=== PATIENT | female | born 1935 | race Caucasian/White ===

== ENCOUNTER → 2016-10-15 | Day surgery (SDC) | payer OTHER, MEDICARE ==
[2016-10-07 10:43] VITALS: Ht 169.5 cm; Wt 75.0 kg
[~2016-10-15] VITALS: Ht 169.5 cm; Wt 75.0 kg
[~2016-10-15] MED LIST: ACET1TAB84 PO; ASPEC81 PO; ASPI81TA28 PO; CALC1TAB9 PO; CETI10TA84 PO; CHOL1000 PO; CHOL1TAB42 PO; CHOL500021 PO; CHOLCAP10 PO; COEN150C PO; COEN1CAP17 PO; FOSAMAX IV; IPRA1AER2 INH; LIDOCAINE HCL 2% 2 ML VIAL (20MG/ML) ONE; LOSA1TAB38 PO; MECL1TAB42 PO; METO25TA3 PO; METO50TA7 PO; MULT-307 PO; MULTCHW; MULTCHW PO; NTRGSL/4 UT; OXGN; PANT40TA PO; PROPOFOL IV EMULSION 10 MG/ML 20 ML VIAL IV ONE; ROSU5TAB PO; SODIUM CHLORIDE 0.9% 500ML 500 ML IV ONE; TPRSR50 PO; WARF2.5T8 PO; ZOLE5INJ IV
--- NOTE | 2016-10-15 09:13 | Endo History and Physical ---
History & Physical Date of Service: Oct 15, 2016. Chief Complaint: History of colon polyps Referring Physician: Dr. Gonzalez History of Present Illness 81 yo CF who presents for colonoscopy secondary to history of colon polyps. Past Medical History Angioplasty/Stent, Reflux, Cancer, CHF, Hypertension, Kidney Disease Past Surgical History Hx Cardiac Surgery: Yes (HEART CATH AND STENT X3, AORTIC STENTS X2) Hx Internal Defibrillator: No Hx Pacemaker: No Hx Abdominal Surgery: No Hx of Implantable Prosthesis: No Hx Post-Op Nausea and Vomiting: No Hx Cancer Surgery: Yes (RYAN BSO) Hx Thoracic Surgery: No Hx Orthopedic: Yes (LT HIP SURGERY WITH PLATES AND SCREWS) Hx Urinary Tract Surgery: Yes (KIDNEY STENT X1) Family History None Social History Smoking Status: Former Smoker Hx Substance Use: No Hx Alcohol Use: No Allergies Coded Allergies: Atorvastatin (Verified Allergy, Severe, LEG CRAMPS, 10/07/16) Lidocaine (Verified Allergy, Mild, PASSES OUT, 10/07/16) Current Medications Reported Home Medications Medications Dose Route/Sig Max Daily Dose Days Date Category [Fosamax] 1 Dose IV YEARLY 10/07/16 Reported Zyrtec (Cetirizine HCl) 10 Mg Tab 10 Mg PO DAILY PRN 10/07/16 Reported Meclizine Hcl 25 Mg Tab 1 Tab PO TID PRN 10/07/16 Reported Tylenol Arthritis Ext Rel (Acetaminophen) 650 Mg Cplt 650 Mg PO Q8H PRN 10/07/16 Reported Co Q-10 (Coenzyme Q10 (Ubidecarenone)) 150 Mg Cap 200 Mg PO QAM 10/07/16 Reported Citracal + D3 Maximum (Calcium Citrate-Vitamin D) 1 Tab Tab 1 Tab PO BID 10/07/16 Reported Vitamin D (Cholecalciferol) 5,000 Unit Tab 1 Tab PO MWF 10/07/16 Reported Crestor (Rosuvastatin Calcium) 5 Mg Tab 0.5 Tab PO HS 10/07/16 Reported One Daily Complete (Multiple Vitamins W/ Minerals) 1 Tab Tab 1 Tab PO QAM 11/24/15 Reported Combivent Respimat (Ipratropium-Albuterol) 1 Aer Aer 1 Puffs INH QID PRN 11/24/15 Reported Toprol-Xl (Metoprolol Succinate) 25 Mg Tabcr 12.5 Mg PO QAM 08/01/15 Reported Jantoven (Warfarin Sodium) 2.5 Mg Tab 2.5 Mg PO QPM 03/11/15 Reported Cozaar (Losartan Potassium) 100 Mg Tab 100 Mg PO QAM 08/08/14 Reported Oxygen Gas 3 Liters NA HS 03/09/14 Reported Nitrostat (Nitroglycerin) 0.4 Mg Tab 0.4 Mg UT PRN 06/17/13 Reported Protonix (Pantoprazole Sodium) 40 Mg Tab 40 Mg PO HS 06/28/11 Reported Ecotrin Or Generic * (Aspirin) 81 Mg Ectab 81 Mg PO QAM 07/10/10 Reported Vital Signs Weight (Kilograms): 75 Height (Feet): 5 Height (Inches): 6.75 Physical Exam General Appearance: WD/WN, no apparent distress Respiratory/Chest: Auscultation: breath sounds normal Cardiovascular: Heart Auscultation: RRR Abdomen: Bowel Sounds: normal Inspection & Palpation: soft, non-distended, no tenderness, guarding & rebound Assessment and Plan Assessment: 81 yo CF who presents for colonoscopy secondary to history of colon polyps. Plan: Proceed with colonoscopy.
[2016-10-15 09:29] VITALS: TEMP 36.5
--- NOTE | 2016-10-15 10:23 | Discharge Instructions ---
Endoscopy Patient Instructions Date / Procedure(s) Performed Oct 15, 2016. Colonoscopy Allergy Information Coded Allergies: Atorvastatin (Verified Allergy, Severe, LEG CRAMPS, 10/15/16) Lidocaine (Verified Allergy, Mild, PASSES OUT, 10/15/16) Discharge Date / Findings Oct 15, 2016. Colon polyps Diverticulosis Internal hemorrhoids Medication Instructions Stopped Medication(s): Coumadin and ASA OK to resume all medications today as prescribed Reported Home Medications Medications Dose Route/Sig Max Daily Dose Days Date Category [Fosamax] 1 Dose IV YEARLY 10/07/16 Reported Zyrtec (Cetirizine HCl) 10 Mg Tab 10 Mg PO DAILY PRN 10/07/16 Reported Meclizine Hcl 25 Mg Tab 1 Tab PO TID PRN 10/07/16 Reported Tylenol Arthritis Ext Rel (Acetaminophen) 650 Mg Cplt 650 Mg PO Q8H PRN 10/07/16 Reported Co Q-10 (Coenzyme Q10 (Ubidecarenone)) 150 Mg Cap 200 Mg PO QAM 10/07/16 Reported Citracal + D3 Maximum (Calcium Citrate-Vitamin D) 1 Tab Tab 1 Tab PO BID 10/07/16 Reported Vitamin D (Cholecalciferol) 5,000 Unit Tab 1 Tab PO MWF 10/07/16 Reported Crestor (Rosuvastatin Calcium) 5 Mg Tab 0.5 Tab PO HS 10/07/16 Reported One Daily Complete (Multiple Vitamins W/ Minerals) 1 Tab Tab 1 Tab PO QAM 11/24/15 Reported Combivent Respimat (Ipratropium-Albuterol) 1 Aer Aer 1 Puffs INH QID PRN 11/24/15 Reported Toprol-Xl (Metoprolol Succinate) 25 Mg Tabcr 12.5 Mg PO QAM 08/01/15 Reported Jantoven (Warfarin Sodium) 2.5 Mg Tab 2.5 Mg PO QPM 03/11/15 Reported Cozaar (Losartan Potassium) 100 Mg Tab 100 Mg PO QAM 08/08/14 Reported Oxygen Gas 3 Liters NA HS 03/09/14 Reported Nitrostat (Nitroglycerin) 0.4 Mg Tab 0.4 Mg UT PRN 06/17/13 Reported Protonix (Pantoprazole Sodium) 40 Mg Tab 40 Mg PO HS 06/28/11 Reported Ecotrin Or Generic * (Aspirin) 81 Mg Ectab 81 Mg PO QAM 07/10/10 Reported Provider Instructions Activity Restrictions - No exercising or heavy lifting for 24 hours. - Do not drink alcohol the day of the procedure. - Do not drive a car or operate machinery until the day after the procedure. - Do not make any important decisions or sign important papers in 24 hours after the procedure. Following Day: - Return to full activity which may include returning to work/school. Diet Start your diet with liquids and light foods (jello, soup, juice, toast). Then eat your usual diet if not nauseated. Treatment For Common After Affects For mild abdominal pain, bloating, or excessive gas: - Rest - Eat lightly - Lie on right side Follow-Up Information Follow-up with Dr Gonzalez as scheduled Anesthesia Information What You Should Know You have had a procedure that required some medicine to reduce anxiety and discomfort. This treatment is called moderate sedation. After receiving the treatment, you may be sleepy, but you will be able to breathe on your own. The effects of the treatment may last for several hours. Follow these instructions along with Activity/Diet recommendations noted above: * Do NOT do anything where dizziness or clumsiness would be dangerous. * Rest quietly at home today, then you can be up and about tomorrow. * Have a responsible person stay with you the rest of today. * You may have had an I.V. today. If so, you may take the dressing off later today. Recommendations Call your doctor if: * Trouble breathing * Continuous vomiting for more than 24 hours * Temperature above 101 degrees * Severe abdominal pain or bloating * Pain not relieved by pain medicine ordered * There is increased drainage or redness from any incision * A large amount of rectal bleeding greater than 2-3 tablespoons. (If you had a polyp/s removed or have hemorrhoids, a small amount of blood - from the rectum is to be expected.) * You have any unanswered questions or concerns. IN THE EVENT OF A SERIOUS EMERGENCY, GO TO THE NEAREST EMERGENCY ROOM Your discharge instructions were prepared by provider Hamilton Grover. Patient Instructions Signature Page Marce Carlton Patient (or Guardian) Signature/Date: I have read and understand the instructions given to me by my caregivers. Caregiver/RN/Doctor Signature/Date: The above-named patient and/or guardian has received patient instructions on this date. + Original Patient Signature Page (only) stays with chart. Please make copy for patient.
[2016-10-15 10:47] VITALS: BP 160/69; PULSE 56; O2SAT 94
--- NOTE | 2016-10-15 10:53 | GI REPORT ---
Procedure Date: 10/15/2016 9:48 AM Procedure: Colonoscopy Indications: High risk colon cancer surveillance: Personal history of colonic polyps Medicines: Monitored Anesthesia Care Complications: No immediate complications. Estimated Blood Loss: Estimated blood loss: none. Procedure: Pre-Anesthesia Assessment: - Prior to the procedure, a History and Physical was performed, and patient medications and allergies were reviewed. The patient's tolerance of previous anesthesia was also reviewed. The risks and benefits of the procedure and the sedation options and risks were discussed with the patient. All questions were answered, and informed consent was obtained. Prior Anticoagulants: The patient last took aspirin 8 days and Coumadin (warfarin) 7 days prior to the procedure. ASA Grade Assessment: IV - A patient with severe systemic disease that is a constant threat to life. After reviewing the risks and benefits, the patient was deemed in satisfactory condition to undergo the procedure. After I obtained informed consent, the scope was passed under direct vision. Throughout the procedure, the patient's blood pressure, pulse, and oxygen saturations were monitored continuously. The scope was introduced through the anus and advanced to the terminal ileum. The colonoscopy was performed without difficulty. The patient tolerated the procedure well. The quality of the bowel preparation was good. The terminal ileum, ileocecal valve, appendiceal orifice, and rectum were photographed. Findings: Five sessile polyps were found in the transverse colon and in the ascending colon. The polyps were 5 to 8 mm in size. These polyps were removed with a hot snare. Resection and retrieval were complete. To prevent bleeding after the polypectomy, three hemostatic clips were successfully placed (MR conditional). There was no bleeding at the end of the procedure. Multiple small-mouthed diverticula were found in the sigmoid colon. Non-bleeding internal hemorrhoids were found during retroflexion. The hemorrhoids were small. Impression: - Five 5 to 8 mm polyps in the transverse colon and in the ascending colon, removed with a hot snare. Resected and retrieved. Clips (MR conditional) were placed. - Diverticulosis in the sigmoid colon. - Non-bleeding internal hemorrhoids. Recommendation: - Resume previous diet. - Continue present medications. - Repeat colonoscopy for surveillance based on pathology results. - Return to primary care physician as previously scheduled. Hamilton Grover DO 10/15/2016 10:21:01 AM This report has been signed electronically. Note Initiated On: 10/15/2016 9:48 AM I attest to the content of the Intraoperative Record and orders documented therein, exceptions below
--- NOTE | 2016-10-15 11:14 | Anesthesiology Progress Note ---
Anesthesia Post Op Note Date & Time Oct 15, 2016 at 11:14 Vital Signs Pain Intensity: 0 Vital Signs Past 12 Hours Date Time Temp Pulse Resp B/P Pulse Ox O2 Delivery O2 Flow Rate FiO2 10/15/16 10:47 56 20 160/69 94 Room Air 10/15/16 10:32 54 20 118/60 93 Room Air 10/15/16 10:17 58 20 98/46 95 Room Air 10/15/16 09:29 36.5 57 20 156/67 95 Room Air Notes Mental Status: alert / awake / arousable, participated in evaluation Pt Amnestic to Procedure: Yes Nausea / Vomiting: adequately controlled Pain: adequately controlled Airway Patency, RR, SpO2: stable & adequate BP & HR: stable & adequate Hydration State: stable & adequate Anesthetic Complications: no major complications apparent
== END | disposition home or self-care (01) ==
LOC: C.GI 08:47
PROVIDERS: ATTEND Internal Medicine
DX: Z12.11 Encounter for screening for malignant neoplasm of colon (principal); Z86.010 Personal history of colon polyps; D12.2 Benign neoplasm of ascending colon; D12.3 Benign neoplasm of transverse colon; K57.30 Diverticulosis of large intestine without perforation or abscess without bleeding; K64.8 Other hemorrhoids; K21.9 Gastro-esophageal reflux disease without esophagitis; Z79.82 Long term (current) use of aspirin; I51.9 Heart disease, unspecified; I10 Essential (primary) hypertension; Z95.5 Presence of coronary angioplasty implant and graft; Z98.890 Other specified postprocedural states; Z87.891 Personal history of nicotine dependence; Z88.8 Allergy status to other drugs, medicaments and biological substances

== ENCOUNTER 2017-01-11 09:51 | Inpatient (IN) | payer OTHER, MEDICARE ==
[~2017-01-11] VITALS: Ht 170.2 cm; Wt 73.0 kg
[~2017-01-11 09:51] MED LIST changes: -ASPI81TA28 PO; -CHOL1000 PO; -CHOL500021 PO; -CHOLCAP10 PO; -COEN1CAP17 PO; -LIDOCAINE HCL 2% 2 ML VIAL (20MG/ML) ONE; -METO50TA7 PO; -MULTCHW; -MULTCHW PO; -PROPOFOL IV EMULSION 10 MG/ML 20 ML VIAL IV ONE; -SODIUM CHLORIDE 0.9% 500ML 500 ML IV ONE; -TPRSR50 PO; -ZOLE5INJ IV
[2017-01-11] MEDS ORDERED: ONDANSETRON INJ 2 MG/ML 2 ML VIAL IV STA (10:07)
[2017-01-11] MEDS ORDERED: SODIUM CHLORIDE 0.9% 500ML 500 ML IV STA (10:07)
--- NOTE | 2017-01-11 10:13 | EMERGENCY ROOM VISIT NOTE ---
History Report prepared by Jaime: Rell Stone Under the Supervision of: Dr. Alexandro Gonzales M.D. First contact with patient: 09:56 Chief Complaint: DIZZY Stated Complaint: DIZZINESS/NAUSEA History of Present Illness The patient is a 81 year old female who presents to the Emergency Room via EMS with complaints of nausea that began last night. At this time, the patient was in her bathroom with nausea and episodes of vomiting. She got increasingly weak at this time and could not get up off of the bathroom floor. She did not fall down. She pressed her life alert necklace to alert the EMS. She is currently feeling dizzy as well. Source of History: patient Onset: last night Position: other (GI) Symptom Intensity: moderate Quality: other (Nausea) Timing: constant Associated Symptoms: + vomiting, + weakness Note: She denies any falls or trauma. She is experiencing dizziness. Review of Systems See HPI for pertinent positives & negatives. A total of 10 systems reviewed and were otherwise negative. Past Medical & Surgical Medical Problems: (1) chest pain hx of CAD stent (2) Dizziness (3) Pulmonary emphysema Family History Omitted secondary to age. Social History Smoking Status: Former Smoker Alcohol Use: none Drug Use: none Marital Status: Housing Status: lives alone Occupation Status: retired Current/Historical Medications Scheduled Aspirin (Aspirin Ec), 81 MG PO DAILY Calcium Citrate-Vitamin D (Citracal + D3 Maximum), 1 TAB PO BID Cholecalciferol (Vitamin D3), 2 TAB PO DAILY Coenzyme Q10 (Ubidecarenone) (Co Q 10), 200 MG PO DAILY Losartan Potassium (Cozaar), 100 MG PO QAM Metoprolol Succ (Toprol Xl) (Toprol-Xl), 12.5 MG PO QAM Multiple Vitamins W/ Minerals (One Daily Complete), 1 TAB PO QAM Nitroglycerin (Nitrostat), 0.4 MG UT PRN Oxygen (Oxygen), 3 LITERS NA HS Pantoprazole (Protonix), 40 MG PO HS Rosuvastatin Calcium (Crestor), 0.5 TAB PO HS Warfarin Sod (Jantoven), 2.5 MG PO HS Zoledronic Acid (Reclast), 5 MG IV YEARLY Scheduled PRN Acetaminophen (Tylenol Arthritis Ext Rel), 650 MG PO Q8H PRN for Pain Cetirizine (Zyrtec), 10 MG PO DAILY PRN for ALLERGIES Ipratropium-Albuterol (Combivent Respimat), 1 PUFFS INH QID PRN for Shortness of Breath Meclizine Hcl (Meclizine Hcl), 12.5-25 MG PO TID PRN for VERTIGO Allergies Coded Allergies: Atorvastatin (Verified Allergy, Severe, LEG CRAMPS, 01/11/17) Lidocaine (Verified Allergy, Mild, PASSES OUT, 01/11/17) Physical Exam Vital Signs Date Time Temp Pulse Resp B/P Pulse Ox O2 Delivery O2 Flow Rate FiO2 01/11/17 12:10 52 10 167/54 97 Nasal Cannula 3.0 01/11/17 11:03 47 12 154/68 96 Nasal Cannula 3.0 01/11/17 10:55 52 20 145/66 83 Room Air 01/11/17 10:08 44 172/68 53 162/68 01/11/17 10:01 45 01/11/17 09:51 93 Room Air 01/11/17 09:51 36.5 46 18 185/67 94 Room Air 01/11/17 09:51 46 Physical Exam GENERAL: Patient is a healthy-appearing well-nourished HEAD: Normocephalic atraumatic EYES: Ocular movements intact pupils equal and react to light OROPHARYNX mucous membranes are moist no exudates present no erythema or edema present NECK: Supple no nuchal rigidity CHEST: Good equal expansion LUNGS: Clear and equal to auscultation CARDIAC: Normal S1 and S2 ABDOMEN: Soft nontender no guarding BACK: No CVA tenderness EXTREMITIES: No pain upon palpation normal muscle strength in all groups no clubbing cyanosis or edema NEURO: Patient is following commands is answering questions appropriately. Alert and oriented x3 Cranial Nerves 2-12 grossly intact Medical Decision & Procedures ER Provider Diagnostic Interpretation: Radiology results as stated below per my review and radiologist interpretation: CHEST ONE VIEW PORTABLE CLINICAL HISTORY: Abdominal pain, dizziness, nausea. COMPARISON STUDY: 11/24/2015 FINDINGS: The heart is mildly enlarged. There is pulmonary emphysema. There is no focal pulmonary consolidation. There is no failure. There are no pleural effusions.[ IMPRESSION: Cardiomegaly. Emphysema. No acute findings. Electronically signed by: Rafael Moon M.D. 01/11/2017 10:22 AM Dictated Date/Time: 01/11/2017 10:[address] ABD/PELVIS IV CONTRAST ONLY CLINICAL HISTORY: Pt c/o diffuse abd pain COMPARISON STUDY: 03/26/2015 TECHNIQUE: Following the IV administration of 92 mL of Optiray-320, CT scan of the abdomen and pelvis was performed from the lung bases to the proximal femurs. Images are reviewed in the axial, sagittal, and coronal planes. IV contrast was administered without complication. CT DOSE: 318.30 mGy.cm FINDINGS: Lower chest: There are dependent atelectatic changes present. There is mild subpleural interstitial thickening. There is a small left lower lobe lung cyst. Liver: The contrast-enhanced liver is normal in size, contour, and attenuation. There is no intrahepatic biliary ductal dilatation. The hepatic veins and portal veins are patent. Gallbladder: Cholelithiasis versus minimal wall calcification. Spleen: Normal in size and attenuation. Pancreas: Unremarkable. Adrenal glands: Unremarkable. Kidneys: There is a 1 cm left renal cyst. No solid renal masses are visualized Bowel: There are no transition zones indicate bowel obstruction. There is colonic diverticulosis. No acute peridiverticular inflammatory changes are visualized. There are no findings to indicate acute appendicitis. There is a large amount stool present within the rectal vault which measures 8 cm in diameter. Peritoneum: There is no intraperitoneal free air or abdominal ascites. Vasculature: There are extensive atheromatous changes present within the aorta. There is a left renal artery stent. There is dense calcific plaque at the right renal artery origin. There is plaque at the celiac and superior mesenteric artery origins. There is aortic stent grafts present. Adenopathy: None. Pelvic viscera: The uterus appears surgically absent. Skeletal structures: No destructive osseous lesions are seen. IMPRESSION: 1. No evidence of bowel obstruction. No evidence of free air 2. Diverticulosis. No evidence of acute diverticulitis 3. No evidence of acute appendicitis 4. Large amount stool within the rectal vault Electronically signed by: Rafael Moon M.D. 01/11/2017 10:53 AM Dictated Date/Time: 01/11/2017 10:46 AM Laboratory Results 01/11/17 09:56 Red Blood Count 4.49, Mean Corpuscular Volume 91.8, Mean Corpuscular Hemoglobin 30.1, Mean Corpuscular Hemoglobin Concent 32.8, Mean Platelet Volume 9.3, Neutrophils (%) (Auto) 63.2, Lymphocytes (%) (Auto) 25.3, Monocytes (%) (Auto) 8.2, Eosinophils (%) (Auto) 2.4, Basophils (%) (Auto) 0.6, Neutrophils # (Auto) 4.25, Lymphocytes # (Auto) 1.70, Monocytes # (Auto) 0.55, Eosinophils # (Auto) 0.16, Basophils # (Auto) 0.04 01/11/17 09:56 Test 01/11/17 09:56 01/11/17 10:08 01/11/17 10:17 White Blood Count 6.72 K/uL (4.8-10.8) Red Blood Count 4.49 M/uL (4.2-5.4) Hemoglobin 13.5 g/dL (12.0-16.0) Hematocrit 41.2 % (37-47) Mean Corpuscular Volume 91.8 fL (80-100) Mean Corpuscular Hemoglobin 30.1 pg (25-34) Mean Corpuscular Hemoglobin Concent 32.8 g/dl (32-36) Platelet Count 301 K/uL (130-400) Mean Platelet Volume 9.3 fL (7.4-10.4) Neutrophils (%) (Auto) 63.2 % Lymphocytes (%) (Auto) 25.3 % Monocytes (%) (Auto) 8.2 % Eosinophils (%) (Auto) 2.4 % Basophils (%) (Auto) 0.6 % Neutrophils # (Auto) 4.25 K/uL (1.4-6.5) Lymphocytes # (Auto) 1.70 K/uL (1.2-3.4) Monocytes # (Auto) 0.55 K/uL (0.11-0.59) Eosinophils # (Auto) 0.16 K/uL (0-0.5) Basophils # (Auto) 0.04 K/uL (0-0.2) RDW Standard Deviation 43.8 fL (36.4-46.3) RDW Coefficient of Variation 13.1 % (11.5-14.5) Immature Granulocyte % (Auto) 0.3 % Immature Granulocyte # (Auto) 0.02 K/uL (0.00-0.02) Prothrombin Time 15.0 SECONDS (9.0-12.0) Prothromb Time International Ratio 1.4 (0.9-1.1) Est Creatinine Clear Calc Drug Dose 33.8 ml/min Estimated GFR () 41.0 Estimated GFR (Non- 35.4 BUN/Creatinine Ratio 14.5 (10-20) Calcium Level 8.9 mg/dl (8.5-10.1) Total Bilirubin 0.5 mg/dl (0.2-1) Direct Bilirubin 0.1 mg/dl (0-0.2) Aspartate Amino Transf (AST/SGOT) 13 U/L (15-37) Alanine Aminotransferase (ALT/SGPT) 20 U/L (12-78) Alkaline Phosphatase 67 U/L (45-117) Total Creatine Kinase 41 U/L (26-192) Creatine Kinase MB < 0.5 ng/ml (0.5-3.6) Creatine Kinase MB Ratio (0-3.0) Troponin I < 0.015 ng/ml (0-0.045) Total Protein 7.5 gm/dl (6.4-8.2) Albumin 3.5 gm/dl (3.4-5.0) Thyroid Stimulating Hormone (TSH) 3.610 uIu/ml (0.300-4.500) Bedside Glucose 118 mg/dl (70-90) Bedside Hemoglobin 13.9 g/dl (12.0-16.0) Bedside Hematocrit 41 % (37-47) Bedside Sodium 141 mEq/L (135-144) Bedside Potassium 4.1 mEq/L (3.3-5.0) Bedside Chloride 103 mEq/L (101-112) Bedside Total CO2 26 mEq/l (24-31) Anion Gap 17.0 mmol/L (16-25) Bedside Blood Urea Nitrogen 20 mg/dl (7-18) Bedside Creatinine 1.3 mg/dl (0.6-1.3) Bedside Glucose (other) 144 mg/dl (70-99) Bedside Ionized Calcium (Agustin) 1.13 mmol/l (1.12-1.32) Labs reviewed by ED physician. Medications Administered Medications (Trade) Dose Ordered Sig/Boom Route Start Time Stop Time Status Last Admin Dose Admin Sodium Chloride (Nss 500ml) 500 ml @ 999 mls/hr Q31M STAT IV 01/11/17 10:07 01/11/17 10:37 DC 01/11/17 10:07 999 MLS/HR Ondansetron HCl (Zofran Inj) 4 mg NOW STAT IV 01/11/17 10:07 01/11/17 10:10 DC 01/11/17 10:27 4 MG Metoclopramide HCl (Reglan Inj) 10 mg NOW STAT IV 01/11/17 10:53 01/11/17 10:54 DC 01/11/17 11:02 10 MG Albuterol Sulfate (Ventolin 0.5% 2.5MG/0.5ML Neb) 2.5 mg NOW STAT INH 01/11/17 11:25 01/11/17 11:26 DC 01/11/17 12:07 2.5 MG ECG Indication: nausea Rate (beats per minute): 47 Rhythm: sinus bradycardia Findings: no acute ischemic change, no ectopy ED Course 0956: Past medical records reviewed. The patient was evaluated in room B1. A complete history and physical examination was performed. 1007: Ordered Zofran Inj 4 mg IV, Sodium Chloride 500 ml @ 999 mls/hr IV 1053: Ordered Reglan Inj 10 mg IV 1125: Ordered Albuterol Sulfate 2.5 mg 1145: Upon reexamination the patient is resting. I discussed results and treatment plan with the patient. She verbalizes agreement and understanding. I spoke with Dr. Shi from the [facility] Hospitalist Service. The patient will be evaluated for further management. Medical Decision Differential diagnosis: Etiologies such as appendicitis, diverticulitis, PUD, biliary pathology, UTI, pancreatitis, obstruction, mesenteric ischemia, aortic pathology, infections, inflammatory bowel disease, renal colic, as well as others were entertained. This is an 81-year-old female who presents emergency department complaining of multiple complaints including nausea vomiting and dizziness. The patient appears to be having these episodes corresponding with symptomatic bradycardia on the monitor. The patient's heart rate dropped into the 40s and she appears to either go into a second-degree or third-degree block. She then converted into a first-degree block according to the rhythm strip. She has normal CBC normal renal profile normal liver profile. The patient was sent for CAT scan of the abdomen which was concerning for constipation. The patient was given normal saline bolus here in the emergency department. I did discuss the case with the hospitalist service who agreed to admit the patient. Patient was in agreement with the treatment plan. Consults Time Called: 1140 Consulting Physician: Dr. Yuridia PHILIP Returned Call: [phone] He will be evaluating the patient for further management. Impression Primary Impression: Symptomatic bradycardia Scribe Attestation The scribe's documentation has been prepared under my direction and personally reviewed by me in its entirety. I confirm that the note above accurately reflects all work, treatment, procedures, and medical decision making performed by me. Departure Information Dispostion Being Evaluated By Hospitalist Maximus Santos M.D. (PCP) Patient Instructions My [facility]
[2017-01-11] MEDS ORDERED: OPTIRAY 320 IV PRN (10:15)
--- NOTE | 2017-01-11 10:24 | DIAGNOSTIC IMAGING REPORT ---
CHEST ONE VIEW PORTABLE CLINICAL HISTORY: Abdominal pain, dizziness, nausea. COMPARISON STUDY: 11/24/2015 FINDINGS: The heart is mildly enlarged. There is pulmonary emphysema. There is no focal pulmonary consolidation. There is no failure. There are no pleural effusions.[ IMPRESSION: Cardiomegaly. Emphysema. No acute findings. Electronically signed by: Rafael Moon M.D. 01/11/2017 10:22 AM Dictated Date/Time: 01/11/2017 10:22 AM
[2017-01-11] MEDS ORDERED: ZOLE5INJ IV (10:28)
[2017-01-11] MEDS ORDERED: ASPI81TA28 PO (10:28)
[2017-01-11 10:30] LABS: ISTAT CREATININE 1.3 mg/dl (0.6-1.3); ISTAT HEMOGLOBIN 13.9 g/dl (12.0-16.0); ISTAT IONIZED CALCIUM 1.13 mmol/l (1.12-1.32)
[2017-01-11] MEDS ORDERED: COEN1CAP17 PO (10:34)
[2017-01-11] MEDS ORDERED: CHOL1000 PO (10:34)
[2017-01-11 10:50] LABS: BASO % 0.6 %; BASO ABS # 0.04 K/uL (0-0.2); COMPLETE YES; EOS % 2.4 %; HEMATOCRIT 41.2 % (37-47); IG% 0.3 %; LYMPH % 25.3 %; MEAN CELL VOLUME 91.8 fL (80-100); MEAN CORPUSCULAR HEMOGLOBIN 30.1 pg (25-34); MEAN CORPUSCULAR HGB CONC 32.8 g/dl (32-36); MEAN PLATELET VOLUME 9.3 fL (7.4-10.4); MONO % 8.2 %; NEUT % 63.2 %; PLATELET COUNT 301 K/uL (130-400); RED BLOOD COUNT 4.49 M/uL (4.2-5.4); WHITE BLOOD COUNT 6.72 K/uL (4.8-10.8)
[2017-01-11] MEDS ORDERED: METOCLOPRAMIDE HCL INJ 5 MG/ML 2 ML VIAL IV STA (10:53)
--- NOTE | 2017-01-11 10:54 | DIAGNOSTIC IMAGING REPORT ---
CT ABD/PELVIS IV CONTRAST ONLY CLINICAL HISTORY: Pt c/o diffuse abd pain COMPARISON STUDY: 03/26/2015 TECHNIQUE: Following the IV administration of 92 mL of Optiray-320, CT scan of the abdomen and pelvis was performed from the lung bases to the proximal femurs. Images are reviewed in the axial, sagittal, and coronal planes. IV contrast was administered without complication. CT DOSE: 318.30 mGy.cm FINDINGS: Lower chest: There are dependent atelectatic changes present. There is mild subpleural interstitial thickening. There is a small left lower lobe lung cyst. Liver: The contrast-enhanced liver is normal in size, contour, and attenuation. There is no intrahepatic biliary ductal dilatation. The hepatic veins and portal veins are patent. Gallbladder: Cholelithiasis versus minimal wall calcification. Spleen: Normal in size and attenuation. Pancreas: Unremarkable. Adrenal glands: Unremarkable. Kidneys: There is a 1 cm left renal cyst. No solid renal masses are visualized Bowel: There are no transition zones indicate bowel obstruction. There is colonic diverticulosis. No acute peridiverticular inflammatory changes are visualized. There are no findings to indicate acute appendicitis. There is a large amount stool present within the rectal vault which measures 8 cm in diameter. Peritoneum: There is no intraperitoneal free air or abdominal ascites. Vasculature: There are extensive atheromatous changes present within the aorta. There is a left renal artery stent. There is dense calcific plaque at the right renal artery origin. There is plaque at the celiac and superior mesenteric artery origins. There is aortic stent grafts present. Adenopathy: None. Pelvic viscera: The uterus appears surgically absent. Skeletal structures: No destructive osseous lesions are seen. IMPRESSION: 1. No evidence of bowel obstruction. No evidence of free air 2. Diverticulosis. No evidence of acute diverticulitis 3. No evidence of acute appendicitis 4. Large amount stool within the rectal vault Electronically signed by: Rafael Moon M.D. 01/11/2017 10:53 AM Dictated Date/Time: 01/11/2017 10:46 AM
[2017-01-11 11:00] LABS: INR 1.4 (0.9-1.1)
[2017-01-11 11:01] LABS: ALT/SGPT 20 U/L (12-78); AST/SGOT 13 U/L (15-37); BLOOD UREA NITROGEN 20 mg/dl (7-18); BUN/CREATININE RATIO 14.5 (10-20); CALCIUM 8.9 mg/dl (8.5-10.1); CARBON DIOXIDE 30 mmol/L (21-32); CHLORIDE 106 mmol/L (98-107); GLUCOSE 139 mg/dl (70-99); POTASSIUM 4.1 mmol/L (3.5-5.1); SODIUM 143 mmol/L (136-145)
[2017-01-11 11:12] LABS: ALKALINE PHOSPHATASE 67 U/L (45-117)
[2017-01-11] MEDS ORDERED: ALBUTEROL 0.5% NEB SOLN 2.5 MG/0.5 ML VIAL INH STA (11:25)
[2017-01-11] MEDS ORDERED: POLYETHYLENE (MIRALAX) 17 GM PACK PO PRN (13:00)
[2017-01-11] MEDS ORDERED: MAGNESIUM HYDROXIDE SUSP 30 ML UDC PO PRN (13:00)
[2017-01-11] MEDS ORDERED: MECLIZINE HCL 12.5 MG TAB PO PRN (13:00)
[2017-01-11] MEDS ORDERED: ALUMINUM/MAGNESIUM/SIMETH (MAALOX MAX) 30 ML UDC PO PRN (13:00)
[2017-01-11] MEDS ORDERED: IPRATROPIUM BROMIDE/ALBUTEROL respimat INH INH PRN (13:00)
[2017-01-11] MEDS ORDERED: NITROGLYCERIN 0.4 MG SL PER TAB CHARGE UT SCH (13:00)
--- NOTE | 2017-01-11 13:13 | History and Physical ---
History & Physical Date & Time of Service: January 11, 2017 at 12:38 Chief Complaint: Dizziness/Nausea Primary Care Physician: Maximus Gonzalez M.D. Past Medical/Surgical History Medical Problems: (1) Pulmonary emphysema Status: Chronic Social History Smoking Status: Former Smoker Drug Use: none Marital Status: Housing status: lives alone Occupational Status: retired Immunizations History of Influenza Vaccine: Yes Influenza Vaccine Date: Jun 20, 2013 History of Tetanus Vaccine?: unk History of Pneumococcal: Yes Pneumococcal Date: Jun 20, 2011 History of Hepatitis B Vaccine: No Multi-Drug Resistant Organisms History of MDRO: No Allergies Coded Allergies: Atorvastatin (Verified Allergy, Severe, LEG CRAMPS, 01/11/17) Lidocaine (Verified Allergy, Mild, PASSES OUT, 01/11/17) Home Medications Scheduled Aspirin (Aspirin Ec), 81 MG PO DAILY Calcium Citrate-Vitamin D (Citracal + D3 Maximum), 1 TAB PO BID Cholecalciferol (Vitamin D3), 2 TAB PO DAILY Coenzyme Q10 (Ubidecarenone) (Co Q 10), 200 MG PO DAILY Losartan Potassium (Cozaar), 100 MG PO QAM Metoprolol Succ (Toprol Xl) (Toprol-Xl), 12.5 MG PO QAM Multiple Vitamins W/ Minerals (One Daily Complete), 1 TAB PO QAM Nitroglycerin (Nitrostat), 0.4 MG UT PRN Oxygen (Oxygen), 3 LITERS NA HS Pantoprazole (Protonix), 40 MG PO HS Rosuvastatin Calcium (Crestor), 0.5 TAB PO HS Warfarin Sod (Jantoven), 2.5 MG PO HS Zoledronic Acid (Reclast), 5 MG IV YEARLY Scheduled PRN Acetaminophen (Tylenol Arthritis Ext Rel), 650 MG PO Q8H PRN for Pain Cetirizine (Zyrtec), 10 MG PO DAILY PRN for ALLERGIES Ipratropium-Albuterol (Combivent Respimat), 1 PUFFS INH QID PRN for Shortness of Breath Meclizine Hcl (Meclizine Hcl), 12.5-25 MG PO TID PRN for VERTIGO Physical Exam Vital Signs Date Time Temp Pulse Resp B/P Pulse Ox O2 Delivery O2 Flow Rate FiO2 01/11/17 12:10 52 10 167/54 97 Nasal Cannula 3.0 01/11/17 11:03 47 12 154/68 96 Nasal Cannula 3.0 01/11/17 10:55 52 20 145/66 83 Room Air 01/11/17 10:08 44 172/68 53 162/68 01/11/17 10:01 45 01/11/17 09:51 93 Room Air 01/11/17 09:51 36.5 46 18 185/67 94 Room Air 01/11/17 09:51 46 Diagnostics Laboratory Results Results Past 24 Hours Test 01/11/17 09:56 01/11/17 10:08 01/11/17 10:17 Range/Units White Blood Count 6.72 4.8-10.8 K/uL Red Blood Count 4.49 4.2-5.4 M/uL Hemoglobin 13.5 12.0-16.0 g/dL Hematocrit 41.2 37-47 % Mean Corpuscular Volume 91.8 80-100 fL Mean Corpuscular Hemoglobin 30.1 25-34 pg Mean Corpuscular Hemoglobin Concent 32.8 32-36 g/dl Platelet Count 301 130-400 K/uL Mean Platelet Volume 9.3 7.4-10.4 fL Neutrophils (%) (Auto) 63.2 % Lymphocytes (%) (Auto) 25.3 % Monocytes (%) (Auto) 8.2 % Eosinophils (%) (Auto) 2.4 % Basophils (%) (Auto) 0.6 % Neutrophils # (Auto) 4.25 1.4-6.5 K/uL Lymphocytes # (Auto) 1.70 1.2-3.4 K/uL Monocytes # (Auto) 0.55 0.11-0.59 K/uL Eosinophils # (Auto) 0.16 0-0.5 K/uL Basophils # (Auto) 0.04 0-0.2 K/uL RDW Standard Deviation 43.8 36.4-46.3 fL RDW Coefficient of Variation 13.1 11.5-14.5 % Immature Granulocyte % (Auto) 0.3 % Immature Granulocyte # (Auto) 0.02 0.00-0.02 K/uL Prothrombin Time 15.0 9.0-12.0 SECONDS Prothromb Time International Ratio 1.4 0.9-1.1 Sodium Level 143 136-145 mmol/L Potassium Level 4.1 3.5-5.1 mmol/L Chloride Level 106 98-107 mmol/L Carbon Dioxide Level 30 21-32 mmol/L Anion Gap 7.0 17.0 16-25 mmol/L Blood Urea Nitrogen 20 7-18 mg/dl Creatinine 1.40 0.60-1.20 mg/dl Est Creatinine Clear Calc Drug Dose 33.8 ml/min Estimated GFR () 41.0 Estimated GFR (Non- 35.4 BUN/Creatinine Ratio 14.5 10-20 Random Glucose 139 70-99 mg/dl Calcium Level 8.9 8.5-10.1 mg/dl Total Bilirubin 0.5 0.2-1 mg/dl Direct Bilirubin 0.1 0-0.2 mg/dl Aspartate Amino Transf (AST/SGOT) 13 15-37 U/L Alanine Aminotransferase (ALT/SGPT) 20 12-78 U/L Alkaline Phosphatase 67 45-117 U/L Total Creatine Kinase 41 26-192 U/L Creatine Kinase MB < 0.5 0.5-3.6 ng/ml Creatine Kinase MB Ratio 0-3.0 Troponin I < 0.015 0-0.045 ng/ml Total Protein 7.5 6.4-8.2 gm/dl Albumin 3.5 3.4-5.0 gm/dl Thyroid Stimulating Hormone (TSH) 3.610 0.300-4.500 uIu/ml Bedside Glucose 118 70-90 mg/dl Bedside Hemoglobin 13.9 12.0-16.0 g/dl Bedside Hematocrit 41 37-47 % Bedside Sodium 141 135-144 mEq/L Bedside Potassium 4.1 3.3-5.0 mEq/L Bedside Chloride 103 101-112 mEq/L Bedside Total CO2 26 24-31 mEq/l Bedside Blood Urea Nitrogen 20 7-18 mg/dl Bedside Creatinine 1.3 0.6-1.3 mg/dl Bedside Glucose (other) 144 70-99 mg/dl Bedside Ionized Calcium (Agustin) 1.13 1.12-1.32 mmol/l Impression Assessment and Plan obs #[id number] VTE Prophylaxis VTE Risk Assessment Done? Y/N: Yes Risk Level: Moderate
[2017-01-11] MEDS ORDERED: IV FLUIDS COMPLETED PRN (13:15)
--- NOTE | 2017-01-11 13:43 | HISTORY & PHYSICAL EXAMINATION ---
DATE OF ADMISSION: 01/11/2017 CHIEF COMPLAINT: Abdominal pain and nausea as well as a degree of lightheaded dizziness. HISTORY OF PRESENT ILLNESS: The patient is a very pleasant 81-year-old female accompanied by her daughter. She went to bed feeling relatively well, it sounds like last night and then woke up this morning with lower abdominal pain, was fairly intense. It was accompanied by nausea and a degree of lightheadedness. It was so intense that she actually ended up having to curl up on the floor, could not get up, used her Life Alert button to summon help and was brought here for further evaluation. She is now feeling much better. No abdominal pain, no lightheadedness, no real dizziness. It is unclear exactly what caused her symptoms to go away, but because of concern of her bradycardia we were asked to see her for further evaluation and treatment. REVIEW OF SYSTEMS: Otherwise negative, except for as above. PAST MEDICAL HISTORY: Includes anemia, abdominal aortic aneurysm with atherosclerosis, atrial fibrillation, coronary artery disease, carotid artery disease, chronic kidney disease approximately stage III, COPD with emphysema, GERD, hyperlipidemia, hyperparathyroidism, impaired fasting glucose, osteoporosis, pulmonary fibrosis, renal artery stenosis, and vertigo. MEDICATIONS: Aspirin 81 mg daily, Centrum Silver daily, Combivent 20/100 q.i.d., Crestor 2.5 mg at bedtime, losartan 100 mg daily, meclizine 12.5-25 mg t.i.d. p.r.n. vertigo, Topral XL 12.5 mg daily, nitroglycerin 0.5 under the tongue p.r.n. chest pain, omega-3 fatty acids 1000 mg daily, Os-Olvin plus D 500 b.i.d., oxygen 3 liters at bedtime, Protonix 40 mg daily, Tylenol 650 q. 4 p.r.n. pain, vitamin D listed as 5000 International units on her home med rec that the daughter has with her daily, Coumadin currently 2.5 mg at bedtime, Reclast 5 mg annually and Zyrtec p.r.n.
--- NOTE | 2017-01-11 13:53 | HISTORY & PHYSICAL EXAMINATION ---
DATE OF ADMISSION: 01/11/2017 ADDENDUM TO HISTORY AND PHYSICAL PAST SURGICAL HISTORY: Includes abdominal aortic dissection repair, cataract surgery, colonoscopy, prior heart surgery, hip surgery, thyroid surgery, hysterectomy and bilateral endarterectomy. FAMILY HISTORY: Brother with alcoholism, sister with aFib. There is also heart disease and diabetes. SOCIAL HISTORY: No significant alcohol use. She is a former smoker. She is and retired. ALLERGIES: LISTED ATORVASTATIN AND LIDOCAINE. PHYSICAL EXAMINATION: VITAL SIGNS: Her initial vitals showed a temp 36.5, pulse 46, respiratory rate 18, blood pressure 185/67, pulse ox 93-94% on room air. She has later listed once as 83% on room air and then she is 96-97% on 3 liters. GENERAL: She is awake, alert, oriented x3, pleasant, in no acute distress. HEENT: Normocephalic, atraumatic. Mucous membranes are moist. CARDIOVASCULAR: Regular, bradycardic. No rubs, murmurs, or gallops. LUNGS: Clear to auscultation bilaterally. No rales, rhonchi, or wheezes with good effort. ABDOMEN: Soft. She has mild to moderate left mid and left lower quadrant tenderness with no guarding, rebound, rigidity, no masses or organomegaly. EXTREMITIES: Without cyanosis, clubbing or edema. No calf tenderness. SKIN: Shows no rashes, no pallor or icterus. NEUROLOGIC: Shows cranial nerves II-XII to be grossly intact. Gross motor and sensory are intact. SKIN: Shows no rashes, no pallor or icterus. MENTAL STATE: Good recent and remote recall. Normal mood and affect. Good judgment and insight. MUSCULOSKELETAL: Shows no gross lesions. LABORATORIES AND DIAGNOSTICS: Her EKG shows what appears to be sinus roberth. Her rhythm strip had a degree of irregularity too and a question of intermittent blocked P waves, but it was a somewhat poor electricity and a bit of a difficult to interpret tracing. CBC shows a white count of 6.72, hemoglobin 13.5, platelets 301. Complete metabolic panel with sodium 143, potassium 4.1, chloride 106, CO2 30, BUN 20, creatinine 1.4. Calcium 8.9, glucose 139, total bili 0.5 with a direct of 0.1, AST 13, ALT 20, alkaline phosphatase 67. CK total of 41 with an MB of less than 0.5, troponin less than 0.015. TSH 3.61. Total protein 7.5, albumin 3.5. PT 15, INR of 1.4. Chest x-ray with cardiomegaly and emphysema, no acute findings. CT abdomen and pelvis with no evidence of bowel obstruction, no free air, diverticulosis with no diverticulitis, no evidence of appendicitis, but a large amount of stool within the rectal vault. ASSESSMENT AND PLAN: 1. Abdominal pain. This appears to be on the basis of constipation. We discussed the means of improving this and after discussion, we will proceed with MiraLax in successive doses up to 4 doses back to back until it appears that she has had adequate bowel movements, if we should fail, we will proceed to an enema. 2. Dizziness with bradycardia. It is a bit difficult to discern exactly what is going on with her bradycardia, certainly her rhythm strip appears to be a bit slow and irregular, whether it is that she had a paroxysm of atrial fibrillation that was bradycardic versus P-wave the were not getting conducted and is a bit difficult to tell with the low electricity on the rhythm strip. Will be holding her metoprolol, having her on continuous cardiac monitoring and asking cardiology to see her as well. 3. Coronary artery disease. Continue her home meds except for her metoprolol. 4. Chronic obstructive pulmonary disease. Continue her home inhalers. 5. Deep venous thrombosis prophylaxis. Anticoagulation as it relates to her atrial fibrillation. Obviously, she is somewhat subtherapeutic, will increase the Coumadin. 6. Atrial fibrillation, see above. In regards to her rhythm, certainly now she is mildly bradycardic. We will be holding her metoprolol and increasing her Coumadin somewhat.
[2017-01-11 13:55] VITALS: BP 171/68; PULSE 65; TEMP 36.6; O2SAT 96; Ht 170.2 cm; Wt 73.0 kg
[2017-01-11] MEDS ORDERED: POLYETHYLENE (MIRALAX) 17 GM PACK PO SCH (14:00)
[2017-01-11] MEDS ORDERED: LOSARTAN POTASSIUM 50 MG TAB PO ONE (14:45)
[2017-01-11] MEDS ORDERED: NURSING VERBAL MED ORDER ONE (15:15)
[2017-01-11] MEDS ORDERED: POLYETHYLENE (MIRALAX) 17 GM PACK PO ONE (15:45)
[2017-01-11 16:00] VITALS: BP 161/78; PULSE 57; TEMP 36.4; O2SAT 97
[2017-01-11] MEDS ORDERED: WARFARIN SOD 5 MG TAB PO ONE (16:00)
[2017-01-11] MEDS ORDERED: WARFARIN SOD 2.5 MG TAB PO SCH (16:00)
[2017-01-11 19:12] VITALS: BP 169/79; PULSE 60; TEMP 37; O2SAT 96
[2017-01-11] MEDS: ROSUVASTATIN CALCIUM 5 MG TAB PO SCH (19:39)
[2017-01-11] MEDS: PANTOprazole SOD 40 MG TAB PO SCH (19:40)
[2017-01-11] MEDS: CALCIUM 600MG + VIT D 400 IU TAB PO SCH (19:40)
[2017-01-11] MEDS: ACETAMINOPHEN 325 MG TAB PO PRN (19:42)
[2017-01-11 23:48] VITALS: BP 109/64; PULSE 100; TEMP 37.1; O2SAT 92
[2017-01-12] VITALS (11 sets, daily range): BP systolic 127–206; BP diastolic 68–79; PULSE 51–93; TEMP 36.4–36.8; O2SAT 91–95
[2017-01-12 05:15] LABS: URINE APPEARANCE CLEAR (CLEAR); URINE BILIRUBIN NEG (NEG); URINE COLOR YELLOW; URINE EPITHELIAL CELL AUTO >30 /lpf (0-5); URINE NITRITE NEG (NEG); UROBILINOGEN NEG (NEG)
[2017-01-12 05:34] LABS: MANUAL MICROSCOPIC REQUIRED? NO; REVIEW REQ? NO
[2017-01-12 07:24] LABS: INR 1.8 (0.9-1.1); PROTHROMBIN TIME (PATIENT) 19.2 SECONDS (9.0-12.0)
[2017-01-12] MEDS: CALCIUM 600MG + VIT D 400 IU TAB PO SCH ×2 (07:32→20:49)
[2017-01-12] MEDS: ACETAMINOPHEN 325 MG TAB PO PRN (07:32)
[2017-01-12] MEDS: CEROVITE ADV FORMULA TAB PO SCH (07:33)
[2017-01-12] MEDS: ASPIRIN 81 MG ECTAB PO SCH (07:33)
[2017-01-12] MEDS: CHOLECALCIFEROL 1000 INTER.UNIT TAB PO SCH (07:33)
[2017-01-12] MEDS: LOSARTAN POTASSIUM 50 MG TAB PO SCH (07:34)
[2017-01-12] MEDS ORDERED: NON-FORMULARY MEDICATION (Coenzyme Q10 (Ubidecarenone) (Co Q 10) 200 MG) PO SCH (09:00)
--- NOTE | 2017-01-12 10:39 | CARDIOLOGY CONSULTATION ---
DATE OF CONSULTATION: 01/12/2017 REFERRING PHYSICIAN: Dr. Shi. INDICATIONS: Bradycardia. HISTORY OF PRESENT ILLNESS: The patient is a very complex 81-year-old female whose past medical history is notable for paroxysmal atrial fibrillation, on chronic anticoagulation with Coumadin, atherosclerotic coronary artery disease, status post prior multiple stent intervention to the proximal and mid right coronary artery in 2009, with followup cardiac catheterization in 2011 without obstructive disease and patent stents with essentially single vessel disease, history of atherosclerotic peripheral vascular disease, status post endovascular abdominal aneurysm repair in 2010, as well as left renal artery stent in 2013. Underlying medical problems include preserved LV systolic function with mild to moderate mitral insufficiency, dyslipidemia, hypertension, and multinodular goiter. The patient recently was evaluated for diverticular disease and underwent colonoscopy in 10/2016. The patient presents this admission, however, having developed acute nausea and abdominal cramping, followed by marked dizziness and lightheadedness, slumping to the floor, note she was unable to arise due to marked weakness with associated symptoms of dizziness and lightheadedness. She was summoned help via [employer] and was brought to the Emergency Room. Her initial EKG demonstrated marked sinus bradycardia, monitor demonstrated 1-2 episodes of short AV disassociation. She has since been referred for further evaluation. Beta blockers have been held. The patient continues to demonstrate sinus bradycardia with intermittent atrial foci as well as one short run of atrial fibrillation since admission. This morning the patient notes having had a large bowel movement. Notes no further abdominal pain or nausea. Notes no dizziness or lightheadedness. Notes no chest pain. On further review of systems, notes no headache or visual changes. Notes no fevers, chills or productive cough. Notes no melena or hematochezia. Notes no dysuria or hematuria. Notes no edema. Is relatively sedentary about her home and is compliant and accurate with home medications. REVIEW OF SYSTEMS: Otherwise negative. ALLERGIES: ATORVASTATIN, LIDOCAINE. MEDICATIONS: Per outpatient list were warfarin with variable dosing and essentially 2.5 mg at bedtime, Crestor 2.5 mg at bedtime, Reclast yearly, Protonix 40 mg at bedtime, oxygen 3 liters nasal cannula, multivitamin per day, Toprol-XL 12.5 mg q.a.m., losartan 100 mg p.o. q.a.m., coenzyme Q10 200 mg p.o. every day, Combivent inhaler, vitamin D3, Zyrtec, calcium with vitamin D supplement, aspirin 81 mg per day. PAST SURGICAL HISTORY: As noted per HPI with prior endovascular abdominal aneurysm repair, cataract surgeries, past right thyroid lobectomy 2013. FAMILY HISTORY: Notable for atrial fibrillation and heart disease. SOCIAL HISTORY: The patient is a nonsmoker times multiple years. She is sedentary about her home on a single floor. PHYSICAL EXAMINATION: VITAL SIGNS: Heart rate is 42, blood pressure is 151/72. HEENT: Normocephalic, atraumatic. Nares without discharge. NECK: Thin. There are no audible bruits. There is no jugular venous distention. LUNGS: Clear with mildly diminished breath sounds diffusely. CARDIOVASCULAR: Regular, bradycardic. There is no S3 gallop. ABDOMEN: Soft. No tenderness to deep palpation. EXTREMITIES: Without cyanosis or clubbing. There is no peripheral edema. There are intact distal pulses. DATA: EKG on presentation as noted demonstrates sinus bradycardia with nonspecific ST-segment abnormalities, prominent U waves. LABORATORY STUDIES: Hemoglobin is 13.9, white cell count 6.7. INR this morning was 1.8. IMPRESSION: An 81-year-old female with complex history of vascular disease, paroxysmal atrial fibrillation, presents after a near syncopal spell with acute weakness, found to be markedly bradycardic on presentation. The patient does note having had strong issues with vagal issues in the past, though is significantly bradycardic and has remained so since admission despite very low dose beta-saeid being held. She has had 1 short run of atrial fibrillation, reflecting probable tachybrady component, discussed findings in detail. We will place consult to Dr. Rice who has met her in the past for consideration of dual-chamber pacemaker insertion. We will keep n.p.o. after midnight and hold warfarin. The patient is agreeable to the plan. MOLLY
--- NOTE | 2017-01-12 11:35 | Cardiology Consultation ---
Cardiology Consultation Date of Consultation: January 12, 2017. Requesting Physician: Dr. Campos Reason for Consultation: Tachybradycardia syndrome Pt evaluation today including: conversation w/ patient, conversation w/ family , physical exam, lab review, review of studies, conversation w/ gift consultant, review of inpatient medication list History of Present Illness This is a very pleasant 81-year-old woman with a long history of paroxysmal atrial fibrillation for which she is on warfarin anticoagulation. She also has coronary artery disease including intervention in the past, she has vascular disease including an abdominal aortic aneurysm repair in 2010 and renal artery stenting in 2013. She has had a very long history of intermittent lightheadedness and dizziness as well as occasional episodes of possible loss of consciousness. It has not been clear as to what the etiology of these was. In the past on increasing doses of beta blockade it appears that the symptoms worsened, she has some history of possible vagal episodes but I don't believe that has ever been proven. She presents now with dizziness and lightheadedness as well as an episode of extreme weakness where she could not arise from the floor and had symptoms of dizziness and lightheadedness at the time. Electrocardiography by the rescue department demonstrated marked sinus bradycardia (initial electrocardiogram here with a heart rate of 47 bpm). She was on low-dose beta-blockade due to her paroxysmal atrial fibrillation, this was held. She was admitted on 01/11/2017 and placed on telemetry. Today she feels well in general, she notes that her heart rate is slow at times. She has not had palpitations, lightheadedness or dizziness today. Past Medical/Surgical History (1) Atrial fibrillation (2) Symptomatic bradycardia (3) Gastroesophageal reflux disease Social History Smoking Status: Former Smoker History of Alcohol Use: No Review of Systems Constitutional: No fever, No weakness, No weight loss Respiratory: No cough, No dyspnea on exertion, No shortness of breath, No wheezing Cardiac: + problem reported (near syncope), + see HPI, No PND, No chest pain, No edema, No orthopnea, No palpitations Abdomen: No GI bleeding, No diarrhea, No nausea, No pain, No vomiting Female : No problem reported Neurologic: No balance problems, No numbness/tingling, No paralysis, No weakness Heme: No abnormal bleeding/bruising, No clotting problems Endo: No fatigue Skin: No problem reported All Other Systems: Reviewed and Negative Allergies Coded Allergies: Atorvastatin (Verified Allergy, Severe, LEG CRAMPS, 01/11/17) Lidocaine (Verified Allergy, Mild, PASSES OUT, 01/11/17) Medications Current Inpatient Medications Medications (Trade) Dose Ordered Sig/Boom Route Start Time Stop Time Status Last Admin Dose Admin Ioversol (Optiray 320) 111 ml UD PRN IV 01/11/17 10:15 01/15/17 10:14 Acetaminophen (Tylenol Tab) 650 mg Q4H PRN PO 01/11/17 13:00 02/10/17 12:59 01/12/17 07:32 650 MG Al Hydrox/Mg Hydrox/Simethicone (Maalox Max Susp) 15 ml Q4H PRN PO 01/11/17 13:00 02/10/17 12:59 Magnesium Hydroxide (Milk Of Magnesia Susp) 30 ml Q12H PRN PO 01/11/17 13:00 02/10/17 12:59 Ondansetron HCl (Zofran Inj) 4 mg Q6H PRN IV 01/11/17 13:00 02/10/17 12:59 Polyethylene (Miralax Powder Packet) 17 gm DAILY PRN PO 01/11/17 13:00 02/10/17 12:59 Aspirin (Ecotrin Tab) 81 mg DAILY PO 01/12/17 09:00 02/11/17 08:59 01/12/17 07:33 81 MG Cetirizine HCl (zyrTEC TAB) 10 mg DAILY PRN PO 01/11/17 13:00 02/10/17 12:59 Cholecalciferol (Vitamin D Tab) 5,000 inter.unit DAILY PO 01/12/17 09:00 02/11/17 08:59 01/12/17 07:33 5,000 INTER.UNIT Albuterol/ Ipratropium (Combivent Respimat Inh) 1 puffs QID PRN INH 01/11/17 13:00 02/10/17 12:59 Losartan Potassium (coZAAR TAB) 100 mg QAM PO 01/12/17 09:00 02/11/17 08:59 01/12/17 07:34 100 MG Meclizine HCl (Antivert Tab) 12.5 mg TID PRN PO 01/11/17 13:00 02/10/17 12:59 Multivitamins/ Minerals (Multivitamin W/ Minerals Tab) 1 tab QAM PO 01/12/17 09:00 02/11/17 08:59 01/12/17 07:33 1 TAB Nitroglycerin (Nitrostat Tab) 0.4 mg PRN UT 01/11/17 13:00 02/10/17 12:59 Pantoprazole Sodium (Protonix Tab) 40 mg HS PO 01/11/17 21:00 02/10/17 20:59 01/11/17 19:40 40 MG Rosuvastatin Calcium (Crestor Tab) 2.5 mg HS PO 01/11/17 21:00 02/10/17 20:59 01/11/17 19:39 2.5 MG Warfarin Sodium (Coumadin Tab) 2.5 mg DAILY@1600 PO 01/11/17 16:00 02/10/17 15:59 Future Hold 01/11/17 16:46 2.5 MG Calcium/Vitamin D (Caltrate Plus Tab) 1 tab BID PO 01/11/17 21:00 02/10/17 20:59 01/12/17 07:32 1 TAB Miscellaneous (Iv Fluids Completed) 1 ea PRN PRN N/A 01/11/17 13:15 01/11/18 13:14 Physical Exam Vital Signs Past 12 Hours Date Time Temp Pulse Resp B/P Pulse Ox O2 Delivery O2 Flow Rate FiO2 01/12/17 08:09 36.7 93 20 134/72 94 Nasal Cannula 3.0 66 155/79 77 151/72 01/12/17 08:00 94 Room Air 01/12/17 07:38 36.7 59 18 134/72 95 Nasal Cannula 3.0 66 77 01/12/17 04:03 36.7 51 19 151/70 94 Nasal Cannula 3.0 56 136/74 66 127/70 01/12/17 04:00 Nasal Cannula 3.0 01/11/17 23:59 Nasal Cannula 3.0 01/11/17 23:48 37.1 100 18 109/64 92 Nasal Cannula 3.0 Constitutional: General Apperance: heathly-appearing Level of Distress: NAD Psychiatric: Mental Status: active & alert Head: normocephalic Eyes: EOM: EOMI ENMT: normal ENT inspection, hearing grossly normal Neck: supple, no masses Lungs: Respiratory effort: no dyspnea, good air movement Auscultation: breath sounds normal, no wheezing Cardiovascular: Heart Auscultation: RRR, no murmurs, no rubs, no gallops, bradycardia Peripheral Pulses: Bruits: none appreciated Abdomen: Bowel Sounds: normal Inspection & Palpation: soft, no tenderness, guarding & rebound, no masses Musculoskeletal: normal strength (5/5 throughout) Extremities: no edema Neurologic: Cranial Nerves: grossly intact Sensation: grossly intact Data Laboratory Results: Last 24 Hours Test 01/12/17 05:00 01/12/17 06:02 Urine Color YELLOW Urine Appearance CLEAR Urine pH 5.0 Urine Specific [place] 1.040 Urine Protein NEG Urine Glucose (UA) NEG Urine Ketones NEG Urine Occult Blood NEG Urine Nitrite NEG Urine Bilirubin NEG Urine Urobilinogen NEG Urine Leukocyte Esterase SMALL Urine WBC (Auto) 10-30 /hpf Urine RBC (Auto) 0-4 /hpf Urine Hyaline Casts (Auto) 1-5 /lpf Urine Epithelial Cells (Auto) >30 /lpf Urine Bacteria (Auto) NEG Prothrombin Time 19.2 SECONDS Prothromb Time International Ratio 1.8 EKG: Sinus bradycardia heart rate 47 on admission, no acute changes Telemetry reviewed: Sinus bradycardia predominantly, heart rate in the high 40s and low 50s primarily. Heart rate has not improved much since admission with holding beta blockade Assessment & Plan #1. Sinus bradycardia: She has long-standing sinus bradycardia, the rate has not been low enough that we have felt that a pacemaker was clearly indicated however she has had symptoms consistent with bradycardia. She presents now with a prolonged episode of near syncope and associated bradycardia, although again the specific cause and effect are difficult to coordinate. Her heart rate remains low however, off of beta-blockade, which is certainly consistent with sinus node dysfunction. Her symptoms are also compatible with sinus node dysfunction. At this point I think it is most prudent to implant a pacemaker especially since she should be on a beta saeid with her coronary artery disease and vascular disease. I told her I can't be sure it would solve her symptoms but in these situations it usually does. I discussed the indications, procedure, risks and alternatives with her and her daughter and she understands and agrees to proceed. Consent obtained. #2. Atrial fibrillation: She has a history of paroxysmal atrial fibrillation but is not had it here in the hospital this admission. She is on warfarin for that. 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 We will hold her warfarin, but restarted it following pacemaker implantation. Her INR was only 1.8 today, I don't believe she has received warfarin here therefore her last dose of warfarin would have been Thursday evening. I suspect her INR will be below 1.5 tomorrow, if not we could give her low dose of vitamin K tomorrow morning. We will plan an afternoon case. Thank you for allowing me to participate in her care.
--- NOTE | 2017-01-12 11:59 | Hospitalist Progress Note ---
Hospitalist Progress Note Date of Service January 12, 2017. (Kezia Carlos PA-C) Subjective Pt evaluation today including: conversation w/ patient, conversation w/ family , physical exam, chart review, lab review, review of studies, review of inpatient medication list Patient seen and evaluated. She was admitted overnight for lower abdominal pain and lightheadedness with bradycardia. Patient had multiple bowel movements yesterday that resolved the lower abdominal pain. She was evaluated by cardiology who recommends pacemaker placement. Question of tachybradycardia component. Initial orthostatic readings positive but repeat this AM negative for orthostatic hypotension. She reports history of vasovagal issues. Helped the regulate patient to the bathroom which she has a steady gait and denies lightheadedness or dizziness. Constitutional: No chills, No fever Eyes: No worsening of vision ENT: No sore throat, No trouble swallowing Respiratory: + cough, No shortness of breath Cardiovascular: No chest pain Abdomen: No GI bleeding, No constipation, No diarrhea, No nausea, No pain, No vomiting Musculoskeletal: No calf pain, No swelling Female : No dysuria Heme: No abnormal bleeding/bruising Skin: No rash (Kezia Carlos PA-C) Medications Current Inpatient Medications Medications (Trade) Dose Ordered Sig/Boom Route Start Time Stop Time Status Last Admin Dose Admin Ioversol (Optiray 320) 111 ml UD PRN IV 01/11/17 10:15 01/15/17 10:14 Acetaminophen (Tylenol Tab) 650 mg Q4H PRN PO 01/11/17 13:00 02/10/17 12:59 01/12/17 07:32 650 MG Al Hydrox/Mg Hydrox/Simethicone (Maalox Max Susp) 15 ml Q4H PRN PO 01/11/17 13:00 02/10/17 12:59 Magnesium Hydroxide (Milk Of Magnesia Susp) 30 ml Q12H PRN PO 01/11/17 13:00 02/10/17 12:59 Ondansetron HCl (Zofran Inj) 4 mg Q6H PRN IV 01/11/17 13:00 02/10/17 12:59 Polyethylene (Miralax Powder Packet) 17 gm DAILY PRN PO 01/11/17 13:00 02/10/17 12:59 Aspirin (Ecotrin Tab) 81 mg DAILY PO 01/12/17 09:00 02/11/17 08:59 01/12/17 07:33 81 MG Cetirizine HCl (zyrTEC TAB) 10 mg DAILY PRN PO 01/11/17 13:00 02/10/17 12:59 Cholecalciferol (Vitamin D Tab) 5,000 inter.unit DAILY PO 01/12/17 09:00 02/11/17 08:59 01/12/17 07:33 5,000 INTER.UNIT Albuterol/ Ipratropium (Combivent Respimat Inh) 1 puffs QID PRN INH 01/11/17 13:00 02/10/17 12:59 Losartan Potassium (coZAAR TAB) 100 mg QAM PO 01/12/17 09:00 02/11/17 08:59 01/12/17 07:34 100 MG Meclizine HCl (Antivert Tab) 12.5 mg TID PRN PO 01/11/17 13:00 02/10/17 12:59 Multivitamins/ Minerals (Multivitamin W/ Minerals Tab) 1 tab QAM PO 01/12/17 09:00 02/11/17 08:59 01/12/17 07:33 1 TAB Nitroglycerin (Nitrostat Tab) 0.4 mg PRN UT 01/11/17 13:00 02/10/17 12:59 Pantoprazole Sodium (Protonix Tab) 40 mg HS PO 01/11/17 21:00 02/10/17 20:59 01/11/17 19:40 40 MG Rosuvastatin Calcium (Crestor Tab) 2.5 mg HS PO 01/11/17 21:00 02/10/17 20:59 01/11/17 19:39 2.5 MG Warfarin Sodium (Coumadin Tab) 2.5 mg DAILY@1600 PO 01/11/17 16:00 02/10/17 15:59 Future Hold 01/11/17 16:46 2.5 MG Calcium/Vitamin D (Caltrate Plus Tab) 1 tab BID PO 01/11/17 21:00 02/10/17 20:59 01/12/17 07:32 1 TAB Miscellaneous (Iv Fluids Completed) 1 ea PRN PRN N/A 01/11/17 13:15 01/11/18 13:14 (Kezia Carlos PA-C) Objective Vital Signs Date Time Temp Pulse Resp B/P Pulse Ox O2 Delivery O2 Flow Rate FiO2 01/12/17 08:09 36.7 93 20 134/72 94 Nasal Cannula 3.0 66 155/79 77 151/72 01/12/17 08:00 94 Room Air 01/12/17 07:38 36.7 59 18 134/72 95 Nasal Cannula 3.0 66 77 01/12/17 04:03 36.7 51 19 151/70 94 Nasal Cannula 3.0 56 136/74 66 127/70 01/12/17 04:00 Nasal Cannula 3.0 01/11/17 23:59 Nasal Cannula 3.0 01/11/17 23:48 37.1 100 18 109/64 92 Nasal Cannula 3.0 01/11/17 20:00 Nasal Cannula 3.0 01/11/17 19:12 37.0 60 18 169/79 96 Nasal Cannula 3.0 01/11/17 16:00 36.4 57 161/78 97 Nasal Cannula 3.0 01/11/17 16:00 97 Nasal Cannula 3.0 01/11/17 13:55 36.6 65 18 171/68 96 Nasal Cannula 2.0 01/11/17 13:12 57 19 162/69 94 Nasal Cannula 3.0 01/11/17 12:40 58 01/11/17 12:10 52 10 167/54 97 Nasal Cannula 3.0 (Kezia Carlos, BARTOLOME-C) Physical Exam General Appearance: WD/WN, no apparent distress Eyes: sclerae normal ENT: hearing grossly normal Neck: supple, no JVD, trachea midline Respiratory/Chest: lungs clear, normal breath sounds, no respiratory distress, no accessory muscle use Cardiovascular: regular rate, rhythm, no gallop, no murmur Abdomen: normal bowel sounds, non tender, soft Extremities: no pedal edema, no calf tenderness Neurologic/Psychiatric: alert, oriented x 3 Skin: normal color, warm/dry (Kezia Carlos, BARTOLOME-C) Laboratory Results Last 24 Hours Test 01/12/17 05:00 01/12/17 06:02 Urine Color YELLOW Urine Appearance CLEAR Urine pH 5.0 Urine Specific [place] 1.040 Urine Protein NEG Urine Glucose (UA) NEG Urine Ketones NEG Urine Occult Blood NEG Urine Nitrite NEG Urine Bilirubin NEG Urine Urobilinogen NEG Urine Leukocyte Esterase SMALL Urine WBC (Auto) 10-30 /hpf Urine RBC (Auto) 0-4 /hpf Urine Hyaline Casts (Auto) 1-5 /lpf Urine Epithelial Cells (Auto) >30 /lpf Urine Bacteria (Auto) NEG Prothrombin Time 19.2 SECONDS Prothromb Time International Ratio 1.8 (Kezia Carlos PA-C) Assessment and Plan Dizziness and Bradycardia with Paroxysmal A Fib: H/O Vasovagal issues per patient - Hold Metoprolol and Coumadin -- Subtherapeutic INR - did receive increased dose yesterday upon admission - check INR in AM - may need Vit K - Cardiology following - Dr. Campos and Dr. Tyson - recommendations reviewed -- Question tachybrady component - place for pacemaker tomorrow Lower Abdominal Pain 2/2 Constipation: RESOLVED - Resolved with Miralax and multiple BMs - Miralax PRN CAD S/P Stent: - Hold Metoprolol - Losartan 100 mg daily and Rosuvastatin 2.5 mg daily COPD without Exacerbation: Combivent QID PRN DVT Prophylaxis: SCDs Disposition: - Pacemaker tomorrow - PT/OT evalutions - patient lives alone with family who checks on her - independent with ADLs Continued [facility] stay due to: other (pacer placement tomorrow) Discharge planning: uncertain (PT/OT pending) (Kezia Carlos PA-C) Reviewed: Pt Seen/Exam by Me, Labs, EKG (Bia Daniel M.D.) History No dizziness since admit. No CP. HR still low despite off Beta blockers (Bia Daniel M.D.) Respiratory: negative: cough, no symptoms reported, orthopnea, other, rales, see HPI, short of breath, stridor, wheezing Cardiovascular: reports other (dizziness at admit) Gastrointestinal/Abdominal: positive: abdominal pain (improved.) Genitourinary: negative discharge, negative dysuria, negative frequency, negative hematuria, negative no symptoms reported, negative nocturia, negative other, negative pain, negative see HPI Musculoskeletal: negative: back pain, gout, joint pain, joint swelling, muscle pain, muscle stiffness, neck pain, no symptoms reported, other, see HPI Skin: negative: change in color, change in hair/nails, dryness, lesions, lumps , no symptoms reported, other, rash, see HPI (Bia Daniel M.D.) Ears, Nose, Throat: normal ENT inspection Neck: non-tender, full range of motion Respiratory: chest non-tender, lungs clear Cardiovascular: normal peripheral pulses, bradycardia Gastrointestinal: normal bowel sounds, non tender, soft, no organomegaly Extremities: normal range of motion (Bia Daniel M.D.) Assessment/Plan Symptomatic bradycardia, SSS. Hold BB therapy. For PPM tomorrow by EP. Keep NPO after midnight. INR is 1.8. Recheck in am and if still high will administer Vit K. (Bia Daniel M.D.)
[2017-01-12] MEDS: PANTOprazole SOD 40 MG TAB PO SCH (20:48)
[2017-01-12] MEDS: ROSUVASTATIN CALCIUM 5 MG TAB PO SCH (20:48)
[2017-01-13] VITALS (9 sets, daily range): BP systolic 145–173; BP diastolic 54–77; PULSE 61–76; TEMP 36.5–37; O2SAT 90–98
[2017-01-13] MEDS ORDERED: HydrALAZINE HCL 20 MG/ML VIAL IV. PRN (00:15)
[2017-01-13] MEDS: ONDANSETRON INJ 2 MG/ML 2 ML VIAL IV PRN ×2 (03:18→08:02)
[2017-01-13] MEDS ORDERED: LACTATED RINGER'S 1000ML 1,000 ML IV ONE (06:00)
[2017-01-13] MEDS ORDERED: CEFAZOLIN SOD 1000MG/55 ML D5W IV SCH (06:00)
[2017-01-13 06:22] LABS: MEAN CELL VOLUME 92.6 fL (80-100); MEAN CORPUSCULAR HEMOGLOBIN 30.2 pg (25-34); MEAN CORPUSCULAR HGB CONC 32.6 g/dl (32-36); MEAN PLATELET VOLUME 9.4 fL (7.4-10.4); PLATELET COUNT 274 K/uL (130-400); RED BLOOD COUNT 4.21 M/uL (4.2-5.4); WHITE BLOOD COUNT 7.55 K/uL (4.8-10.8)
[2017-01-13 06:43] LABS: INR 2.3 (0.9-1.1); PROTHROMBIN TIME (PATIENT) 25.9 SECONDS (9.0-12.0)
[2017-01-13 06:59] LABS: BUN/CREATININE RATIO 18.9 (10-20); CALCIUM 8.9 mg/dl (8.5-10.1); CREATININE 1.3 mg/dl (0.60-1.20); POTASSIUM 4.4 mmol/L (3.5-5.1)
[2017-01-13] MEDS: ASPIRIN 81 MG ECTAB PO SCH (07:57)
[2017-01-13] MEDS: CETIRIZINE HCL 10 MG TAB PO PRN (08:02)
[2017-01-13] MEDS: ACETAMINOPHEN 325 MG TAB PO PRN (08:02)
[2017-01-13] MEDS: CHOLECALCIFEROL 1000 INTER.UNIT TAB PO SCH (08:03)
[2017-01-13] MEDS: LOSARTAN POTASSIUM 50 MG TAB PO SCH (08:03)
[2017-01-13] MEDS ORDERED: PHYTONADIONE 5 MG TAB PO ONE (08:30)
--- NOTE | 2017-01-13 09:11 | Cardiology Follow-Up ---
Subjective Date of Service: January 13, 2017. Pt evaluation today including: conversation w/ patient, conversation w/ family , physical exam, lab review, review of studies, conversation w/ business solutions consultant, review of inpatient medication list History of Present Illness This is a very pleasant 81-year-old woman with a long history of paroxysmal atrial fibrillation for which she was on warfarin anticoagulation. She also has coronary artery disease including intervention in the past, she has vascular disease including an abdominal aortic aneurysm repair in 2010 and renal artery stenting in 2013. She has had a very long history of intermittent lightheadedness and dizziness as well as occasional episodes of possible loss of consciousness. It has not been clear as to what the etiology of these was. In the past on increasing doses of beta blockade it appears that the symptoms worsened, she has some history of possible vagal episodes but I don't believe that has ever been proven. She presents now with dizziness and lightheadedness as well as an episode of extreme weakness where she could not arise from the floor and had symptoms of dizziness and lightheadedness at that time. Electrocardiography by the rescue department demonstrated marked sinus bradycardia (initial electrocardiogram here with a heart rate of 47 bpm). She was on low-dose beta-blockade due to her paroxysmal atrial fibrillation, this was held. She was admitted on 01/11/2017 and placed on telemetry. She continued to have bradycardia although no symptoms while hospitalized. With her tachybradycardia syndrome and the possibility that these episodes are due to bradycardia and the need for beta saeid therapy it was decided to consider pacemaker implantation. She did however receive warfarin on the evening of 01/11/2017 and her INR had bumped somewhat yesterday. Today she feels well in general. She has not had palpitations, lightheadedness or dizziness today. Social History Smoking Status: Former Smoker History of Alcohol Use: No Review of Systems Respiratory: + cough, No shortness of breath Cardiac: No chest pain Medications Cardiovascular: Item Value Date Time Hydralazine HCl 10 mg 01/13/17 0015 (HydrALAZINE INJ) Q4H PRN/IV. 01/13/17 0044 Aspirin 81 mg 01/12/17 0900 (Ecotrin Tab) DAILY/PO Losartan Potassium 100 mg 01/12/17 0900 (coZAAR TAB) QAM/PO 01/13/17 0803 Rosuvastatin 2.5 mg 5/7/17 2100 Calcium HS/PO 01/12/172047 (Crestor Tab) Objective Vital Signs Past 12 Hours Date Time Temp Pulse Resp B/P Pulse Ox O2 Delivery O2 Flow Rate FiO2 01/13/17 07:54 36.8 67 18 164/64 98 Nasal Cannula 2.0 69 153/69 72 156/70 01/13/17 04:00 Room Air 01/13/17 03:46 36.5 66 19 157/68 97 Nasal Cannula 3.0 01/12/17 23:50 36.7 63 18 206/72 92 Room Air 68 196/70 73 193/79 01/12/17 23:12 92 Room Air Last Recorded Weight-Kilograms: 74.000 Intake & Output 8-Hour Column 01/12/17 01/13/17 01/13/17 16:00 00:00 08:00 Intake Total 275 ml Output Total 1400 ml 500 ml Balance -1125 ml -500 ml 24-Hour Column 01/13/17 08:00 Intake Total 275 ml Output Total 1900 ml Balance -1625 ml Physical Exam Constitutional: General Apperance: heathly-appearing Level of Distress: NAD Lungs: Respiratory effort: no dyspnea, good air movement Auscultation: breath sounds normal, no wheezing Cardiovascular: Heart Auscultation: RRR, no murmurs, no rubs, no gallops, bradycardia Peripheral Pulses: Bruits: none appreciated Extremities: no edema Data Laboratory Results: Last 24 Hours Test 01/13/17 06:05 White Blood Count 7.55 K/uL Red Blood Count 4.21 M/uL Hemoglobin 12.7 g/dL Hematocrit 39.0 % Mean Corpuscular Volume 92.6 fL Mean Corpuscular Hemoglobin 30.2 pg Mean Corpuscular Hemoglobin Concent 32.6 g/dl RDW Standard Deviation 44.6 fL RDW Coefficient of Variation 13.2 % Platelet Count 274 K/uL Mean Platelet Volume 9.4 fL Prothrombin Time 25.9 SECONDS Prothromb Time International Ratio 2.3 Sodium Level 139 mmol/L Potassium Level 4.4 mmol/L Chloride Level 106 mmol/L Carbon Dioxide Level 27 mmol/L Anion Gap 6.0 mmol/L Blood Urea Nitrogen 25 mg/dl Creatinine 1.30 mg/dl Est Creatinine Clear Calc Drug Dose 36.3 ml/min Estimated GFR () 44.9 Estimated GFR (Non- 38.7 BUN/Creatinine Ratio 18.9 Random Glucose 106 mg/dl Calcium Level 8.9 mg/dl Telemetry reviewed: Sinus rhythm and sinus bradycardia, no atrial fibrillation Assessment and Plan #1. Sinus bradycardia: She has long-standing sinus bradycardia, the rate has not been low enough that we have felt that a pacemaker was clearly indicated however she has had symptoms consistent with bradycardia. She presents now with a prolonged episode of near syncope and associated bradycardia, although again the specific cause and effect are difficult to prove. Her heart rate remains low however, off of beta-blockade, which is certainly consistent with sinus node dysfunction. Her symptoms are also compatible with sinus node dysfunction. At this point I think it is most prudent to implant a pacemaker especially since she should be on a beta saeid with her coronary artery disease and vascular disease. I told her I can't be sure it would solve her symptoms but in these situations it usually does. I discussed the indications, procedure, risks and alternatives with her and her daughter yesterday and she understands and agreed to proceed. Consent obtained yesterday. #2. Atrial fibrillation: She has a history of paroxysmal atrial fibrillation but has not had it here in the hospital this admission. She is on warfarin for that. 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 We will hold her warfarin, but restart it following pacemaker implantation. Her INR is 2.3 today. I ordered a stat dose of the fight and today, although I don't know if it will drop the INR sufficiently to implant the pacemaker this afternoon. We will plan an afternoon case and I will check an INR beforehand. Thank you for allowing me to participate in her care.
[2017-01-13] MEDS: CEROVITE ADV FORMULA TAB PO SCH (09:36)
[2017-01-13] MEDS: CALCIUM 600MG + VIT D 400 IU TAB PO SCH ×2 (09:36→20:23)
--- NOTE | 2017-01-13 10:13 | CARDIOLOGY PROGRESS NOTE ---
DATE: 01/13/2017 Patient seen and examined. Chart, medications, telemetry reviewed. SUBJECTIVE: No complaints overnight. Telemetry reveals intermittent bradycardia. Anticipates pacemaker either later today or tomorrow. INRs were elevated this morning. OBJECTIVE: VITAL SIGNS: Heart rate 67, blood pressure is 164/64. NECK: Thin. There is no jugular venous distention. LUNGS: Clear. CARDIOVASCULAR: Regular. There is no S3 gallop. ABDOMEN: Soft. EXTREMITIES: Free of edema. IMPRESSION: 81-year-old female with borderline tachybrady syndrome, presentation with presyncope. RECOMMENDATIONS: The patient will be referred for pacemaker insertion once INR corrected. Dr. Rice consulted; appreciate his input. Ultimate goal will resume beta saeid to control atrial arrhythmias and blood pressures post-pacemaker insertion.
[2017-01-13 13:46] LABS: INR 2.1 (0.9-1.1); PROTHROMBIN TIME (PATIENT) 23.7 SECONDS (9.0-12.0)
[2017-01-13] MEDS ORDERED: PHYTONADIONE INJ 2.5 MG in SODIUM CHLORIDE 0.9% 50ML 50 ML IV ONE (14:30)
[2017-01-13] MEDS ORDERED: SODIUM CHLORIDE 0.65% NA SOLN 45 ML (OCEAN) PRN (15:15)
--- NOTE | 2017-01-13 15:22 | Hospitalist Progress Note ---
Hospitalist Progress Note Date of Service January 13, 2017. (Kezia Carlos, PAGonzalezC) Subjective Pt evaluation today including: conversation w/ patient, conversation w/ family , physical exam, chart review, lab review, review of studies, conversation w/ internal consultant (Dr. Tyson), review of inpatient medication list Patient seen and evaluated. Had lightheadedness and nausea overnight that is currently resolved. INR at 2.1 with recheck after Vit K. Plan for pacemaker tomorrow if INR corrected. Reports nasal congestion and some post-nasal drip and had a headache early that is improving with Zyrtec. Verbalizes no other complaints at this time. Constitutional: No chills, No fever Eyes: No worsening of vision ENT: + nasal symptoms, No sore throat, No trouble swallowing Respiratory: + cough, No shortness of breath Cardiovascular: No chest pain Abdomen: + nausea (overnight - currently resolved), No constipation, No diarrhea, No pain, No vomiting Musculoskeletal: No calf pain, No swelling Female : No dysuria Skin: No itch, No rash (Kezia Carlos, NATHANC) Medications Current Inpatient Medications Medications (Trade) Dose Ordered Sig/Boom Route Start Time Stop Time Status Last Admin Dose Admin Ioversol (Optiray 320) 111 ml UD PRN IV 01/11/17 10:15 01/15/17 10:14 Acetaminophen (Tylenol Tab) 650 mg Q4H PRN PO 01/11/17 13:00 02/10/17 12:59 01/13/17 08:02 650 MG Al Hydrox/Mg Hydrox/Simethicone (Maalox Max Susp) 15 ml Q4H PRN PO 01/11/17 13:00 02/10/17 12:59 Magnesium Hydroxide (Milk Of Magnesia Susp) 30 ml Q12H PRN PO 01/11/17 13:00 02/10/17 12:59 Ondansetron HCl (Zofran Inj) 4 mg Q6H PRN IV 01/11/17 13:00 02/10/17 12:59 01/13/17 08:02 4 MG Polyethylene (Miralax Powder Packet) 17 gm DAILY PRN PO 01/11/17 13:00 02/10/17 12:59 Aspirin (Ecotrin Tab) 81 mg DAILY PO 01/12/17 09:00 02/11/17 08:59 01/12/17 07:33 81 MG Cetirizine HCl (zyrTEC TAB) 10 mg DAILY PRN PO 01/11/17 13:00 02/10/17 12:59 01/13/17 08:02 10 MG Cholecalciferol (Vitamin D Tab) 5,000 inter.unit DAILY PO 01/12/17 09:00 02/11/17 08:59 01/13/17 08:03 5,000 INTER.UNIT Albuterol/ Ipratropium (Combivent Respimat Inh) 1 puffs QID PRN INH 01/11/17 13:00 02/10/17 12:59 Losartan Potassium (coZAAR TAB) 100 mg QAM PO 01/12/17 09:00 02/11/17 08:59 01/13/17 08:03 100 MG Meclizine HCl (Antivert Tab) 12.5 mg TID PRN PO 01/11/17 13:00 02/10/17 12:59 Multivitamins/ Minerals (Multivitamin W/ Minerals Tab) 1 tab QAM PO 01/12/17 09:00 02/11/17 08:59 01/13/17 09:36 1 TAB Nitroglycerin (Nitrostat Tab) 0.4 mg PRN UT 01/11/17 13:00 02/10/17 12:59 Pantoprazole Sodium (Protonix Tab) 40 mg HS PO 01/11/17 21:00 02/10/17 20:59 01/12/17 20:48 40 MG Rosuvastatin Calcium (Crestor Tab) 2.5 mg HS PO 01/11/17 21:00 02/10/17 20:59 01/12/17 20:48 2.5 MG Warfarin Sodium (Coumadin Tab) 2.5 mg DAILY@1600 PO 01/11/17 16:00 02/10/17 15:59 Future Hold 01/11/17 16:46 2.5 MG Calcium/Vitamin D (Caltrate Plus Tab) 1 tab BID PO 01/11/17 21:00 02/10/17 20:59 01/13/17 09:36 1 TAB Miscellaneous (Iv Fluids Completed) 1 ea PRN PRN N/A 01/11/17 13:15 01/11/18 13:14 Cefazolin Sodium 1000 mg 1,000 mg PREOP IV 01/13/17 06:00 01/13/17 18:00 Lactated Ringer's (Lr 1000ml) 1,000 ml @ 15 mls/hr Q24H ONCE IV 01/13/17 06:00 01/14/17 05:59 Hydralazine HCl (HydrALAZINE INJ) 10 mg Q4H PRN IV. 01/13/17 00:15 02/12/17 00:14 01/13/17 00:44 10 MG (Kezia Carlos PA-C) Objective Vital Signs Date Time Temp Pulse Resp B/P Pulse Ox O2 Delivery O2 Flow Rate FiO2 01/13/17 12:03 Room Air 01/13/17 11:58 36.6 76 18 158/63 95 01/13/17 08:05 Room Air 01/13/17 07:54 36.8 67 18 164/64 98 Nasal Cannula 2.0 69 153/69 72 156/70 01/13/17 04:00 Room Air 01/13/17 03:46 36.5 66 19 157/68 97 Nasal Cannula 3.0 01/12/17 23:50 36.7 63 18 206/72 92 Room Air 68 196/70 73 193/79 01/12/17 23:12 92 Room Air 01/12/17 20:00 95 Room Air 01/12/17 19:15 36.6 61 17 182/70 91 Room Air 01/12/17 16:00 Room Air 3.0 01/12/17 15:31 36.8 56 18 182/70 94 Room Air 63 172/71 67 185/68 (Kezia Carlos PA-C) Physical Exam General Appearance: WD/WN, no apparent distress Eyes: sclerae normal ENT: hearing grossly normal Neck: supple, no JVD, trachea midline Respiratory/Chest: lungs clear, normal breath sounds, no respiratory distress, no accessory muscle use Cardiovascular: regular rate, rhythm, no gallop, no murmur Abdomen: normal bowel sounds, non tender, soft Extremities: no pedal edema, no calf tenderness Neurologic/Psychiatric: alert, oriented x 3 Skin: normal color, warm/dry (Kezia Carlos PA-C) Laboratory Results Last 24 Hours Test 01/13/17 06:05 01/13/17 12:55 White Blood Count 7.55 K/uL Red Blood Count 4.21 M/uL Hemoglobin 12.7 g/dL Hematocrit 39.0 % Mean Corpuscular Volume 92.6 fL Mean Corpuscular Hemoglobin 30.2 pg Mean Corpuscular Hemoglobin Concent 32.6 g/dl RDW Standard Deviation 44.6 fL RDW Coefficient of Variation 13.2 % Platelet Count 274 K/uL Mean Platelet Volume 9.4 fL Prothrombin Time 25.9 SECONDS 23.7 SECONDS Prothromb Time International Ratio 2.3 2.1 Sodium Level 139 mmol/L Potassium Level 4.4 mmol/L Chloride Level 106 mmol/L Carbon Dioxide Level 27 mmol/L Anion Gap 6.0 mmol/L Blood Urea Nitrogen 25 mg/dl Creatinine 1.30 mg/dl Est Creatinine Clear Calc Drug Dose 36.3 ml/min Estimated GFR () 44.9 Estimated GFR (Non- 38.7 BUN/Creatinine Ratio 18.9 Random Glucose 106 mg/dl Calcium Level 8.9 mg/dl (Kezia Carlos, BARTOLOME-C) Assessment and Plan Dizziness and Bradycardia with Paroxysmal A Fib: H/O Vasovagal issues per patient - Hold Metoprolol and Coumadin -- INR 2.3 and reduced to 2.1 with oral Vit K - Vitamin K IV x 1 dose and check INR in AM may need more administered in AM - Cardiology following - Dr. Campos and Dr. Tyson - recommendations reviewed -- Discussed case with Dr. Tyson and plan is for pacemaker tomorrow approx. 1 PM if INR improved -- Plan to continue Metoprolol is possible after pacer placement Lower Abdominal Pain 2/2 Constipation: RESOLVED - Resolved with Miralax and multiple BMs - Miralax PRN CAD S/P Stent: - Hold Metoprolol - Losartan 100 mg daily and Rosuvastatin 2.5 mg daily COPD without Exacerbation: Combivent QID PRN DVT Prophylaxis: SCDs Disposition: - Pacemaker tomorrow - PT/OT evalutions - patient lives alone with family who checks on her - independent with ADLs (Kezia Carlos, PA-C)
[2017-01-13] MEDS: ROSUVASTATIN CALCIUM 5 MG TAB PO SCH (20:23)
[2017-01-13] MEDS: PANTOprazole SOD 40 MG TAB PO SCH (20:24)
[2017-01-14] VITALS (13 sets, daily range): BP systolic 112–159; BP diastolic 67–77; PULSE 60–79; TEMP 36.8–36.9; O2SAT 90–98
[2017-01-14 07:14] LABS: HEMATOCRIT 38.5 % (37-47); MEAN CELL VOLUME 93.2 fL (80-100); MEAN CORPUSCULAR HEMOGLOBIN 30.3 pg (25-34); MEAN CORPUSCULAR HGB CONC 32.5 g/dl (32-36); MEAN PLATELET VOLUME 9.5 fL (7.4-10.4); PLATELET COUNT 297 K/uL (130-400); RED BLOOD COUNT 4.13 M/uL (4.2-5.4); WHITE BLOOD COUNT 5.42 K/uL (4.8-10.8)
[2017-01-14 07:31] LABS: INR 1.3 (0.9-1.1)
[2017-01-14 07:53] LABS: BUN/CREATININE RATIO 13.5 (10-20); CALCIUM 8.8 mg/dl (8.5-10.1); CREATININE 1.5 mg/dl (0.60-1.20); POTASSIUM 4.6 mmol/L (3.5-5.1)
--- NOTE | 2017-01-14 08:50 | Hospitalist Progress Note ---
Hospitalist Progress Note Date of Service January 14, 2017. (Kezia Carlos PA-C) Subjective Pt evaluation today including: conversation w/ patient, conversation w/ family , physical exam, chart review, lab review, review of inpatient medication list Patient seen and evaluated. No acute events overnight. Patient hasn't had any further episodes of lightheadedness/dizziness or nausea. She is due for pacemaker placement today. Her Coumadin has been reversed with vitamin K and current INR is 1.3. Continues to have some mild nasal congestion and postnasal drip. She states that it is improved since she took her Zyrtec yesterday but is still present. She verbalizes no new complaints at this time. Constitutional: No chills, No fever Eyes: No worsening of vision ENT: + nasal symptoms, + sore throat Respiratory: + cough, No shortness of breath Cardiovascular: No chest pain Abdomen: No constipation, No diarrhea, No nausea, No pain, No vomiting Musculoskeletal: No calf pain, No swelling Female : No dysuria Neurologic: No vertigo Skin: No rash (Kezia Carlos, NATHANC) Medications Current Inpatient Medications Medications (Trade) Dose Ordered Sig/Boom Route Start Time Stop Time Status Last Admin Dose Admin Ioversol (Optiray 320) 111 ml UD PRN IV 01/11/17 10:15 01/15/17 10:14 Acetaminophen (Tylenol Tab) 650 mg Q4H PRN PO 01/11/17 13:00 02/10/17 12:59 01/13/17 08:02 650 MG Al Hydrox/Mg Hydrox/Simethicone (Maalox Max Susp) 15 ml Q4H PRN PO 01/11/17 13:00 02/10/17 12:59 Magnesium Hydroxide (Milk Of Magnesia Susp) 30 ml Q12H PRN PO 01/11/17 13:00 02/10/17 12:59 Ondansetron HCl (Zofran Inj) 4 mg Q6H PRN IV 01/11/17 13:00 02/10/17 12:59 01/13/17 08:02 4 MG Polyethylene (Miralax Powder Packet) 17 gm DAILY PRN PO 01/11/17 13:00 02/10/17 12:59 Aspirin (Ecotrin Tab) 81 mg DAILY PO 01/12/17 09:00 02/11/17 08:59 01/12/17 07:33 81 MG Cetirizine HCl (zyrTEC TAB) 10 mg DAILY PRN PO 01/11/17 13:00 02/10/17 12:59 01/13/17 08:02 10 MG Cholecalciferol (Vitamin D Tab) 5,000 inter.unit DAILY PO 01/12/17 09:00 02/11/17 08:59 01/13/17 08:03 5,000 INTER.UNIT Albuterol/ Ipratropium (Combivent Respimat Inh) 1 puffs QID PRN INH 01/11/17 13:00 02/10/17 12:59 Losartan Potassium (coZAAR TAB) 100 mg QAM PO 01/12/17 09:00 02/11/17 08:59 01/13/17 08:03 100 MG Meclizine HCl (Antivert Tab) 12.5 mg TID PRN PO 01/11/17 13:00 02/10/17 12:59 Multivitamins/ Minerals (Multivitamin W/ Minerals Tab) 1 tab QAM PO 01/12/17 09:00 02/11/17 08:59 01/13/17 09:36 1 TAB Nitroglycerin (Nitrostat Tab) 0.4 mg PRN UT 01/11/17 13:00 02/10/17 12:59 Pantoprazole Sodium (Protonix Tab) 40 mg HS PO 01/11/17 21:00 02/10/17 20:59 01/13/17 20:24 40 MG Rosuvastatin Calcium (Crestor Tab) 2.5 mg HS PO 01/11/17 21:00 02/10/17 20:59 01/13/17 20:23 2.5 MG Warfarin Sodium (Coumadin Tab) 2.5 mg DAILY@1600 PO 01/11/17 16:00 02/10/17 15:59 Future Hold 01/11/17 16:46 2.5 MG Calcium/Vitamin D (Caltrate Plus Tab) 1 tab BID PO 01/11/17 21:00 02/10/17 20:59 01/13/17 20:23 1 TAB Miscellaneous (Iv Fluids Completed) 1 ea PRN PRN N/A 01/11/17 13:15 01/11/18 13:14 Hydralazine HCl (HydrALAZINE INJ) 10 mg Q4H PRN IV. 01/13/17 00:15 02/12/17 00:14 01/13/17 00:44 10 MG Sodium Chloride ([place] Nasal [place]) 3 sprays Q4H PRN NA 01/13/17 15:15 02/12/17 15:14 (Kezia Carlos PA-C) Objective Vital Signs Date Time Temp Pulse Resp B/P Pulse Ox O2 Delivery O2 Flow Rate FiO2 01/14/17 08:30 36.8 79 18 113/67 95 01/14/17 07:12 Room Air 01/14/17 04:00 97 Room Air 01/14/17 03:43 36.9 69 18 131/69 97 Nasal Cannula 3.0 01/14/17 00:00 90 Room Air 01/13/17 23:15 36.8 61 17 163/72 90 Room Air 63 161/65 63 155/75 01/13/17 20:22 69 156/75 01/13/17 20:00 94 Room Air 01/13/17 19:32 37.0 64 20 173/77 92 Room Air 01/13/17 16:00 92 Room Air 01/13/17 15:27 37.0 66 22 159/66 91 Room Air 64 148/54 70 145/63 01/13/17 12:03 Room Air 01/13/17 11:58 36.6 76 18 158/63 95 (Kezia Carlos PA-C) Physical Exam General Appearance: WD/WN, no apparent distress Eyes: sclerae normal ENT: hearing grossly normal Neck: supple, no JVD, trachea midline Respiratory/Chest: lungs clear, normal breath sounds, no respiratory distress, no accessory muscle use Cardiovascular: regular rate, rhythm, no gallop, no murmur Abdomen: normal bowel sounds, non tender, soft Extremities: no pedal edema, no calf tenderness Neurologic/Psychiatric: alert, oriented x 3 Skin: normal color, warm/dry (Kezia Carlos PA-C) Laboratory Results Last 24 Hours Test 01/13/17 12:55 01/14/17 06:33 Prothrombin Time 23.7 SECONDS 14.0 SECONDS Prothromb Time International Ratio 2.1 1.3 White Blood Count 5.42 K/uL Red Blood Count 4.13 M/uL Hemoglobin 12.5 g/dL Hematocrit 38.5 % Mean Corpuscular Volume 93.2 fL Mean Corpuscular Hemoglobin 30.3 pg Mean Corpuscular Hemoglobin Concent 32.5 g/dl RDW Standard Deviation 45.7 fL RDW Coefficient of Variation 13.3 % Platelet Count 297 K/uL Mean Platelet Volume 9.5 fL Sodium Level 142 mmol/L Potassium Level 4.6 mmol/L Chloride Level 107 mmol/L Carbon Dioxide Level 31 mmol/L Anion Gap 4.0 mmol/L Blood Urea Nitrogen 20 mg/dl Creatinine 1.50 mg/dl Est Creatinine Clear Calc Drug Dose 29.1 ml/min Estimated GFR () 37.7 Estimated GFR (Non- 32.6 BUN/Creatinine Ratio 13.5 Random Glucose 98 mg/dl Calcium Level 8.8 mg/dl (Kezia Carlos PA-C) Assessment and Plan Dizziness and Bradycardia with Paroxysmal A Fib: H/O Vasovagal issues per patient - Hold Metoprolol and Coumadin - INR is 1.3 - Cardiology following - Dr. Campos and Dr. Tyson - recommendations reviewed -- Plan for pacemaker at [address] Tyson -- Plan to continue Metoprolol if possible after pacer placement Lower Abdominal Pain 2/2 Constipation: RESOLVED - Resolved with Miralax and multiple BMs - Miralax PRN CAD S/P Stent: - Hold Metoprolol - Losartan 100 mg daily and Rosuvastatin 2.5 mg daily COPD without Exacerbation: Combivent QID PRN DVT Prophylaxis: SCDs Disposition: - Pacemaker today - PT/OT evaluations - patient lives alone with family who checks on her - independent with ADLs - awaiting eval after placement Continued [facility] stay due to: other (pacemaker placement) (Kezia Carlos, PA-C)
--- NOTE | 2017-01-14 11:07 | History & Physical Bridge Note ---
H&P Re-Evaluation Bridge Note: I have examined the patient, reviewed the History & Physical and in the interval since yesterday and there are no changes of clinical significance: No changes noted.
--- NOTE | 2017-01-14 11:08 | Procedure Note ---
Pre-Mod Sedation Assessment General Date of Moderate Sedation: January 14, 2017. Vital Signs: Vital Signs Past 12 Hours Date Time Temp Pulse Resp B/P Pulse Ox O2 Delivery O2 Flow Rate FiO2 01/14/17 08:30 36.8 79 18 113/67 95 01/14/17 08:00 97 Room Air 01/14/17 07:12 Room Air 01/14/17 04:00 97 Room Air 01/14/17 03:43 36.9 69 18 131/69 97 Nasal Cannula 3.0 01/14/17 00:00 90 Room Air 01/13/17 23:15 36.8 61 17 163/72 90 Room Air 63 161/65 63 155/75 Review Cardiovascular: regular rate, rhythm, + bradycardia Abdomen: normal bowel sounds Lungs: lungs clear Pre-Sedation Airway Assessment Oral Cavity: Dentures Short Thick Neck: No Smoking Status: Former Smoker Procedure Planning Contraindications-for Mod Sed: None Yes Notes The planned sedation has been discussed with the patient and consent obtained. I have identified the patient, determined the appropriateness of sedation and have assessed the patient immediately prior to the procedure. All medicine(s) and interventions are by my order.
[2017-01-14] MEDS ORDERED: LIDOCAINE HCL 1% 20 ML VIAL ONE (13:35)
[2017-01-14] MEDS ORDERED: BACITRACIN OINT 0.9 GM PKT ONE (13:36)
[2017-01-14] MEDS ORDERED: BACITRACIN 50000 UNIT VIAL ONE (13:36)
[2017-01-14] MEDS ORDERED: KEFZOL SPECIAL PROCEDURE STOCK 1 GM ADDVIAL IV ONE (14:09)
[2017-01-14] MEDS ORDERED: MIDAZOLAM HCL 5 MG/ML 1 ML VIAL ONE (14:15)
[2017-01-14] MEDS ORDERED: FENTANYL CITRATE INJ 50 MCG/1 ML 2 ML VIAL ONE (14:15)
[2017-01-14] MEDS ORDERED: IBUTILIDE FUMARATE 0.1 MG/ML 10 ML VIAL ONE (14:53)
--- NOTE | 2017-01-14 15:53 | Procedure Note ---
Post-Mod Sedation Assessment General Date of Moderate Sedation January 14, 2017. Vital Signs: Vital Signs Past 12 Hours Date Time Temp Pulse Resp B/P Pulse Ox O2 Delivery O2 Flow Rate FiO2 01/14/17 15:35 67 16 155/77 98 Mask 10 01/14/17 15:20 65 16 140/60 98 Mask 10 01/14/17 12:00 98 Room Air 01/14/17 11:51 36.8 72 18 159/73 95 01/14/17 08:30 36.8 79 18 113/67 95 01/14/17 08:00 97 Room Air 01/14/17 07:12 Room Air 01/14/17 04:00 97 Room Air Review - Discharge Criteria Vital Signs Stable: Yes Alert/Oriented/Conversant: Yes Returned to Baseline Mental St: Yes Nausea Absent/Minimal: Yes Pain/Discomfort/Absent/Minimal: Yes Normal/Baseline Respirations: Yes Active Bleeding?: No
--- NOTE | 2017-01-14 15:57 | Cardiology Procedure Brief Nt ---
Preliminary Cardiology Note Procedure Date January 14, 2017. Pre-Procedure Diagnosis SSS Post-Procedure Diagnosis Same Procedure(s) Performed Dual chamber pacer implant Follow Up Manager Krystal Editing Clerk(s) None Estimated Blood Loss 30cc Preliminary Findings Good lead position, AF occurred with atrial lead positioning, terminated with IV Corvert Recommendations Monitor overnight Specimens None Anesthesia Local with sedation Complication(s) None Disposition PCU
[2017-01-14] MEDS ORDERED: METOPROLOL TARTRATE 50 MG TAB PO STA (15:59)
[2017-01-14] MEDS ORDERED: KETOROLAC TROMETHAMINE 10 MG TAB PO PRN (16:00)
[2017-01-14] MEDS ORDERED: ACETAMINOPHEN 325 MG TAB PO PRN (16:00)
[2017-01-14] MEDS: LOSARTAN POTASSIUM 50 MG TAB PO SCH (16:07)
[2017-01-14] MEDS: CEROVITE ADV FORMULA TAB PO SCH (16:07)
[2017-01-14] MEDS: CALCIUM 600MG + VIT D 400 IU TAB PO SCH ×2 (16:07→19:35)
[2017-01-14] MEDS: ASPIRIN 81 MG ECTAB PO SCH (16:07)
[2017-01-14] MEDS: CHOLECALCIFEROL 1000 INTER.UNIT TAB PO SCH (16:08)
[2017-01-14] MEDS ORDERED: WARFARIN SOD 5 MG TAB PO ONE (16:45)
[2017-01-14] MEDS: PANTOprazole SOD 40 MG TAB PO SCH (19:35)
[2017-01-14] MEDS: ROSUVASTATIN CALCIUM 5 MG TAB PO SCH (19:35)
[2017-01-14] MEDS: CEFAZOLIN IV 1,000 MG in DEXTROSE 5% 50ML 50 ML IV SCH (20:42)
[2017-01-15 03:37] VITALS: BP 155/72; PULSE 61; TEMP 36.7; O2SAT 99
[2017-01-15 04:00] VITALS: O2SAT 94
[2017-01-15] MEDS: ONDANSETRON INJ 2 MG/ML 2 ML VIAL IV PRN (06:06)
[2017-01-15] MEDS: CEFAZOLIN IV 1,000 MG in DEXTROSE 5% 50ML 50 ML IV SCH ×2 (06:06→12:25)
--- NOTE | 2017-01-15 07:39 | DIAGNOSTIC IMAGING REPORT ---
CHEST 2 VIEWS ROUTINE HISTORY: EXACT TIME ORDERED Evaluate for pneumothorax and lead placement COMPARISON: Chest 01/11/2017. FINDINGS: Interval placement of a left-sided dual-chamber pacemaker. The leads are intact. No pneumothorax. Emphysema. The heart is stable in size. No new focal lung consolidations. No evidence for pulmonary edema. Calcified granuloma within the left lung apex. IMPRESSION: 1. Left-sided dual-chamber pacemaker. No pneumothorax. 2. Emphysema. Electronically signed by: Jerry Campos M.D. 01/15/2017 7:37 AM Dictated Date/Time: 01/15/2017 7:36 AM
[2017-01-15 07:50] VITALS: BP 140/73; PULSE 66; TEMP 36.9; O2SAT 95
[2017-01-15 08:00] VITALS: O2SAT 95
[2017-01-15] MEDS: LOSARTAN POTASSIUM 50 MG TAB PO SCH (08:03)
[2017-01-15] MEDS: CHOLECALCIFEROL 1000 INTER.UNIT TAB PO SCH (08:04)
[2017-01-15] MEDS: CALCIUM 600MG + VIT D 400 IU TAB PO SCH (08:04)
[2017-01-15] MEDS: ASPIRIN 81 MG ECTAB PO SCH (08:04)
[2017-01-15] MEDS: CEROVITE ADV FORMULA TAB PO SCH (08:04)
[2017-01-15 08:21] LABS: MEAN CELL VOLUME 92.4 fL (80-100); MEAN CORPUSCULAR HEMOGLOBIN 29.8 pg (25-34); MEAN CORPUSCULAR HGB CONC 32.3 g/dl (32-36); MEAN PLATELET VOLUME 9.1 fL (7.4-10.4); PLATELET COUNT 285 K/uL (130-400); RED BLOOD COUNT 4.33 M/uL (4.2-5.4); WHITE BLOOD COUNT 8.64 K/uL (4.8-10.8)
[2017-01-15 08:37] LABS: INR 1.2 (0.9-1.1); PROTHROMBIN TIME (PATIENT) 12.7 SECONDS (9.0-12.0)
--- NOTE | 2017-01-15 08:41 | Cardiology Follow-Up ---
Subjective Date of Service: January 15, 2017. Pt evaluation today including: conversation w/ patient, physical exam, lab review, review of studies, review of inpatient medication list History of Present Illness This is a very pleasant 81-year-old woman with a long history of paroxysmal atrial fibrillation for which she was on warfarin anticoagulation. She also has coronary artery disease including intervention in the past, she has vascular disease including an abdominal aortic aneurysm repair in 2010 and renal artery stenting in 2013. She has had a very long history of intermittent lightheadedness and dizziness as well as occasional episodes of possible loss of consciousness. It has not been clear as to what the etiology of these was. In the past on increasing doses of beta blockade it appears that the symptoms worsened, she has some history of possible vagal episodes but I don't believe that has ever been proven. She presents now with dizziness and lightheadedness as well as an episode of extreme weakness where she could not arise from the floor and had symptoms of dizziness and lightheadedness at that time. Electrocardiography by the rescue department demonstrated marked sinus bradycardia (initial electrocardiogram here with a heart rate of 47 bpm). She was on low-dose beta-blockade due to her paroxysmal atrial fibrillation, this was held. She was admitted on 01/11/2017 and placed on telemetry. She continued to have bradycardia although no symptoms while hospitalized. With her tachybradycardia syndrome and the possibility that these episodes are due to bradycardia and the need for beta saeid therapy it was decided to consider pacemaker implantation. A dual-chamber pacemaker was implanted yesterday, during the procedure she had atrial fibrillation with positioning of the atrial lead which did convert with Corvert. Today she feels well, only minor incisional discomfort. She has not had palpitations, lightheadedness or dizziness. Social History Smoking Status: Former Smoker History of Alcohol Use: No Review of Systems Respiratory: + cough, No shortness of breath Cardiac: No chest pain Medications Cardiovascular: Item Value Date Time Metoprolol 50 mg 01/15/17 09 Succinate QAM/PO 01/15/17 08 (Toprol Xl Tab) Hydralazine HCl 10 mg 01/13/17 0015 (HydrALAZINE INJ) Q4H PRN/IV. 01/13/17 0044 Aspirin 81 mg 01/12/17 0900 (Ecotrin Tab) DAILY/PO 01/15/17 0804 Losartan Potassium 100 mg 01/12/17 0900 (coZAAR TAB) QAM/PO 01/15/17 0803 Objective Vital Signs Past 12 Hours Date Time Temp Pulse Resp B/P Pulse Ox O2 Delivery O2 Flow Rate FiO2 01/15/17 07:50 36.9 66 18 140/73 95 01/15/17 04:00 94 Room Air 01/15/17 03:37 36.7 61 18 155/72 99 Nasal Cannula 3.0 01/14/17 23:59 94 Room Air 01/14/17 23:27 36.8 60 18 132/70 95 Nasal Cannula 3.0 64 138/77 66 112/70 Last Recorded Weight-Kilograms: 73.000 Intake & Output 8-Hour Column 01/14/17 01/15/17 01/15/17 16:00 00:00 08:00 Intake Total 535 ml Output Total 300 ml 500 ml 300 ml Balance -300 ml 35 ml -300 ml 24-Hour Column 01/15/17 08:00 Intake Total 535 ml Output Total 1100 ml Balance -565 ml Physical Exam Constitutional: General Apperance: heathly-appearing Level of Distress: NAD Lungs: Respiratory effort: no dyspnea, good air movement Auscultation: breath sounds normal, no wheezing Cardiovascular: Heart Auscultation: RRR, no murmurs, no rubs, no gallops, bradycardia Peripheral Pulses: Bruits: none appreciated Extremities: no edema The pacemaker incision is clean and dry, there is the expected ecchymosis but no swelling or pocket hematoma. Data Laboratory Results: Last 24 Hours Test 01/15/17 08:10 Imaging: Chest x-ray shows good lead position, no pneumothorax EKG: Sinus rhythm with intact AV conduction post-pacemaker Telemetry reviewed: Mostly atrial pacing with intact AV conduction Pacemaker evaluation: Excellent pacing and sensing characteristics, improvement in atrial pacing since implant as expected. Assessment and Plan #1. Sinus bradycardia: She has long-standing sinus bradycardia, the rate has not been low enough that we have felt that a pacemaker was clearly indicated however she has had symptoms consistent with bradycardia. She also requires beta blockade for her atrial fibrillation and hypertension. Her rate now (on increased metoprolol) is predominantly controlled by the pacemaker which is set at 60. #2. Atrial fibrillation: She has a history of paroxysmal atrial fibrillation but has not had it here in the hospital this admission except briefly during the surgery while positioning the atrial lead. She was on warfarin for that. I did give her warfarin yesterday, her INR is pending today. I don't think she needs to remain in the hospital while we wait for that to become therapeutic and I don't think she needs bridging due to the infrequency of her arrhythmia. Since she got most likely it may take some time for her INR to rise. #3. Postop day #1. Pacemaker implantation: The site looks good, her pacemaker is functioning well and her rhythm is stable. From my standpoint she can go home once her antibiotic is completed, which is scheduled for tube can be given an hour or 2 earlier today. Thank you for allowing me to participate in her care.
[2017-01-15 08:51] LABS: BUN/CREATININE RATIO 15.5 (10-20); CREATININE 1.3 mg/dl (0.60-1.20); POTASSIUM 4.1 mmol/L (3.5-5.1)
[2017-01-15 08:52] LABS: CALCIUM 8.9 mg/dl (8.5-10.1)
[2017-01-15] MEDS ORDERED: METOPROLOL SUCC 50MG EXT REL TAB PO SCH (09:00)
[2017-01-15] MEDS ORDERED: TPRSR50 PO (09:58)
--- NOTE | 2017-01-15 09:59 | Discharge Instructions ---
Discharge Instructions Date of Service January 15, 2017. Admission Reason for Admission: Dizziness Discharge Discharge Diagnosis / Problem: Symptomatic Bradycardia Discharge Goals Goal(s): Decrease discomfort, Improve function, Increase independence Activity Recommendations Activity Limitations: as noted below . Instructions / Follow-Up Instructions / Follow-Up ACTIVITY RECOMMENDATIONS: * Do not raise affected arm over head for 2 weeks. SPECIAL CARE INSTRUCTIONS: * If bleeding occurs, apply direct pressure to area for 5 minutes. * Call your doctor if you have severe pain, fever, drainage or bleeding at site. * Keep dressing on and dry for 48 hours then remove. * Keep any scheduled doctor's appointment. * Implant Card - hand held device with website information given. SKIN IRRITATION: * You may experience some redness and/or swelling in the area where radiation was administered. If any skin irritation occurs, please contact your family physician. Dizziness and Bradycardia (Low Heart Rate) with Paroxysmal Atrial Fibrillation: - Continue your Coumadin therapy -- Recommend taking Coumadin 5 mg tonight (01/15) then resume your daily 2.5 mg and follow-up in Coumadin clinic as previously established - Your home metoprolol was discontinued and continue the following medication at this time until your follow-up with Dr. Tyson or your regular tube trailer filler -- Metoprolol succinate 50 mg daily - Continue your previous medications as previously prescribed except the Coumadin and Metoprolol mentioned above Follow-Up: - Please see your family doctor in 7-10 days - Follow-up with Dr. Tyson as established - Recommend following up with your normal tube trailer filler in 7-10 days as well. Current Hospital Diet Patient's current hospital diet: AHA Diet (Heart Healthy), Low Sodium Diet (2gm Na) Discharge Diet Recommended Diet: AHA Diet (Heart Healthy), Low Sodium Diet (2gm Na) Pending Studies Studies pending at discharge: no Medical Emergencies . Who to Call and When: Medical Emergencies: If at any time you feel your situation is an emergency, please call 911 immediately. . Non-Emergent Contact Non-Emergency issues call your: Primary Care Provider Call Non-Emergent contact if: you have a fever, your pain is concerning you, you have any medication questions . . "Provider Documentation" section prepared by Kezia Carlos. . VTE Core Measure Inpt VTE Proph given/why not?: Warfarin (Coumadin), T.E.D. Stockings, SCD's
[2017-01-15] MEDS: CETIRIZINE HCL 10 MG TAB PO PRN (10:43)
[2017-01-15 12:00] VITALS: O2SAT 95
--- NOTE | 2017-01-15 13:41 | CARDIOLOGY PROGRESS NOTE ---
DATE: 01/15/2017 SUBJECTIVE: The patient was seen and examined at the bedside. She was admitted with symptomatic bradycardia. A dual-chamber pacemaker was implanted yesterday. A brief rhonda of atrial fibrillation was noted perioperatively. The patient received a dose of ibutilide and converted to sinus rhythm. Toprol-XL 50 mg daily added today. She is feeling well. Denies chest pain or shortness of breath. Offers no complaints at this time. REVIEW OF SYSTEMS: The pertinent positives noted above and a 4-system review including cardiovascular, pulmonary, gastroenterologic, and neurologic systems are otherwise negative. MEDICATIONS: Reviewed via EMR. Please see list for details. LABORATORY DATA: White blood cell count is 8.64, hemoglobin is 12.9, and platelet count is 285. Sodium 141, potassium 4.1, chloride 107, CO2 is 26, BUN is 20, and creatinine is 1.30. INR today is 1.2. PHYSICAL EXAMINATION: VITAL SIGNS: Temperature is 36.9 degrees centigrade, pulse 66 beats per minute and regular, respiratory rate is 18 breaths per minute, blood pressure 140/73 and SaO2 is 95% on room air. GENERAL: NAD, awake, alert and oriented x3. HEENT: Mucous membranes are moist. No scleral icterus. Conjunctivae pink. NECK: Supple. There is no JVD or HJR. No carotid bruit appreciated. LUNGS: Clear without rales, rhonchi or wheeze. ABDOMEN: Soft and nontender. No rebound or guarding. HEART: Regular with a normal S1 and S2. There is no murmur appreciated. EXTREMITIES: Warm and dry without clubbing, cyanosis, or edema. NEUROLOGIC: Demonstrates no focal deficit. FINAL IMPRESSION: 1. Symptomatic bradycardia with syncope. 2. History of paroxysmal atrial fibrillation on chronic anticoagulation. 3. Hypertension. 4. Status post dual-chamber pacemaker insertion. PLAN AND RECOMMENDATIONS: Continue Toprol-XL 50 mg daily. Warfarin has been restarted. Continue for a goal INR of 2.0-3.0. Other medications will be continued as previously ordered. The patient will have threshold testing in 1 month for routine clinical followup at that time. She will present to the clinic in approximately 1 week for a postoperative wound check. No further cardiac testing at this time. We will sign off. Please call with questions. Thank you for allowing me to take part in the care of your patient.
[2017-01-15 14:10] VITALS: BP 140/73; PULSE 66; TEMP 36.9; O2SAT 95
--- NOTE | 2017-01-15 14:20 | Discharge Summary ---
Discharge Summary Date of Service January 15, 2017. (Kezia Carlos PA-C) Discharge Summary Admission Date: January 12, 2017 at 11:47 Discharge Date: January 15, 2017 Discharge Disposition: Home Principal Diagnosis: Bradycardia Problems/Secondary Diagnoses: Medical Problems: (1) Paroxysmal Atrial fibrillation (2) chest pain hx of CAD stent (3) Dizziness (4) Gastroesophageal reflux disease (5) Pulmonary emphysema (6) Symptomatic bradycardia (1) Symptomatic bradycardia Status: Chronic Immunizations: Have You Had Influenza Vaccine: Yes Influenza Vaccine Date: Jun 20, 2013 History of Tetanus Vaccine?: unk History of Pneumococcal: Yes Pneumococcal Date: Jun 20, 2011 History of Hepatitis B Vaccine: No Procedures: 1. CHEST 2 VIEWS ROUTINE FINDINGS: Interval placement of a left-sided dual-chamber pacemaker. The leads are intact. No pneumothorax. Emphysema. The heart is stable in size. No new focal lung consolidations. No evidence for pulmonary edema. Calcified granuloma within the left lung apex. IMPRESSION: 1. Left-sided dual-chamber pacemaker. No pneumothorax. 2. Emphysema. 2. CT ABD/PELVIS IV CONTRAST ONLY FINDINGS: Lower chest: There are dependent atelectatic changes present. There is mild subpleural interstitial thickening. There is a small left lower lobe lung cyst. Liver: The contrast-enhanced liver is normal in size, contour, and attenuation. There is no intrahepatic biliary ductal dilatation. The hepatic veins and portal veins are patent. Gallbladder: Cholelithiasis versus minimal wall calcification. Spleen: Normal in size and attenuation. Pancreas: Unremarkable. Adrenal glands: Unremarkable. Kidneys: There is a 1 cm left renal cyst. No solid renal masses are visualized Bowel: There are no transition zones indicate bowel obstruction. There is colonic diverticulosis. No acute peridiverticular inflammatory changes are visualized. There are no findings to indicate acute appendicitis. There is a large amount stool present within the rectal vault which measures 8 cm in diameter. Peritoneum: There is no intraperitoneal free air or abdominal ascites. Vasculature: There are extensive atheromatous changes present within the aorta. There is a left renal artery stent. There is dense calcific plaque at the right renal artery origin. There is plaque at the celiac and superior mesenteric artery origins. There is aortic stent grafts present. Adenopathy: None. Pelvic viscera: The uterus appears surgically absent. Skeletal structures: No destructive osseous lesions are seen. IMPRESSION: 1. No evidence of bowel obstruction. No evidence of free air 2. Diverticulosis. No evidence of acute diverticulitis 3. No evidence of acute appendicitis 4. Large amount stool within the rectal vault Consultations: 1. [facility] 2. [facility] - Pacemaker Placement 3. PT/OT (Kezia Carlos, KAYDEN) Medication Reconciliation New Medications: Metoprolol Succinate (Metoprolol Succinate ER) 50 Mg Tabcr 50 MG PO QAM for 30 Days Continued Medications: Acetaminophen (Tylenol Arthritis Ext Rel) 650 Mg Cplt 650 MG PO Q8H PRN for Pain Aspirin (Aspirin Ec) 81 Mg Tab 81 MG PO DAILY Calcium Citrate-Vitamin D (Citracal + D3 Maximum) 1 Tab Tab 1 TAB PO BID Cetirizine (Zyrtec) 10 Mg Tab 10 MG PO DAILY PRN for ALLERGIES Cholecalciferol (Vitamin D3) 1,000 Unit Tab 2 TAB PO DAILY for 90 Days, #180 TAB 3 Refills Coenzyme Q10 (Ubidecarenone) (Co Q 10) 100 Mg Cap 200 MG PO DAILY Ipratropium-Albuterol (Combivent Respimat) 1 Aer Aer 1 PUFFS INH QID PRN for Shortness of Breath, INH Losartan Potassium (Cozaar) 100 Mg Tab 100 MG PO QAM, TAB Meclizine Hcl (Meclizine Hcl) 25 Mg Tab 12.5-25 MG PO TID PRN for VERTIGO Multiple Vitamins W/ Minerals (One Daily Complete) 1 Tab Tab 1 TAB PO QAM Nitroglycerin (Nitrostat) 0.4 Mg Tab 0.4 MG UT PRN, BTL Oxygen (Oxygen) Gas 3 LITERS NA HS Pantoprazole (Protonix) 40 Mg Tab 40 MG PO HS Rosuvastatin Calcium (Crestor) 5 Mg Tab 0.5 TAB PO HS Warfarin Sod (Jantoven) 2.5 Mg Tab 2.5 MG PO HS Zoledronic Acid (Reclast) 5 Mg/100 Ml Inj 5 MG IV YEARLY Discontinued Medications: Metoprolol Succ (Toprol Xl) (Toprol-Xl) 25 Mg Tabcr 12.5 MG PO QAM, TAB Discharge Exam REVIEW OF SYSTEMS: Constitutional: No chills, No fever Eyes: No worsening of vision ENT: + nasal symptoms (improving) Respiratory: + cough, No shortness of breath Cardiovascular: No chest pain Abdomen: No constipation, No diarrhea, No nausea, No pain, No vomiting Musculoskeletal: No calf pain, No swelling Female : No dysuria Neurologic: No vertigo Skin: No rash PHYSICAL EXAM: General Appearance: WD/WN, no apparent distress Eyes: sclerae normal ENT: hearing grossly normal Neck: supple, no JVD, trachea midline Respiratory/Chest: lungs clear, normal breath sounds, no respiratory distress, no accessory muscle use; site of pacer with bandage clean/dry/intact; surrounding skin without erythema or drainage Cardiovascular: regular rate, rhythm, no gallop, no murmur Abdomen: normal bowel sounds, non tender, soft Extremities: no pedal edema, no calf tenderness Neurologic/Psychiatric: alert, oriented x 3 Skin: normal color, warm/dry (Kezia Carlos, KAYDEN) Hospital Course ADMISSION: : The patient is a very pleasant 81-year-old female accompanied by her daughter. She went to bed feeling relatively well, it sounds like last night and then woke up this morning with lower abdominal pain, was fairly intense. It was accompanied by nausea and a degree of lightheadedness. It was so intense that she actually ended up having to curl up on the floor, could not get up, used her Life Alert button to summon help and was brought here for further evaluation. She is now feeling much better. No abdominal pain, no lightheadedness, no real dizziness. It is unclear exactly what caused her symptoms to go away, but because of concern of her bradycardia we were asked to see her for further evaluation and treatment. HOSPITAL COURSE: Ms. Carlton was admitted for lower abdominal pain that turned out to be constipation that was relieved with multiple doses of Miralax with complete resolution. She also presented with nausea and lightheadedness and presented with bradycardia that resulted in rates in high 40s. She continued to be bradycardic with her Toprol-XL 12.5 mg daily held. During monitoring she did have intermittent runs of atrial fibrillation and suspicion for tachy-roberth syndrome explored. She underwent dual chamber pacemaker insertion by Dr. Tyson on 01/14. Procedure was delayed due to awaiting INR to decrease for concerns for bleeding. Her Coumadin was reverse with Vitamin K. Her Coumadin was resumed after procedure and she is currently 1.2. She had 5 mg yesterday and instructed to take 5 mg tonight then resume 2.5 mg daily until her pre- established INR check as outpatient. She is currently resolved from lower abdominal pain, nausea, and lightheadedness. All home medications were continued as previously prescribed. Discussed with cardiology to utilize Metoprolol 50 mg daily until follow-up at which time adjustments may be made. PT /OT evaluations completed that support returning home and is at functional baseline. She is optimal for discharge home with cardiology follow-up. Total Time Spent: Greater than 30 minutes This includes examination of the patient, discharge planning, medication reconciliation, and communication with other providers. (Kezia Carlos, NATHANC) Discharge Instructions Please refer to the electronic Patient Visit Report (Discharge Instructions) for additional information. (Kezia Carlos, NATHANC) Additional Copies To Maximus Gonzalez M.D.
[2017-02-27] MEDS ORDERED: METO50TA7 PO (08:23)
[2017-02-27] MEDS ORDERED: CHOLCAP10 PO (08:23)
== END 2017-01-15 14:30 | disposition home or self-care (01) | DRG 244 ==
LOC: ENRESERVTM → ENRESERVDT → EDBD 09:51 → C.EDB 09:53 → C.2T 12:16 → OBSVTOIN 01-12 11:47
PROVIDERS: ADMIT Family Medicine; ATTEND Family Medicine
PROC: 02H70JZ Insertion of Pacemaker Lead into Left Atrium, Open Approach (ICD-10-PCS; principal; 2017-01-14 14:30)
PROC: 0JH606Z Insertion of Pacemaker, Dual Chamber into Chest Subcutaneous Tissue and Fascia, Open Approach (ICD-10-PCS; principal; 2017-01-14 14:30)
PROC: 02H60JZ Insertion of Pacemaker Lead into Right Atrium, Open Approach (ICD-10-PCS; principal; 2017-01-14 14:30)
DX: R00.1 Bradycardia, unspecified (principal); N18.3 Chronic kidney disease, stage 3 (moderate); I25.10 Atherosclerotic heart disease of native coronary artery without angina pectoris; J44.9 Chronic obstructive pulmonary disease, unspecified; J43.9 Emphysema, unspecified; K21.9 Gastro-esophageal reflux disease without esophagitis; E78.5 Hyperlipidemia, unspecified; E21.3 Hyperparathyroidism, unspecified; M81.0 Age-related osteoporosis without current pathological fracture; I48.91 Unspecified atrial fibrillation; Z87.891 Personal history of nicotine dependence; Z79.82 Long term (current) use of aspirin; Z79.01 Long term (current) use of anticoagulants; Z99.81 Dependence on supplemental oxygen

== ENCOUNTER → 2017-02-11 | Outpatient (CLI) | payer OTHER, MEDICARE ==
[~2017-02-11] MED LIST changes: -ASPEC81 PO; +ASPI81TA28 PO; +CHOL1000 PO; -CHOL1TAB42 PO; +CHOL500021 PO; +CHOLCAP10 PO; -COEN150C PO; +COEN1CAP17 PO; -FOSAMAX IV; -METO25TA3 PO; +METO50TA7 PO; +MULTCHW; +MULTCHW PO; +TPRSR50 PO; +ZOLE5INJ IV
[2017-02-11 12:37] LABS: URINE APPEARANCE CLEAR (CLEAR); URINE BILIRUBIN NEG (NEG); URINE COLOR YELLOW; URINE EPITHELIAL CELL AUTO >30 /lpf (0-5); URINE NITRITE NEG (NEG); URINE SPECIFIC GRAVITY 1.018 (1.000-1.030); UROBILINOGEN NEG (NEG)
[2017-02-11 12:42] LABS: MANUAL MICROSCOPIC REQUIRED? NO; REVIEW REQ? NO
[2017-02-11 14:39] LABS: BLOOD UREA NITROGEN 18 mg/dl (7-18); BUN/CREATININE RATIO 12.7 (10-20); CALCIUM 9.2 mg/dl (8.5-10.1); CARBON DIOXIDE 28 mmol/L (21-32); CHLORIDE 106 mmol/L (98-107); GLUCOSE 95 mg/dl (70-99); POTASSIUM 4.4 mmol/L (3.5-5.1); SODIUM 142 mmol/L (136-145)
== END | disposition home or self-care (01) ==
LOC: C.LABBFT 09:34
PROVIDERS: ATTEND Internal Medicine Nephrology
DX: N18.3 Chronic kidney disease, stage 3 (moderate) (principal)

== ENCOUNTER → 2017-02-18 | Outpatient (CLI) | payer OTHER, MEDICARE ==
[2017-02-18 12:37] LABS: BASO % 0.7 %; BASO ABS # 0.05 K/uL (0-0.2); COMPLETE YES; EOS % 3.1 %; IG% 0.1 %; LYMPH % 24.6 %; LYMPH ABS # 1.65 K/uL (1.2-3.4); MEAN CELL VOLUME 93.3 fL (80-100); MEAN CORPUSCULAR HEMOGLOBIN 29.5 pg (25-34); MEAN CORPUSCULAR HGB CONC 31.6 g/dl (32-36); MEAN PLATELET VOLUME 9.5 fL (7.4-10.4); MONO % 10.9 %; NEUT % 60.6 %; PLATELET COUNT 370 K/uL (130-400); RED BLOOD COUNT 4.61 M/uL (4.2-5.4); WHITE BLOOD COUNT 6.72 K/uL (4.8-10.8)
[2017-02-18 13:08] LABS: ESTIMATED AVERAGE GLUCOSE 126 mg/dl; HA1C FLAG Normal (Normal)
[2017-02-18 14:04] LABS: AMYLASE 54 U/L (25-115); BLOOD UREA NITROGEN 17 mg/dl (7-18); BUN/CREATININE RATIO 12.1 (10-20); CALCIUM 9.8 mg/dl (8.5-10.1); CARBON DIOXIDE 28 mmol/L (21-32); CHLORIDE 104 mmol/L (98-107); GLUCOSE 96 mg/dl (70-99); POTASSIUM 4.4 mmol/L (3.5-5.1); SODIUM 143 mmol/L (136-145)
[2017-02-18 14:09] LABS: ALB/GLOB RATIO 0.9 (0.9-2); ALKALINE PHOSPHATASE 73 U/L (45-117); ALT/SGPT 23 U/L (12-78); AST/SGOT 20 U/L (15-37); CHOLESTEROL 174 mg/dl (0-200); CHOLESTEROL/HDL RATIO 3.3; HDL CHOLESTEROL 52 mg/dl; LDL CHOLESTEROL CALCULATED 83 mg/dl; TRIGLYCERIDES 194 mg/dl (0-150); VERY LOW DENSITY LIPOPROT CALC 39 mg/dl
== END | disposition home or self-care (01) ==
LOC: C.LABBFT 09:56
PROVIDERS: ATTEND Internal Medicine
DX: R11.0 Nausea (principal); R73.01 Impaired fasting glucose; E78.00 Pure hypercholesterolemia, unspecified

== ENCOUNTER → 2017-02-23 | Outpatient (CLI) | payer OTHER, MEDICARE ==
--- NOTE | 2017-02-23 09:16 | DIAGNOSTIC IMAGING REPORT ---
ABDOMINAL ULTRASOUND COMPLETE HISTORY: E78.00 [id number]. COMPARISON: Abdominal ultrasound 07/23/2015. FINDINGS: Pancreas: The pancreatic tail is obscured by overlying bowel gas. The remaining portions of the pancreas are within normal limits. Liver: Unremarkable. Gallbladder: No gallbladder wall thickening. No gallstones. CBD: 4 mm. Kidneys: No hydronephrosis. Mild to moderate bilateral cortical renal atrophy, unchanged. Spleen: Normal in size. Aorta: Normal in caliber. Moderate calcified plaque. IVC: Patent. IMPRESSION: No significant abnormality identified within the within the abdomen. No change from the prior study. Electronically signed by: Jerry Campos M.D. 02/23/2017 9:15 AM Dictated Date/Time: 02/23/2017 9:14 AM
== END | disposition home or self-care (01) ==
LOC: C.ULTR 08:31
PROVIDERS: ATTEND Internal Medicine
DX: R11.0 Nausea (principal); E78.00 Pure hypercholesterolemia, unspecified; N28.89 Other specified disorders of kidney and ureter

== ENCOUNTER → 2017-03-04 | Day surgery (SDC) | payer OTHER, MEDICARE ==
[2017-02-27 08:24] VITALS: Ht 230.5 cm; Wt 74.0 kg
[~2017-03-04] VITALS: Ht 230.5 cm; Wt 74.0 kg
[~2017-03-04] MED LIST changes: -CHOL1000 PO; +PROPOFOL IV EMULSION 10 MG/ML 20 ML VIAL IV ONE; +SODIUM CHLORIDE 0.9% 500ML 500 ML IV ONE; -TPRSR50 PO
--- NOTE | 2017-03-04 10:09 | Endo History and Physical ---
History & Physical Date of Service: Mar 04, 2017. Chief Complaint: Abdominal Pain Referring Physician: Gonzalez History of Present Illness Nausea and epigastric pain Past Medical History Angioplasty/Stent, Reflux, Cancer, CHF, Hypertension, Kidney Disease Past Surgical History Hx Cardiac Surgery: Yes ( Cardiac Cath With Stenting) Hx Internal Defibrillator: No Hx Pacemaker: Yes ([employer]ON[employer]) Hx Abdominal Surgery: No (AAA repair, Colonsoscopy) Hx Post-Op Nausea and Vomiting: No Hx Cancer Surgery: Yes (RYAN BSO) Hx Thoracic Surgery: Yes Hx Orthopedic: Yes (LEFT ORIF HIP) Hx Urinary Tract Surgery: Yes (KIDNEY STENT X1) Family History None Social History Smoking Status: Former Smoker Hx Substance Use: No Hx Alcohol Use: No Allergies Coded Allergies: Atorvastatin (Verified Allergy, Severe, LEG CRAMPS, 03/04/17) Lidocaine (Verified Allergy, Mild, PASSES OUT, 03/04/17) Current Medications Reported Home Medications Medications Dose Route/Sig Max Daily Dose Days Date Category Toprol-Xl (Metoprolol Succinate) 50 Mg Tabcr 50 Mg PO QAM 02/27/17 Reported D 5000 (Cholecalciferol) 5,000 Unit Cap 1 Cap PO MWF 02/27/17 Reported Co Q 10 (Coenzyme Q10 (Ubidecarenone)) 100 Mg Cap 200 Mg PO QAM 01/11/17 Reported Reclast (Zoledronic Acid) 5 Mg/100 Ml Inj 5 Mg IV YEARLY 01/11/17 Reported Aspirin Ec (Aspirin) 81 Mg Tab 81 Mg PO QAM 01/11/17 Reported Zyrtec (Cetirizine HCl) 10 Mg Tab 10 Mg PO DAILY PRN 10/07/16 Reported Meclizine Hcl 25 Mg Tab 12.5-25 Mg PO TID PRN 10/07/16 Reported Tylenol Arthritis Ext Rel (Acetaminophen) 650 Mg Cplt 650 Mg PO Q8H PRN 10/07/16 Reported Citracal + D3 Maximum (Calcium Citrate-Vitamin D) 1 Tab Tab 1 Tab PO BID 10/07/16 Reported Crestor (Rosuvastatin Calcium) 5 Mg Tab 0.5 Tab PO HS 10/07/16 Reported One Daily Complete (Multiple Vitamins W/ Minerals) 1 Tab Tab 1 Tab PO QAM 11/24/15 Reported Combivent Respimat (Ipratropium-Albuterol) 1 Aer Aer 1 Puffs INH QID PRN 3/19/16 Reported Jantoven (Warfarin Sodium) 2.5 Mg Tab 2.5 Mg PO HS 03/11/15 Reported Cozaar (Losartan Potassium) 100 Mg Tab 100 Mg PO QAM 08/08/14 Reported Oxygen Gas 3 Liters NA HS 03/09/14 Reported Nitrostat (Nitroglycerin) 0.4 Mg Tab 0.4 Mg UT PRN 06/17/13 Reported Protonix (Pantoprazole Sodium) 40 Mg Tab 40 Mg PO HS 06/28/11 Reported Vital Signs Weight (Kilograms): 74 Height (Feet): 7 Height (Inches): 6.75 Physical Exam General Appearance: WD/WN, no apparent distress Respiratory/Chest: Auscultation: breath sounds normal, no wheezing Cardiovascular: Heart Auscultation: RRR, no murmurs Assessment and Plan EGD today
--- NOTE | 2017-03-04 10:55 | GI REPORT ---
Procedure Date: 03/04/2017 10:19 AM Procedure: Upper GI endoscopy Indications: Abdominal pain, Nausea Medicines: Monitored Anesthesia Care Complications: No immediate complications. Estimated blood loss: None. Estimated Blood Loss: Estimated blood loss: none. Procedure: Pre-Anesthesia Assessment: - Prior to the procedure, a History and Physical was performed, and patient medications, allergies and sensitivities were reviewed. The patient's tolerance of previous anesthesia was reviewed. - ASA Grade Assessment: III - A patient with severe systemic disease. After obtaining informed consent, the endoscope was passed under direct vision. Throughout the procedure, the patient's blood pressure, pulse, and oxygen saturations were monitored continuously. The scope was introduced through the mouth, and advanced to the third part of the duodenum. Small bowel enteroscopy was deemed necessary. The upper GI endoscopy was accomplished with ease. The patient tolerated the procedure well. Findings: The upper third of the esophagus, middle third of the esophagus and lower third of the esophagus were normal. The Z-line was irregular and was found 35 cm from the incisors. Biopsies were taken with a cold forceps for histology. A small hiatus hernia was present. The entire examined stomach was normal. Biopsies were taken with a cold forceps for Helicobacter pylori testing. The examined duodenum was normal. Biopsies for histology were taken with a cold forceps for evaluation of celiac disease. Verification of patient identification for the specimens was done by the physician and nurse using the patient's name, date and medical record number. Impression: - Normal upper third of esophagus, middle third of esophagus and lower third of esophagus. - Z-line irregular, 35 cm from the incisors. Biopsied. - Small hiatus hernia. - Normal stomach. Biopsied. - Normal examined duodenum. Biopsied. Recommendation: - Await pathology results. - Discharge patient to home (with escort). Jona Sims M.D. Jona Sims MD 03/04/2017 10:54:45 AM This report has been signed electronically. Note Initiated On: 03/04/2017 10:19 AM I attest to the content of the Intraoperative Record and orders documented therein, exceptions below
--- NOTE | 2017-03-04 11:03 | Discharge Instructions ---
Endoscopy Patient Instructions Date / Procedure(s) Performed Mar 04, 2017. EGD Allergy Information Coded Allergies: Atorvastatin (Verified Allergy, Severe, LEG CRAMPS, 03/04/17) Lidocaine (Verified Allergy, Mild, PASSES OUT, 03/04/17) Discharge Date / Findings Mar 04, 2017. Hiatal hernia, biopsies pending Medication Instructions Stopped Medication(s): Aspirin stopped 02/21/16 Coumadin stopped 02/21/16 Restart Stopped Medication(s): Resume all medications today. Provider Instructions Activity Restrictions - No exercising or heavy lifting for 24 hours. - Do not drink alcohol the day of the procedure. - Do not drive a car or operate machinery until the day after the procedure. - Do not make any important decisions or sign important papers in 24 hours after the procedure. Following Day: - Return to full activity which may include returning to work/school. Diet Start your diet with liquids and light foods (jello, soup, juice, toast). Then eat your usual diet if not nauseated. Treatment For Common After Affects For mild abdominal pain, bloating, or excessive gas: - Rest - Eat lightly - Lie on right side Follow-Up Information Follow-up with L[facility] as scheduled Anesthesia Information What You Should Know You have had a procedure that required some medicine to reduce anxiety and discomfort. This treatment is called moderate sedation. After receiving the treatment, you may be sleepy, but you will be able to breathe on your own. The effects of the treatment may last for several hours. Follow these instructions along with Activity/Diet recommendations noted above: * Do NOT do anything where dizziness or clumsiness would be dangerous. * Rest quietly at home today, then you can be up and about tomorrow. * Have a responsible person stay with you the rest of today. * You may have had an I.V. today. If so, you may take the dressing off later today. Recommendations Call your doctor if: * Trouble breathing * Continuous vomiting for more than 24 hours * Temperature above 101 degrees * Severe abdominal pain or bloating * Pain not relieved by pain medicine ordered * There is increased drainage or redness from any incision * A large amount of rectal bleeding greater than 2-3 tablespoons. (If you had a polyp/s removed or have hemorrhoids, a small amount of blood - from the rectum is to be expected.) * You have any unanswered questions or concerns. IN THE EVENT OF A SERIOUS EMERGENCY, GO TO THE NEAREST EMERGENCY ROOM Your discharge instructions were prepared by provider Jona Sims. Patient Instructions Signature Page Marce Carlton Patient (or Guardian) Signature/Date: I have read and understand the instructions given to me by my caregivers. Caregiver/RN/Doctor Signature/Date: The above-named patient and/or guardian has received patient instructions on this date. + Original Patient Signature Page (only) stays with chart. Please make copy for patient.
[2017-03-04 11:20] VITALS: BP 137/68; PULSE 60; O2SAT 96
--- NOTE | 2017-03-04 11:51 | Anesthesiology Progress Note ---
Anesthesia Post Op Note Date & Time Mar 04, 2017 at 11:51 Vital Signs Pain Intensity: 4 Vital Signs Past 12 Hours Date Time Temp Pulse Resp B/P (MAP) Pulse Ox O2 Delivery O2 Flow Rate FiO2 03/04/17 11:20 60 18 137/68 (91) 96 Room Air 03/04/17 11:05 60 18 121/63 (82) 94 Room Air 03/04/17 11:01 70 18 131/70 (90) 95 Room Air 03/04/17 10:55 70 18 131/70 (90) 95 Room Air 03/04/17 10:07 36.7 90 20 173/90 (117) 96 Room Air Notes Mental Status: alert / awake / arousable, participated in evaluation Pt Amnestic to Procedure: Yes Nausea / Vomiting: adequately controlled Pain: adequately controlled Airway Patency, RR, SpO2: stable & adequate BP & HR: stable & adequate Hydration State: stable & adequate Anesthetic Complications: no major complications apparent
== END | disposition home or self-care (01) ==
LOC: C.GI 09:44
PROVIDERS: ATTEND Internal Medicine Gastroenterology
DX: K29.50 Unspecified chronic gastritis without bleeding (principal); K44.9 Diaphragmatic hernia without obstruction or gangrene; I11.0 Hypertensive heart disease with heart failure; I50.9 Heart failure, unspecified; N28.9 Disorder of kidney and ureter, unspecified; K21.0 Gastro-esophageal reflux disease with esophagitis; Z95.5 Presence of coronary angioplasty implant and graft; Z87.891 Personal history of nicotine dependence; Z79.82 Long term (current) use of aspirin; Z79.899 Other long term (current) drug therapy

== ENCOUNTER → 2017-03-11 | Outpatient (CLI) | payer OTHER, MEDICARE ==
[~2017-03-11] MED LIST changes: -PROPOFOL IV EMULSION 10 MG/ML 20 ML VIAL IV ONE; -SODIUM CHLORIDE 0.9% 500ML 500 ML IV ONE
--- NOTE | 2017-03-11 09:35 | DIAGNOSTIC IMAGING REPORT ---
Abdominal arterial Doppler DUPLEX MESENTERIC CLINICAL HISTORY: NAUSEA, ABD PAIN pain. Nausea. TECHNIQUE: Duplex Doppler of the abdomen COMPARISON STUDY: None FINDINGS: Findings of an increased velocities of the celiac axis as well as superior mesenteric artery. Celiac axis velocities are 164 cm/s. The superior mesenteric arterial velocities of 306 cm/s. Abdominal aorta is 44 cm/s. Remaining velocities are unremarkable. 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 Electronically signed by: Nick Ricardo M.D. 03/11/2017 9:33 AM Dictated Date/Time: 03/11/2017 9:32 AM
== END | disposition home or self-care (01) ==
LOC: C.ULTR 08:28
PROVIDERS: ATTEND Internal Medicine Gastroenterology
DX: R11.0 Nausea (principal); R10.9 Unspecified abdominal pain; K55.1 Chronic vascular disorders of intestine; I77.4 Celiac artery compression syndrome

== ENCOUNTER 2017-03-26 10:27 | Emergency (ER) | payer OTHER, MEDICARE ==
[~2017-03-26] VITALS: Ht 167.6 cm; Wt 73.0 kg
[~2017-03-26 10:27] MED LIST changes: -CHOL500021 PO; -MULTCHW; -MULTCHW PO
[2017-03-26 10:41] VITALS: TEMP 36.5; O2SAT 94; Ht 167.6 cm; Wt 73.0 kg
[2017-03-26] MEDS ORDERED: MULTCHW (10:48)
[2017-03-26] MEDS ORDERED: CHOL500021 PO (10:48)
[2017-03-26] MEDS ORDERED: MULTCHW PO (10:48)
--- NOTE | 2017-03-26 11:03 | DIAGNOSTIC IMAGING REPORT ---
CHEST ONE VIEW PORTABLE HISTORY: 81 years Female with acute atrial fibrillation COMPARISON: Chest radiograph 01/15/2017 TECHNIQUE: Portable upright AP view of the chest FINDINGS: Cardiac silhouette is again upper limits of normal, unchanged. Left pectoral pacer is again seen with leads overlying the right atrial appendage and right ventricle. The leads appear intact. There is mild biapical pleural parenchymal scarring without pneumothorax, pleural effusion, focal airspace consolidation or overt pulmonary edema. There is background emphysema. Coarsened reticular opacities of the lung bases are unchanged suggesting scarring. The bones appear grossly intact and are moderately demineralized. IMPRESSION: Emphysema without acute cardiopulmonary process. The above report was generated using voice recognition software. It may contain grammatical, syntax or spelling errors. Electronically signed by: Ramsey Sigala M.D. 03/26/2017 11:02 AM Dictated Date/Time: 03/26/2017 11:00 AM
[2017-03-26 11:13] LABS: HEMATOCRIT 43.1 % (37-47); MEAN CELL VOLUME 92.1 fL (80-100); MEAN CORPUSCULAR HGB CONC 33.6 g/dl (32-36); MEAN PLATELET VOLUME 9.7 fL (7.4-10.4); PLATELET COUNT 360 K/uL (130-400); RED BLOOD COUNT 4.68 M/uL (4.2-5.4); WHITE BLOOD COUNT 7.43 K/uL (4.8-10.8)
[2017-03-26 11:24] LABS: INR 2.2 (0.9-1.1); PARTIAL THROMBOPLASTIN RATIO 1.6; PROTHROMBIN TIME (PATIENT) 24.3 SECONDS (9.0-12.0)
[2017-03-26 11:31] LABS: BUN/CREATININE RATIO 10.7 (10-20); CREATININE 1.5 mg/dl (0.60-1.20); POTASSIUM 4.5 mmol/L (3.5-5.1)
[2017-03-26 11:36] LABS: ALB/GLOB RATIO 0.8 (0.9-2); CKMB/CK RATIO 1.5 (0-3.0)
[2017-03-26] MEDS ORDERED: METOPROLOL TARTRATE 1 MG/ML VIAL IV STA (12:24)
[2017-03-26] MEDS ORDERED: METOPROLOL TARTRATE 1 MG/ML VIAL ONE (12:38)
[2017-03-26 13:40] VITALS: BP 130/90; PULSE 101; O2SAT 92
--- NOTE | 2017-03-26 13:47 | EMERGENCY ROOM VISIT NOTE ---
History Report prepared by Jaime: Esha Bueno Under the Supervision of: Dr. Alexandro Short D.O. First contact with patient: 11:38 Chief Complaint: ILLNESS Stated Complaint: PULSE 130 History of Present Illness The patient is an 81 year old female who presents to the Emergency Room with complaints of persistent irregular heartbeat starting last night. The patient had some nausea last night. Overnight, she began to feel worse. This morning at 0700 she took her heart rate several times and found that it was fluctuating from 95-117 beats per minute. It was as high as 133. Her symptoms persisted for several hours prompting her to present to the ED. She was told by her padding gluer that if she went into atrial fibrillation that she should go to the ED. She took all her medications today as directed. She has had episodes of atrial fibrillation before. She has a pacemaker in place. She has a history of HI. Source of History: patient Onset: last night Position: other (global) Quality: other (irregular heartbeat) Timing: other (persistent) Associated Symptoms: + nausea Review of Systems See HPI for pertinent positives & negatives. A total of 10 systems reviewed and were otherwise negative. Past Medical & Surgical Medical Problems: (1) Atrial fibrillation (2) chest pain hx of CAD stent (3) Dizziness (4) Gastroesophageal reflux disease (5) Pulmonary emphysema (6) Symptomatic bradycardia Family History Noncontributory secondary to age. Social History Smoking Status: Never Smoker Alcohol Use: none Drug Use: none Marital Status: Housing Status: lives alone Occupation Status: retired Current/Historical Medications Scheduled Aspirin (Aspirin Ec), 81 MG PO QAM Calcium Citrate-Vitamin D (Citracal + D3 Maximum), 1 TAB PO BID Cholecalciferol (Vitamin D3), 5,000 UNITS PO MWF Coenzyme Q10 (Ubidecarenone) (Co Q 10), 200 MG PO QAM Home O2 Therapy (Oxygen), 3 LITERS NA HS Losartan Potassium (Cozaar), 100 MG PO QAM Metoprolol Succ (Toprol Xl) (Toprol-Xl), 50 MG PO QAM Multiple Vitamins W/ Minerals (Centrum Silver), 1 TAB PO DAILY Nitroglycerin (Nitrostat), 0.4 MG UT PRN Pantoprazole (Protonix), 40 MG PO HS Rosuvastatin Calcium (Crestor), 2.5 MG PO QPM Warfarin Sod (Jantoven), 2.5 MG PO HS Zoledronic Acid (Reclast), 5 MG IV YEARLY Scheduled PRN Acetaminophen (Tylenol Arthritis Ext Rel), 650 MG PO Q8H PRN for Pain Cetirizine (Zyrtec), 10 MG PO DAILY PRN for ALLERGIES Meclizine Hcl (Meclizine Hcl), 12.5-25 MG PO TID PRN for VERTIGO Miscellaneous Medications Multiple Vitamins W/ Minerals (Centrum Silver) Allergies Coded Allergies: Atorvastatin (Verified Allergy, Severe, LEG CRAMPS, 03/04/17) Lidocaine (Verified Allergy, Mild, PASSES OUT, 03/04/17) Physical Exam Vital Signs Date Time Temp Pulse Resp B/P (MAP) Pulse Ox O2 Delivery O2 Flow Rate FiO2 03/26/17 13:40 101 16 130/90 92 Room Air 03/26/17 13:19 97 03/26/17 12:57 101 16 114/84 91 Room Air 03/26/17 12:57 101 114/84 03/26/17 11:27 110 16 119/74 92 Room Air 03/26/17 10:41 94 Room Air 03/26/17 10:41 36.5 113 20 126/97 94 Room Air 03/26/17 10:41 36.5 113 20 126/97 94 Room Air 03/26/17 10:39 114 Physical Exam CONSTITUTIONAL/VITAL SIGNS: Reviewed / noted above. GENERAL: Non-toxic in appearance. INTEGUMENTARY: Warm, dry, and [place]. HEAD: Normocephalic. EYES: without scleral icterus or trauma. ENT/OROPHARYNX: clear and moist. LYMPHADENOPATHY/NECK: Is supple without lymphadenopathy or meningismus. RESPIRATORY: Lungs clear and equal. CARDIOVASCULAR: Irregular rhythm, normal rate. GI/ABDOMEN: Soft and nontender. No organomegaly or pulsatile mass. No rebound or guarding. Normal bowel sounds. EXTREMITIES: Warm and well perfused. BACK: No CVA tenderness. NEUROLOGICAL: Intact without focal deficits. PSYCHIATRIC: normal affect. MUSCULOSKELETAL: Normally developed with good muscle tone. Medical Decision & Procedures ER Provider Diagnostic Interpretation: X ray results and stated below per my interpretation and radiology interpretation. CHEST ONE VIEW PORTABLE HISTORY: 81 years Female with acute atrial fibrillation COMPARISON: Chest radiograph 01/15/2017 TECHNIQUE: Portable upright AP view of the chest FINDINGS: Cardiac silhouette is again upper limits of normal, unchanged. Left pectoral pacer is again seen with leads overlying the right atrial appendage and right ventricle. The leads appear intact. There is mild biapical pleural parenchymal scarring without pneumothorax, pleural effusion, focal airspace consolidation or overt pulmonary edema. There is background emphysema. Coarsened reticular opacities of the lung bases are unchanged suggesting scarring. The bones appear grossly intact and are moderately demineralized. IMPRESSION: Emphysema without acute cardiopulmonary process. The above report was generated using voice recognition software. It may contain grammatical, syntax or spelling errors. Electronically signed by: Ramsey Sigala M.D. 03/26/2017 11:02 AM Dictated Date/Time: 03/26/2017 11:00 AM Laboratory Results 03/26/17 10:50 03/26/17 10:50 Test 03/26/17 10:50 Red Blood Count 4.68 M/uL (4.2-5.4) Mean Corpuscular Volume 92.1 fL (80-100) Mean Corpuscular Hemoglobin 31.0 pg (25-34) Mean Corpuscular Hemoglobin Concent 33.6 g/dl (32-36) RDW Standard Deviation 44.5 fL (36.4-46.3) RDW Coefficient of Variation 13.3 % (11.5-14.5) Mean Platelet Volume 9.7 fL (7.4-10.4) Prothrombin Time 24.3 SECONDS (9.0-12.0) Prothromb Time International Ratio 2.2 (0.9-1.1) Activated Partial Thromboplast Time 41.5 SECONDS (21.0-31.0) Partial Thromboplastin Ratio 1.6 Anion Gap 5.0 mmol/L (3-11) Est Creatinine Clear Calc Drug Dose 30.6 ml/min Estimated GFR () 37.7 Estimated GFR (Non- 32.6 BUN/Creatinine Ratio 10.7 (10-20) Calcium Level 9.0 mg/dl (8.5-10.1) Total Bilirubin 0.5 mg/dl (0.2-1) Aspartate Amino Transf (AST/SGOT) 20 U/L (15-37) Alanine Aminotransferase (ALT/SGPT) 19 U/L (12-78) Alkaline Phosphatase 65 U/L (45-117) Total Creatine Kinase 52 U/L (26-192) Creatine Kinase MB 0.8 ng/ml (0.5-3.6) Creatine Kinase MB Ratio 1.5 (0-3.0) Total Protein 7.5 gm/dl (6.4-8.2) Albumin 3.4 gm/dl (3.4-5.0) Globulin 4.1 gm/dl (2.5-4.0) Albumin/Globulin Ratio 0.8 (0.9-2) Laboratory results as stated above per my review. Medications Administered Medications (Trade) Dose Ordered Sig/Boom Route Start Time Stop Time Status Last Admin Dose Admin Metoprolol Tartrate (Lopressor Iv) 5 mg STK-MED ONCE .ROUTE 03/26/17 12:38 03/26/17 12:39 DC 03/26/17 12:57 5 MG ECG Indication: tachycardia Rate (beats per minute): 107 Rhythm: atrial fibrillation Findings: no ectopy, other (no acute injury) Comparison ECG Date: 14-Jan-2017 Change: A fib has replaced NSR. ED Course 1141: Previous medical records were reviewed. The patient was evaluated in room A2. A complete history and physical examination was performed. 1221: I discussed the patient's case with Dr. Wu, [facility]. We discussed his recommendations. 1224: Metoprolol Tartrate 5 mg IV. 1348: On reevaluation, the patient is resting comfortably. I discussed the results and findings with the patient. She verbalized agreement of the treatment plan. She was discharged home. Medical Decision Differential includes acute coronary syndrome, myocardial infarction, CVA, TIA, anemia, infection, pneumonia, UTI, pyelonephritis, poor nutrition, dehydration, electrolyte disturbance,hypoglycemia. This is an 81-year-old female who presents to the ED with a chief Of nausea and weakness. Her symptoms started yesterday. She has a history of paroxysmal A. fib. She checked her heart rate today and it was around between 95 and 130. She took her usual morning meds. She did not take additional doses. She states that she waited for a couple of hours to see if her heart rate would decrease but did not and therefore she came in for evaluation. Her vital signs are stable. Her physical exam did not reveal any abnormalities other than an irregular heart rate. CBC is normal. The INR is 2.2. She is on Coumadin. Complete metabolic panel was unremarkable. A chest x-ray was negative for acute disease. EKG shows A. fib at a heart rate of 107. The patient was given IV Lopressor 5 mg. I spoke with Dr. Magana about the patient. He recommends outpatient follow-up with him. She is to call the office tomorrow for follow-up. Medication Reconcilliation Current Medication List: was personally reviewed by me Blood Pressure Screening Patient's blood pressure: Normal blood pressure Blood pressure disposition: Did not require urgent referral Consults Time Called: 1148 Consulting Physician[facility] Returned Call: 1221 I discussed the patient's case with him. We discussed his recommendations. Impression Primary Impression: Afib Scribe Attestation The scribe's documentation has been prepared under my direction and personally reviewed by me in its entirety. I confirm that the note above accurately reflects all work, treatment, procedures, and medical decision making performed by me. Departure Information Dispostion Home / Self-Care Referrals Maximus Gonzalez M.D. (PCP) Patient Instructions My [facility] Additional Instructions Call Dr. Magana's office tomorrow for follow-up. Continue current medications. Follow-up with your doctor for further care and evaluation in 1-2 days. Return to the emergency department for worsening or new symptoms or any concerns. You have been examined and treated today on an emergency basis only. This is not a substitute for, or an effort to provide, complete comprehensive medical care. It is impossible to recognize and treat all injuries or illnesses in a single emergency department visit. It is therefore important that you follow up closely with your doctor. Call as soon as possible for an appointment.
== END 2017-03-26 14:05 | disposition home or self-care (01) ==
LOC: EDBD 10:27 → C.EDA 10:27
DX: R00.9 Unspecified abnormalities of heart beat (principal); I25.2 Old myocardial infarction; Z95.0 Presence of cardiac pacemaker; J43.9 Emphysema, unspecified; Z79.82 Long term (current) use of aspirin; Z79.01 Long term (current) use of anticoagulants

== ENCOUNTER → 2017-06-02 | Outpatient (CLI) | payer OTHER, MEDICARE ==
[~2017-06-02] MED LIST changes: +CHOL500021 PO; -CHOLCAP10 PO; -IPRA1AER2 INH; -MULT-307 PO; +MULTCHW; +MULTCHW PO
== END | disposition home or self-care (01) ==
LOC: C.LAB1850 09:59
PROVIDERS: ATTEND Internal Medicine Rheumatology
DX: M80.059A Age-related osteoporosis with current pathological fracture, unspecified femur, initial encounter for fracture (principal); E61.8 Deficiency of other specified nutrient elements

== ENCOUNTER → 2017-07-17 | Outpatient (CLI) | payer OTHER, MEDICARE | END | disposition home or self-care (01) | LOC: C.LABSPEC 16:52 | PROVIDERS: ATTEND Physician Assistant Medical | DX: R30.0 Dysuria (principal) ==

== ENCOUNTER → 2017-08-17 | Outpatient (CLI) | payer OTHER, MEDICARE ==
[~2017-08-17] MED LIST changes: +IPRA1AER2 PO; +NRV/5 PO
[2017-08-17 12:45] LABS: BLOOD UREA NITROGEN 17 mg/dl (7-18); BUN/CREATININE RATIO 12.4 (10-20); CALCIUM 9.1 mg/dl (8.5-10.1); CARBON DIOXIDE 27 mmol/L (21-32); CHLORIDE 104 mmol/L (98-107); CREATININE 1.35 mg/dl (0.60-1.20); GLUCOSE 98 mg/dl (70-99); PHOSPHORUS 3.5 mg/dl (2.5-4.9); POTASSIUM 4.3 mmol/L (3.5-5.1); SODIUM 138 mmol/L (136-145)
== END | disposition home or self-care (01) ==
LOC: C.LAB1850 10:48
PROVIDERS: ATTEND Internal Medicine Nephrology
DX: N18.3 Chronic kidney disease, stage 3 (moderate) (principal)

== ENCOUNTER 2017-08-19 18:16 | Inpatient (IN) | payer OTHER, MEDICARE ==
[~2017-08-19] VITALS: Ht 170.2 cm; Wt 72.6 kg
[~2017-08-19 18:16] MED LIST changes: -IPRA1AER2 PO; -NRV/5 PO
--- NOTE | 2017-08-19 18:38 | EMERGENCY ROOM VISIT NOTE ---
History Report prepared by Jaime: Tesha Gómez Under the Supervision of: Dr. Evaristo Charles M.D. 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 She notes that she has not been feeling well for three days SEWING LINE BALER. She states she was crocheting at home, then stood up and had a "dizzy spell." She notes chest pain and a burning sensation near her pace maker. Per EMS, she rated her pain a 5/10 in severity. She denies any shortness of breath, leg pain or swelling. She notes that she occasionally has chest pain, though not this bad. She has taken Meclizine today for dizziness. She has a history of vertigo. EMS administered four baby aspirin and NTG. She notes her chest pain has currently subsided. She currently rates her pain a 1/10 in severity. She notes that she was supposed to be taking a new BP medication, though has not been able to sweet pickled fruit maker her prescription. Source of History: patient Onset: 2.5 hours SEWING LINE BALER Position: other (global ) Symptom Intensity: 5/10 initially and currently 1/10 Quality: other (dizziness) Timing: other (episodic) Modifying Factors (Relieving): other (four baby aspirin and NTG) Associated Symptoms: + chest pain, No SOB Note: She notes dizziness and burning sensation near pace maker. She denies leg pain or swelling. Review of Systems See HPI for pertinent positives & negatives. A total of 10 systems reviewed and were otherwise negative. Past Medical & Surgical Medical Problems: (1) Atrial fibrillation (2) chest pain hx of CAD stent (3) Dizziness (4) Gastroesophageal reflux disease (5) Pulmonary emphysema (6) Symptomatic bradycardia Old medical records were reviewed. Nurse's notes were reviewed and I agree with. Family History No pertinent family history reported. Social History Smoking Status: Never Smoker Alcohol Use: none Drug Use: none Marital Status: Housing Status: lives alone Occupation Status: retired Current/Historical Medications Scheduled Amlodipine Besylate (Amlodipine Besylate), 5 MG PO DAILY Aspirin (Aspirin Ec), 81 MG PO QAM Calcium Citrate-Vitamin D (Citracal + D3 Maximum), 1 TAB PO BID Cholecalciferol (Vitamin D3), 5,000 UNITS PO MWF Coenzyme Q10 (Ubidecarenone) (Co Q 10), 200 MG PO QAM Home O2 Therapy (Oxygen), 3 LITERS NA HS Losartan Potassium (Cozaar), 100 MG PO QAM Metoprolol Succ (Toprol Xl) (Toprol-Xl), 50 MG PO QAM Multiple Vitamins W/ Minerals (Centrum Silver), 1 TAB PO DAILY Nitroglycerin (Nitrostat), 0.4 MG UT PRN Pantoprazole (Protonix), 40 MG PO HS Rosuvastatin Calcium (Crestor), 2.5 MG PO QPM Warfarin Sod (Jantoven), 2.5 MG PO HS Zoledronic Acid (Reclast), 5 MG IV YEARLY Scheduled PRN Acetaminophen (Tylenol Arthritis Ext Rel), 650 MG PO Q8H PRN for Pain Ipratropium-Albuterol (Combivent Respimat), 1 PUFF PO DAILY PRN for SOB/Wheezing Meclizine Hcl (Meclizine Hcl), 12.5-25 MG PO TID PRN for VERTIGO Allergies Coded Allergies: Atorvastatin (Verified Allergy, Severe, LEG CRAMPS, 08/19/17) Lidocaine (Verified Allergy, Mild, PASSES OUT, 08/19/17) Pravastatin (Unverified Allergy, Unknown, ., 08/19/17) Physical Exam Vital Signs Date Time Temp Pulse Resp B/P (MAP) Pulse Ox O2 Delivery O2 Flow Rate FiO2 08/19/17 20:35 62 18 188/84 94 Room Air 08/19/17 19:30 60 18 169/76 92 Room Air 08/19/17 19:09 60 08/19/17 18:30 36.6 70 20 201/91 91 Room Air Physical Exam General: Non-ill appearing older female in no acute distress. HEENT: Normal cephalic atraumatic. Pupils are equal round and reactive to light. Extraocular movements are intact. Oropharynx is pink with moist mucous membranes. No swelling of the mouth lips or tongue. Neck: Supple with a midline trachea. No meningeal signs or stiffness, no JVD or bruits. No Stridor. Chest: Clear to auscultation bilaterally. No wheezes or rhonchi. No increased work of breathing. Pace maker in left chest. Heart: regular rate and rhythm. Abdomen: Soft nontender, nondistended without rebound guarding or rigidity. Extremities: No cyanosis clubbing or edema. No calf tenderness or assymetry Spine/Back. Non tender to palpation. No CVA tenderness Skin: Good turgor without rashes. Neurologic exam: Cranial nerves two through 12 are intact. Motor and sensation are intact and symmetrical throughout. FNF intact. No tremor. Medical Decision & Procedures ER Provider Diagnostic Interpretation: Radiology results as stated below per my review and radiologist interpretation: CHEST ONE VIEW PORTABLE HISTORY: 82 years-old Female CHEST PAIN acute atypical chest pain COMPARISON: Chest radiograph 03/26/2017 TECHNIQUE: Portable AP view the chest FINDINGS: Cardiac silhouette is mildly enlarged, unchanged. Atherosclerosis of the aorta. Left subclavian pacer is noted with leads unchanged. No pneumothorax, pleural effusion or focal airspace consolidation. Bullous upper lung zone predominant emphysema redemonstrated with areas of chronic subsegmental interstitial coarsening within the lung apices, perihilar distributions and lung bases. Bones of the chest are grossly intact. IMPRESSION: Emphysema and mild cardiomegaly without acute process. The above report was generated using voice recognition software. It may contain grammatical, syntax or spelling errors. Electronically signed by: Ramsey Sigala M.D. 08/19/2017 6:52 PM Dictated Date/Time: 08/19/2017 6:50 PM HEAD WITHOUT CONTRAST (CT) CLINICAL HISTORY: 82 years-old Female with dizziness. Acute dizziness TECHNIQUE: Multiple axial CT images of the head were obtained without contrast. A dose lowering technique was utilized adhering to the principles of ALARA. CT DOSE: 537.48 mGy.cm COMPARISON: CT head 02/11/2011, brain MR 03/13/2011. FINDINGS: No acute intracranial hemorrhage, midline shift, intracranial mass, hydrocephalus, territorial ischemia or abnormal extra-axial collection. Moderate brain atrophy. Areas of ill-defined decreased attenuation within the subcortical and periventricular white matter suggesting chronic microvascular ischemic changes have progressively worsened from comparison study 02/11/2011. Vascular calcifications seen at the level of the skull base. The calvarium is intact. The paranasal sinuses, mastoid air cells, and middle ear cavities are clear. Bilateral zina bullosa. Prior bilateral cataract repair. IMPRESSION: 1. No acute intracranial abnormality. 2. Progressively worsened chronic microvascular ischemic changes. The above report was generated using voice recognition software. It may contain grammatical, syntax or spelling errors. Electronically signed by: Ramsey Sigala M.D. 08/19/2017 7:30 PM Dictated Date/Time: 08/19/2017 7:25 PM Laboratory Results 08/19/17 18:50 Red Blood Count 4.41, Mean Corpuscular Volume 92.7, Mean Corpuscular Hemoglobin 31.1, Mean Corpuscular Hemoglobin Concent 33.5, Mean Platelet Volume 9.6, Neutrophils (%) (Auto) 62.9, Lymphocytes (%) (Auto) 24.5, Monocytes (%) (Auto) 9.1, Eosinophils (%) (Auto) 2.6, Basophils (%) (Auto) 0.7, Neutrophils # (Auto) 5.26, Lymphocytes # (Auto) 2.05, Monocytes # (Auto) 0.76, Eosinophils # (Auto) 0.22, Basophils # (Auto) 0.06 08/19/17 18:50 Test 08/19/17 18:50 08/19/17 18:54 White Blood Count 8.37 K/uL (4.8-10.8) Red Blood Count 4.41 M/uL (4.2-5.4) Hemoglobin 13.7 g/dL (12.0-16.0) Hematocrit 40.9 % (37-47) Mean Corpuscular Volume 92.7 fL (80-100) Mean Corpuscular Hemoglobin 31.1 pg (25-34) Mean Corpuscular Hemoglobin Concent 33.5 g/dl (32-36) Platelet Count 303 K/uL (130-400) Mean Platelet Volume 9.6 fL (7.4-10.4) Neutrophils (%) (Auto) 62.9 % Lymphocytes (%) (Auto) 24.5 % Monocytes (%) (Auto) 9.1 % Eosinophils (%) (Auto) 2.6 % Basophils (%) (Auto) 0.7 % Neutrophils # (Auto) 5.26 K/uL (1.4-6.5) Lymphocytes # (Auto) 2.05 K/uL (1.2-3.4) Monocytes # (Auto) 0.76 K/uL (0.11-0.59) Eosinophils # (Auto) 0.22 K/uL (0-0.5) Basophils # (Auto) 0.06 K/uL (0-0.2) RDW Standard Deviation 46.5 fL (36.4-46.3) RDW Coefficient of Variation 13.6 % (11.5-14.5) Immature Granulocyte % (Auto) 0.2 % Immature Granulocyte # (Auto) 0.02 K/uL (0.00-0.02) Prothrombin Time 26.1 SECONDS (9.0-12.0) Prothromb Time International Ratio 2.5 (0.9-1.1) Activated Partial Thromboplast Time 43.2 SECONDS (21.0-31.0) Partial Thromboplastin Ratio 1.7 Anion Gap 5.0 mmol/L (3-11) Est Creatinine Clear Calc Drug Dose 32.4 ml/min Estimated GFR () 40.7 Estimated GFR (Non- 35.1 BUN/Creatinine Ratio 12.5 (10-20) Calcium Level 9.2 mg/dl (8.5-10.1) Total Bilirubin 0.4 mg/dl (0.2-1) Direct Bilirubin 0.1 mg/dl (0-0.2) Aspartate Amino Transf (AST/SGOT) 17 U/L (15-37) Alanine Aminotransferase (ALT/SGPT) 20 U/L (12-78) Alkaline Phosphatase 56 U/L (45-117) Total Creatine Kinase 58 U/L (26-192) Creatine Kinase MB 0.9 ng/ml (0.5-3.6) Creatine Kinase MB Ratio 1.6 (0-3.0) Total Protein 7.8 gm/dl (6.4-8.2) Albumin 3.8 gm/dl (3.4-5.0) Lipase 420 U/L (73-393) Bedside Troponin I < 0.030 ng/ml (0-0.045) Laboratory studies as stated above per my review. ECG Indication: other (dizziness) Rate (beats per minute): 65 Rhythm: other (Atrial paced rhythm ) Findings: no acute ischemic change, no ectopy Change: Paced rhythm has replaced atrial fibrillation when compared to 03/26/2017. ED Course 1820: Past medical records reviewed. The patient was evaluated in room C12, and a complete history and physical examination were performed. 1720: I reassessed the patient at this time. She is feeling better and resting comfortably. 1748: I spoke with leandra Chen. We discussed the patients case. The patient will be evaluated by the [facility] for further management. Medical Decision Differentials include, but are not limited to; vertigo, intracranial process, arrhythmia, cardiac disease, and electrolyte or metabolic abnormality. This patient comes in as described above. She episode of vertigo. She also had chest discomfort which was 7 out of 10 and went away with nitroglycerin . She was given nitroglycerin which and aspirin on route. Upon my initial evaluation, she appears well and is asymptomatic. She is mildly hypertensive. She has a normal neurologic exam. Extensive workup was done to evaluate from both cardiac neurologic and other standpoint. Her initial EKG does not suggest acute coronary syndrome or arrhythmia. She was reassessed frequently. She has remained stable. CAT scan of his head is unremarkable. Her initial cardiac biomarkers are not elevated. She's had no acute electrode or metabolic abnormality. I do think she needs to be admitted/observed for further cardiac/ neurologic treatment and evaluation. I have consulted Dr. Anderson and he saw her in the ER and will admit her for these measures. Medication Reconcilliation Current Medication List: was personally reviewed by me Blood Pressure Screening Patient's blood pressure: Elevated blood pressure She will be further evaluated. Consults Time Called: 1743 Consulting Physician: leandra Chen Returned Call: 1748 I spoke with leandra Chen. We discussed the patients case. The patient will be evaluated by the [facility] for further management. Impression Primary Impression: Precordial chest pain Additional Impression: Dizziness Scribe Attestation The scribe's documentation has been prepared under my direction and personally reviewed by me in its entirety. I confirm that the note above accurately reflects all work, treatment, procedures, and medical decision making performed by me. Departure Information Dispostion Being Evaluated By Hospitalist Referrals Maximus Gonzalez M.D. (PCP) Problem Qualifiers
--- NOTE | 2017-08-19 18:53 | DIAGNOSTIC IMAGING REPORT ---
CHEST ONE VIEW PORTABLE HISTORY: 82 years-old Female CHEST PAIN acute atypical chest pain COMPARISON: Chest radiograph 03/26/2017 TECHNIQUE: Portable AP view the chest FINDINGS: Cardiac silhouette is mildly enlarged, unchanged. Atherosclerosis of the aorta. Left subclavian pacer is noted with leads unchanged. No pneumothorax, pleural effusion or focal airspace consolidation. Bullous upper lung zone predominant emphysema redemonstrated with areas of chronic subsegmental interstitial coarsening within the lung apices, perihilar distributions and lung bases. Bones of the chest are grossly intact. IMPRESSION: Emphysema and mild cardiomegaly without acute process. The above report was generated using voice recognition software. It may contain grammatical, syntax or spelling errors. Electronically signed by: Ramsey Sigala M.D. 08/19/2017 6:52 PM Dictated Date/Time: 08/19/2017 6:50 PM
[2017-08-19] MEDS ORDERED: IPRA1AER2 PO (18:59)
[2017-08-19] MEDS ORDERED: NRV/5 PO (18:59)
[2017-08-19 19:12] LABS: BASO % 0.7 %; BASO ABS # 0.06 K/uL (0-0.2); COMPLETE YES; EOS % 2.6 %; HEMATOCRIT 40.9 % (37-47); IG% 0.2 %; LYMPH % 24.5 %; LYMPH ABS # 2.05 K/uL (1.2-3.4); MEAN CELL VOLUME 92.7 fL (80-100); MEAN CORPUSCULAR HEMOGLOBIN 31.1 pg (25-34); MEAN CORPUSCULAR HGB CONC 33.5 g/dl (32-36); MEAN PLATELET VOLUME 9.6 fL (7.4-10.4); MONO % 9.1 %; NEUT % 62.9 %; PLATELET COUNT 303 K/uL (130-400); RED BLOOD COUNT 4.41 M/uL (4.2-5.4); WHITE BLOOD COUNT 8.37 K/uL (4.8-10.8)
[2017-08-19 19:25] LABS: INR 2.5 (0.9-1.1); PARTIAL THROMBOPLASTIN RATIO 1.7; PROTHROMBIN TIME (PATIENT) 26.1 SECONDS (9.0-12.0)
[2017-08-19 19:31] LABS: BUN/CREATININE RATIO 12.5 (10-20); CALCIUM 9.2 mg/dl (8.5-10.1); CREATININE 1.4 mg/dl (0.60-1.20); POTASSIUM 4.2 mmol/L (3.5-5.1)
--- NOTE | 2017-08-19 19:31 | DIAGNOSTIC IMAGING REPORT ---
HEAD WITHOUT CONTRAST (CT) CLINICAL HISTORY: 82 years-old Female with dizziness. Acute dizziness TECHNIQUE: Multiple axial CT images of the head were obtained without contrast. A dose lowering technique was utilized adhering to the principles of ALARA. CT DOSE: 537.48 mGy.cm COMPARISON: CT head 02/11/2011, brain MR 03/13/2011. FINDINGS: No acute intracranial hemorrhage, midline shift, intracranial mass, hydrocephalus, territorial ischemia or abnormal extra-axial collection. Moderate brain atrophy. Areas of ill-defined decreased attenuation within the subcortical and periventricular white matter suggesting chronic microvascular ischemic changes have progressively worsened from comparison study 02/11/2011. Vascular calcifications seen at the level of the skull base. The calvarium is intact. The paranasal sinuses, mastoid air cells, and middle ear cavities are clear. Bilateral zina bullosa. Prior bilateral cataract repair. IMPRESSION: 1. No acute intracranial abnormality. 2. Progressively worsened chronic microvascular ischemic changes. The above report was generated using voice recognition software. It may contain grammatical, syntax or spelling errors. Electronically signed by: Ramsey Sigala M.D. 08/19/2017 7:30 PM Dictated Date/Time: 08/19/2017 7:25 PM
[2017-08-19 19:36] LABS: CKMB/CK RATIO 1.6 (0-3.0)
[2017-08-19] MEDS ORDERED: ALUMINUM/MAGNESIUM/SIMETH (MAALOX MAX) 30 ML UDC PO PRN (21:30)
[2017-08-19] MEDS ORDERED: NITROGLYCERIN 0.4 MG SL PER TAB CHARGE SL PRN (21:30)
[2017-08-19] MEDS ORDERED: MoRPHine SULFATE 2 MG/ML CARP IV PRN (21:30)
[2017-08-19] MEDS ORDERED: ACETAMINOPHEN 325 MG TAB PO PRN (21:30)
[2017-08-19] MEDS ORDERED: ONDANSETRON INJ 2 MG/ML 2 ML VIAL IV PRN (21:30)
[2017-08-19] MEDS ORDERED: MAGNESIUM HYDROXIDE SUSP 30 ML UDC PO PRN (21:30)
[2017-08-19] MEDS ORDERED: IV FLUIDS COMPLETED PRN (22:00)
[2017-08-19 22:40] VITALS: BP 203/97; PULSE 71; TEMP 36.6; O2SAT 92; Ht 170.2 cm; Wt 72.6 kg
[2017-08-19 23:32] VITALS: BP 133/73; PULSE 62; TEMP 36.7; O2SAT 97
[2017-08-19] MEDS ORDERED: NITROGLYCERIN 0.4 MG SL PER TAB CHARGE UT SCH (23:45)
[2017-08-19] MEDS ORDERED: IPRATROPIUM BROMIDE/ALBUTEROL respimat INH INH PRN (23:45)
[2017-08-19] MEDS ORDERED: MECLIZINE HCL 12.5 MG TAB PO PRN (23:45)
[2017-08-19] MEDS ORDERED: NON-FORMULARY MEDICATION (Acetaminophen (Tylenol Arthritis Ext Rel) 650 MG) PO PRN (23:45)
--- NOTE | 2017-08-20 | History and Physical ---
History & Physical Date & Time of Service: Aug 19, 2017 at 23:48 Chief Complaint: Precordial Chest Pain, Vertigo Primary Care Physician: Maximus Gonzalez M.D. History of Present Illness Source: patient, hospital records This is an 82 yo f that is presenting to us with an acute onset of dizziness accompanied by substernal chest pressure which occurred at approx 10 am. The patient states she had this acute onset of vertigo/ dizziness and she was unable to move/ walk as it would worsen. She then noted some substernal chest pain. It was non radiating and it was a 5/10. It resolved after she had NTG and ASA en route. She was pain free during the interview. She states she had no SOB , nausea or diaphoresis and the dizziness has now almost completely resolved. The patient does have a cardiac history with an DE and stent placement in 2009. She also notes she has a history of A fibb and tachy roberth which she eventually needed a pacemaker placed. She states that Dr Rice had originally placed it but she follows with Dr Wu normally for cardiology. Aside from this single episode she has not noted any recent chest pain occurrences. Past Medical/Surgical History Medical Problems: (1) Atrial fibrillation Status: Chronic (2) Gastroesophageal reflux disease Status: Chronic (3) Pulmonary emphysema Status: Chronic (4) Symptomatic bradycardia Status: Chronic Family History No pertinent family history in first degree relatives Social History Smoking Status: Former Smoker Smokeless Tobacco Use: No Alcohol Use: none Drug Use: none Marital Status: Housing status: lives alone Occupational Status: retired Immunizations History of Influenza Vaccine: Yes Influenza Vaccine Date: Jun 20, 2013 History of Tetanus Vaccine?: unk History of Pneumococcal: Yes Pneumococcal Date: Jun 20, 2011 History of Hepatitis B Vaccine: No Multi-Drug Resistant Organisms History of MDRO: No Allergies Coded Allergies: Atorvastatin (Verified Allergy, Severe, LEG CRAMPS, 08/19/17) Lidocaine (Verified Allergy, Mild, PASSES OUT, 08/19/17) Pravastatin (Unverified Allergy, Unknown, ., 08/19/17) Home Medications Scheduled Amlodipine Besylate (Amlodipine Besylate), 5 MG PO DAILY Aspirin (Aspirin Ec), 81 MG PO QAM Calcium Citrate-Vitamin D (Citracal + D3 Maximum), 1 TAB PO BID Cholecalciferol (Vitamin D3), 5,000 UNITS PO MWF Coenzyme Q10 (Ubidecarenone) (Co Q 10), 200 MG PO QAM Home O2 Therapy (Oxygen), 3 LITERS NA HS Losartan Potassium (Cozaar), 100 MG PO QAM Metoprolol Succ (Toprol Xl) (Toprol-Xl), 50 MG PO QAM Multiple Vitamins W/ Minerals (Centrum Silver), 1 TAB PO DAILY Nitroglycerin (Nitrostat), 0.4 MG UT PRN Pantoprazole (Protonix), 40 MG PO HS Rosuvastatin Calcium (Crestor), 2.5 MG PO QPM Warfarin Sod (Jantoven), 2.5 MG PO HS Zoledronic Acid (Reclast), 5 MG IV YEARLY Scheduled PRN Acetaminophen (Tylenol Arthritis Ext Rel), 650 MG PO Q8H PRN for Pain Ipratropium-Albuterol (Combivent Respimat), 1 PUFF PO DAILY PRN for SOB/Wheezing Meclizine Hcl (Meclizine Hcl), 12.5-25 MG PO TID PRN for VERTIGO Review of Systems Constitutional: No fever, No chills, No sweats Eyes: No worsening of vision ENT: No hearing loss, No tinnitus Respiratory: No cough, No sputum, No wheezing, No shortness of breath, No dyspnea on exertion, No dyspnea at rest, No hemoptysis Cardiovascular: + chest pain, No palpitations Abdomen: No pain, No nausea, No vomiting, No diarrhea, No constipation, No GI bleeding Musculoskeletal: No joint pain, No muscle pain Genitourinary - Female: No dysuria, No hematuria Neurologic: + vertigo, + balance problems, No weakness, No numbness/tingling Psychiatric: No depression symptoms Endocrine: No fatigue Hematologic / Lymphatic: No abnormal bleeding/bruising Integumentary: No rash Physical Exam Vital Signs Date Time Temp Pulse Resp B/P (MAP) Pulse Ox O2 Delivery O2 Flow Rate FiO2 08/19/17 23:32 36.7 62 18 133/73 (93) 97 Room Air 08/19/17 22:40 36.6 71 20 203/97 92 Room Air 08/19/17 22:01 66 18 164/77 93 08/19/17 20:35 62 18 188/84 94 Room Air 08/19/17 19:30 60 18 169/76 92 Room Air 08/19/17 19:09 60 08/19/17 18:30 36.6 70 20 201/91 91 Room Air General Appearance: no apparent distress Head: normocephalic, atraumatic Eyes: normal inspection, PERRL, EOMI ENT: normal ENT inspection Neck: supple Respiratory/Chest: normal breath sounds, no respiratory distress, no accessory muscle use Cardiovascular: regular rate, rhythm, no murmur, normal peripheral pulses, + pertinent finding (pacemaker left chest) Abdomen/GI: normal bowel sounds, non tender, soft Back: normal inspection Extremities/Musculoskelatal: no calf tenderness, no pedal edema, normal range of motion Neurologic/Psych: licensed staff mft II-XII nml as tested, no motor/sensory deficits, alert, normal mood/affect, oriented x 3, + pertinent finding (mild horizontal nystagmus noted) Skin: normal color, warm/dry, no rash Lymphatic: no adenopathy Diagnostics Laboratory Results Results Past 24 Hours Test 08/19/17 18:50 08/19/17 18:54 Range/Units White Blood Count 8.37 4.8-10.8 K/uL Red Blood Count 4.41 4.2-5.4 M/uL Hemoglobin 13.7 12.0-16.0 g/dL Hematocrit 40.9 37-47 % Mean Corpuscular Volume 92.7 80-100 fL Mean Corpuscular Hemoglobin 31.1 25-34 pg Mean Corpuscular Hemoglobin Concent 33.5 32-36 g/dl Platelet Count 303 130-400 K/uL Mean Platelet Volume 9.6 7.4-10.4 fL Neutrophils (%) (Auto) 62.9 % Lymphocytes (%) (Auto) 24.5 % Monocytes (%) (Auto) 9.1 % Eosinophils (%) (Auto) 2.6 % Basophils (%) (Auto) 0.7 % Neutrophils # (Auto) 5.26 1.4-6.5 K/uL Lymphocytes # (Auto) 2.05 1.2-3.4 K/uL Monocytes # (Auto) 0.76 0.11-0.59 K/uL Eosinophils # (Auto) 0.22 0-0.5 K/uL Basophils # (Auto) 0.06 0-0.2 K/uL RDW Standard Deviation 46.5 36.4-46.3 fL RDW Coefficient of Variation 13.6 11.5-14.5 % Immature Granulocyte % (Auto) 0.2 % Immature Granulocyte # (Auto) 0.02 0.00-0.02 K/uL Prothrombin Time 26.1 9.0-12.0 SECONDS Prothromb Time International Ratio 2.5 0.9-1.1 Activated Partial Thromboplast Time 43.2 21.0-31.0 SECONDS Partial Thromboplastin Ratio 1.7 Sodium Level 138 136-145 mmol/L Potassium Level 4.2 3.5-5.1 mmol/L Chloride Level 106 98-107 mmol/L Carbon Dioxide Level 27 21-32 mmol/L Anion Gap 5.0 3-11 mmol/L Blood Urea Nitrogen 18 7-18 mg/dl Creatinine 1.40 0.60-1.20 mg/dl Est Creatinine Clear Calc Drug Dose 32.4 ml/min Estimated GFR () 40.7 Estimated GFR (Non- 35.1 BUN/Creatinine Ratio 12.5 10-20 Random Glucose 97 70-99 mg/dl Calcium Level 9.2 8.5-10.1 mg/dl Total Bilirubin 0.4 0.2-1 mg/dl Direct Bilirubin 0.1 0-0.2 mg/dl Aspartate Amino Transf (AST/SGOT) 17 15-37 U/L Alanine Aminotransferase (ALT/SGPT) 20 12-78 U/L Alkaline Phosphatase 56 45-117 U/L Total Creatine Kinase 58 26-192 U/L Creatine Kinase MB 0.9 0.5-3.6 ng/ml Creatine Kinase MB Ratio 1.6 0-3.0 Total Protein 7.8 6.4-8.2 gm/dl Albumin 3.8 3.4-5.0 gm/dl Lipase 420 73-393 U/L Bedside Troponin I < 0.030 0-0.045 ng/ml Diagnostic Radiology CHEST ONE VIEW PORTABLE HISTORY: 82 years-old Female CHEST PAIN acute atypical chest pain COMPARISON: Chest radiograph 03/26/2017 TECHNIQUE: Portable AP view the chest FINDINGS: Cardiac silhouette is mildly enlarged, unchanged. Atherosclerosis of the aorta. Left subclavian pacer is noted with leads unchanged. No pneumothorax, pleural effusion or focal airspace consolidation. Bullous upper lung zone predominant emphysema redemonstrated with areas of chronic subsegmental interstitial coarsening within the lung apices, perihilar distributions and lung bases. Bones of the chest are grossly intact. IMPRESSION: Emphysema and mild cardiomegaly without acute process. HEAD WITHOUT CONTRAST (CT) CLINICAL HISTORY: 82 years-old Female with dizziness. Acute dizziness TECHNIQUE: Multiple axial CT images of the head were obtained without contrast. A dose lowering technique was utilized adhering to the principles of ALARA. CT DOSE: 537.48 mGy.cm COMPARISON: CT head 02/11/2011, brain MR 03/13/2011. FINDINGS: No acute intracranial hemorrhage, midline shift, intracranial mass, hydrocephalus, territorial ischemia or abnormal extra-axial collection. Moderate brain atrophy. Areas of ill-defined decreased attenuation within the subcortical and periventricular white matter suggesting chronic microvascular ischemic changes have progressively worsened from comparison study 02/11/2011. Vascular calcifications seen at the level of the skull base. The calvarium is intact. The paranasal sinuses, mastoid air cells, and middle ear cavities are clear. Bilateral zina bullosa. Prior bilateral cataract repair. IMPRESSION: 1. No acute intracranial abnormality. 2. Progressively worsened chronic microvascular ischemic changes. EKG Atrial-paced rhythm with prolonged AV conduction Abnormal ECG When compared with ECG of 26-MAR-2017 11:12, Electronic atrial pacemaker has replaced Atrial fibrillation Vent. rate has decreased BY 42 BPM HR 65 Impression Assessment and Plan This is an 82 yo f with a history of CAD, COPD that is presenting to us with an acute onset fo vertigo with chest pain Chest pain NYD - Heart score 4-5 - Tele admission - Troponin trend - consider echo in am vs stress test - Consult CVS - EKG in am Vertigo possibly secondary to ischemia vs BPPV - was unable to obtain an MRI in the ED as the patient's pacer apparently requires assessment by tech prior to an MRI - MRI in am - neuro checks q 4h - Meclizine prn COPD, stable - Continue Combivent prn - 3 L O2 HS - consider discussion regarding addition of an anticholinergic Afibb- NSR currently/ HTN/ CAD - Amlodipine 5 mg, Metoprolol 50 mg, Crestor 5 mg , Cozaar 100 mg continued - Warfarin 2.5 mg HS continued and recheck INR in am DVT Prophylaxis Warfarin Full code Attending addendum: I have physically seen this patient, have supervised the medical residents activities, and agree with the H&P unless as otherwise noted. Assessment and Plan: Precordial chest pain/atrial fibrillation/hypertension/CAD-- The patient will be admitted to telemetry for serial cardiac enzymes, cardiac rhythm monitoring and a 2-D echocardiogram with Dopplers. Continue metoprolol, amlodipine, Cozaar and warfarin Serial BMP, magnesium and INR's. Vertigo/progressive small vessel disease on CT-- MRI of brain ordered for a.m. after appropriate arrangements made with [employer] and cardiology to allow with her MRI conditional pacer COPD-- Continue usual treatment of Combivent when necessary and 3 L nasal cannula O2 at bedtime Level of Care Telemetry Advanced Directives Existing Living Will: Yes Existing Power of Health Data Analyst: Yes Resuscitation Status FULL RESUSCITATION VTE Prophylaxis VTE Risk Assessment Done? Y/N: Yes Risk Level: Moderate Given or contraindicated: Warfarin (Coumadin) Social Service Consult None Apply Note Total Time: Critical Care 30 - 74 minutes Additional Copies To Maximus Gonzalez M.D.
[2017-08-20 03:44] LABS: BASO % 0.6 %; BASO ABS # 0.04 K/uL (0-0.2); COMPLETE YES; EOS % 3.7 %; HEMATOCRIT 37.4 % (37-47); IG% 0.1 %; LYMPH % 36.1 %; LYMPH ABS # 2.43 K/uL (1.2-3.4); MEAN CELL VOLUME 92.8 fL (80-100); MEAN CORPUSCULAR HGB CONC 33.4 g/dl (32-36); MEAN PLATELET VOLUME 9.4 fL (7.4-10.4); MONO % 9.5 %; PLATELET COUNT 269 K/uL (130-400); RED BLOOD COUNT 4.03 M/uL (4.2-5.4); WHITE BLOOD COUNT 6.74 K/uL (4.8-10.8)
[2017-08-20 03:45] VITALS: BP 151/75; PULSE 61; TEMP 36.3; O2SAT 94
[2017-08-20 04:12] LABS: BLOOD UREA NITROGEN 20 mg/dl (7-18); BUN/CREATININE RATIO 16.3 (10-20); CALCIUM 8.5 mg/dl (8.5-10.1); CARBON DIOXIDE 27 mmol/L (21-32); CHLORIDE 108 mmol/L (98-107); CREATININE 1.24 mg/dl (0.60-1.20); GLUCOSE 86 mg/dl (70-99); POTASSIUM 3.8 mmol/L (3.5-5.1); SODIUM 138 mmol/L (136-145)
[2017-08-20 05:46] LABS: URINE APPEARANCE CLEAR (CLEAR); URINE BILIRUBIN NEG (NEG); URINE COLOR YELLOW; URINE NITRITE NEG (NEG); URINE SPECIFIC GRAVITY 1.013 (1.000-1.030); UROBILINOGEN NEG (NEG); ZZUR CULT IF INDIC CLEAN CATCH NO
[2017-08-20 05:59] LABS: MANUAL MICROSCOPIC REQUIRED? NO; REVIEW REQ? NO
[2017-08-20 07:40] VITALS: BP 167/71; PULSE 60; TEMP 36.5; O2SAT 94
--- NOTE | 2017-08-20 08:34 | Clinical Documentation Query ---
SAMANTHA Robles : CLINICAL DOCUMENTATION QUERIES QUERY 1 OF 3 Patient is an 82 year old female admitted for evaluation of dizziness and substernal chest pressure. CT scan of the head demonstrated "progressively worsened chronic microvascular ischemic changes". Documentation includes "Vertigo possibly secondary to ischemia". Please consider explicit documentation of the location of ischemia as this cannot be assumed by the coding professional. Thank you. In your clinical opinion is this patient being managed for: ( ) (Possible) Cerebral ischemia ( ) Not Agree ( x ) Other explanation of clinical findings (Please Explain) - Acute peripheral vertigo, likely BPV ( ) Unable to determine (Please Define) ( ) Need to Discuss The medical record reflects the following clinical findings, treatment, and risk factors. Clinical Indicators: As above Treatment: CT head, MRI brain, neuro checks Risk Factors: Age, chronic microvascular ischemic changes QUERY 2 OF 3 Documentation also includes "chest pain". Patient has known CAD. However, chest pain cannot be assumed to be synonymous with angina by the professional home staging specialist. She is being further evaluated on telemetry with serial troponin's, consideration of echocardiography versus stress test, cardiology consultation, and repeat EKG. If this is the intent of this documentation, consider clarification as suggested below. Thank you. In your clinical opinion is this patient being managed for: ( ) Angina pectoris ( ) Not Agree ( ) Other explanation of clinical findings (Please Explain) ( x ) Unable to determine (Please Define) - this may have been GI in origin but uncertain ( ) Need to Discuss The medical record reflects the following clinical findings, treatment, and risk factors. Clinical Indicators: As above Treatment:serial troponin's, consideration of echocardiography versus stress test, cardiology consultation, and repeat EKG Risk Factors: Age, CAD QUERY 3 OF 3 Admission BUN, creatinine, and estimated GFR of 18 mg/dl, 1.40 mg/dl, and 35 ml/min. Historical EMR demonstrates an estimated GFR range of 33-43 ml/min dating back to 11/2015. Please clarify as clinicalliy appropriate. Thank you. In your clinical opinion is this patient being managed for: ( x ) Chronic kidney disease, stage 3 ( ) Not Agree ( ) Other explanation of clinical findings (Please Explain) ( ) Unable to determine (Please Define) ( ) Need to Discuss The medical record reflects the following clinical findings, treatment, and risk factors. Clinical Indicators: As above Treatment: Serial chemistries Risk Factors: Age, atrial fibrillation Please clarify and document your clinical opinion in the progress notes and discharge summary. Terms such as "probable", "suspected", "likely", "questionable", "possible", or "still to be ruled out" are acceptable. IF IN AGREEMENT, YOU MUST DOCUMENT ABOVE DIAGNOSTIC STATEMENT IN DAILY PROGRESS NOTES AND DISCHARGE SUMMARY. This document is not part of the patient's record. Thank You, Evaristo Morrow, RN [phone]
[2017-08-20] MEDS ORDERED: ASPIRIN 81 MG ECTAB PO SCH (09:00)
[2017-08-20] MEDS ORDERED: METOPROLOL SUCC 50MG EXT REL TAB PO SCH (09:00)
[2017-08-20] MEDS ORDERED: LOSARTAN POTASSIUM 50 MG TAB PO SCH (09:00)
[2017-08-20] MEDS ORDERED: NON-FORMULARY MEDICATION (Coenzyme Q10 (Ubidecarenone) (Co Q 10) 200 MG) PO SCH (09:00)
[2017-08-20] MEDS ORDERED: CALCIUM 600MG + VIT D 400 IU TAB PO SCH (09:00)
[2017-08-20] MEDS ORDERED: CEROVITE ADV FORMULA TAB PO SCH (09:00)
[2017-08-20] MEDS ORDERED: AMLODIPINE BESYLATE 5 MG TAB PO SCH (09:00)
[2017-08-20 11:14] VITALS: BP 162/80; PULSE 64; TEMP 36.5; O2SAT 96
--- NOTE | 2017-08-20 15:12 | Discharge Instructions ---
Discharge Instructions Date of Service Aug 20, 2017. Admission Reason for Admission: Precordial Chest Pain, Vertigo Discharge Discharge Diagnosis / Problem: Chest pain, vertigo Discharge Goals Goal(s): Decrease discomfort, Improve function, Diagnostic testing, Therapeutic intervention Activity Recommendations Activity Limitations: resume your previous activity (as tolerated) . Instructions / Follow-Up Instructions / Follow-Up You were admitted after presenting with chest pressure and vertigo. A head CT and brain MRI did not show any acute changes. Your EKGs did not show any acute ischemic changes consistent with an acute cardiac event. Your blood tests were also normal. Your pacemaker was checked and showed that you did NOT have any heart rhythm abnormalities at the time of the vertigo event at home. The pacemaker is also functioning well. Cardiology was consulted, and they did not feel a stress test was necessary at this time. As the chest pain has resolved and vertigo is improved, you are now medically stable for discharge. Given the normal MRI of the brain (no stroke, etc) it is felt that the vertigo was from your inner ear. If the vertigo recurs you can take the antivert (meclizine) as needed. Medications: *Continue your home medications as prescribed. Follow up: *You will be scheduled for a follow up appointment with your primary care provider and organic extractions technician. Please seek medical attention if you experience fevers, chills, sweats, dizziness/lightheadedness, loss of consciousness, chest pain, shortness of breath, nausea, vomiting, numbness or tingling. Current Hospital Diet Patient's current hospital diet: AHA Diet (Heart Healthy) Discharge Diet Recommended Diet: AHA Diet (Heart Healthy) Pending Studies Studies pending at discharge: no Medical Emergencies . Who to Call and When: Medical Emergencies: If at any time you feel your situation is an emergency, please call 911 immediately. . Non-Emergent Contact Non-Emergency issues call your: Primary Care Provider, [employer] Call Non-Emergent contact if: you have a fever, your pain is not controlled, your pain is worsening, your pain is unusual for you, your pain is concerning you, you have any medication questions . Past History Medical & Surgical History: (1) Chest pain (2) Vertigo . "Provider Documentation" section prepared by Triny Lobo. . VTE Core Measure Inpt VTE Proph given/why not?: Warfarin (Coumadin)
--- NOTE | 2017-08-20 15:20 | CARDIOLOGY CONSULTATION ---
DATE OF CONSULTATION: 08/20/2017 DATE OF CONSULTATION: 08/20/2017 REFERRING PHYSICIAN: Dr. Kerr. PRIMARY CARE PHYSICIAN: Dr. Bharath Gonzalez. HISTORY OF PRESENT ILLNESS: The patient is an 82-year-old female whose history is notable for past cardiac catheterization and coronary artery disease with prior coronary stenting to the proximal mid right coronary artery for single vessel disease in 2009, repeat diagnostic cardiac catheterization in 2011 demonstrating widely patent stents and no other recluse disease. Underlying issues include a history of hypertension, past renal artery stenting, mild to moderate mitral insufficiency, history of abdominal endovascular repair in 2010, history of past tachybrady syndrome status post dual-chamber pacemaker insertion in January of 2017, past paroxysmal atrial fibrillation without recent recurrence. The patient presents now noting having last evening developed sudden onset of dizziness sensation described as spinning with associated nausea and vertigo, mild pressure in her chest. Note symptoms were not associated with diaphoresis, noted no sense of tachypalpitations, noted no syncope or near syncope. Symptoms were positionally initiated and gradually resolved by the time of ER presentation. She notes no recent difficulties with pacemaker. Notes no fevers, chills or productive cough. Notes no bleeding difficulties. Notes no melena, hematochezia, dysuria or hematuria. Blood pressure was checked during acute symptoms and was found to be markedly hypertensive. She denies any recent change in medications. Overall, has been feeling well. Notes no acute weight loss or gain. Notes no recent fevers, chills or infections. REVIEW OF SYSTEMS: Otherwise negative. ALLERGIES: NOTED TO BE ATORVASTATIN, LIDOCAINE AND PRAVASTATIN. PAST SURGICAL HISTORY: Notable for prior as described, endovascular abdominal repair, cataract surgeries, past thyroid lobectomy, pacemaker insertion in January of 2017. Underlying medical problems are as per HPI. In addition, include diverticulosis, multinodular goiter, dyslipidemia. FAMILY HISTORY: Positive for both heart disease and hypertension as well as atrial fibrillation. SOCIAL HISTORY: The patient is moderately active about her home. She is a nonsmoker, nondrinker. PHYSICAL EXAMINATION: VITAL SIGNS: Current examination heart rate is 64, blood pressure is 162/80. HEAD, EYES, EARS, NOSE, AND THROAT: Normocephalic, atraumatic. Nares without discharge. Throat was clear. NECK: Supple without thyromegaly, lymphadenopathy, JVD or bruit. LUNGS: Clear to auscultation. CARDIOVASCULAR: Regular. There is no S3 gallop. There is a grade 1/6 systolic murmur. There is no diastolic murmur. ABDOMEN: Soft, nontender. There is no palpable hepatosplenomegaly. There is no hepatojugular reflux. Pacemaker sites without tenderness. EXTREMITIES: Without cyanosis or clubbing. There is no peripheral edema. NEUROLOGIC: The patient is answering questions appropriately. LABORATORY DATA: White cell count 6.7, hemoglobin is 12.5. Sodium is 138, potassium 3.8, chloride is 108, bicarbonate 27, BUN is 20, creatinine is 1.24. Troponin I's are negative x3. Lipase is mildly elevated at 420. Chest x-ray reveals no infiltrate or edema. Head CT was notable for progressive microvascular changes. EKG reveals atrial paced rhythm, prolonged AV conduction, but no Q-waves, no ST segment abnormalities with no evolution on serial testing. INR is 2.5. IMPRESSION: An 82-year-old female presents with symptoms suggestive strongly of acute vertigo, spontaneously resolving. No signs or symptoms of myocardial ischemia by EKG and enzymatic criteria. Pacemaker will be interrogated with planned MRI later today. Plan will be to continue usual prehospital medications including metoprolol, losartan, amlodipine for hypertension control, continue warfarin anticoagulation for the time being. Further recommendations pending review of pacemaker interrogation and MRI. Current symptoms appear to be vertigo mediated and not specifically suggestive of acute myocardial ischemia. I will follow patient in hospital. NOIE: Pacemaker interrogation normal function , no atrial or ventricular arrhythmias, no correlation to event of evening prior MTDD
--- NOTE | 2017-08-20 15:49 | Discharge Summary ---
Discharge Summary Date of Service Aug 20, 2017. Discharge Summary Admission Date: Aug 19, 2017 at 21:29 Discharge Date: Aug 20, 2017 Discharge Disposition: Home Principal Diagnosis: Chest pain, vertigo Problems/Secondary Diagnoses: (1) Symptomatic bradycardia s/p pacemaker Status: Chronic CAD H/o IL s/p stent 2009 HTN HLD A-fib COPD CKD stage III GERD Immunizations: Have You Had Influenza Vaccine: Yes Influenza Vaccine Date: Jun 20, 2013 History of Tetanus Vaccine?: unk History of Pneumococcal: Yes Pneumococcal Date: Jun 20, 2011 History of Hepatitis B Vaccine: No Procedures: HEAD WITHOUT CONTRAST (CT) CLINICAL HISTORY: 82 years-old Female with dizziness. Acute dizziness TECHNIQUE: Multiple axial CT images of the head were obtained without contrast. A dose lowering technique was utilized adhering to the principles of ALARA. CT DOSE: 537.48 mGy.cm COMPARISON: CT head 02/11/2011, brain MR 03/13/2011. FINDINGS: No acute intracranial hemorrhage, midline shift, intracranial mass, hydrocephalus, territorial ischemia or abnormal extra-axial collection. Moderate brain atrophy. Areas of ill-defined decreased attenuation within the subcortical and periventricular white matter suggesting chronic microvascular ischemic changes have progressively worsened from comparison study 02/11/2011. Vascular calcifications seen at the level of the skull base. The calvarium is intact. The paranasal sinuses, mastoid air cells, and middle ear cavities are clear. Bilateral zina bullosa. Prior bilateral cataract repair. IMPRESSION: 1. No acute intracranial abnormality. 2. Progressively worsened chronic microvascular ischemic changes. CHEST ONE VIEW PORTABLE HISTORY: 82 years-old Female CHEST PAIN acute atypical chest pain COMPARISON: Chest radiograph 03/26/2017 TECHNIQUE: Portable AP view the chest FINDINGS: Cardiac silhouette is mildly enlarged, unchanged. Atherosclerosis of the aorta. Left subclavian pacer is noted with leads unchanged. No pneumothorax, pleural effusion or focal airspace consolidation. Bullous upper lung zone predominant emphysema redemonstrated with areas of chronic subsegmental interstitial coarsening within the lung apices, perihilar distributions and lung bases. Bones of the chest are grossly intact. IMPRESSION: Emphysema and mild cardiomegaly without acute process. BRAIN COMBO HISTORY: 82 years-old Female TIA acute dizziness with headache and chest pain. COMPARISON: CT head 08/19/2017, MRI brain 03/13/2011 TECHNIQUE: Multiplanar multisequence MRI of the brain was obtained both with and without the use of 7 mL Gadavist FINDINGS: Large shown view assistant sales manager localizer images demonstrate no gross abnormality. There is no restricted diffusion. The midline structures including the corpus callosum, brainstem, optic chiasm, infundibulum and pineal gland are unremarkable on the sagittal T1 series. The sella appears partially empty. Degenerative changes of the imaged upper cervical spine. Moderate cerebral and cerebellar atrophy. Multifocal areas of T2/FLAIR prolongation within the subcortical and periventricular white matter of the cerebral and measures bilaterally again noted which have mildly worsened from comparison study 03/13/2011 suggesting chronic microvascular ischemic changes. No acute intracranial hemorrhage, midline shift, abnormal extra-axial collections or hydrocephalus. There is no abnormal intra-axial or extra-axial enhancement. Major flow voids at the level of the skull base appear patent. Prior bilateral cataract repair. Paranasal sinuses and mastoid air cells are generally clear. The scalp, calvarium and soft tissues are unremarkable. IMPRESSION: 1. No acute intracranial abnormality. No acute infarction or abnormal enhancement. 2. Moderate brain atrophy with chronic microvascular ischemic changes which have mildly worsened from comparison study 03/13/2011. Pacemaker interrogation - normal function, no recent dysrhythmia Consultations: Cardiology Medication Reconciliation Continued Medications: Acetaminophen (Tylenol Arthritis Ext Rel) 650 Mg Cplt 650 MG PO Q8H PRN for Pain Amlodipine Besylate (Amlodipine Besylate) 5 Mg Tab 5 MG PO DAILY Aspirin (Aspirin Ec) 81 Mg Tab 81 MG PO QAM Calcium Citrate-Vitamin D (Citracal + D3 Maximum) 1 Tab Tab 1 TAB PO BID Cholecalciferol (Vitamin D3) 5,000 Unit Chw 5000 UNITS PO MWF Coenzyme Q10 (Ubidecarenone) (Co Q 10) 100 Mg Cap 200 MG PO QAM Home O2 Therapy (Oxygen) Gas 3 LITERS NA HS Ipratropium-Albuterol (Combivent Respimat) 1 Aer Aer 1 PUFF PO DAILY PRN for SOB/Wheezing Losartan Potassium (Cozaar) 100 Mg Tab 100 MG PO QAM, TAB Meclizine Hcl (Meclizine Hcl) 25 Mg Tab 12.5-25 MG PO TID PRN for VERTIGO Metoprolol Succ (Toprol Xl) (Toprol-Xl) 50 Mg Tabcr 50 MG PO QAM Multiple Vitamins W/ Minerals (Centrum Silver) 1 Chw Chw 1 TAB PO DAILY Nitroglycerin (Nitrostat) 0.4 Mg Tab 0.4 MG UT PRN, BTL Pantoprazole (Protonix) 40 Mg Tab 40 MG PO HS Rosuvastatin Calcium (Crestor) 5 Mg Tab 2.5 MG PO QPM Warfarin Sod (Jantoven) 2.5 Mg Tab 2.5 MG PO HS Zoledronic Acid (Reclast) 5 Mg/100 Ml Inj 5 MG IV YEARLY Discharge Exam Patient reports feeling well. She denies any dizziness/vertigo today, even when getting up to go to the bathroom. She denies any chest pain or pressure. The patient denies fevers, chills, sweats, chest pain, palpitations, claudication, cough, wheezing, shortness of breath, nausea, vomiting, abdominal pain, dysuria, hematuria, urinary retention, paralysis, weakness, numbness and tingling. Constitutional: No fever, No chills, No sweats Eyes: No worsening of vision, No eye pain, No diplopia ENT: No hearing loss, No nasal symptoms, No trouble swallowing Respiratory: No cough, No wheezing, No shortness of breath Cardiovascular: No chest pain, No claudication, No palpitations Abdomen: No pain, No nausea, No vomiting Musculoskeletal: No joint pain, No muscle pain, No swelling Genitourinary - Female: No dysuria, No urinary retention, No hematuria Neurologic: No paralysis, No weakness, No numbness/tingling Integumentary: No rash, No itch, No color change General appearance: Well-developed, well-nourished, no apparent distress Head: Normocephalic, atraumatic Eyes: Normal inspection, PERRL, EOMI ENT: Normal ENT inspection, hearing grossly normal, pharynx normal Neck: Supple, no JVD, trachea midline Respiratory/Chest: Lungs clear to auscultation, normal breath sounds, no respiratory distress Cardiovascular: Regular rate & rhythm, no gallop, no murmur Abdomen/GI: Normal bowel sounds, non-tender, soft Extremities/Musculoskeletal: Normal inspection, no calf tenderness, no pedal edema Neurological/Psych: Alert, normal mood/affect, oriented x 3 Skin: Normal color, warm/dry, no rash Hospital Course 82 y/o female with a history of CAD, IL s/p stent x3 in 2009, HTN, HLD, a-fib, s /p pacemaker, COPD, CKD stage III, and GERD who presents with chest pain and acute dizziness/vertigo. Chest pain, ACS r/o--resolved -Admit to telemetry for observation. No acute events overnight. Pt remained in paced rhythm with HR in 60s. -Troponin negative x 3 -EKG no ischemic changes -Cardiology consulted, appreciate recs: No need for stress test at this time. Pacemaker interrogated for arrhythmias and was normal. Vertigo -Pt has history of vertigo, has prn meclizine at home -Brain MRI negative -Carotid ultrasound from 08/18/17 shows 50-59% stenosis EDUARDO and less than 50% stenosis of left ICA. Antegrade flow in both vertebral arteries. No significant change from prior study on 02/19/17. -Continue meclizine prn -No neuro deficits appreciated CAD, h/o IL s/p stents x3, HTN, HLD, h/o symptomatic bradycardia s/p pacemaker-- stable -Continue ASA, Norvasc 5 mg PO qd, Toprol XL 50 mg PO qd, Cozaar 100 mg PO qd, CoQ10 200 mg PO qd, Crestor 2.5 mg PO qd Renal artery stenosis s/p renal artery stents -60% bilateral renal artery stenosis, f/u with [facility] routine A-fib--stable, paced rhythm -Continue warfarin 2.5 mg PO qd, therapeutic COPD -Continue Combivent prn and oxygen 3L at nighttime CKD stage III--stable -Creatinine at baseline GERD -Continue Protonix 40 mg PO qd DVT prophylaxis -Warfarin therapeutic Code Status -Level I, FULL RESUSCITATION STATUS Attending Discharge Note & Attestation: Pt seen/examined, chart reviewed, discharge care plan d/w BARTOLOME Lobo. I agree w/ the herring components of her documentation. 82yo female with h/o a. fib on coumadin, tachy-roberth syndrome s/p pacemaker, CAD , and peripheral vertigo who presented with acute vertigo. In the midst of such she had transient lower substernal chest pain/high epigastric pain. Neither issue recurred while hospitalized. She underwent an ischemic work-up and serial troponins, telemetry, EKGs, etc were all wnl. She was seen by [facility] and stress test was deferred during the admission. For her acute vertigo she underwent MRI brain and this did NOT show evidence of acute stroke or ICH. She also had a carotid duplex exam at [facility] within the last few days. Results were obtained and showed antegrade flow in both vertebrals and right sided ICA stenosis with 50-59% occlusion. The duplex exam was unchanged from the prior study. Pacemaker was interrogated during this admission and showed normal pacer function. It also did not show any serious dysrhythmia at the time of her vertigo event. BP had been quite elevated at presentation (>200 systolic) but improved to about 160 during her stay. Discharge exam: gen - nad neck - no JVD heart - RRR, s1, s2 lungs - CTA b/l abd - soft, NT, BS+ ext - no edema eyes - no nystagmus neuro - strength 5/5 x 4 exts At discharge she was advised to take meclizine on a PRN basis for her vertigo. I presume her vertigo is BPV. Rajiv Pierson MD Total Time Spent: Greater than 30 minutes This includes examination of the patient, discharge planning, medication reconciliation, and communication with other providers. Discharge Instructions Please refer to the electronic Patient Visit Report (Discharge Instructions) for additional information. Follow-Up PCP and cardiology Additional Copies To Fadi Wu D.O.; Maximus Gonzlaez M.D.
--- NOTE | 2017-08-20 16:13 | DIAGNOSTIC IMAGING REPORT ---
BRAIN COMBO HISTORY: 82 years-old Female TIA acute dizziness with headache and chest pain. COMPARISON: CT head 08/19/2017, MRI brain 03/13/2011 TECHNIQUE: Multiplanar multisequence MRI of the brain was obtained both with and without the use of 7 mL Gadavist FINDINGS: Large shown view dental mold maker localizer images demonstrate no gross abnormality. There is no restricted diffusion. The midline structures including the corpus callosum, brainstem, optic chiasm, infundibulum and pineal gland are unremarkable on the sagittal T1 series. The sella appears partially empty. Degenerative changes of the imaged upper cervical spine. Moderate cerebral and cerebellar atrophy. Multifocal areas of T2/FLAIR prolongation within the subcortical and periventricular white matter of the cerebral and measures bilaterally again noted which have mildly worsened from comparison study 03/13/2011 suggesting chronic microvascular ischemic changes. No acute intracranial hemorrhage, midline shift, abnormal extra-axial collections or hydrocephalus. There is no abnormal intra-axial or extra-axial enhancement. Major flow voids at the level of the skull base appear patent. Prior bilateral cataract repair. Paranasal sinuses and mastoid air cells are generally clear. The scalp, calvarium and soft tissues are unremarkable. IMPRESSION: 1. No acute intracranial abnormality. No acute infarction or abnormal enhancement. 2. Moderate brain atrophy with chronic microvascular ischemic changes which have mildly worsened from comparison study 03/13/2011. The above report was generated using voice recognition software. It may contain grammatical, syntax or spelling errors. Electronically signed by: Ramsey Sigala M.D. 08/20/2017 4:11 PM Dictated Date/Time: 08/20/2017 4:05 PM
[2017-08-20] MEDS ORDERED: GADAVIST IV PRN (16:15)
[2017-08-20 18:01] VITALS: BP 162/80; PULSE 64; TEMP 36.5; O2SAT 96
[2017-08-20] MEDS ORDERED: WARFARIN SOD 2.5 MG TAB PO SCH (21:00)
[2017-08-20] MEDS ORDERED: ROSUVASTATIN CALCIUM 10 MG TAB PO SCH (21:00)
[2017-08-20] MEDS ORDERED: PANTOprazole SOD 40 MG TAB PO SCH (21:00)
[2017-08-21] MEDS ORDERED: CHOLECALCIFEROL 1000 INTER.UNIT TAB PO SCH (09:00)
== END 2017-08-20 18:24 | disposition home or self-care (01) | DRG 313 ==
LOC: EDBD 18:16 → C.EDC 18:17 → C.2T 21:29 → ENRESERV 21:37 → EDBEDREQ 21:52
PROVIDERS: ADMIT Hospitalist; ATTEND Internal Medicine
DX: R07.9 Chest pain, unspecified (principal); H81.10 Benign paroxysmal vertigo, unspecified ear; I65.23 Occlusion and stenosis of bilateral carotid arteries; I25.10 Atherosclerotic heart disease of native coronary artery without angina pectoris; N18.3 Chronic kidney disease, stage 3 (moderate); I25.2 Old myocardial infarction; K21.9 Gastro-esophageal reflux disease without esophagitis; J44.9 Chronic obstructive pulmonary disease, unspecified; I48.0 Paroxysmal atrial fibrillation; I70.1 Atherosclerosis of renal artery; I13.10 Hypertensive heart and chronic kidney disease without heart failure, with stage 1 through stage 4 chronic kidney disease, or unspecified chronic kidney disease; E78.5 Hyperlipidemia, unspecified; Z51.81 Encounter for therapeutic drug level monitoring; Z79.899 Other long term (current) drug therapy; Z79.82 Long term (current) use of aspirin; Z79.01 Long term (current) use of anticoagulants; Z95.5 Presence of coronary angioplasty implant and graft; Z95.0 Presence of cardiac pacemaker; Z87.891 Personal history of nicotine dependence; Z82.49 Family history of ischemic heart disease and other diseases of the circulatory system

== ENCOUNTER 2017-10-17 11:25 | Emergency (ER) | payer OTHER, MEDICARE ==
[~2017-10-17] VITALS: Ht 170.2 cm; Wt 72.6 kg
[~2017-10-17 11:25] MED LIST changes: -CETI10TA84 PO; +IPRA1AER2 PO; -MULTCHW; +NRV/5 PO
[2017-10-17 11:33] VITALS: TEMP 36.4; Ht 170.2 cm; Wt 72.6 kg
[2017-10-17 12:23] LABS: BASO % 0.7 %; BASO ABS # 0.05 K/uL (0-0.2); EOS % 2.7 %; HEMATOCRIT 41.7 % (37-47); HEMOGLOBIN 13.9 g/dL (12.0-16.0); IG# 0.02 K/uL (0.00-0.02); LYMPH % 29.9 %; LYMPH ABS # 2.23 K/uL (1.2-3.4); MEAN CELL VOLUME 93.5 fL (80-100); MEAN CORPUSCULAR HEMOGLOBIN 31.2 pg (25-34); MEAN CORPUSCULAR HGB CONC 33.3 g/dl (32-36); MEAN PLATELET VOLUME 9.6 fL (7.4-10.4); MONO % 8.6 %; MONO ABS # 0.64 K/uL (0.11-0.59); NEUT % 57.8 %; NEUT ABS # 4.32 K/uL (1.4-6.5); PLATELET COUNT 363 K/uL (130-400); RED CELL DISTRIBUTION WIDTH CV 13.2 % (11.5-14.5); WHITE BLOOD COUNT 7.46 K/uL (4.8-10.8)
[2017-10-17 12:34] LABS: INR 2.4 (0.9-1.1); PTT PATIENT 40.8 SECONDS (21.0-31.0)
[2017-10-17 12:42] LABS: ALBUMIN 3.6 gm/dl (3.4-5.0); CALCIUM 8.9 mg/dl (8.5-10.1); CREATININE 1.52 mg/dl (0.60-1.20); POTASSIUM 4.3 mmol/L (3.5-5.1)
[2017-10-17 12:44] LABS: TOTAL PROTEIN 7.8 gm/dl (6.4-8.2)
[2017-10-17] MEDS ORDERED: CEFDINIR 300 MG CAP PO STA (12:53)
[2017-10-17] MEDS ORDERED: CEFD1CAP14 PO (12:57)
--- NOTE | 2017-10-17 12:58 | EMERGENCY ROOM VISIT NOTE ---
History First contact with patient: 11:37 Chief Complaint: URINARY SYMPTOMS Stated Complaint: URINE BRIGHT RED Nursing Triage Summary: pt reports noted hematuria in toilet this AM , denies urinary sx of pain or burning pt reports on coumadin for Afib History of Present Illness Patient is an 82-year-old white female with extensive past medical history including coronary artery disease status post stenting, history of tachycardia bradycardia syndrome status post pacemaker insertion, history of atrial fibrillation on Coumadin, dyslipidemia, hypertension, abdominal aortic aneurysm repair, renal artery stenting, hypothyroidism, among other medical problems who presents to the emergency department for evaluation of hematuria that began this morning. Patient reports that she urinated this morning prior to getting in the shower, when she got out of the shower, she noticed that the urine in the toilet looked dark. She flushed the toilet, urinated again, and noted that the urine was bright red. She notes that subsequent urine has also appeared bloody. She denies noticing any clots. She denies any prior history of kidney stones. She denies any dysuria, frequency, urgency or difficulty emptying her bladder. She denies any back or flank pain. She does report a history of chronic kidney disease and sees nephrology. She is on Coumadin for history of atrial fibrillation, INR was last checked 1 month ago and was 4.0, she states that they normally likes to keep her between 2 and 3. She is scheduled to have her INR checked in 4 days when she sees her museum registrar, Dr. Wu. She does admit to easy bruising, but denies epistaxis or bleeding gums. She has not had any fevers. She reports that the bleeding is only urination, and does not appear to be vaginal. Review of Systems Review of systems as per HPI. All other systems reviewed were negative. 10 systems reviewed. Past Medical/Surgical History Medical Problems: (1) Afib (2) Atrial fibrillation (3) CAD (coronary artery disease) (4) Chest pain (5) Chest pain (6) chest pain hx of CAD stent (7) Dizziness (8) Dyslipidemia (9) Gastroesophageal reflux disease (10) Hypertension (11) Left sided chest pain (12) Pacemaker (13) Precordial chest pain (14) Pulmonary emphysema (15) Symptomatic bradycardia (16) Vasovagal syncope (17) Vertigo Surgical Problems: (1) H/O endovascular stent graft for abdominal aortic aneurysm (2) H/O heart artery stent (3) History of cataract surgery (4) History of stent insertion of renal artery (5) History of thyroidectomy (6) S/P partial thyroidectomy Electronic medical records are reviewed and summarized as above/below. See Problem List. Family History No pertinent family history in first degree relatives Social History Smoking Status: Never Smoker Alcohol Use: none Drug Use: none Marital Status: Housing Status: lives alone Occupation Status: retired Current/Historical Medications Scheduled Amlodipine Besylate (Amlodipine Besylate), 5 MG PO DAILY Aspirin (Aspirin Ec), 81 MG PO QAM Calcium Citrate-Vitamin D (Citracal + D3 Maximum), 1 TAB PO BID Cefdinir (Omnicef), 300 MG PO DAILY Cholecalciferol (Vitamin D3), 5,000 UNITS PO MWF Coenzyme Q10 (Ubidecarenone) (Co Q 10), 200 MG PO QAM Home O2 Therapy (Oxygen), 3 LITERS NA HS Losartan Potassium (Cozaar), 100 MG PO QAM Metoprolol Succ (Toprol Xl) (Toprol-Xl), 50 MG PO QAM Multiple Vitamins W/ Minerals (Centrum Silver), 1 TAB PO DAILY Nitroglycerin (Nitrostat), 0.4 MG UT PRN Pantoprazole (Protonix), 40 MG PO HS Rosuvastatin Calcium (Crestor), 2.5 MG PO QPM Warfarin Sod (Jantoven), 2.5 MG PO HS Zoledronic Acid (Reclast), 5 MG IV YEARLY Scheduled PRN Acetaminophen (Tylenol Arthritis Ext Rel), 650 MG PO Q8H PRN for Pain Ipratropium-Albuterol (Combivent Respimat), 1 PUFF PO DAILY PRN for SOB/Wheezing Meclizine Hcl (Meclizine Hcl), 12.5-25 MG PO TID PRN for VERTIGO Physical Exam Vital Signs Date Time Temp Pulse Resp B/P (MAP) Pulse Ox O2 Delivery O2 Flow Rate FiO2 10/17/17 13:20 74 18 133/76 99 10/17/17 11:33 36.4 72 20 132/61 93 Room Air Physical Exam CONSTITUTIONAL: Patient is a pleasant, well-appearing 82-year-old white female who is awake and alert and in no acute distress. CARDIOVASCULAR: Regular rate and rhythm. Peripheral pulses easily palpable. RESPIRATORY: Breath sounds equal and clear to auscultation without wheezes, rales, or rhonchi heard. Full and equal chest expansion without accessory muscle use or retractions. ABDOMEN: Bowel sounds are present. Abdomen is soft, nontender and nondistended. No guarding or rebound. No CVA tenderness. INTEGUMENTARY: No lesions or rash, normal skin turgor. LYMPH: No lymphadenopathy. Medical Decision & Procedures Laboratory Results 10/17/17 11:50 Red Blood Count 4.46, Mean Corpuscular Volume 93.5, Mean Corpuscular Hemoglobin 31.2, Mean Corpuscular Hemoglobin Concent 33.3, Mean Platelet Volume 9.6, Neutrophils (%) (Auto) 57.8, Lymphocytes (%) (Auto) 29.9, Monocytes (%) (Auto) 8.6, Eosinophils (%) (Auto) 2.7, Basophils (%) (Auto) 0.7, Neutrophils # (Auto) 4.32, Lymphocytes # (Auto) 2.23, Monocytes # (Auto) 0.64, Eosinophils # (Auto) 0.20, Basophils # (Auto) 0.05 10/17/17 11:50 Test 10/17/17 11:45 10/17/17 11:50 Urine Color RED Urine Appearance CLOUDY (CLEAR) Urine pH 7.0 (4.5-7.5) Urine Specific [place] 1.010 (1.000-1.030) Urine Protein 3+ (NEG) Urine Glucose (UA) NEG (NEG) Urine Ketones 1+ (NEG) Urine Occult Blood 3+ (NEG) Urine Nitrite POS (NEG) Urine Bilirubin NEG (NEG) Urine Urobilinogen POS (NEG) Urine Leukocyte Esterase MODERATE (NEG) Urine RBC >30 /hpf (0-4) Urine WBC 10-30 /hpf (0-5) Urine Epithelial Cells 5-10 /lpf (0-5) Urine Bacteria 1+ (NEG) White Blood Count 7.46 K/uL (4.8-10.8) Red Blood Count 4.46 M/uL (4.2-5.4) Hemoglobin 13.9 g/dL (12.0-16.0) Hematocrit 41.7 % (37-47) Mean Corpuscular Volume 93.5 fL (80-100) Mean Corpuscular Hemoglobin 31.2 pg (25-34) Mean Corpuscular Hemoglobin Concent 33.3 g/dl (32-36) Platelet Count 363 K/uL (130-400) Mean Platelet Volume 9.6 fL (7.4-10.4) Neutrophils (%) (Auto) 57.8 % Lymphocytes (%) (Auto) 29.9 % Monocytes (%) (Auto) 8.6 % Eosinophils (%) (Auto) 2.7 % Basophils (%) (Auto) 0.7 % Neutrophils # (Auto) 4.32 K/uL (1.4-6.5) Lymphocytes # (Auto) 2.23 K/uL (1.2-3.4) Monocytes # (Auto) 0.64 K/uL (0.11-0.59) Eosinophils # (Auto) 0.20 K/uL (0-0.5) Basophils # (Auto) 0.05 K/uL (0-0.2) RDW Standard Deviation 45.0 fL (36.4-46.3) RDW Coefficient of Variation 13.2 % (11.5-14.5) Immature Granulocyte % (Auto) 0.3 % Immature Granulocyte # (Auto) 0.02 K/uL (0.00-0.02) Prothrombin Time 25.2 SECONDS (9.0-12.0) Prothromb Time International Ratio 2.4 (0.9-1.1) Activated Partial Thromboplast Time 40.8 SECONDS (21.0-31.0) Partial Thromboplastin Ratio 1.6 Anion Gap 4.0 mmol/L (3-11) Est Creatinine Clear Calc Drug Dose 28.2 ml/min Estimated GFR () 36.9 Estimated GFR (Non- 31.8 BUN/Creatinine Ratio 13.3 (10-20) Calcium Level 8.9 mg/dl (8.5-10.1) Total Bilirubin 0.5 mg/dl (0.2-1) Aspartate Amino Transf (AST/SGOT) 17 U/L (15-37) Alanine Aminotransferase (ALT/SGPT) 19 U/L (12-78) Alkaline Phosphatase 63 U/L (45-117) Total Protein 7.8 gm/dl (6.4-8.2) Albumin 3.6 gm/dl (3.4-5.0) Globulin 4.2 gm/dl (2.5-4.0) Albumin/Globulin Ratio 0.9 (0.9-2) Medications Administered Medications (Trade) Dose Ordered Sig/Boom Route Start Time Stop Time Status Last Admin Dose Admin Cefdinir (Omnicef Cap) 300 mg ONE STAT PO 10/17/17 12:53 10/17/17 12:54 DC 10/17/17 13:19 300 MG ED Course The patient was seen and evaluated as above. Old records were reviewed. Urinalysis, CBC with differential, PT-INR and CMP were drawn. White count was normal at 7400, H&H is 13.9 and 41.7, platelet count is 363,000. Her INR is therapeutic at 2.4. Electrolytes are within normal limits. BUN and creatinine 20 and 1.52. Her creatinine clearance is roughly 30. Urinalysis notes 3+ occult blood, positive nitrates, moderate leukocyte esterase, greater than 30 RBCs, 10-30 wbc's and 1+ bacteria. Urine culture is ordered and is pending. The patient was reviewed with attending physician who also independently evaluated her. Urine appears concerning for infection, and given her kidney disease and other medications, she will be treated with Omnicef 300 mg daily. Differential diagnoses entertained included UTI, hemorrhagic cystitis, pyelonephritis, renal calculi, mass or malignancy, over anticoagulation, among others. The patient was educated on the worrisome signs or symptoms for which she should return to the emergency department. She was discharged home in good condition. Medical Decision See ED Course. Medication Reconcilliation Current Medication List: was personally reviewed by ks Blood Pressure Screening Patient's blood pressure: Normal blood pressure Blood pressure disposition: Did not require urgent referral Impression Primary Impression: Urinary tract infection Additional Impression: Hematuria Departure Information Prescriptions Cefdinir (Omnicef) 300 Mg Cap 300 MG PO DAILY, #7 CAP Prov: Mercedez Moore PA 10/17/17 Referrals Maximus Gonzalez M.D. (PCP) Patient Instructions My [facility] Additional Instructions Omnicef 300 mg: Take one pill daily for 7 days for your urine infection. All antibiotics can cause diarrhea. If this occurs and you feel worse or it does not resolve in 1-2 days follow up with your doctor or return to the Emergency Department as this could be signs of serious underlying problems. Any medication can cause an allergic reaction, stop the pills immediately and return to the ER for rash, hives, breathing difficulties, or swelling. Acetaminophen(Tylenol) may be used for fever or pain. Use 1000mg every eight hours as needed. Avoid using more than 3000mg in a 24 hour period. This is available over the counter. Read all the package inserts or medication information paperwork provided. If you have any questions or concerns call your primary provider, pharmacist or the ER for assistance. Rest and drink plenty of fluids. Continue current medications. Return to the ER immediately for worsening or persistent abdominal pain, vomiting, fevers, back or flank pain, worsening of your condition, or as needed. Follow up with your primary physician within 2-3 days for a recheck of the current condition. Problem Qualifiers
[2017-10-17 13:20] VITALS: BP 133/76; PULSE 74; O2SAT 99
--- NOTE | 2017-10-17 14:58 | EMERGENCY ROOM VISIT NOTE ---
ED Visit Note First contact with patient: 11:37 I have personally seen and evaluated the patient with the PA. I agree with the diagnosis and management decisions and have been personally involved in the case. Please see Yue Moore PA-C's notes for further details of the history , physical and visit.
== END 2017-10-17 13:21 | disposition home or self-care (01) ==
LOC: C.EDB 11:26 → C.EDD 13:21
DX: N39.0 Urinary tract infection, site not specified (principal); R31.9 Hematuria, unspecified; E78.5 Hyperlipidemia, unspecified; I10 Essential (primary) hypertension; E03.9 Hypothyroidism, unspecified; I48.91 Unspecified atrial fibrillation; K21.9 Gastro-esophageal reflux disease without esophagitis; Z95.0 Presence of cardiac pacemaker; Z79.01 Long term (current) use of anticoagulants; Z79.82 Long term (current) use of aspirin; Z79.899 Other long term (current) drug therapy; Z99.81 Dependence on supplemental oxygen; Z86.79 Personal history of other diseases of the circulatory system

== ENCOUNTER → 2017-11-30 | Outpatient (CLI) | payer OTHER, MEDICARE ==
[~2017-11-30] MED LIST changes: +CEFD1CAP14 PO; -METO50TA7 PO; +METO50TA8 PO
[2017-11-30 13:30] LABS: HEMOGLOBIN A1C 6.1 % (4.5-5.6)
[2017-11-30 13:56] LABS: ALBUMIN 3.5 gm/dl (3.4-5.0); ALT/SGPT 21 U/L (12-78); AST/SGOT 15 U/L (15-37); BLOOD UREA NITROGEN 18 mg/dl (7-18); CARBON DIOXIDE 27 mmol/L (21-32); CREATININE 1.44 mg/dl (0.60-1.20); GLUCOSE 89 mg/dl (70-99); POTASSIUM 4.2 mmol/L (3.5-5.1); SODIUM 141 mmol/L (136-145)
[2017-11-30 14:00] LABS: ALKALINE PHOSPHATASE 58 U/L (45-117); CHOLESTEROL 145 mg/dl (0-200); LDL CHOLESTEROL CALCULATED 58 mg/dl; TOTAL PROTEIN 7.4 gm/dl (6.4-8.2)
== END | disposition home or self-care (01) ==
LOC: C.LABBFT 08:16
PROVIDERS: ATTEND Internal Medicine
DX: R73.01 Impaired fasting glucose (principal); E78.00 Pure hypercholesterolemia, unspecified

== ENCOUNTER 2020-03-07 07:22 | Observation (INO) ==
[2020-03-07] MEDS ORDERED: PROMETHAZINE 6.25 MG/50.25 ML BAG IV STA (07:29)
[2020-03-07] MEDS ORDERED: SODIUM CHLORIDE 0.9% 500 ML IV SCH (07:30)
--- NOTE | 2020-03-07 07:48 | XRay Report ---
XR chest 1V portable CLINICAL HISTORY: Chest pain. COMPARISON STUDY: Chest radiograph August 19, 2017. FINDINGS: Dual-lead left subclavian pacemaker is in place. Moderate cardiomegaly is unchanged. There is no evidence for pulmonary edema. Lower lung interstitial prominence is unchanged. There are severe emphysema. No pneumothorax or pleural effusion is noted. There is no consolidation to suggest pneumo melba. IMPRESSION: 1. No acute findings. 2. Emphysema. ACT 112: Negative or not required by law. Electronically signed by: Curt Garrett M.D. 03/07/2020 7:46 AM
[2020-03-07 07:59] LABS: Basophils # (auto) 0.04 K/uL (0-0.2); Basophils % (auto) 0.6 %; Eosinophils # (auto) 0.26 K/uL (0-0.5); Eosinophils % (auto) 3.9 %; Hematocrit (blood only) 38.9 % (37-47); Hemoglobin 12.8 g/dL (12.0-16.0); Immature Granulocytes # (auto) 0.02 K/uL (0.00-0.02); Immature Granulocytes % (auto) 0.3 %; Lymphocytes # (auto) 1.47 K/uL (1.2-3.4); Lymphocytes % (auto) 22.2 %; Mean Corpuscular Hemoglobin 30.4 pg (25-34); Mean Corpuscular Hgb Conc 32.9 g/dL (32-36); Mean Corpuscular Volume 92.4 fL (80-100); Mean Platelet Volume 9.3 fL (7.4-10.4); Monocytes # (auto) 0.65 K/uL (0.11-0.59); Monocytes % (auto) 9.8 %; Neutrophils # (auto) 4.19 K/uL (1.4-6.5); Neutrophils % (auto) 63.2 %; Platelet Count 273 K/uL (130-400); RDW Coefficient of Variation 13.2 % (11.5-14.5); RDW Standard Deviation 44.4 fL (36.4-46.3); Red Blood Count 4.21 M/uL (4.2-5.4); White Blood Count 6.63 K/uL (4.8-10.8)
[2020-03-07 08:15] LABS: INR 2.4 (0.9-1.1); Partial Thromboplastin Ratio 1.5; Partial Thromboplastin Time 42.8 Seconds (21.0-31.0)
[2020-03-07 08:16] LABS: Alanine Aminotransferase 18 U/L (12-78); Albumin Level 3.1 gm/dl (3.4-5.0); Aspartate Aminotransferase 14 U/L (15-37); Blood Urea Nitrogen 14 mg/dl (7-18); Calcium 8.5 mg/dl (8.5-10.1); Carbon Dioxide 28 mmol/L (21-32); Chloride 110 mmol/L (98-107); Creatinine Clr Calc Pharmacy 35.9 ml/min; Est GFR (African American) 45.6; Est GFR (Non-African American) 39.4; Glucose 95 mg/dl (70-99); Lipase 195 U/L (73-393); Potassium 3.8 mmol/L (3.5-5.1); Sodium 143 mmol/L (136-145)
[2020-03-07 08:21] LABS: Albumin Globulin Ratio 0.8 (0.9-2); Alkaline Phosphatase 72 U/L (45-117); Bilirubin,Total 0.4 mg/dl (0.2-1); Globulin 3.7 gm/dl (2.5-4.0); Total Protein 6.8 gm/dl (6.4-8.2); Troponin I < 0.015 ng/ml (0-0.045)
--- NOTE | 2020-03-07 08:26 | Emergency Department Note ---
Impression & Plan Chest pain, Diverticulitis ED Provider Note NAME: ANAHY TUCKER AGE: 84 SEX: F : 1935 ARRIVES VIA: Ambulance INFORMANT: Patient, ED PROVIDER(S): Jona Maldonado DO CHIEF COMPLAINT: Chest pain. HPI: The patient is an 84-year-old female who presented to the emergency department for an evaluation of chest pain. The patient states that she awoke today but was feeling fine. She started noticing diffuse chest pain across the anterior chest with pressure. She has had similar symptoms in the past and has a history of stents. The patient took her own nitroglycerin and had some relief of her pain. She then decided to go to the bathroom where she became very lightheaded and dizzy. She thought that she was going to pass out. The patient called 911 and presented to the emergency department. She was treated with aspi rin and nitroglycerin prior to arrival. She continues to have diaphoresis and dizziness. She describes dizziness upon standing and denies having any vertiginous symptoms. The patient denies having any abdominal pain or vomiting. She does complain of severe nausea though. The patient has not had any recent travel. She denies having any cough or fever. The patient states her symptoms are moderate at this time. ROS: See above HPI for pertinent positives & negatives. A total of 10 systems reviewed and were otherwise negative. PAST MEDICAL HISTORY: See Below PAST SURGICAL HISTORY: See Below FAMILY HISTORY: See Below SOCIAL HISTORY: See Below HOME MEDICATIONS: See Below ALLERGIES: See Below VITALS: See Below PHYSICAL EXAMINATION: GENERAL: The patient is awake and alert. She is somewhat anxious appearing and uncomfortable. EYES: The conjunctivae are clear. The pupils are round and reactive. EARS, NOSE, MOUTH AND THROAT: The nose is without any evidence of any deformity. Mucous membranes are moist. Tongue is midline. NECK: The neck is nontender and supple. RESPIRATORY: Normal respiratory effort is noted there is no evidence of wheezing rhonchi or rales CARDIOVASCULAR: Regular rate and rhythm noted there no murmurs rubs or gallops normal S1 normal S2. GASTROINTESTINAL: The abdomen is mildly distended but soft. There is lower abdominal tenderness to palpation but no guarding or rigidity. MUSCULOSKELETAL/EXTREMITIES: There is no evidence of gross deformity full range of motion is noted in the hips and shoulders. SKIN: There is no obvious evidence of any rash. Trace pedal edema was noted bilaterally. NEUROLOGIC: Patient is awake alert and oriented x3 strength is symmetric patellar reflexes are 2+ bilaterally MEDICAL DECISION MAKING: The patient is an 84-year-old female who presented to the emergency department for an evaluation of chest pain. The patient arrived via ambulance with nausea and diaphoresis. She did take her own nitroglycerin prior to arrival. Upon arrival to the emergency department her pain was significantly improved but she also complained of left lower quadrant abdominal pain which was noted on physical exam. I discussed the patient's laboratory and radiographic studies with her. Her pain was significantly improved after aspirin and nitroglycerin so no further management of her chest pain was done in the emergency department. EKG showed no acute change from previous. I discussed the patient's CAT scan findings with her which include possible diverticulitis. She was treated with IV antibiotics. I discussed her case with the on-call [facility] hospita list. Given the patient's risk factors I do feel that her chest pain may require further work-up. Triage Nursing notes reviewed. Prior medical records reviewed Vital Signs: reviewed and remarkable for elevated blood pressure. Differential diagnosis: Cardiac ischemia, aortic dissection, pulmonary embolism, pneumothorax, pneumonia, pericarditis, myocarditis, esophageal rupture, GERD, cholecystitis, pancreatitis, musculoskeletal, as well as other pathologies. ER treatment provided: See below Diagnostics interpreted by me: ECG: EKG was obtained in the emergency department. My interpretation is atrial paced rhythm at 73 bpm. There were no PVCs. No [place] beats were noted. This was compared to a tracing from August 20, 2020. No significant changes were noted. Cardiac Monitoring: An order was placed for continuous cardiac monitoring. The monitor shows a rate of 80 with paced rhythm. Laboratory studies: As stated above and show below. Imaging studies: See below Consultation(s): 2700: I discussed this case with Audelia who was on-call for the [facility] hospitalist group. She is agreed to evaluate the patient in the emergency department for further management disposition. Past Med/Surg History Medical History Atrial fibrillation on warfarin, follows with Dr. Wu Emphysema of lung GERD (gastroesophageal reflux disease) History of anesthesia reaction passed out at age 29 when received xylocaine at dentist's office History of cervical cancer 1970--sx History of colon polyps Hyperlipidemia Hypertension Myocardial Infarction per pt had a heart attack during heart cath @ [facility] [place] 2008 On anticoagulant therapy warfarin daily On home oxygen therapy 3L N/C at hs Osteoarthritis Osteoporosis Stage III chronic kidney disease Surgical History History of cardiac cath multiple--[id number] History of cataract surgery bilt History of colonoscopy History of dilatation and curettage History of esophagogastroduodenoscopy (EGD) History of heart artery stent total of 3 stents--last before 2013 History of open reduction and internal fixation (ORIF) procedure left hip---hardware in place History of partial thyroidectomy enlarged nodule History of repair of dissection of abdominal aorta 2008? @ [facility] History of stent insertion of renal artery left History of tooth extraction all teeth History of total abdominal hysterectomy and bilateral salpingo-oophorectomy Pacemaker 2016 meditronic @ [facility] Family History Father Coronary heart disease Mother Coronary heart disease Cardiac disorder Hypertension Family history of diabetes mellitus Brother Alcoholism Lung cancer Sister Atrial fibrillation COPD (chronic obstructive pulmonary disease) Other No family history of adverse response to anesthesia Social History Preferred Language: Burkinan Communication Ability: Effective It Operations Analyst Required: No Beliefs That Will Affect Care: None Current Living Situation: Alone Feels Safe at Home: Yes Smoking Status: Former smoker Second Hand Exposure: No ; Hx Alcohol Use: No Hx Substance Use: No Allergies Allergies Allergy/AdvReac Type Severity Reaction Status Date / Time lidocaine [From Xylocaine] Allergy Severe passed out Verified 03/07/20 08:16 atorvastatin Allergy Mild LEG CRAMPS Verified 03/07/20 08:16 pravastatin Allergy Mild leg cramps Verified 03/07/20 08:16 simvastatin Allergy Mild leg cramps Verified 03/07/20 08:16 Home Meds Home Medications Medication Instructions Recorded Confirmed Oxygen Home #1 ea 03/28/19 09/22/19 Centrum Silver 1 tab PO HS 06/14/19 03/07/20 Combivent Respimat 1 puffs INH QID PRN 06/14/19 03/07/20 Dundee-3 Fish Oil 1 cap PO HS 06/14/19 03/07/20 aspirin 81 mg PO QAM 10/08/19 07/01/20 calcium carbonate [Calcium 600] 600 mg PO BID 06/14/19 03/07/20 cetirizine [Zyrtec] 10 mg PO DAILY PRN 06/14/19 03/07/20 cholecalciferol (vitamin D3) 1,000 unit PO 3XWK 06/14/19 03/07/20 [Vitamin D3] coQ10 (ubiquinol) 200 mg PO HS 06/14/19 03/07/20 nitroglycerin [Nitrostat] 0.4 mg SL Q5M PRN 06/14/19 03/07/20 warfarin 1.25 mg PO 4XWK 06/14/19 03/07/20 warfarin 2.5 mg PO 3XWK 06/14/19 03/07/20 metoprolol tartrate 50 mg tablet 50 mg PO BID 09/22/19 03/07/20 pantoprazole [Protonix] 40 mg PO PM 03/07/20 03/07/20 Previous Rx's Medication Instructions Recorded acetaminophen 650 mg 650 mg PO Q4H PRN #30 tab 02/08/19 tablet,extended release rosuvastatin 5 mg tablet 5 mg PO HS #90 tab 09/05/19 losartan 100 mg tablet 100 mg PO QAM #90 tab 12/22/19 Results & Data (ED) Vital Signs Vital Signs - 24 hr 03/07/20 07:28 03/07/20 07:30 03/07/20 07:33 Temperature 36.9 C Temperature Source Oral Pulse Rate 65 63 63 Pulse Rate from SpO2 Sensor 62 63 Pulse Rhythm Regular Pulse Strength Normal Respiratory Rate 16 14 18 Respiratory Effort / Characteristics Non-Labored Spontaneous Respiratory Depth Normal Respiratory Pattern Regular Blood Pressure 211/86 H 211/86 H Blood Pressure Mean 127 116 Blood Pressure Position Lying Pulse Oximetry 95 94 89 L Oxygen Delivery Method Room Air Room Air Room Air Oxygen Flow Rate Sepsis Recent Fever Within 48 Hours No Sepsis New/Unexplained Change in Mental Status No Sepsis Action Taken by Nursing No Action Required 03/07/20 08:00 03/07/20 08:15 Temperature Temperature Source Pulse Rate 65 88 Pulse Rate from SpO2 Sensor 63 Pulse Rhythm Pulse Strength Respiratory Rate 16 16 Respiratory Effort / Characteristics Respiratory Depth Respiratory Pattern Blood Pressure 200/84 H 187/87 H Blood Pressure Mean 107 125 Blood Pressure Position Pulse Oximetry 96 97 Oxygen Delivery Method Nasal Cannula Nasal Cannula Oxygen Flow Rate 2 2 Sepsis Recent Fever Within 48 Hours Sepsis New/Unexplained Change in Mental Status Sepsis Action Taken by [facility] Medications Current Medication List: was personally reviewed by me Laboratory Data Attestation: I reviewed the patient's lab results. Result diagrams: 03/07/20 07:46 03/07/20 07:46 Lab Results 03/07/20 03/07/20 03/07/20 Range/Units 07:46 07:46 07:46 WBC 6.63 (4.8-10.8) K/uL RBC 4.21 (4.2-5.4) M/uL Hgb 12.8 (12.0-16.0) g/dL Hct 38.9 (37-47) % MCV 92.4 (80-100) fL MCH 30.4 (25-34) pg MCHC 32.9 (32-36) g/dL RDW Std Deviation 44.4 (36.4-46.3) fL RDW Coeff of Virgilio 13.2 (11.5-14.5) % Plt Count 273 (130-400) K/uL MPV 9.3 (7.4-10.4) fL Immature Gran % (Auto) 0.3 % Neut % (Auto) 63.2 % Lymph % (Auto) 22.2 % [place] % (Auto) 9.8 % Eos % (Auto) 3.9 % Baso % (Auto) 0.6 % Neut # (Auto) 4.19 (1.4-6.5) K/uL Lymph # (Auto) 1.47 (1.2-3.4) K/uL [place] # (Auto) 0.65 H (0.11-0.59) K/uL Eos # (Auto) 0.26 (0-0.5) K/uL Baso # (Auto) 0.04 (0-0.2) K/uL Immature Gran # (Auto) 0.02 (0.00-0.02) K/uL PT 24.0 H (9.0-12.0) Seconds INR 2.4 H (0.9-1.1) APTT 42.8 H (21.0-31.0) Seconds PTT Ratio 1.5 Sodium 143 (136-145) mmol/L Potassium 3.8 (3.5-5.1) mmol/L Chloride 110 H (98-107) mmol/L Carbon Dioxide 28 (21-32) mmol/L Anion Gap 5.0 (3-11) BUN 14 (7-18) mg/dl Creatinine 1.26 H (0.6-1.2) mg/dl Est Cr Clr Drug Dosing 35.9 ml/min Est GFR ( Amer) 45.6 Est GFR (Non-Af Amer) 39.4 BUN/Creatinine Ratio 11.0 (10-20) Glucose 95 (70-99) mg/dl Calcium 8.5 (8.5-10.1) mg/dl Total Bilirubin 0.4 (0.2-1) mg/dl AST 14 L (15-37) U/L ALT 18 (12-78) U/L Alkaline Phosphatase 72 (45-117) U/L Troponin I < 0.015 (0-0.045) ng/ml Total Protein 6.8 (6.4-8.2) gm/dl Albumin 3.1 L (3.4-5.0) gm/dl Globulin 3.7 (2.5-4.0) gm/dl Albumin/Globulin Ratio 0.8 L (0.9-2) Lipase 195 (73-393) U/L Administered Medications Discontinued Medications Sodium Chloride (Nss) 500 mls @ 999 mls/hr IV .Q31M SIRENA Stop: 03/07/20 08:00 Last Infusion: 03/07/20 08:10 Dose: 0 mls/hr Documented by: [id number] Admin: 03/07/20 07:39 Dose: 999 mls/hr Documented by: [id number] Promethazine HCl (Phenergan) 6.25 mg in 50.25 mls @ 201 mls/hr IV NOW STA Stop: 03/07/20 07:43 Last Infusion: 03/07/20 07:54 Dose: 0 mls/hr Documented by: [id number] Admin: 03/07/20 07:39 Dose: 201 mls/hr Documented by: [id number] Piperacillin Sod/Tazobactam Sod (Zosyn) 4.5 gm in 120 mls @ 240 mls/hr IV NOW ONE Stop: 03/07/20 09:23 Last Admin: 03/07/20 09:00 Dose: 240 mls/hr Documented by: [id number] Imaging Data Radiologist's Impression: HEAD CT NONCONTRAST CT DOSE: 1134.48 mGy.cm HISTORY: dizzy TECHNIQUE: Multiaxial CT images of the head were performed without the use of intravenous contrast. Automated exposure control was utilized for this study. A dose lowering technique was utilized adhering to the principles of ALARA. Comparison: Head CT 09/23/2019. Findings: The paranasal sinuses and mastoid air cells are clear. The calvarium and skull base are intact. There is no mass, hematoma, midline shift, acute infarct. White matter hypodensity is nonspecific but suggestive of microvascular ischemic change. The ventricles and sulci demonstrate mild age-related i nvolutional changes. Impression: No significant change compared to the prior study. No acute intracranial abnormality. ACT 112: Negative or not required by law. Electronically signed by: Jerry Campos M.D. 03/07/2020 8:34 AM Dictated: 03/07/20 0814 Transcribed: 03/07/20813 XR chest 1V portable CLINICAL HISTORY: Chest pain. COMPARISON STUDY: Chest radiograph August 19, 2017. FINDINGS: Dual-lead left subclavian pacemaker is in place. Moderate cardiomegaly is unchanged. There is no evidence for pulmonary edema. Lower lung interstitial prominence is unchanged. There are severe emphysema. No pneumothorax or pleural effusion is noted. There is no consolidation to suggest pneumonia. IMPRESSION: 1. No acute findings. 2. Emphysema. ACT 112: Negative or not required by law. Electronically signed by: Curt Garrett M.D. 03/07/2020 7:46 AM Dictated: 03/07/20 0744 Transcribed: 03/07/[address] OF THE ABDOMEN AND PELVIS WITHOUT CONTRAST CLINICAL HISTORY: Lower abdominal pain. COMPARISON STUDY: CT of the abdomen and pelvis January 11, 2017. Abdominal ul trasound February 23, 2017. TECHNIQUE: Axial images of the abdomen and pelvis were obtained without IV contrast. Images were reviewed in the axial, sagittal, and coronal planes. Automated exposure control was utilized for the study. A dose lowering technique was utilized adhering to the principles of ALARA. FINDINGS: Imaged portions of the lower chest demonstrate moderate cardiomegaly with a trace pericardial effusion. No pneumatosis, free air or portal venous gas is present. There are gallstones within the gallbladder without evidence for acute cholecystitis. Unenhanced images of the liver, spleen, adrenal glands and pancreas are unremarkable. Is no hydronephrosis or hydroureter. There are no urinary calculi. Colonic diverticulosis is noted. There is mild wall thickening of the distal descending colon and proximal sigmoid colon which is probably chronic. There is no adjacent inflammation. There is no evidence for a bowel obstruction. The appendix is normal. There is no lymphadenopathy or ascites. Left femoral internal fixation is partially imaged. Stent graft within the abdominal aorta is noted. IMPRESSION: 1. Colonic diverticulosis. Mild wall thickening of the distal descending colon and proximal sigmoid colon without adjacent inflammation. This wall thickening favors chronic muscular hypertrophy. Mild acute diverticulitis could appear similar but is considered less likely. No free air or abscess. 2. No bowel obstruction. 3. Cholelithiasis. ACT 112: Negative or not required by law. Electronically signed by: Curt Garrett M.D. 03/07/2020 8:43 AM Dictated: 03/07/2027 Transcribed: 03/07/20 0837 Blood Pressure Blood Pressure Findings: Elevated blood pressure Blood Pressure Disposition: further management by hospitalist Discharge Plan Visit Data Chief Complaint: Chest Pain ED Provider: Jona Maldonado Discharge Problem: Chest pain, Diverticulitis Patient Disposition: Being Evaluated by Hospitalist Condition: Good Forms Stand Alone Forms: [employer] Prescriptions Prescriptions: No Action acetaminophen [Tylenol 8 Hour] 650 mg tablet extended release 650 mg PO Q4H PRN (Reason: fever or pain) Qty: 30 RF: 0 rosuvastatin 5 mg tablet 5 mg PO HS Qty: 90 RF: 3 losartan [Cozaar] 100 mg tablet 100 mg PO QAM Qty: 90 RF: 1 (DME) Oxygen Home Liters Per Minute See Dose Instructions .ROUTE .MEDSUPPLY Qty: 1 RF: 0 metoprolol tartrate 50 mg tablet 50 mg PO BID RF: 0 warfarin 2.5 mg Tablet 1.25 mg PO 4XWK RF: 0 warfarin 2.5 mg Tablet 2.5 mg PO 3XWK RF: 0 calcium carbonate [Calcium 600] 600 mg calcium (1,500 mg) Tablet 600 mg PO BID RF: 0 cholecalciferol (vitamin D3) [Vitamin D3] 1,000 unit Capsule 1,000 unit PO 3XWK RF: 0 coQ10 (ubiquinol) 200 mg Capsule 200 mg PO HS RF: 0 Dundee-3 Fish Oil 300-1,000 mg Capsule 1 cap PO HS RF: 0 cetirizine [Zyrtec] 10 mg tablet 10 mg PO DAILY PRN (Reason: allergy symptoms) RF: 0 aspirin 81 mg tablet,delayed release (DR/EC) 81 mg PO QAM RF: 0 nitroglycerin [Nitrostat] 0.4 mg tablet, sublingual 0.4 mg SL Q5M PRN (Reason: Angina) RF: 0 Centrum Silver 0.4-300-250 mg-mcg-mcg tablet 1 tab PO HS RF: 0 Combivent Respimat 20-100 mcg/actuation mist 1 puffs INH QID PRN (Reason: Shortness Of Breath) RF: 0 pantoprazole [Protonix] 40 mg tablet,delayed release (DR/EC) 40 mg PO PM RF: 0 Referrals Referrals: Linwood Gonzalez MD [Primary Care Provider] - Discharge Problem: Chest pain Qualifiers: Chest pain type: unspecified Qualified Code(s): R07.9 - Chest pain, unspecified
--- NOTE | 2020-03-07 08:35 | CT Scan Report ---
HEAD CT NONCONTRAST CT DOSE: 1134.48 mGy.cm HISTORY: dizzy TECHNIQUE: Multiaxial CT images of the head were performed without the use of intravenous contrast. A utomated exposure control was utilized for this study. A dose lowering technique was utilized adheri ng to the principles of ALARA. Comparison: Head CT 09/23/2019. Findings: The paranasal sinuses and mastoid air cells are clear. The calvarium and skull base are int act. There is no mass, hematoma, midline shift, acute infarct. White matter hypodensity is nonspecifi c but suggestive of microvascular ischemic change. The ventricles and sulci demonstrate mild age-rela blanca involutional changes. Impression: No significant change compared to the prior study. No acute intracranial abnormality. ACT 112: Negative or not required by law. Electronically signed by: Jerry Campos M.D. 03/07/2020 8:34 AM
--- NOTE | 2020-03-07 08:45 | CT Scan Report ---
CT OF THE ABDOMEN AND PELVIS WITHOUT CONTRAST CLINICAL HISTORY: Lower abdominal pain. COMPARISON STUDY: CT of the abdomen and pelvis January 11, 2017. Abdominal ultrasound February 23, 2017. TECHNIQUE: Axial images of the abdomen and pelvis were obtained without IV contrast. Images were revi ewed in the axial, sagittal, and coronal planes. Automated exposure control was utilized for the [place]. A dose lowering technique was utilized adhering to the principles of ALARA. FINDINGS: Imaged portions of the lower chest demonstrate moderate cardiomegaly with a trace pericardi al effusion. No pneumatosis, free air or portal venous gas is present. There are gallstones within th e gallbladder without evidence for acute cholecystitis. Unenhanced images of the liver, spleen, adren al glands and pancreas are unremarkable. Is no hydronephrosis or hydroureter. There are no urinary ca lculi. Colonic diverticulosis is noted. There is mild wall thickening of the distal descending colon and proximal sigmoid colon which is probably chronic. There is no adjacent inflammation. There is no evidence for a bowel obstruction. The appendix is normal. There is no lymphadenopathy or ascites. Lef t femoral internal fixation is partially imaged. Stent graft within the abdominal aorta is noted. IMPRESSION: 1. Colonic diverticulosis. Mild wall thickening of the distal descending colon and proximal sigmoid c olon without adjacent inflammation. This wall thickening favors chronic muscular hypertrophy. Mild ac kendal diverticulitis could appear similar but is considered less likely. No free air or abscess. 2. No bowel obstruction. 3. Cholelithiasis. ACT 112: Negative or not required by law. Electronically signed by: Curt Garrett M.D. 03/07/2020 8:43 AM
[2020-03-07] MEDS ORDERED: PIPERACILL/TAZOBAC CONSULT ACTIVE PRN (08:54)
[2020-03-07] MEDS ORDERED: PIPERACILLIN/TAZOBACTAM 4.5 GM/120 ML BAG IV ONE (08:54)
--- NOTE | 2020-03-07 09:34 | History & Physical Report ---
Date of Service March 07, 2020 Assessment & Plan (1) Chest pain: - Admit to tele for observation for r/o - Trend cardiac biomarkers, initial set was negative - EKG reviewed as above - Check 2 D echo - If negative enzymes can consider a stress test tomorrow morning. - PT/OT consulted (2) Atrial fibrillation: -History of such, anticoagulated on Coumadin, INR = 2.4 -Paced on EKG with (3) Hypertension: -Continue losartan 100 mg daily, metoprolol tartrate 50 mg bid, rosuvastatin 5 mg at bedtime, (4) CAD (coronary artery disease): -History of 38 LATANYA to the proximal and mid RCA at [place] in 2009, repeat cath in 2011 had patent RCA stents and non-occlusive disease elsewhere -Continue beta-blockade, ARB, statin as per (5) Hyperlipidemia: -Continue statin (6) Myocardial Infarction: -History of such at [facility] [place] -Follows with [facility] cardiology (7) Stage III chronic kidney disease: -History of such, creatinine 1.26, BUN 14, appears to be at her baseline between 1.2-1.3 (8) History of stent insertion of renal artery: - Follows with Dr. Mims as outpatient, last seen in September 2019 where she was found to have widely patent left renal artery stent without evidence of restenosis. Has 60% stenosis of the proximal right renal artery - As seen on ct abd colonic diverticulosis, mild acute diverticulitis is considered but less likely. No need for further antibiotics, was given 1 dose of Zosyn in the ER (9) DVT prophylaxis: - teds, Coumadin CODE: DNR Dispo: From home, likely to remain in the hospital x 1-2 days History of Present Illness Primary Care Provider: Maximus Gonzalez MD This is an 84-year-old female with past medical history of CAD with 3 LATANYA to the RCA in 2009, distal aortic stent, HTN, HLD, A. fib s/p pacer, CKD stage III, diverticulitis, osteoporosis who presents with acute onset of chest pressure and pain. Patient woke up this morning felt heaviness and pain on her chest, which did not radiate to any other location, no shortness of breath, proceeded to take a nitro tab and felt better. She went to the bathroom and upon standing felt worse and felt dizzy. She called EMS who then gave her aspirin on the way in. Negative troponin on first set. EKG is negative for acute ischemic changes. She feels well at this point, no chest pain or heaviness. A CT of the head and abdomen were completed along with CT chest to check for abd causes of chest heaviness/pain, which is negative other than a possible mild diverticulitis. She denies diarrhea, abdominal pain, nausea or vomiting. She has moved her bowels 2-3 times in the last 3 days but typically moves them at least twice daily. No hematochezia, dark or tarry stools, BRBPR. She lives at home by herself. Allergies Allergy/AdvReac Type Severity Reaction Status Date / Time lidocaine [From Xylocaine] Allergy Severe passed out Verified 03/07/20 08:16 atorvastatin Allergy Mild LEG CRAMPS Verified 03/07/20 08:16 pravastatin Allergy Mild leg cramps Verified 03/07/20 08:16 simvastatin Allergy Mild leg cramps Verified 03/07/20 08:16 Home Medications Home Medications Medication Instructions Recorded Confirmed Type acetaminophen 650 mg 650 mg PO Q4H PRN #30 tab 02/08/19 03/07/20 Rx tablet,extended release Oxygen Home #1 ea 03/28/19 09/22/19 History Centrum Silver 1 tab PO HS 06/14/19 03/07/20 History Combivent Respimat 1 puffs INH QID PRN 06/14/19 03/07/20 History Volin-3 Fish Oil 1 cap PO HS 06/14/19 03/07/20 History aspirin 81 mg PO QAM 06/14/19 03/07/20 History calcium carbonate [Calcium 600] 600 mg PO BID 06/14/19 03/07/20 History cetirizine [Zyrtec] 10 mg PO DAILY PRN 06/14/19 03/07/20 History cholecalciferol (vitamin D3) 1,000 unit PO 3XWK 06/14/19 03/07/20 History [Vitamin D3] coQ10 (ubiquinol) 200 mg PO HS 06/14/19 03/07/20 History nitroglycerin [Nitrostat] 0.4 mg SL Q5M PRN 06/14/19 03/07/20 History warfarin 1.25 mg PO 4XWK 06/14/19 03/07/20 History warfarin 2.5 mg PO 3XWK 06/14/19 03/07/20 History rosuvastatin 5 mg tablet 5 mg PO HS #90 tab 09/05/19 03/07/20 Rx metoprolol tartrate 50 mg tablet 50 mg PO BID 09/22/19 03/07/20 History losartan 100 mg tablet 100 mg PO QAM #90 tab 12/22/19 03/07/20 Rx pantoprazole [Protonix] 40 mg PO PM 03/07/20 03/07/20 History Past Med/Surg History Medical History Atrial fibrillation on warfarin, follows with Dr. Wu Emphysema of lung GERD (gastroesophageal reflux disease) History of anesthesia reaction passed out at age 29 when received xylocaine at dentist's office History of cervical cancer 1970--sx History of colon polyps Hyperlipidemia Hypertension Myocardial Infarction per pt had a heart attack during heart cath @ [facility] [place] On anticoagulant therapy warfarin daily On home oxygen therapy 3L N/C at hs Osteoarthritis Osteoporosis Stage III chronic kidney disease Surgical History History of cardiac cath multiple--[id number] History of cataract surgery bilt History of colonoscopy History of dilatation and curettage History of esophagogastroduodenoscopy (EGD) History of heart artery stent total of 3 stents--last before 2013 History of open reduction and internal fixation (ORIF) procedure left hip---hardware in place History of partial thyroidectomy enlarged nodule History of repair of dissection of abdominal aorta 2008? @ [facility] History of stent insertion of renal artery left History of tooth extraction all teeth History of total abdominal hysterectomy and bilateral salpingo-oophorectomy Pacemaker 2016 meditronic @ [facility] Family History Father Coronary heart disease Mother Coronary heart disease Cardiac disorder Hypertension Family history of diabetes mellitus Brother Alcoholism Lung cancer Sister Atrial fibrillation COPD (chronic obstructive pulmonary disease) Other No family history of adverse response to anesthesia Social History Preferred Language: Andorran Communication Ability: Effective Media Relations Intern Required: No Beliefs That Will Affect Care: None Current Living Situation: Alone Other Information That Helps Us Care for You: Yes Feels Safe at Home: Yes Safety Concerns: Feels Safe At This Time Smoking Status: Smoker, status unknown Hx Alcohol Use: No Hx Substance Use: No Review of Systems Review of Systems: Constitutional: No fever, sweats or chills Eyes: No diplopia, no worsening or blurred vision ENT: normal hearing, no trouble swallowing Respiratory: No cough, sputum, dyspnea at rest or on exertion Cardiovascular: As per HPI, no tightness or palpitations Abdomen: As per HPI, no pain, nausea, vomiting, diarrhea or constipation Musculoskeletal: No joint pain, calf pain, swelling Neurologic: No weakness, numbness/tingling, or balance problems Psychiatric: No anxiety or depression Skin: No rash or itch Physical Exam Physical Exam: General: awake, alert, no apparent distress Head: Normocephalic, atraumatic ENT: PERRL, EOMI, no pharyngeal exudate, mucous membranes moist Chest: Clear to auscultation, on 2L via NC with O2 sats at 95%, no adventitious breath sounds Cardiac: Chest nontender to palpation, regular rate and rhythm, no murmur, no JVD, normal peripheral pulses, good capillary refill Abdominal: NABS x 4 quadrants, soft, nondistended, nontender to palpation, no rebound, guarding Extremities: Normal inspection, no peripheral edema or erythema, calfs nontender to palpation Psych: Normal mood and affect Neuro: AAO x 3, strength intact bilaterally and rated 5/5, no motor deficits, speech is clear, no peripheral sensory deficits Skin: no rash or erythema Results & Data Results & Data ([facility]) Vital Signs (Past 12 Hours) Vital Signs Temp Pulse Resp BP Pulse Ox 03/07/20 08:15 88 16 187/87 H 97 03/07/20 08:00 65 16 200/84 H 96 03/07/20 07:33 63 18 89 L 03/07/20 07:30 63 14 211/86 H 94 03/07/20 07:28 36.9 C 65 16 211/86 H 95 ECG Additional Comments: 07-MAR-2020 07:27:05 [facility]-EDSTAT ROUTINE RETRIEVAL Atrial-paced rhythm with prolonged AV conduction Abnormal ECG When compared with ECG of 20-AUG-2017 06:18, T wave inversion more evident in Inferior leads 25mm/s 10mm/mV 150Hz 9.0.9 12SL 241 RAVIN: 13 Referred by: REFERRED SELF Unconfirmed Vent. rate 73 BPM CO interval 302 ms QRS duration 86 ms QT/QTc 412/453 ms P-R-T axes 7 Code Status & VTE Plan Code Status DNR-discussed with the patient at bedside Supervising Physician Co-Signing Physician Notes Patient was seen and examined independently I discussed the case with Audelia Gill PAC I reviewed pertinent past medical social family history and also the plan of care and agree with the plan of care. Patient states her chest pain awoke her in the morning and was accompanied by some burping or belching which transiently improved it. Pain persisted in her epigastric area she took a nitroglycerin went to the bathroom she got dizzy at that point time she called EMS presented to the ED of her cardiac history I was felt appropriate to have her observe for chest pain rule out although some of her symptom complex could be GI in origin Bowels are reviewed Cardiac exam is regular there is a systolic murmur her lungs are clear without wheezes or crackles her abdomen is with some mild residual epigastric distress soft nontender Patient be observed for cardiac evaluation. Inadvertently she told me she is a sore throat there is some erythema to her posterior pharynx and a possible small exudate in the left tonsillar pillar near the soft palate a strep screen was sent Any exceptions will be noted below PG Care Time/CCT Total # of Minutes Spent Total Time Spent with Patient: Total time spent is greater than 50% in coordination of care (as documented) at patient's floor/unit and/or counseling patient: Coding Level of Care Code 71267 OBS Care - Level 3 Diagnoses Chest pain R07.9 Chest pain type: unspecified Atrial fibrillation I48.91 Hypertension I10 CAD (coronary artery disease) I25.10 Hyperlipidemia E78.5 Myocardial Infarction I21.9 Stage III chronic kidney disease N18.3 History of stent insertion of renal artery Z98.890 DVT prophylaxis Z29.9 (1) Chest pain Chest pain type: unspecified Qualified Code(s): R07.9 - Chest pain, unspecified
[2020-03-07] MEDS ORDERED: NITROGLYCERIN SL 0.4 MG/TAB TAB SL PRN (11:20)
[2020-03-07] MEDS ORDERED: NON-FORMULARY MEDICATION (Acetaminophen [Tylenol 8 Hour] 650 MG) PO PRN (11:20)
[2020-03-07] MEDS ORDERED: ONDANSETRON INJ 2 MG/ML 2 ML VIAL IV PRN (11:20)
[2020-03-07] MEDS ORDERED: CETIRIZINE HCL 10 MG TABLET PO PRN (11:20)
[2020-03-07] MEDS ORDERED: ALBUTEROL HFA 8 GM INHALER INH PRN (11:20)
[2020-03-07] MEDS ORDERED: ACETAMINOPHEN 325 MG TAB PO PRN (11:20)
[2020-03-07] MEDS ORDERED: IPRATROPIUM BROMIDE HFA INHALER INH PRN (11:30)
[2020-03-07] MEDS: METOPROLOL TARTRATE 50 MG TAB PO SCH ×2 (12:17→20:38)
[2020-03-07] MEDS: LOSARTAN POTASSIUM 50 MG TAB PO SCH (12:17)
[2020-03-07] MEDS ORDERED: PERFLUTREN LIPID MICROSPHERE (DEFINITY) IV ONE (13:53)
--- NOTE | 2020-03-07 14:41 | Electrocardiogram Report ---
Test Reason : Blood Pressure : / mmHG Vent. Rate : 073 BPM Atrial Rate : 073 BPM P-R Int : 302 ms QRS Dur : 086 ms QT Int : 412 ms P-R-T Axes : 091 -07 -28 degrees QTc Int : 453 ms Atrial-paced rhythm with prolonged AV conduction Abnormal ECG When compared with ECG of 20-AUG-2017 06:18, No significant change Confirmed by Jose Rasmussen ([id number]) on 03/07/2020 2:41:33 PM Referred By: REFERRED SELF Confirmed By:Jose Rasmussen
[2020-03-07] MEDS ORDERED: WARFARIN SOD 2.5 MG TAB PO SCH (16:00)
[2020-03-07] MEDS ORDERED: HydrALAZINE HCL 20 MG/ML VIAL IV PRN (17:11)
--- NOTE | 2020-03-07 18:11 | Cardiology Consultation ---
Date of Consultation March 07, 2020 Assessment & Plan (1) Chest pain: The patient had a brief episode of chest discomfort, but per her description I am not certain that this is reminiscent of her previous angina. I think the reason why she felt dizzy is because of the hypotensive effect of ni troglycerin. EKG negative x1, troponin normal x2. We will continue to follow her, consider pharmacologic nuclear stress test tomorrow, versus ongoing observation as an outpatient. History of Present Illness Attending Physician: Samuel Pérez MD History of Present Illness Marce Carlton is an 84-year-old female seen in cardiology consultation per the request of Dr. Samuel Pérez for the evaluation of chest discomfort. The patient states that she had an episode of chest discomfort while awake and in bed. Her symptoms were partially palliated with belching. She utilized nitroglycerin, and shortly down into her recliner chair, and felt as if she may pass out. At the time she presented to the emergency room she was completely chest pain-free. When I had assessed her she was enjoying her evening meal and was feeling well. The patient is well-known to the undersigned as I have followed her as an outpatient for several years. Her most recent outpatient visit was in August 2019 with Mirella Thornton PA-C of our practice. Cardiac problem list: Labile hypertension History of coronary heart disease remote right coronary artery stents in 2009, nonocclusive disease noted on repeat cardiac catheterization in 2011. Nonischemic nuclear stress test May, History of paroxysmal atrial fibrillation, tachycardia-bradycardia syndrome, prompting implantation of Medtronic dual-chamber pacemaker, 2016 History of endovascular abdominal aortic aneurysm repair, 2010 History of remote left renal artery stent Stage III chronic kidney disease Allergies Allergy/AdvReac Type Severity Reaction Status Date / Time lidocaine [From Xylocaine] Allergy Severe passed out Verified 03/07/20 08:16 atorvastatin Allergy Mild LEG CRAMPS Verified 03/07/20 08:16 pravastatin Allergy Mild leg cramps Verified 03/07/20 08:16 simvastatin Allergy Mild leg cramps Verified 03/07/20 08:16 Home Medications Home Medications Medication Instructions Recorded Confirmed Type acetaminophen 650 mg 650 mg PO Q4H PRN #30 tab 02/08/19 03/07/20 Rx tablet,extended release Oxygen Home #1 ea 03/28/19 09/22/19 History Centrum Silver 1 tab PO HS 06/14/19 03/07/20 History Combivent Respimat 1 puffs INH QID PRN 06/14/19 03/07/20 History [place]-3 Fish Oil 1 cap PO HS 06/14/19 03/07/20 History aspirin 81 mg PO QAM 06/14/19 03/07/20 History calcium carbonate [Calcium 600] 600 mg PO BID 06/14/19 03/07/20 History cetirizine [Zyrtec] 10 mg PO DAILY PRN 06/14/19 03/07/20 History cholecalciferol (vitamin D3) 1,000 unit PO 3XWK 06/14/19 03/07/20 History [Vitamin D3] coQ10 (ubiquinol) 200 mg PO HS 06/14/19 03/07/20 History nitroglycerin [Nitrostat] 0.4 mg SL Q5M PRN 06/14/19 03/07/20 History warfarin 1.25 mg PO 4XWK 06/14/19 03/07/20 History warfarin 2.5 mg PO 3XWK 06/14/19 03/07/20 History rosuvastatin 5 mg tablet 5 mg PO HS #90 tab 09/05/19 03/07/20 Rx metoprolol tartrate 50 mg tablet 50 mg PO BID 09/22/19 03/07/20 History losartan 100 mg tablet 100 mg PO QAM #90 tab 12/22/19 03/07/20 Rx pantoprazole [Protonix] 40 mg PO PM 03/07/20 03/07/20 History Patient History Medical History Atrial fibrillation on warfarin, follows with Dr. Wu Emphysema of lung GERD (gastroesophageal reflux disease) History of anesthesia reaction passed out at age 29 when received xylocaine at dentist's office History of cervical cancer 1970--sx History of colon polyps Hyperlipidemia Hypertension Myocardial Infarction per pt had a heart attack during heart cath @ [facility] [place] 2008 On anticoagulant therapy warfarin daily On home oxygen therapy 3L N/C at hs Osteoarthritis Osteoporosis Stage III chronic kidney disease Surgical History History of cardiac cath multiple--[id number] History of cataract surgery bilt History of colonoscopy History of dilatation and curettage History of esophagogastroduodenoscopy (EGD) History of heart artery stent total of 3 stents--last before 2013 History of open reduction and internal fixation (ORIF) procedure left hip---hardware in place History of partial thyroidectomy enlarged nodule History of repair of dissection of abdominal aorta 2008? @ [facility] History of stent insertion of renal artery left History of tooth extraction all teeth History of total abdominal hysterectomy and bilateral salpingo-oophorectomy Pacemaker 2016 meditronic @ [facility] Family History Father Coronary heart disease Mother Coronary heart disease Cardiac disorder Hypertension Family history of diabetes mellitus Brother Alcoholism Lung cancer Sister Atrial fibrillation COPD (chronic obstructive pulmonary disease) Other No family history of adverse response to anesthesia Social History Preferred Language: Portuguese Communication Ability: Effective House Steward/Stewardess Required: No Beliefs That Will Affect Care: None Current Living Situation: Alone Other Information That Helps Us Care for You: Yes Feels Safe at Home: Yes Safety Concerns: Feels Safe At This Time Smoking Status: Smoker, status unknown Hx Alcohol Use: No Hx Substance Use: No Physical Exam Physical Exam: Temp Pulse Resp BP Pulse Ox 36.6 C 66 20 174/76 H 91 03/07/20 16:01 03/07/20 16:01 03/07/20 16:01 03/07/20 16:01 03/07/20 16:01 Constitutional: WD/WN, vitals as above Respiratory: normal respiratory effort, lungs clear to auscultation Cardiovascular: RRR, no murmur, no edema Gastrointestinal (Abdomen): normal bowel sounds, soft, nontender, no hepatosplenomegaly Neurologic: PERRL, EOMI, accommodation nl, no face palsy, no dysarthria Results & Data ([facility]) Vital Signs (Past 12 Hours) Vital Signs Temp Pulse Pulse Resp BP BP BP 03/07/20 16:01 36.6 C 66 20 174/76 H 03/07/20 12:35 36.5 C 65 18 176/82 H 03/07/20 12:01 36.6 C 63 18 171/70 H 03/07/20 10:38 82 21 206/107 H 03/07/20 10:30 94 H 19 03/07/20 10:00 60 21 03/07/20 09:32 60 13 03/07/20 09:31 60 13 168/75 H 03/07/20 09:30 72 20 03/07/20 09:01 60 15 03/07/20 09:00 60 21 181/78 H 03/07/20 08:31 59 L 15 180/73 H 03/07/20 08:30 60 18 03/07/20 08:16 67 23 03/07/20 08:15 88 16 187/87 H 03/07/20 08:00 65 16 200/84 H 03/07/20 07:33 63 18 03/07/20 07:30 63 14 211/86 H 03/07/20 07:28 36.9 C 65 16 211/86 H Pulse Ox 03/07/20 16:01 91 03/07/20 12:35 92 03/07/20 12:01 90 03/07/20 10:38 93 03/07/20 10:30 92 03/07/20 10:00 95 03/07/20 09:32 96 03/07/20 09:31 96 03/07/20 09:30 95 03/07/20 09:01 96 03/07/20 09:00 95 03/07/20 08:31 97 03/07/20 08:30 03/07/20 08:16 03/07/20 08:15 97 03/07/20 08:00 96 03/07/20 07:33 89 L 03/07/20 07:30 94 03/07/20 07:28 95 Laboratory Results Cardiac Enzymes 03/07/20 03/07/20 Range/Units 07:46 14:48 AST 14 L (15-37) U/L Troponin I < 0.015 < 0.015 (0-0.045) ng/ml Coagulation INR level 03/07/2020, 2.4 03/07/20 Range/Units 07:46 PT 24.0 H (9.0-12.0) Seconds APTT 42.8 H (21.0-31.0) Seconds CBC 03/07/20 Range/Units 07:46 WBC 6.63 (4.8-10.8) K/uL RBC 4.21 (4.2-5.4) M/uL Hgb 12.8 (12.0-16.0) g/dL Hct 38.9 (37-47) % Plt Count 273 (130-400) K/uL Neut # (Auto) 4.19 (1.4-6.5) K/uL Lymph # (Auto) 1.47 (1.2-3.4) K/uL Meagher # (Auto) 0.65 H (0.11-0.59) K/uL Eos # (Auto) 0.26 (0-0.5) K/uL Baso # (Auto) 0.04 (0-0.2) K/uL Comprehensive Metabolic Panel 03/07/20 Range/Units 07:46 Sodium 143 (136-145) mmol/L Potassium 3.8 (3.5-5.1) mmol/L Chloride 110 H (98-107) mmol/L Carbon Dioxide 28 (21-32) mmol/L BUN 14 (7-18) mg/dl Creatinine 1.26 H (0.6-1.2) mg/dl Glucose 95 (70-99) mg/dl Calcium 8.5 (8.5-10.1) mg/dl AST 14 L (15-37) U/L ALT 18 (12-78) U/L Alkaline Phosphatase 72 (45-117) U/L Total Protein 6.8 (6.4-8.2) gm/dl Albumin 3.1 L (3.4-5.0) gm/dl Intake and Output 03/07/20 03/07/20 03/07/20 06:59 14:59 22:59 Intake Total 670.25 / 670.25 Balance 670.25 / 670.25 Intake: IV 670.25 / 670.25 ZOSYN 4.5 gm In 120 ml @ 240 120 / 120 mls/hr IV NOW ONE Rx#:[id number] PHENERGAN 6.25 mg In 50.25 ml @ 50.25 / 50.25 201 mls/hr IV NOW STA Rx#: [id number] Nss 500 ml @ 999 mls/hr IV . 500 / 500 Q31M SIRENA Rx#:[id number] Other: Weight 75.8 kg Patient Weight 03/08/20 06:59 Weight 75.8 kg Echocardiogram performed today and reviewed independently revealed moderate concentric left ventricular hypertrophy with normal LVEF. The mitral regurgitation which had previously been graded as being mild to moderate, was very minimal. CT of the abdomen pelvis revealed colonic diverticulosis. Acute mild diverticulitis also a possibility. Per the radiology report. EKG performed today 03/07/2020 at 7:27 AM revealed atrial paced rhythm with long AV delay, no significant ischemic repolarization changes. (1) Chest pain Chest pain type: unspecified Qualified Code(s): R07.9 - Chest pain, unspecified
[2020-03-07] MEDS: CALCIUM CARBONATE 1250MG TAB PO SCH (20:38)
[2020-03-07] MEDS ORDERED: PANTOprazole 40 MG TAB PO SCH (21:00)
[2020-03-07] MEDS ORDERED: NON-FORMULARY MEDICATION (Coq10 (Ubiquinol) 200 MG) PO SCH (21:00)
[2020-03-07] MEDS ORDERED: ROSUVASTATIN CALCIUM 5 MG TAB PO SCH (21:00)
[2020-03-07] MEDS ORDERED: OMEGA-3 (PURIFIED FISH OIL) 1 GM CAP PO SCH (21:00)
[2020-03-07] MEDS ORDERED: MULTIVITAMIN TAB PO SCH (21:00)
[2020-03-08 07:01] LABS: Hematocrit (blood only) 39.1 % (37-47); Hemoglobin 12.8 g/dL (12.0-16.0); Mean Corpuscular Hemoglobin 30.1 pg (25-34); Mean Corpuscular Hgb Conc 32.7 g/dL (32-36); Mean Platelet Volume 9.6 fL (7.4-10.4); Platelet Count 268 K/uL (130-400); RDW Coefficient of Variation 13.2 % (11.5-14.5); RDW Standard Deviation 44.4 fL (36.4-46.3); Red Blood Count 4.25 M/uL (4.2-5.4); White Blood Count 6.09 K/uL (4.8-10.8)
[2020-03-08 07:23] LABS: Albumin Level 2.9 gm/dl (3.4-5.0); BUN Creatinine Ratio 15.1 (10-20); Calcium 8.9 mg/dl (8.5-10.1); Creatinine Clr Calc Pharmacy 30.5 ml/min; Est GFR (African American) 41.6; Est GFR (Non-African American) 35.9; Potassium 4.2 mmol/L (3.5-5.1)
[2020-03-08 07:26] LABS: Albumin Globulin Ratio 0.8 (0.9-2); Bilirubin,Total 0.6 mg/dl (0.2-1); Globulin 3.8 gm/dl (2.5-4.0); Total Protein 6.7 gm/dl (6.4-8.2)
[2020-03-08] MEDS ORDERED: REGADENOSON 0.4 MG/5 ML SYR IV ONE (07:43)
[2020-03-08 08:03] LABS: Estimated Average Glucose 128 mg/dl; Hemoglobin A1C 6.1 % (4.5-5.6)
[2020-03-08] MEDS ORDERED: ASPIRIN 81 MG ECTAB PO SCH (09:00)
[2020-03-08] MEDS: LOSARTAN POTASSIUM 50 MG TAB PO SCH (10:25)
[2020-03-08] MEDS: CALCIUM CARBONATE 1250MG TAB PO SCH (10:25)
[2020-03-08] MEDS: METOPROLOL TARTRATE 50 MG TAB PO SCH (10:26)
--- NOTE | 2020-03-08 11:59 | Myocardial Perfusion Study ---
Date of Service March 08, 2020 Myocardial Perfusion Study k Myocardial Perfusion Study Report [place] Act 112: Negative Procedure: 1. Myocardial perfusion study performed in multiple views/images 2. Lexiscan pharmacologic stress ECG Indications: 1. Chest discomfort, history of coronary heart disease Ordering physician: Fadi Wu DO Procedural details: For the stress portion of the study, Lexiscan 0.4 mg was intravenously administered followed by a saline flush. This was followed by 32.1 mCi of technetium 99m Cardiolite, injected at 9:25 AM on 03/08/2020. 30 minutes following the injection, imaging of the heart was performed in multiple projections. For the rest portion of the study, 10.3 mCi technetium 99m Cardiolite was injected intravenously at 7:30 AM on 03/08/2020. 1 hour following the injection, imaging of the heart was performed in the same projections. Lexiscan stress ECG: The patient underwent pharmacologic stress testing receiving 0.4 mg of IV Lexiscan. Resting ECG demonstrated: Sinus rhythm with nonspecific diffuse T wave flatten ing Maximum heart rate: 69 bpm Maximal, age-predicted heart rate: 50 % Resting blood pressure: 180/105 mmHg Maximum blood pressure: 180/105 mmHg, the blood pressure improved to 138/72 administration of Lexiscan, post infusion blood pressure was 155/[address] changes: None Arrhythmia: None Symptoms: The patient experienced chest heaviness, headache, shortness of breath, and transient GI upset with the administration of Lexiscan 0.4 mg. Her symptoms resolved early in the post stress recovery interval. Findings: Rotating raw imaging demonstrated no significant lung uptake. There is no significant motion artifact. Heart size appeared normal. Myocardial perfusion demonstrated homogenous tracer uptake on both the stress and rest images without evidence of ischemia or infarction. Ejection fraction: 77 % Wall motion: Normal No significant transient ischemic dilation. Impression: 1. Normal Lexiscan nuclear stress test evidence of ischemia or infarction 2. Normal myocardial contractility LVEF 77% by the gated SPECT technique.
--- NOTE | 2020-03-08 12:03 | Cardiology Progress Note ---
Date of Service March 08, 2020 Assessment & Plan (1) Chest pain: Troponin was undetectable x3. No recurrence of chest discomfort. Attempt as if she had a brief episode of chest discomfort, and perhaps took nitroglycerin somewhat prematurely and this made her feel ill from low blood pressure. She is on to have a pharmacologic nuclear stress test performed this morning supervised by the undersigned with normal perfusion, normal LVEF. The stress test results represent a low risk of hemodynamically significant coronary heart disease, and ongoing conservative medical management is recommended. (2) Atrial fibrillation: Remains in sinus rhythm. INR is measured yesterday 03/07/2020 was 2.4. Current dose of Coumadin. (3) Hypertension: Patient has a longstanding history of labile hypertension. Although her blood pressures have been above goal during his hospital stay, she has also had issues with low blood pressure in the past, and I think it is most prudent to continue her current dose of metoprolol and losartan. After the stress test the patient's diet was advanced, if she feels well and tolerates lunch, she will be stable from a cardiac perspective for discharge. Subjective Patient seen in follow-up prior to, during, and post pharmacologic nuclear stress test. She had no recurrence of chest discomfort overnight last night. Remains in sinus rhythm. Physical Exam Physical Exam: Temp Pulse Resp BP Pulse Ox 36.5 C 77 18 168/74 H 90 03/08/20 11:37 03/08/20 11:37 03/08/20 11:37 03/08/20 11:37 03/08/20 11:37 Constitutional: WD/WN, vitals as above Respiratory: normal respiratory effort, lungs clear to auscultation Cardiovascular: RRR, no murmur, no edema Gastrointestinal (Abdomen): normal bowel sounds, soft, nontender, no hepatosplenomegaly Neurologic: PERRL, EOMI, accommodation nl, no face palsy, no dysarthria Results & Data Vital Signs (Past 12 Hours) Vital Signs Temp Pulse Pulse Resp BP BP Pulse Ox 03/08/20 11:37 36.5 C 77 18 168/74 H 90 03/08/20 11:10 60 03/08/20 10:22 75 199/79 H 03/08/20 08:00 36.7 C 62 16 155/69 H 91 03/08/20 04:07 60 03/08/20 03:54 36.7 C 67 20 179/65 H 90 Laboratory Results Cardiac Enzymes 03/07/20 03/07/20 03/08/20 Range/Units 14:48 22:28 06:21 AST 14 L (15-37) U/L Troponin I < 0.015 < 0.015 (0-0.045) ng/ml Lipids 03/08/20 Range/Units 06:21 Triglycerides 109 (0-150) mg/dl Cholesterol 126 (0-200) mg/dl HDL Cholesterol 44 mg/dl Cholesterol/HDL Ratio 3 CBC 03/08/20 Range/Units 06:21 WBC 6.09 (4.8-10.8) K/uL RBC 4.25 (4.2-5.4) M/uL Hgb 12.8 (12.0-16.0) g/dL Hct 39.1 (37-47) % Plt Count 268 (130-400) K/uL Comprehensive Metabolic Panel 03/08/20 Range/Units 06:21 Sodium 142 (136-145) mmol/L Potassium 4.2 (3.5-5.1) mmol/L Chloride 111 H (98-107) mmol/L Carbon Dioxide 27 (21-32) mmol/L BUN 20 H (7-18) mg/dl Creatinine 1.36 H (0.6-1.2) mg/dl Glucose 91 (70-99) mg/dl Calcium 8.9 (8.5-10.1) mg/dl AST 14 L (15-37) U/L ALT 17 (12-78) U/L Alkaline Phosphatase 68 (45-117) U/L Total Protein 6.7 (6.4-8.2) gm/dl Albumin 2.9 L (3.4-5.0) gm/dl Intake and Output 03/07/20 03/08/20 03/08/20 22:59 06:59 14:59 Intake Total 295 / 965.25 Balance 295 / 965.25 Intake: Oral 295 / 295 Other: Other Intake Source Npo # Unmeasured Voids 3 1 Weight 73.5 kg (1) Chest pain Chest pain type: unspecified Qualified Code(s): R07.9 - Chest pain, unspecified
[2020-03-08] MEDS ORDERED: WARFARIN SOD 1.25 MG TAB PO SCH (16:00)
--- NOTE | 2020-03-08 17:02 | Discharge Summary ---
Date of Service March 08, 2020 Admission HPI Per Admitting Provider This is an 84-year-old female with past medical history of CAD with 3 LATANYA to the RCA in 2009, distal aortic stent, HTN, HLD, A. fib s/p pacer, CKD stage III, diverticulitis, osteoporosis who presents with acute onset of chest pressure and pain. Patient woke up this morning felt heaviness and pain on her chest, which did not radiate to any other location, no shortness of breath, proceeded to take a nitro tab and felt better. She went to the bathroom and upon standing felt worse and felt dizzy. She called EMS who then gave her aspirin on the way in. Negative troponin on first set. EKG is negative for acute ischemic changes. She feels well at this point, no chest pain or heaviness. A CT of the head and abdomen were completed along with CT chest to check for abd causes of chest heaviness/pain, which is negative other than a possible mild diverticulitis. She denies diarrhea, abdominal pain, nausea or vomiting. She has moved her bowels 2-3 times in the last 3 days but typically moves them at least twice daily. No hematochezia, dark or tarry stools, BRBPR. She lives at home by herself. Principal Diagnosis Acid Reflux Discharge Exam Constitutional WD/WN, vitals as above Neck normal visual inspection Respiratory normal respiratory effort, lungs clear to auscultation Cardiovascular Rate/Rhythm: regular rate and regular rhythm Heart Sounds: normal S1 and normal S2; no gallop, no murmur and no cardiac rub Vessels: no JVD Extremities: no pedal edema Gastrointestinal (Abdomen) normal bowel sounds, soft, nontender, no hepatosplenomegaly Musculoskeletal no cyanosis or clubbing, extremities motor strength 5/5 Skin no rashes, warm and dry Psychiatric A+Ox3, euthymic affect Discharge Data Allergies Allergy/AdvReac Type Severity Reaction Status Date / Time lidocaine [From Xylocaine] Allergy Severe passed out Verified 03/07/20 08:16 atorvastatin Allergy Mild LEG CRAMPS Verified 03/07/20 08:16 pravastatin Allergy Mild leg cramps Verified 03/07/20 08:16 simvastatin Allergy Mild leg cramps Verified 03/07/20 08:16 Consultations 03/07/20 09:25 ED Decision to Admit Stat 03/07/20 11:20 Consult Case Management - Discharge Planning Routine 03/07/20 16:28 Consult Cardiology Routine Ordered Studies 03/07/20 07:29 CT abd pelvis wo con Stat CT head/brain wo con Stat Hospital Course (1) Chest pain: 84-year-old female with past medical history of CAD with 3 LATANYA to the RCA in 2009, distal aortic stent, HTN, HLD, A. fib s/p pacer, CKD stage III, diverticulitis, osteoporosis who presents with acute onset of chest pressure and pain. Chest pain ruled out for AC: - atypical features of chest pain, with relief of pain not from nitroglycerin but expression of reflux - negative troponin x3 - EKG unchanged - Nuclear stress test demonstrated normal perfusion, and normal LVEF - Cardiology consulted: stress test results represent a low risk of hemodynamically significant coronary heart disease, and ongoing conservative medical management is recommended. - Pain likely ? non-cardiac A fib/HTN - INR 2.4 on admission - continue current Warfarin regimen - continue Losartan and metoprolol Total Time Total Time Spent Total Time Spent (In Minutes): 30 Discharge Plan Discharge Items Patient Disposition: Home - Self-Care Reason For Visit: CHEST PAIN Discharge Diagnosis: Chest pain Condition on Discharge: Good Activity: Per Instructions section Non-emergency contact: Primary Care Provider and Gasfitter Call non-emergency contact if: you have any medication questions and your symptoms worsen Follow-up/Referrals: Linwood Gonzalez MD [Primary Care Provider] - Diet: Heart Healthy Addtl Attending Provider Instructions: You were seen and admitted following an episode of chest pain that resolved after relieving some acid reflux. During this admission, we monitored your heart enzymes and the electrical activity of your heart which did not demonstrate concerns for new changes to your heart wall or changes to the electrical activity of your heart. Pending Studies at Discharge: No Stand-Alone Forms: My [employer], Smoking Cessation Medications and DC Order Prescriptions: Continued acetaminophen [Tylenol 8 Hour] 650 mg tablet extended release 650 mg PO Q4H PRN (Reason: fever or pain) Qty: 30 RF: 0 rosuvastatin 5 mg tablet 5 mg PO HS Qty: 90 RF: 3 losartan [Cozaar] 100 mg tablet 100 mg PO QAM Qty: 90 RF: 1 (DME) Oxygen Home Liters Per Minute See Dose Instructions .ROUTE .MEDSUPPLY Qty: 1 RF: 0 metoprolol tartrate 50 mg tablet 50 mg PO BID RF: 0 warfarin 2.5 mg Tablet 1.25 mg PO 4XWK RF: 0 warfarin 2.5 mg Tablet 2.5 mg PO 3XWK RF: 0 calcium carbonate [Calcium 600] 600 mg calcium (1,500 mg) Tablet 600 mg PO BID RF: 0 cholecalciferol (vitamin D3) [Vitamin D3] 1,000 unit Capsule 1,000 unit PO 3XWK RF: 0 coQ10 (ubiquinol) 200 mg Capsule 200 mg PO HS RF: 0 [place]-3 Fish Oil 300-1,000 mg Capsule 1 cap PO HS RF: 0 cetirizine [Zyrtec] 10 mg tablet 10 mg PO DAILY PRN (Reason: allergy symptoms) RF: 0 aspirin 81 mg tablet,delayed release (DR/EC) 81 mg PO QAM RF: 0 nitroglycerin [Nitrostat] 0.4 mg tablet, sublingual 0.4 mg SL Q5M PRN (Reason: Angina) RF: 0 Centrum Silver 0.4-300-250 mg-mcg-mcg tablet 1 tab PO HS RF: 0 Combivent Respimat 20-100 mcg/actuation mist 1 puffs INH QID PRN (Reason: Shortness Of Breath) RF: 0 pantoprazole [Protonix] 40 mg tablet,delayed release (DR/EC) 40 mg PO PM RF: 0 Discharge Orders: Discharge Order (Routine); Ordered 03/08/20 Ordered By: Errol Drew Admission Data Admit Date/Time: 03/07/20 09:38 Attending Provider: Stephanie Malik Admit Provider: Samuel Pérez Primary Care Provider: Linwood Gonzalez Other Providers: Samuel Pérez ; Fadi Wu Other Interventions: Discharge Summary Assessment (RN) Last Done: 03/08/20 17:39 DC Date/Time DO NOT enter until pt leaves facility: 03/08/20 18:17 Supervising Physician Co-Signing Physician Notes Resident Physician Supervision Note: I independently interviewed and examined the patient and verified the herring history and physical, reviewed labs and image studies, discussed the case with the resident Dr. Drew and agree with the findings and care plan. Resident Activity Tracking Resident Involvement: Resident Care Provided Care Provided: [facility]
[2020-03-09] MEDS ORDERED: CHOLECALCIFEROL 1,000 UNITS 25 MCG TAB PO SCH (09:00)
== END 2020-03-08 18:17 | disposition home or self-care (01) ==
LOC: ED 07:22 → 2N 07:22 → SUATTDRO 09:38 → 2N 10:59

== ENCOUNTER 2021-01-17 07:28 | Observation (INO) ==
--- NOTE | 2020-12-31 15:07 | Anesthesiology Consultation ---
Date of Service December 31, 2020 Assessment & Plan (1) Encounter for pre-operative examination: COVID Status: As of PAT hot car charger, patient denies travel to endemic area, known exposure/sick contacts, or symptoms of COVID19. Preoperative COVID19 testing completed on *, results pending. Cardiology clearance 12/19/2020: "Patient describes a stable degree of chronic exertional shortness of breath. She is well optimized from a cardiac standpoint, EKG reveals no concerning changes, and blood pressure is well controlled. Recent device interrogation reveals stable findings with normal device function. Would recommend proceeding with surgical intervention for abnormal right breast biopsy is indicated without further cardiac testing with an estimated low risk of perioperative cardiac complication." Case discussed with Dr. Larsen who also conferred with Drs. Ly --as pacemaker will be in such close proximity to Bovie use will request [employer] rep be present a.m. day of surgery. OR made aware. Chart Review Chart Review: Acceptable Risk for Surgery and Patient NOT seen in Pre Admission Testing History Surgery Operation Date: 01/17/21 14:25 Proposed Procedures p Right Breast Total Mastecdtomy with Right Axillary [place] Lymph Node Biopsy - Noah Diaz, Height/Weight Height: 5 ft 7 in Weight: 72.575 kg Allergies Allergy/AdvReac Type Severity Reaction Status Date / Time lidocaine [From Xylocaine] Allergy Severe passed out Verified 12/31/20 13:48 amlodipine Allergy Mild dizzy and Verified 12/31/20 13:48 sick stomach atorvastatin Allergy Mild LEG CRAMPS Verified 12/31/20 13:48 pravastatin Allergy Mild leg cramps Verified 12/31/20 13:48 simvastatin Allergy Mild leg cramps Verified 12/31/20 13:48 carvedilol Allergy Unknown Unknown Verified 12/31/20 13:48 Medications Home Medications Medication Instructions Recorded Confirmed Last Taken Oxygen Home #1 ea 03/28/19 12/27/20 Unknown Centrum Silver 1 tab PO HS 06/14/19 12/31/20 12/05/20 aspirin 81 mg PO QAM 06/14/19 12/31/20 12/06/20 08:00 calcium carbonate [Calcium 600] 600 mg PO BID 06/14/19 12/31/20 12/06/20 08:00 cetirizine [Zyrtec] 10 mg PO DAILY PRN 06/14/19 12/31/20 12/05/20 cholecalciferol (vitamin D3) 1,000 unit PO QPM 06/14/19 12/31/20 12/05/20 [Vitamin D3] coQ10 (ubiquinol) 200 mg PO HS 06/14/19 12/31/20 12/06/20 08:00 nitroglycerin [Nitrostat] 0.4 mg SL Q5M PRN 06/14/19 12/31/20 03/07/20 warfarin 1.25 mg PO .TUTHSA@HS 06/14/19 12/31/20 11/29/20 08:00 warfarin 2.5 mg PO .SUMOWEFR@HS 06/14/19 12/31/20 11/29/20 21:00 Combivent Respimat 1 puff INH QID PRN 07/10/20 12/31/20 12/06/20 08:00 pantoprazole 40 mg tablet,delayed 40 mg PO HS #30 tab 08/16/20 12/31/20 12/05/20 release rosuvastatin 5 mg tablet 5 mg PO HS #90 tab 09/20/20 12/31/20 12/05/20 21:00 hydralazine 25 mg tablet 25 mg PO BID #60 tab 10/03/20 12/31/20 12/05/20 21:00 meclizine 12.5 mg tablet 12.5 mg PO TID PRN 12/26/20 12/31/20 Unknown omega-3-dha 120 mg-epa 180 mg-fish 1 cap PO QAM cap 12/26/20 12/31/20 Unknown oil-vitamin D3 1,000 unit capsule losartan 100 mg tablet 100 mg PO QAM #90 tab 12/28/20 12/31/20 Unknown metoprolol succinate 100 mg PO QAM 12/31/20 12/31/20 Unknown Past Medical History Medical History (Updated 12/31/20 @ 15:02 by Sulaiman Zhang) Atrial fibrillation Dx 2014 > on warfarin, follows with Dr. Wu > no cardioversions Barretts esophagus pt unaware Breast cancer dx December 12, 2020 > reason for procedure > unknown if chemo will be needed CAD (coronary artery disease) 3 overlapping drug-eluting stents to the proximal and mid right coronary ar usha at [facility] in 2009. Repeat cath in 2011 showed patent right coronary artery with nonocclusive disease elsewhere. COPD (chronic obstructive pulmonary disease) well controlled COVID-19 virus detected 10/10/20 diagnosed @ [facility]--only symptom SOB > all recovered Emphysema of lung GERD (gastroesophageal reflux disease) History of anesthesia reaction passed out at age 29 when received xylocaine at dentist's office had a few years ago with EGD when numbed throat and no problems History of cervical cancer 1970--surgical intervention History of colon polyps Hyperlipidemia Hyperparathyroidism no meds Hypertension Myocardial Infarction per pt had a heart attack during heart cath @ [facility] [place] 2008 Nontoxic multinodular goiter On anticoagulant therapy warfarin daily On home oxygen therapy 3L N/C at hs Osteoarthritis Osteoporosis Prediabetes pt unaware Stage III chronic kidney disease follows Dr. Hall Tachy-roberth syndrome S/P dual-chamber permanent pacemaker. Most recent device interrogation 11/08/2020 showed atrial paced 99% of the time RV paced 0%. Generator longevity stable at 7 years, no recent episodes of A. fib. Past Family History Family History Father Coronary heart disease Mother Coronary heart disease Cardiac disorder Hypertension Family history of diabetes mellitus Myocardial infarction Brother Alcoholism Lung cancer Sister Atrial fibrillation COPD (chronic obstructive pulmonary disease) Other No family history of adverse response to anesthesia Denies family history of Ovarian cancer Prostate cancer Breast cancer Colorectal cancer Past Surgical History Surgical History History of cardiac cath multiple--[id number] 3 stents total - last one was gal[place] 2014 History of cataract surgery bilt History of colonoscopy History of dilatation and curettage History of esophagogastroduodenoscopy (EGD) History of heart artery stent total of 3 stents--last before 2013 History of open reduction and internal fixation (ORIF) procedure left hip---hardware in place History of partial thyroidectomy enlarged nodule History of repair of dissection of abdominal aorta 2008? @ [facility] has two stents in place by dr musa History of stent insertion of renal artery left History of temporal artery biopsy (10/02/20) Right Temporal Artery Biopsy Dr. Diaz 10/02/2020 > negative History of tooth extraction all teeth History of total abdominal hysterectomy and bilateral salpingo-oophorectomy Pacemaker 2017 medtronic @ [facility] > last interrogation % atrial paced Social History Smoking Status: Former smoker Smoking cigarettes per day: 40 Do You Dip or Chew Tobacco: No Smoking End Date: age 36 Hx Alcohol Use: No Hx Substance Use: No substance use type: does not use Lab Results Anesthesia Preop Results Results Anesthesia Widget: WBC 9.88 K/uL (4.8-10.8) 12/10/20 Hgb 13.2 g/dL (12.0-16.0) 12/10/20 Hct 40.0 % (37-47) 12/10/20 Plt 388 K/uL (130-400) 12/10/20 Na 138 mmol/L (136-145) 12/10/20 K 4.7 mmol/L (3.5-5.1) 12/10/20 Cl 107 mmol/L (98-107) 12/10/20 CO2 28 mmol/L (21-32) 12/10/20 BUN 16 mg/dl (7-18) 12/10/20 Creat 1.36 mg/dl (0.6-1.2) H 12/10/20 Glucose Level 100 mg/dl (70-99) H 12/10/20 TSH 1.630 uIu/ml (0.300-4.500) 12/10/20 HA1c 6.0 % (4.5-5.6) H 12/10/20 SARS-CoV-2 RNA (RT-PCR) Not Detected (Not Detected) 11/29/20 Testing Electrocardiogram Date: 12/19/20 Atrial paced rhythm with prolonged AV conduction at 68 bpm. No significant change compared to 09/27/20. Echocardiogram Date: 03/07/20 EF: 60-65% Moderate concentric LVH. LV wall motion is normal. Aortic valve sclerosis mild, without significant aortic valvular stenosis. Mild aortic regurgitation. Grade 1 diastolic dysfunction. Stress Test Date: 03/08/20 Type: nuclear Ejection fraction: 77 % Wall motion: Normal No significant transient ischemic dilation. Impression: 1. Normal Lexiscan nuclear stress test evidence of ischemia or infarction 2. Normal myocardial contractility LVEF 77% by the gated SPECT technique. Other Testing Pacemaker Interrogation 11/08/20 Model: Enerneticstronic Implantation date: 01/14/17 Indication: tachy-roberth syndrome Battery/Longevity: 7 years Mode: AAIR/DDDR Pacin.2% atrial paced, 0% RV paced Summary: Normal dual chamber pacemaker function. Next Remote Monitoring Transmission is scheduled for 3 months. Carotid Doppler 12/14/2020 IMPRESSION: No hemodynamically significant stenosis seen within the bilateral common or internal carotid arteries. Moderate stenosis within the proximal right external carotid artery due to the calcified plaque.
[~2021-01-17 07:28] MED LIST changes: -ACET1TAB84 PO; -ASPI81TA28 PO; -CALC1TAB9 PO; -CEFD1CAP14 PO; -CHOL500021 PO; -COEN1CAP17 PO; -IPRA1AER2 PO; +LACTATED RINGER'S 1,000 ML IV SCH; -LOSA1TAB38 PO; -MECL1TAB42 PO; -METO50TA8 PO; -MULTCHW PO; -NRV/5 PO; -NTRGSL/4 UT; -OXGN; -PANT40TA PO; -ROSU5TAB PO; -WARF2.5T8 PO; -ZOLE5INJ IV; +ceFAZolin 2000MG 2,000 MG/15 ML SYR IV SCH
[2021-01-17 09:33] LABS: Partial Thromboplastin Ratio 1.1
--- NOTE | 2021-01-17 09:41 | History & Physical Bridge Note ---
Date of Service January 17, 2021 History & Physical Bridge Note I have examined the patient, reviewed the History & Physical and in the interval since the performance of the History & Physical I have noted the following changes of clinical significance: no changes noted
[2021-01-17] MEDS ORDERED: PROMETHAZINE HCL 12.5 MG in SODIUM CHLORIDE 0.9% 50 ML IV PRN (09:55)
[2021-01-17] MEDS ORDERED: HYDROmorphone INJ 2 MG/ML SYR/VIAL IV PRN (09:55)
[2021-01-17] MEDS ORDERED: ONDANSETRON INJ 2 MG/ML 2 ML VIAL IV PRN ×2 (09:55→15:12)
[2021-01-17] MEDS ORDERED: METOCLOPRAMIDE HCL INJ 5 MG/ML 2 ML VIAL IV PRN (09:55)
[2021-01-17] MEDS ORDERED: fentaNYL citrate 100 MCG/2 ML VIAL IV PRN (09:55)
[2021-01-17] MEDS ORDERED: ePHEDrine sulfate 50 MG/ML AMP IV PRN (09:55)
[2021-01-17] MEDS ORDERED: ATROPINE SULFATE 0.1 MG/ML 10ML SYR IV PRN (09:55)
[2021-01-17] MEDS ORDERED: BUPIVACAINE 0.25% 30 ML VIAL ONE (09:57)
[2021-01-17] MEDS ORDERED: fentaNYL citrate 100 MCG/2 ML VIAL ONE ×3 (09:57→12:50)
[2021-01-17] MEDS ORDERED: MIDAZOLAM HCL 1 MG/ML 2ML VIAL ONE (09:57)
[2021-01-17] MEDS ORDERED: EPINEPHrine INJ 1 MG/ML AMP ONE (09:57)
--- NOTE | 2021-01-17 10:05 | Nuclear Medicine Report ---
NM sentinel node w breast img LYMPHOSCINTIGRAPHY CLINICAL HISTORY: Right breast cancer. PROCEDURE: Using standard sterile technique, 4 intradermal and one deep injection of 0.522 mCi of Lym phoseek was placed in the right breast. The patient tolerated the procedure well. There were no immed iate complications. The patient was subsequently transported to the surgical suite. Imaging demonstra lisa sentinel node uptake within the right axilla. Indelible marker was used to mendez the skin. IMPRESSION: Injection of 0.522 mCi of Lymphoseek in the right breast. ACT 112: Negative or not required by law. Electronically signed by: Ezequiel Sigala M.D. 01/17/2021 10:04 AM
[2021-01-17] MEDS ORDERED: ISOSULFAN BLUE 10 MG/ML VIAL 5 ML ONE (10:24)
[2021-01-17] MEDS ORDERED: PHENYLEPHRINE 100MCG/ML 5ML SYR ONE (11:30)
[2021-01-17] MEDS ORDERED: DEXAMETHASONE SOD INJ 4 MG/ML VIAL ONE (11:30)
[2021-01-17] MEDS ORDERED: ONDANSETRON INJ 2 MG/ML 2 ML VIAL ONE (11:30)
[2021-01-17] MEDS ORDERED: PROPOFOL IV EMULSION 10 MG/ML 20 ML VIAL IV ONE (11:30)
[2021-01-17] MEDS ORDERED: ePHEDrine sulfate 50 MG/ML SYR ONE (11:30)
[2021-01-17] MEDS ORDERED: LIDOCAINE HCL 2% 2 ML VIAL/AMP(20MG/ML) INFIL ONE (11:30)
--- NOTE | 2021-01-17 13:01 | Post Operative Brief Note ---
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 I identified the patient and participated in the time-out.: Yes Procedure Operation Date: 01/17/21 10:20 Actual Procedures p Right Breast Total Mastectomy with Right Axillary [place] Lymph Node Biopsy(Right) - Noah Diaz DO Surgeon Noha Diaz DO [employer] Hand Hong Dominguez PA-C Estimated Blood Loss 25 Findings Consistent with Post-Op Diagnosis Specimens Specimen Description: A: Right Breast Short Stitch Superior Long Stitch Lateral B: Right Axillary [place] Lymph Node #1 C: Right Axillary [place] Lymph Node #2 D: Right Axillary [place] Lymph Node #3 Drains Noah Drain Anesthesia Type General Complications none Disposition Disposition: Recovery Room
--- NOTE | 2021-01-17 13:08 | Operative Report ---
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 I identified the patient and participated in the time-out.: Yes Procedure Operation Date: 01/17/21 10:20 Actual Procedures p Right Breast Total Mastectomy with Right Axillary [place] Lymph Node Biopsy(Right) - Noah Diaz DO Surgeon Noah Diaz DO Roving Machine Operator Hong Dominguez PA-C Estimated Blood Loss 25 Findings Consistent with Post-Op Diagnosis Fluids 900mL crystalloid Specimens Right breast, short stitch superior, long lateral Axillary lymph node #1, Hot, not blue 129 count Axillary lymph node #2, Hot, not blue 81 count Axillary lymph node #3, Hot, not blue 35 count Drains 19 [place] Noah drain Anesthesia Type General Complications none Disposition Disposition: Recovery Room Indications 85 yo female with right multicentric papillary carcinoma of the breast Description of Procedure The patient was brought to the OR and placed in the supine position with both arms abducted. At this time she underwent general endotracheal anesthesia without any problems. She was given appropriate pre-operative antibiotics. Lymphazurin was injected in a periareolar manner prior to skin prep. Her right chest and axilla were prepped and draped in the usual sterile fashion. Timeout was called. The procedure was verified as Right Total Mastectomy with right axillary sentinel lymph node biopsy. Surgical, anesthesia and nursing teams agreed and the procedure was begun. A transverse elliptical incision was made on the right breast to include the nipple areolar complex. This was carried down the the subcutaneous tissue with electrocautery. At this point skin flaps were raised with electrocautery superiorly to the clavicle, medially to the sternum, inferiorly to the inframammary fold, and laterally to the latissimus. The breast tissue was then removed from the pectoralis major muscle along the with fascia. The breast was then transected laterally and sent of as specimen. At this point our attention was turned to the right axilla for the sentinel lymph node biopsy. The neoprobe was placed into the axilla and a hot but not blue node was found and count was 129. This was excised sharply and sent as specimen. At this point two other lymph nodes were found using the neoprobe. Second was hot but not blue and count was 81. The third lymph node was hot but not blue and count was 35. Placing the neoprobe in the axilla at this point revealed a count of 4. At this time the incision was irrigated until clear. Hemostasis was achieved using electrocautery. Hemostasis was complete. A #19 [place] Noah drain was introduced through a stab incision laterally on the lower skin flap. It was placed along the inferior and superior skin flap. At this time the incision was closed using 3-0 Vicryl suture at the deep dermal layer and 4-0 Monocryl in a running subcutaneous fashion in the skin. Dermabond Elsy o dressing was applied. Sterile dressing was then placed over this and surgical bra. The patient was then awakened from anesthesia and extubated having remained stable throughout the entire case. Needle and sponge count were correct x 2. The physician's fire control assistant was present and scrubbed for the entire case. He was essential for positioning, prepping and draping the patient, retraction and ex posure, closure of the incision and placement of the dressings. I attest to the content of the Intraoperative Record and any orders documented therein. Any exceptions are noted below.
--- NOTE | 2021-01-17 14:33 | Anesthesiology Progress Note ---
Date of Service January 17, 2021 Anesthesia Post Procedure Vital Signs Vital Signs: Temp Pulse Pulse Resp BP BP Pulse Ox 01/17/21 14:15 36.6 C 63 20 175/75 H 97 01/17/21 14:05 61 7 L 177/80 H 99 01/17/21 13:55 60 21 152/73 H 100 01/17/21 13:45 60 24 145/81 H 98 01/17/21 13:35 60 21 146/63 H 99 01/17/21 13:25 62 21 139/71 95 01/17/21 13:17 35.5 C L 62 14 136/70 99 01/17/21 09:32 36.5 C 88 20 198/96 H 96 Transfer of Care Handoff Completed per policy Notes Mental Status: alert / awake / arousable and participated in evaluation Patient Amnestic to Procedure: Yes Nausea / Vomiting: adequately controlled Pain: adequately controlled Airway Patency, RR, SpO2: stable & adequate BP & HR: stable & adequate Hydration State: stable & adequate Anesthetic Complications: no major complications apparent
[2021-01-17] MEDS ORDERED: IPRATROPIUM BROMIDE/ALBUTEROL respimat INH INH PRN (15:12)
[2021-01-17] MEDS ORDERED: MoRPHine SULFATE 4 MG/ML 1 ML CARP\\VIAL IV PRN (15:12)
[2021-01-17] MEDS ORDERED: NITROGLYCERIN SL 0.4 MG/TAB TAB SL PRN (15:12)
[2021-01-17] MEDS ORDERED: MECLIZINE 12.5 MG TAB PO PRN (15:12)
[2021-01-17] MEDS ORDERED: CETIRIZINE HCL 10 MG TABLET PO PRN (15:12)
[2021-01-17] MEDS ORDERED: LACTATED RINGER'S 1,000 ML IV SCH (15:12)
[2021-01-17] MEDS ORDERED: oxyCODONE HCL IR 5 MG TAB (IMMEDIATE RELEASE) PO PRN (16:01)
[2021-01-17] MEDS ORDERED: Albuterol HFA 8 GM Inhaler (Combivent Respimat P&T Subs) INH PRN (16:02)
[2021-01-17] MEDS ORDERED: Ipratropium HFA Inhaler (Combivent Respimat P&T Subs) INH PRN (16:02)
[2021-01-17] MEDS: ACETAMINOPHEN 1,000 MG/100 ML VIAL IV SCH (18:12)
[2021-01-17] MEDS ORDERED: ROSUVASTATIN CALCIUM 5 MG TAB PO SCH (21:00)
[2021-01-17] MEDS ORDERED: NON-FORMULARY MEDICATION (Coq10 (Ubiquinol) 200 mg Capsule) PO SCH (21:00)
[2021-01-17] MEDS ORDERED: PANTOprazole 40 MG TAB PO SCH (21:00)
[2021-01-17] MEDS ORDERED: CHOLECALCIFEROL 1,000 UNITS 25 MCG TAB PO SCH (21:00)
[2021-01-17] MEDS ORDERED: CEROVITE ADV FORMULA TAB PO SCH (21:00)
[2021-01-17] MEDS ORDERED: CALCIUM 600MG + VIT D 400 IU TAB PO SCH (21:00)
[2021-01-17] MEDS: hydrALAZINE HCL 25 MG TAB PO SCH (21:08)
[2021-01-17] MEDS: CALCIUM CARBONATE 1250MG TAB PO SCH ×2 (21:09→21:13)
[2021-01-18] MEDS: ACETAMINOPHEN 1,000 MG/100 ML VIAL IV SCH ×2 (00:13→08:39)
[2021-01-18 06:21] LABS: Prothrombin Time 9.8 Seconds (9.0-12.0)
--- NOTE | 2021-01-18 07:48 | Surgery Progress Note ---
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 Has minimal pain. No issues overnight. Afebrile. Physical Exam Constitutional: WD/WN, vitals as above Chest (Breasts): Additional Comments: Incision without erythema or drainage, slight ecchymosis present, no hematoma Results & Data (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
[2021-01-18] MEDS: hydrALAZINE HCL 25 MG TAB PO SCH (08:40)
[2021-01-18] MEDS: CALCIUM CARBONATE 1250MG TAB PO SCH (08:41)
[2021-01-18] MEDS ORDERED: METOPROLOL SUCC 50MG EXT REL TAB PO SCH (09:00)
[2021-01-18] MEDS ORDERED: ASPIRIN 81 MG ECTAB PO SCH (09:00)
[2021-01-18] MEDS ORDERED: LOSARTAN POTASSIUM 50 MG TAB PO SCH (09:00)
--- NOTE | 2021-01-21 16:32 | Discharge Summary ---
Date of Service January 21, 2021 Principal Diagnosis primary solid papillary carcinoma of breast with invasion Discharge Exam awake Constitutional well developed and well nourished; no acute distress Chest (Breasts) Additional Comments: incision without erythema or drainage, slight ecchymosis present. no hemaoma Discharge Data Allergies Allergy/AdvReac Type Severity Reaction Status Date / Time lidocaine [From Xylocaine] Allergy Severe passed out Verified 01/21/21 13:57 amlodipine Allergy Mild dizzy and Verified 01/21/21 13:57 sick stomach atorvastatin Allergy Mild LEG CRAMPS Verified 01/21/21 13:57 pravastatin Allergy Mild leg cramps Verified 01/21/21 13:57 simvastatin Allergy Mild leg cramps Verified 01/21/21 13:57 carvedilol Allergy Unknown Unknown Verified 01/21/21 13:57 Procedures Performed Operation Date: 01/17/21 10:20 Actual Procedures p Right Breast Total Mastectomy with Right Axillary [place] Lymph Node Biopsy(Right) - Noah Diaz, Hospital Course (1) 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 This was performed on 01/[address] Diaz. The patient tolerated the procedure well, see op note for full details. The patient recovered in the PACU and was transferred to the med/surg unit in stable condition. The patient's diet was advanced as tolerated and pain remained controlled with prn pain medication. She had a MATHEW drain in place. On POD#1 patient's MATHEW was serosanguineous and MATHEW drain teaching was performed. Incisions appeared c/d/i. She tolerated a regular diet and pain remained well controlled. Case management evaluated and set up the patient for home care services. She was deemed stable for discharge to home. Home medications including Coumadin were okay to be resumed. She was instructed to follow up in clinic within 1-2 weeks. Total Time Total Time Spent Total Time Spent (In Minutes): 10 Discharge Plan Discharge Items Patient Disposition: Home - Home Health Services Reason For Visit: Primary Solid Papillary Carcinoma of Breast with Discharge Diagnosis: right breast mastectomy and sentinel lymph node biopsy Activity: Per Instructions section Lifting: No more than 10 pounds Bathing Comment: may shower starting 01/19/21; no soaking in tubs/pools Exercise/Sports: Wait until after follow-up appointment Driving/Machine Use: do not resume driving while taking narcotics for pain Non-emergency contact: Surgeon Call non-emergency contact if: you have any medication questions, your symptoms worsen, your pain is not controlled, your pain is worsening, your pain is concerning for you, you have a fever, your temperature is above 101.5, your wound has increased redness, your wound has increased drainage and your wound pain has increased Follow-up/Referrals: Linwood Gonzalez MD [Primary Care Provider] - Noah Diaz DO [Physician] - (Please call to schedule follow up in clinic within 1-2 weeks) Diet: Regular and Heart Healthy Addtl Attending Provider Instructions: Please care for your surgical drain as you have been instructed prior to discharge from the hospital. Empty drain 2-3 times per day and record output. You may remove your outer surgical dressings tomorrow, 01/19/21. You will have a substance called Dermabond over your incisions that should remain in place. Please wear your surgi-bra for 1 week following discharge. You may purchase Tylenol over the counter as needed for additional pain control. Do not exceed >3grams of Acetaminophen within a 24hour time period. You may resume your Coumadin as previously prescribed to you starting today. Your home care services will start this upcoming 01/21/21. Pending Studies at Discharge: Yes Studies:: surgical pathology Stand-Alone Forms: My [facility] Medications and DC Order Prescriptions: Continued pantoprazole [Protonix] 40 mg tablet,delayed release (DR/EC) 40 mg PO HS Qty: 30 RF: 5 rosuvastatin 5 mg tablet 5 mg PO HS Qty: 90 RF: 3 losartan [Cozaar] 100 mg tablet 100 mg PO QAM Qty: 90 RF: 1 (DME) Oxygen Home Liters Per Minute See Dose Instructions .ROUTE .MEDSUPPLY Qty: 1 RF: 0 meclizine 12.5 mg tablet 12.5 mg PO TID PRN (Reason: Vertigo) RF: 0 [id number]-fish oil-vit D3 120 mg-180 mg -1,000 unit capsule 1 cap PO QAM RF: 0 hydralazine 25 mg tablet 25 mg PO BID Qty: 60 RF: 5 warfarin 2.5 mg Tablet 1.25 mg PO .TUTHSA@HS RF: 0 warfarin 2.5 mg Tablet 2.5 mg PO .SUMOWEFR@HS RF: 0 calcium carbonate [Calcium 600] 600 mg calcium (1,500 mg) Tablet 600 mg PO BID RF: 0 cholecalciferol (vitamin D3) [Vitamin D3] 1,000 unit Capsule 1,000 unit PO QPM RF: 0 coQ10 (ubiquinol) 200 mg Capsule 200 mg PO HS RF: 0 cetirizine [Zyrtec] 10 mg tablet 10 mg PO DAILY PRN (Reason: allergy symptoms) RF: 0 aspirin 81 mg tablet,delayed release (DR/EC) 81 mg PO QAM RF: 0 nitroglycerin [Nitrostat] 0.4 mg tablet, sublingual 0.4 mg SL Q5M PRN (Reason: Angina) RF: 0 Centrum Silver 0.4-300-250 mg-mcg-mcg tablet 1 tab PO HS RF: 0 Combivent Respimat 20-100 mcg/actuation mist 1 puff INH QID PRN (Reason: Shortness Of Breath) RF: 0 metoprolol succinate 100 mg tablet extended release 24 hr 100 mg PO QAM RF: 0 Discharge Orders: Discharge Order (Routine); Ordered 01/18/21 Ordered By: Ragini Mcdaniels/Other Patient Handouts: Discharge Instructions Caring for ... 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
== END 2021-01-18 14:53 | disposition home health service (06) ==
LOC: 3N 07:28 → ASU 07:28

== ENCOUNTER 2022-08-02 16:38 | Inpatient (IN) ==
[2022-08-02] MEDS ORDERED: NITROGLYCERIN 2% OINTMENT 30GM TUBE EXT STA (16:56)
[2022-08-02] MEDS ORDERED: SODIUM CHLORIDE 0.9% 1000ML 1,000 ML IV SCH (17:00)
--- NOTE | 2022-08-02 17:05 | Emergency Department Note ---
Impression & Plan Chest discomfort, Severe hypertension, Dizziness ED Provider Note INFORMANT: Patient ED PROVIDER(S): Berlin Sutton MD CHIEF COMPLAINT: Chest discomfort PLAN: Disposition: Admitted Condition: Good Outpatient prescription management: none Referral: None patient presented because of chest discomfort. She MEDICAL DECISION MAKING: Has history of chronic dizziness and nausea which did not change with the episode. She has a significant coronary history and when the episode occurred s he was very concerned and summoned EMS. She was very hypertensive on arrival. A work-up was initiated. Her ECG showed a paced rhythm with prolonged AV conduction but no specific ST elevation or depression. The patient was given Nitropaste. Blood pressure did improve however it started to trend back up. Patient remained asymptomatic. She was given a dose of IV hydralazine. I discussed further management in the hospital. Patient and daughter were in agreement. Her CBC and chemistry panel were unremarkable. Cardiac troponin was negative. INR slightly subtherapeutic. Consultation was made with Dr. Carlos Salazar of the Health system service. Patient was evaluated in the ER for further management. Triage Nursing notes reviewed and agree them. Vital Signs: reviewed and remarkable for severe hypertension Differential diagnosis: Cardiac ischemia, hypertensive emergency, neurologic, aortic dissection, pulmonary embolism, pneumothorax, pneumonia, pericarditis, myocarditis, esophageal rupture, GERD, cholecystitis, pancreatitis, musculoskeletal, as well as other pathologies. Diagnostics interpreted by me: ECG: Twelve-lead ECG reveals atrial paced rhythm with prolonged AV conduction at [address] elevation or depression. Cardiac Monitoring: Cardiac monitoring ordered by me: The patient was placed on continuous cardiac monitoring and observed. It revealed a paced rhythm at 66 bpm without evidence of dysrhythmia. Imaging studies: Chest x-ray. Findings: A chest x-ray was performed and revealed no pneumothorax, effusion, infiltrate, pulmonary edema, free air under the diaphragm, or wide mediastinum. Impression: No acute disease. HPI: The patient is a 86year old female who presents to the Emergency Room with complaints of chest discomfort. This started this afternoon and is currently resolved. The patient states she felt a discomfort sensation started in the le ft armpit and go across her left chest and into the right chest. It lasted several minutes. The patient also notes the following associated symptoms, dizziness and some nausea that the patient states is chronic and she has had almost on a daily basis for "a long time". She had no change in those 2 issues with the chest discomfort episode. The patient has not taken any new medication for relieving factors. Current pain is rated as 0/10. Patient was unable to quantify the discomfort on a pain scale. Patient is anticoagulated on Coumadin secondary to history of A. fib. Pt denies LOC, headache, fevers, chills, diaphoresis, visual changes, neck pain, chest pain, breathing difficulties, vomiting, abdominal pain, back pain, melena, hematochezia, urinary symptoms, numbness, weakness, lymphadenopathy, rash, or other complaints. ROS: See above HPI for pertinent positives & negatives. A total of 10 systems reviewed and were otherwise negative. PAST MEDICAL HISTORY:See Below , atrial fibrillation, CAD, high cholesterol, hypertension PAST SURGICAL HISTORY:See Below, pacemaker, coronary artery stents FAMILY HISTORY:See Below SOCIAL HISTORY:See Below, retired HOME MEDICATIONS:See Below ALLERGIES:See Below VITALS:See Below PHYSICAL EXAMINATION: GENERAL: Awake, alert, well-appearing, in no distress HENT: Normocephalic, atraumatic. Oropharynx unremarkable. EYES: Normal conjunctiva. Sclera non-icteric. NECK: Inspection normal. Non-tender. Supple. No nuchal rigidity. FROM. No masses. RESPIRATORY: Clear to auscultation. No wheezes. No rales. Normal respiratory effort. CARDIAC: Normal rate. Normal rhythm. No murmurs. No rubs. Extremities warm and well perfused. Pulses equal. No JVD. GI: Soft, non-distended. No tenderness to palpation. No rebound or guarding. No masses. RECTAL: Deferred. MUSCULOSKELETAL: Atraumatic. Chest examination reveals no tenderness. Pacemaker in the left upper chest. The back is symmetrical on inspection without obvious abnormality. There is no CVA tenderness to palpation. No joint edema. LOWER EXTREMITIES: Calves are equal size bilaterally and non-tender. No edema. No discoloration. NEURO: Normal sensorium. No sensory or motor deficits noted. SKIN: No rash or jaundice noted. Berlin Sutton MD Past Med/Surg History Medical History Allergic rhinitis Aneurysm of abdominal aorta Has [address] for this. follows with Dr Mims Atherosclerosis of aorta Atrial fibrillation Dx 2015 > on warfarin, follows with Dr. Wu > no cardioversions Barretts esophagus pt unaware Breast cancer dx December 12, 2020 -- surgery with radiation treatments CAD (coronary artery disease) 3 overlapping drug-eluting stents to the proximal and mid right coronary artery at [facility] in 2009. Repeat cath in 2011 showed patent right coronary artery with nonocclusive disease elsewhere. Carotid artery plaque COPD (chronic obstructive pulmonary disease) well controlled Diverticulitis Emphysema of lung GERD (gastroesophageal reflux disease) History of anesthesia reaction passed out at age 29 when received xylocaine at dentist's office had a few years ago with EGD when numbed throat and no problems History of cervical cancer 1970--surgical intervention History of colon polyps History of COVID-19 10/10/20 diagnosed @ [facility]--only symptom SOB > all recovered Hyperlipidemia Hyperparathyroidism no meds Hypertension Myocardial Infarction per pt had a heart attack during heart cath @ [facility] 2008 Non-healing skin lesion Nontoxic multinodular goiter On anticoagulant therapy warfarin daily On home oxygen therapy 3L N/C at hs Osteoarthritis Osteoporosis Prediabetes Renal artery stenosis Left kidney stented Secondary hyperparathyroidism Stage 3b chronic kidney disease Stage III chronic kidney disease follows Dr. Hall Tachy-roberth syndrome S/P dual-chamber permanent pacemaker. Most recent device interrogation 11/08/2020 showed atrial paced 99% of the time RV paced 0%. Generator longevity stable at 7 years, no recent episodes of A. fib. Tubular adenoma of colon Surgical History H/O mastectomy (01/17/21) Right breast total mastectomy with right axillary sentinel lymph node biopsy (right) Dr. Noah Diaz History of cardiac cath multiple--[id number] 3 stents total - last one was [place] 2014 History of cataract surgery bilt History of colonoscopy History of dilatation and curettage History of esophagogastroduodenoscopy (EGD) History of heart artery stent total of 3 stents--last before 2013 History of open reduction and internal fixation (ORIF) procedure left hip---hardware in place History of partial thyroidectomy enlarged nodule History of repair of dissection of abdominal aorta 2008? @ [facility] has two stents in place by dr mims History of stent insertion of renal artery left History of temporal artery biopsy (10/02/20) Right Temporal Artery Biopsy Dr. Diaz 10/02/2020 > negative History of tooth extraction all teeth History of total abdominal hysterectomy and bilateral salpingo-oophorectomy Pacemaker 2017 medtronic @ [facility] > last interrogation % atrial paced Family History Father , 93yo Coronary heart disease CHF (congestive heart failure) Mother , 81yo Coronary heart disease Hypertension Myocardial infarction Brother Alcoholism Lung cancer Sister Atrial fibrillation COPD (chronic obstructive pulmonary disease) Brother No problems noted. Brother Lung cancer Sister Lung cancer Colorectal cancer Sister No problems noted. Sister No problems noted. Sister No problems noted. Sister No problems noted. Son No problems noted. Son No problems noted. Son No problems noted. Daughter No problems noted. Daughter No problems noted. Daughter COPD (chronic obstructive pulmonary disease) Other No family history of adverse response to anesthesia Denies family history of Ovarian cancer Prostate cancer Breast cancer Social History Smoking Status: Former smoker Tobacco Type: Cigarettes Age Started Using Tobacco: 16; Age Quit Using Tobacco: 36; packs per day: 2; Cigarettes Per Day: 40; Second Hand Exposure: No; Hx Alcohol Use: No Hx Substance Use: No Preferred Language: Gambian Communication Ability: Effective Visual Impairment: No Limitations Hearing Ability: Normal Art Gilder Required: No Beliefs That Will Affect Care: None marital status: Current Living Situation: Alone current occupational status: retired 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 How many Children do You have: 6 Feels Safe at Home: Yes Childhood Exposure to Second-Hand Smoke: No caffeine: Yes (3-4 cups/day) during the past year weight has: remained stable Dental Care, Regularly: No Physical Activity Frequency: Does not Exercise Seatbelt Use: always Sunscreen Use: Yes Assistive Devices: Cane, Denture - Upper, Denture - Lower, Glasses, Oxygen - at Night and Walker Allergies Allergies Allergy/AdvReac Type Severity Reaction Status Date / Time lidocaine [From Xylocaine] Allergy Severe passed out Verified 06/12/22 09:00 amlodipine Allergy Mild dizzy and Verified 06/12/22 09:00 sick stomach atorvastatin Allergy Mild LEG CRAMPS Verified 06/12/22 09:00 pravastatin Allergy Mild leg cramps Verified 06/12/22 09:00 simvastatin Allergy Mild leg cramps Verified 06/12/22 09:00 carvedilol Allergy Unknown Unknown Verified 06/12/22 09:00 Home Meds Home Medications Medication Instructions Recorded Confirmed aspirin 81 mg tablet,delayed 81 mg PO QAM 06/14/19 08/02/22 release cetirizine 10 mg tablet (Zyrtec) 10 mg PO DAILY PRN rhinitis 06/14/19 08/02/22 coQ10 (ubiquinol) 200 mg capsule 200 mg PO QAM 06/14/19 08/02/22 [id number] acid 0.4 1 tab PO HS 06/14/19 08/02/22 mg-lycopene 300 mcg-lutein 250 mcg tablet (Centrum Silver) nitroglycerin 0.4 mg sublingual 0.4 mg sublingual Q5M PRN Chest 06/14/19 08/02/22 tablet (Nitrostat) Pain warfarin 2.5 mg tablet 1.25 mg PO 2XWK 06/14/19 08/02/22 warfarin 2.5 mg tablet 2.5 mg PO 5XWK 06/14/19 08/02/22 ipratropium 20 mcg-albuterol 100 1 puff inhalation QID PRN 07/10/20 08/02/22 mcg/actuation mist for inhalation Shortness Of Breath (Combivent Respimat) metoprolol succinate 100 mg 50 mg PO AMPM 12/31/20 08/02/22 tablet,extended release 24 hr Oxygen Home #1 ea 01/23/21 08/02/22 calcium carbonate 600 mg calcium 600 mg PO QAM 01/23/21 08/02/22 (1,500 mg) tablet (Calcium) acetaminophen 650 mg 650 mg PO Q8H PRN Pain 08/02/22 08/02/22 tablet,extended release cholecalciferol (vitamin D3) 25 25 mcg PO DAILY 08/02/22 08/02/22 mcg (1,000 unit) chewable tablet (Vitamin D3) omega-3s 300 bk-dby-vmy-other 1 cap PO DAILY 08/02/22 08/02/22 [id number] oil 1,000 mg capsule ([place]-3 Fish Oil) Previous Rx's Medication Instructions Recorded losartan 100 mg tablet (Cozaar) 100 mg PO QAM #90 tabs 01/13/22 rosuvastatin 5 mg tablet 5 mg PO HS #90 tabs 01/13/22 pantoprazole 40 mg tablet,delayed 40 mg PO HS #90 tabs 01/28/22 release (Protonix) Results & Data (ED) Vital Signs Vital Signs - 24 hr 08/02/22 16:42 08/02/22 16:56 08/02/22 16:48 Temperature 36.8 C Temperature Source Oral Pulse Rate 66 67 Pulse Rate from SpO2 Sensor 67 Pulse Rhythm Regular Pulse Strength Normal Respiratory Rate 18 19 Respiratory Depth Normal Respiratory Pattern Regular Blood Pressure 228/94 H Blood Pressure Mean 138 Blood Pressure Position Lying Pulse Oximetry 94 93 94 Oxygen Delivery Method Room Air Room Air Sepsis Recent Fever Within 48 Hours No Sepsis New/Unexplained Change in Mental Status No Sepsis Action Taken by Nursing No Action Required 08/02/22 16:50 08/02/22 17:00 08/02/22 17:10 Temperature Temperature Source Pulse Rate 66 60 60 Pulse Rate from SpO2 Sensor 66 60 Pulse Rhythm Pulse Strength Respiratory Rate 18 22 16 Respiratory Depth Respiratory Pattern Blood Pressure Blood Pressure Mean Blood Pressure Position Pulse Oximetry 94 91 Oxygen Delivery Method Sepsis Recent Fever Within 48 Hours Sepsis New/Unexplained Change in Mental Status Sepsis Action Taken by Nursing 08/02/22 17:14 08/02/22 17:14 08/02/22 17:20 Temperature Temperature Source Pulse Rate 61 60 Pulse Rate from SpO2 Sensor 60 60 Pulse Rhythm Pulse Strength Respiratory Rate 20 16 Respiratory Depth Respiratory Pattern Blood Pressure 200/105 H 210/91 H Blood Pressure Mean 136 130 Blood Pressure Position Pulse Oximetry 92 93 Oxygen Delivery Method Sepsis Recent Fever Within 48 Hours Sepsis New/Unexplained Change in Mental Status Sepsis Action Taken by Nursing 08/02/22 17:30 08/02/22 17:30 08/02/22 17:40 Temperature Temperature Source Pulse Rate 60 62 Pulse Rate from SpO2 Sensor 60 Pulse Rhythm Pulse Strength Respiratory Rate 24 20 Respiratory Depth Respiratory Pattern Blood Pressure 200/105 H Blood Pressure Mean 136 Blood Pressure Position Pulse Oximetry 92 Oxygen Delivery Method Sepsis Recent Fever Within 48 Hours Sepsis New/Unexplained Change in Mental Status Sepsis Action Taken by Nursing Laboratory Data Result diagrams: 08/02/22 17:03 08/02/22 17:03 Lab Results 08/02/22 08/02/22 08/02/22 Range/Units 17:03 17:03 17:03 WBC 5.93 (4.8-10.8) K/ul RBC 4.20 (3.93-5.22) M/uL Hgb 12.9 (12.0-16.0) g/dl Hct 39.3 (34.1-44.9) % MCV 93.6 (80.0-100.0) fL MCH 30.7 (25.0-34.0) pg MCHC 32.8 (32.0-36.0) g/dL RDW Std Deviation 44.7 (36.4-46.3) fL RDW Coeff of Virgilio 13.0 (11.5-14.5) % Plt Count 307 (130-400) K/uL MPV 9.4 (9.4-12.3) fL Immature Gran % (Auto) 0.3 % Neut % (Auto) 67.6 % Lymph % (Auto) 18.5 % [place] % (Auto) 9.6 % Eos % (Auto) 3.2 % Baso % (Auto) 0.8 % Neut # (Auto) 4.00 (1.4-6.5) K/uL Lymph # (Auto) 1.10 L (1.2-3.4) K/uL [place] # (Auto) 0.57 (0.24-0.82) K/uL Eos # (Auto) 0.19 (0-0.50) K/uL Baso # (Auto) 0.05 (0-0.2) K/uL Immature Gran # (Auto) 0.02 (0.00-0.02) K/uL PT Cancelled INR Cancelled Sodium 139 (136-145) mmol/L Potassium 4.3 (3.5-5.1) mmol/L Chloride 106 (98-107) mmol/L Carbon Dioxide 26 (21-32) mmol/L Anion Gap 7 (3-11) BUN 22 (6-23) mg/dl Creatinine 1.38 H (0.6-1.2) mg/dl Est Cr Clr Drug Dosing 27.9 ml/min Est GFR ( Amer) 40.3 ml/min Est GFR (Non-Af Amer) 34.8 ml/min BUN/Creatinine Ratio 15.9 (10-20) Glucose 105 H (70-99(Fasting)) mg/dl Calcium 8.7 (8.5-10.1) mg/dl Magnesium 2.0 (1.7-2.4) mg/dl Total Bilirubin 0.5 (0.2-1.0) mg/dl AST 19 (13-39) U/L ALT 12 (7-52) U/L Alkaline Phosphatase 64 (34-104) U/L Troponin I High Sens 7.6 (0-14) pg/ml Total Protein 7.0 (6.0-8.3) gm/dl Albumin 3.8 (3.4-5.0) gm/dl Globulin 3.2 (2.5-4.0) gm/dl Albumin/Globulin Ratio 1.2 (0.9-2) TSH (0.300-4.500) uIu/ml Urine Color Urine Appearance (Clear) Urine pH (4.5-7.5) Ur Specific [place] (1.000-1.030) Urine Protein (Negative) Urine Glucose (UA) (Negative) Urine Ketones (Negative) Urine Blood (Negative) Urine Nitrite (Negative) Urine Bilirubin (Negative) Urine Urobilinogen (Negative) Ur Leukocyte Esterase (Negative) SARS-CoV-2, RNA, NAAT (NEGATIVE) 08/02/22 08/02/22 08/02/22 Range/Units 17:03 17:07 17:38 WBC (4.8-10.8) K/ul RBC (3.93-5.22) M/uL Hgb (12.0-16.0) g/dl Hct (34.1-44.9) % MCV (80.0-100.0) fL MCH (25.0-34.0) pg MCHC (32.0-36.0) g/dL RDW Std Deviation (36.4-46.3) fL RDW Coeff of Virgilio (11.5-14.5) % Plt Count (130-400) K/uL MPV (9.4-12.3) fL Immature Gran % (Auto) % Neut % (Auto) % Lymph % (Auto) % [place] % (Auto) % Eos % (Auto) % Baso % (Auto) % Neut # (Auto) (1.4-6.5) K/uL Lymph # (Auto) (1.2-3.4) K/uL [place] # (Auto) (0.24-0.82) K/uL Eos # (Auto) (0-0.50) K/uL Baso # (Auto) (0-0.2) K/uL Immature Gran # (Auto) (0.00-0.02) K/uL PT 18.1 H INR 1.8 H Sodium (136-145) mmol/L Potassium (3.5-5.1) mmol/L Chloride (98-107) mmol/L Carbon Dioxide (21-32) mmol/L Anion Gap (3-11) BUN (6-23) mg/dl Creatinine (0.6-1.2) mg/dl Est Cr Clr Drug Dosing ml/min Est GFR ( Amer) ml/min Est GFR (Non-Af Amer) ml/min BUN/Creatinine Ratio (10-20) Glucose (70-99(Fasting)) mg/dl Calcium (8.5-10.1) mg/dl Magnesium (1.7-2.4) mg/dl Total Bilirubin (0.2-1.0) mg/dl AST (13-39) U/L ALT (7-52) U/L Alkaline Phosphatase (34-104) U/L Troponin I High Sens (0-14) pg/ml Total Protein (6.0-8.3) gm/dl Albumin (3.4-5.0) gm/dl Globulin (2.5-4.0) gm/dl Albumin/Globulin Ratio (0.9-2) TSH 2.234 (0.300-4.500) uIu/ml Urine Color Urine Appearance (Clear) Urine pH (4.5-7.5) Ur Specific [place] (1.000-1.030) Urine Protein (Negative) Urine Glucose (UA) (Negative) Urine Ketones (Negative) Urine Blood (Negative) Urine Nitrite (Negative) Urine Bilirubin (Negative) Urine Urobilinogen (Negative) Ur Leukocyte Esterase (Negative) SARS-CoV-2, RNA, NAAT NEGATIVE (NEGATIVE) 08/02/22 Range/Units 17:38 WBC (4.8-10.8) K/ul RBC (3.93-5.22) M/uL Hgb (12.0-16.0) g/dl Hct (34.1-44.9) % MCV (80.0-100.0) fL MCH (25.0-34.0) pg MCHC (32.0-36.0) g/dL RDW Std Deviation (36.4-46.3) fL RDW Coeff of Virgilio (11.5-14.5) % Plt Count (130-400) K/uL MPV (9.4-12.3) fL Immature Gran % (Auto) % Neut % (Auto) % Lymph % (Auto) % [place] % (Auto) % Eos % (Auto) % Baso % (Auto) % Neut # (Auto) (1.4-6.5) K/uL Lymph # (Auto) (1.2-3.4) K/uL [place] # (Auto) (0.24-0.82) K/uL Eos # (Auto) (0-0.50) K/uL Baso # (Auto) (0-0.2) K/uL Immature Gran # (Auto) (0.00-0.02) K/uL PT INR Sodium (136-145) mmol/L Potassium (3.5-5.1) mmol/L Chloride (98-107) mmol/L Carbon Dioxide (21-32) mmol/L Anion Gap (3-11) BUN (6-23) mg/dl Creatinine (0.6-1.2) mg/dl Est Cr Clr Drug Dosing ml/min Est GFR ( Amer) ml/min Est GFR (Non-Af Amer) ml/min BUN/Creatinine Ratio (10-20) Glucose (70-99(Fasting)) mg/dl Calcium (8.5-10.1) mg/dl Magnesium (1.7-2.4) mg/dl Total Bilirubin (0.2-1.0) mg/dl AST (13-39) U/L ALT (7-52) U/L Alkaline Phosphatase (34-104) U/L Troponin I High Sens (0-14) pg/ml Total Protein (6.0-8.3) gm/dl Albumin (3.4-5.0) gm/dl Globulin (2.5-4.0) gm/dl Albumin/Globulin Ratio (0.9-2) TSH (0.300-4.500) uIu/ml Urine Color Yellow Urine Appearance Clear (Clear) Urine pH 7.0 (4.5-7.5) Ur Specific [place] 1.008 (1.000-1.030) Urine Protein Negative (Negative) Urine Glucose (UA) Negative (Negative) Urine Ketones Negative (Negative) Urine Blood Negative (Negative) Urine Nitrite Negative (Negative) Urine Bilirubin Negative (Negative) Urine Urobilinogen Negative (Negative) Ur Leukocyte Esterase Negative (Negative) SARS-CoV-2, RNA, NAAT (NEGATIVE) Administered Medications Sodium Chloride (Nss 1000ml) 1,000 mls @ 75 mls/hr IV .[id number] Stop: 08/03/22 06:19 Last Admin: 08/02/22 17:14 Dose: 75 mls/hr Documented By: SERVANDO Discontinued Medications Hydralazine HCl (Hydralazine Hcl 20 Mg/Ml Vial) 5 mg IV NOW ONE Stop: 08/02/22 18:21 Last Admin: 08/02/22 18:28 Dose: 5 mg Documented By: SERVANDO Nitroglycerin (Nitroglycerin 2% Ointment 30gm Tube) 0.5 inch EXT NOW STA Stop: 08/02/22 16:57 Last Admin: 08/02/22 17:10 Dose: 0.5 inch Documented By: SERVANDO Imaging Data Radiologist's Impression: Chest X-Ray 08/02/22 16:56 SINGLE VIEW CHEST CLINICAL HISTORY: Hypertension. Chest discomfort. FINDINGS: An AP, portable, upright chest radiograph is compared to study dated 01/20/2022. A 2-lead cardiac pacemaker is unchanged in position and partially obscures the left upper chest. The heart is enlarged noting atherosclerotic calcification of the thoracic aorta. The pulmonary vasculature is noncongested. Emphysema and chronic interstitial thickening is similar to previous. Foci of parenchymal scarring are seen throughout both lungs. No airspace consolidation or large pleural effusion is identified. Apical fibrosis is noted. No pneumothorax is seen. The skeletal structures are osteopenic. The bony thorax is grossly intact. IMPRESSION: 1. Cardiomegaly and cardiac pacemaker without radiographic evidence of congestive failure. 2. Emphysema. 3. No airspace consolidation or large pleural effusion is identified. ACT 112: Negative or not required by law. Electronically signed by: Fantasma Alvarado M.D. 08/02/2022 5:58 PM Discharge Plan Visit Data Chief Complaint: Vertigo Stated Complaint: DIZZINESS ED Provider: Berlin Sutton Discharge Problem: Chest discomfort, Severe hypertension, Dizziness Patient Disposition: Admitted As Inpatient Forms Stand Alone Forms: [facility] Prescriptions Prescriptions: No Action pantoprazole [Protonix] 40 mg tablet,delayed release (DR/EC) 40 mg PO HS Qty: 90 3RF (DME) Oxygen Home Liters Per Minute See Rx Instructions .ROUTE .MEDSUPPLY Qty: 1 Rx Instructions: As directed 3 liter @ night losartan [Cozaar] 100 mg tablet 100 mg PO QAM Qty: 90 3RF rosuvastatin 5 mg tablet 5 mg PO HS Qty: 90 3RF warfarin 2.5 mg Tablet 1.25 mg PO 2XWK Rx Instructions: take 1/2 tablet in the evening of sundays and warfarin 2.5 mg Tablet 2.5 mg PO 5XWK Rx Instructions: take 1 tablet in the evening of thu//thu/thu/thursday coQ10 (ubiquinol) 200 mg Capsule 200 mg PO QAM cetirizine [Zyrtec] 10 mg tablet 10 mg PO DAILY PRN (Reason: rhinitis) aspirin 81 mg tablet,delayed release (DR/EC) 81 mg PO QAM nitroglycerin [Nitrostat] 0.4 mg tablet, sublingual 0.4 mg SL Q5M PRN (Reason: Chest Pain) Rx Instructions: place 1 tab under tongue every 5 minutes as needed for chest pain. every 5 min x 3 if not relieved call 911 Centrum Silver 0.4-300-250 mg-mcg-mcg tablet 1 tab PO HS calcium carbonate [Calcium 600] 600 mg calcium (1,500 mg) tablet 600 mg PO QAM Combivent Respimat 20-100 mcg/actuation mist 1 puff INH QID PRN (Reason: Shortness Of Breath) Rx Instructions: One puff inhalation four times daily PRN; space evenly during waking hours metoprolol succinate 100 mg tablet extended release 24 hr 50 mg PO AMPM cholecalciferol (vitamin D3) [Vitamin D3] 25 mcg (1,000 unit) Tablet,Chewable 25 mcg PO DAILY [place]-3 Fish Oil 300-1,000 mg Capsule 1 cap PO DAILY acetaminophen [Tylenol Arthritis] 650 mg Tablet Extended Release 650 mg PO Q8H PRN (Reason: Pain) Referrals Referrals: Maximus Gonzalez MD [Primary Care Provider] -
[2022-08-02 17:13] LABS: Basophils # (auto) 0.05 K/uL (0-0.2); Basophils % (auto) 0.8 %; Eosinophils # (auto) 0.19 K/uL (0-0.50); Eosinophils % (auto) 3.2 %; Hematocrit (blood only) 39.3 % (34.1-44.9); Hemoglobin 12.9 g/dl (12.0-16.0); Immature Granulocytes # (auto) 0.02 K/uL (0.00-0.02); Immature Granulocytes % (auto) 0.3 %; Lymphocytes % (auto) 18.5 %; Mean Corpuscular Hemoglobin 30.7 pg (25.0-34.0); Mean Corpuscular Hgb Conc 32.8 g/dL (32.0-36.0); Mean Corpuscular Volume 93.6 fL (80.0-100.0); Mean Platelet Volume 9.4 fL (9.4-12.3); Monocytes # (auto) 0.57 K/uL (0.24-0.82); Monocytes % (auto) 9.6 %; Neutrophils % (auto) 67.6 %; Platelet Count 307 K/uL (130-400); RDW Standard Deviation 44.7 fL (36.4-46.3); White Blood Count 5.93 K/ul (4.8-10.8)
[2022-08-02 17:40] LABS: Troponin I High Sensitivity 7.6 pg/ml (0-14)
[2022-08-02 17:48] LABS: Appearance Urine Clear (Clear); Bilirubin Urine Negative (Negative); Blood Urine Negative (Negative); Color Urine Yellow; Glucose Urine UA Negative (Negative); Ketones Urine Negative (Negative); Leukocyte Esterase Urine Negative (Negative); Nitrite Urine Negative (Negative); Protein Urine Negative (Negative); Specific Gravity Urine 1.008 (1.000-1.030); Urobilinogen Urine Negative (Negative)
[2022-08-02 17:54] LABS: INR 1.8 (0.9-1.1); Prothrombin Time 18.1 Seconds (9.0-12.0)
[2022-08-02 17:56] LABS: Albumin Globulin Ratio 1.2 (0.9-2); Albumin Level 3.8 gm/dl (3.4-5.0); BUN Creatinine Ratio 15.9 (10-20); Bilirubin,Total 0.5 mg/dl (0.2-1.0); Calcium 8.7 mg/dl (8.5-10.1); Creatinine Clr Calc Pharmacy 27.9 ml/min; Est GFR (African American) 40.3 ml/min; Est GFR (Non-African American) 34.8 ml/min; Globulin 3.2 gm/dl (2.5-4.0); Potassium 4.3 mmol/L (3.5-5.1)
--- NOTE | 2022-08-02 17:59 | XRay Report ---
SINGLE VIEW CHEST CLINICAL HISTORY: Hypertension. Chest discomfort. FINDINGS: An AP, portable, upright chest radiograph is compared to study dated 01/20/2022. A 2-lead ca rdiac pacemaker is unchanged in position and partially obscures the left upper chest. The heart is en larged noting atherosclerotic calcification of the thoracic aorta. The pulmonary vasculature is nonco ngested. Emphysema and chronic interstitial thickening is similar to previous. Foci of parenchymal sc arring are seen throughout both lungs. No airspace consolidation or large pleural effusion is identif ied. Apical fibrosis is noted. No pneumothorax is seen. The skeletal structures are osteopenic. The b ramesh thorax is grossly intact. IMPRESSION: 1. Cardiomegaly and cardiac pacemaker without radiographic evidence of congestive failure. 2. Emphysema. 3. No airspace consolidation or large pleural effusion is identified. ACT 112: Negative or not required by law. Electronically signed by: Fantasma Alvarado M.D. 08/02/2022 5:58 PM
[2022-08-02] MEDS ORDERED: hydrALAZINE HCL 20 MG/ML VIAL IV ONE (18:20)
--- NOTE | 2022-08-02 18:36 | History & Physical Report ---
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 No anginal symptoms and is normally able to walk around [employer] without limiting chest pain or dyspnea. No leukocytosis Hemoglobin 12.9 INR 1.8, on warfarin slightly below goal Sodium normal, potassium normal Creatinine baseline 1.11.4, creatinine 1.38 on admission No transaminitis High-sensitivity troponin 7.6 UA uninfected appearing COVID-negative CXR: Cardiomegaly with pacemaker, no evidence of failure. No consolidation/effusion. Emphysema. Troponin trended overnight Hypertension control as below Lexiscan/myocardial perfusion study 03/2020 with EF 77%, no significant ischemic change Vascular carotid duplex 50 to 70% stenosis right ICA, greater than 50% right ECA, anterograde flow bilaterally Hypertension, not improved after nitro/hydralazine No chest pain at time of assessment, no neurologic/strokelike symptoms, no headache, no abdominal/shoulder blade pain Patient does endorse increased rest at home, recent deaths in the family and the dog who is - 234 systolic on arrival - No sx at bedside assessment - 200s after nitro, given 5mg hydralazine in ER -Patient reports sensitivity and inability to take amlodipine in the past. Hydralazine added, labetalol as needed and added History of CHRISTOPHER with right renal stenting. Renal artery duplex ordered to assess for potential stent occlusion Labetalol every 4 hours as needed, defer hydralazine due to unpredictable drop with age Low-salt diet CAD 01/07/2022 note reviewed. Patient is with 3 overlapping drug-eluting stents to proximal and right mid coronary artery [place] [facility] [place]. Repeat catheterization 2011, nonocclusive disease. EKG without acute ST segment findings Initial high-sensitivity troponin negative, repeat pending Continue aspirin, metoprolol Troponin trended, echo pending A. 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 No acute wheezing, exacerbation Continue, vent, albuterol as needed DVT prophylaxis: Heparin eyes Disposition: PCU for IV blood pressure medication requirements Diet: Low-salt, heart healthy CODE STATUS: DNR/DNI (2) Chest discomfort: (3) Breast cancer: (4) Atrial fibrillation: (5) Hypertension: (6) Hyperlipidemia: (7) CAD (coronary artery disease): (8) COPD (chronic obstructive pulmonary disease): (9) Stage 3b chronic kidney disease: (10) Secondary hyperparathyroidism: (11) Prediabetes: History of Present Illness Primary Care Provider: Maximus Gonzalez MD Marce is an 86-year-old female with a past medical history of papillary carcinoma of the breast, A. fib on warfarin, hypertension, hyperlipidemia, CAD, COPD, prediabetes, CKD, and vitamin D deficiency who presented to the emergency department with chest discomfort. Chest discomfort began the day of admission and was resolved by time of ER evaluation. 0 out of 10 pain at your evaluation, but with dizziness and with a systolic blood pressure of 200. Hx CAD, stends, afib. CP left axilla to left chest migrated to R chest. Chronic nausea/dizziness at baseline. nitro paste BP 220s -> 200s. Took medications this morning including losartan, metoprolol, hctz. EKG: Atrial paced no territorial ST segment changes. QTC 440 Endorses chronic lightheadedness and nausea. BP was alittle high this morning despite taking her meds this morning. Had a strnage sensation across her L chest like 'tingling warm water in the upper chest' which spread over the R chest. Lasted a few minutes, may ~1 minute. Sensation was a 5/10 in intensity and 'strange' in quality but not squeezing/pressure in quality. Had some shortness of breath at the same time which went away after a minute. Endorses emphysema at baseline. No change in breathing in the last few days. Chronic cough, no change. No sputum production.No sweating with episode. At baseline walks OK without chest pain. Generally walks the [employer] for exercise and with shopping, no chest pain or limiting shortness of breath. No vomiting/diarrhea/constipation No bleeding No abdominal pain No urinary pain No headache Cardiac History: hx of pacemaker 2/2 past bradycardia with syncope, no problems since placement. Pt not sure if cardiac stends, but did have 3x cardiac stents and 3 'other' stends (2 aorta due to ulceration, 1 left kidney). Dr. Mims placed aortic stents for stenosis. No NH. Former tobacco use. Metoprolol, losartan, asp, vit d, pantoprazole, rosuvastatin, and warfarin recently chagned to SuMoWeFiSa 2.5mg and TuTh 1.25. Took AM meds today. Patient reports that she has been under a lot of stress recently, had some family members who passed and also a dog who was ill. She checks her blood pressure regularly, note is that it has been in the 180 systolic recently despite taking her regular medications. At the time of assessment she is not having any abdominal pain, pain between her shoulder blades, chest pain, shortness of breath, lightheadedness, dizziness, headache, numbness/tingling/sensory deficit, or weakness Medical History: Reviewed Medications: Reviewed Surgical History: Reviewed Allergies: Reviewed Social History: No tobacco, no alcohol use Code Status: DNR/DNI Allergies Allergy/AdvReac Type Severity Reaction Status Date / Time lidocaine [From Xylocaine] Allergy Severe passed out Verified 06/12/22 09:00 amlodipine Allergy Mild dizzy and Verified 06/12/22 09:00 sick stomach atorvastatin Allergy Mild LEG CRAMPS Verified 06/12/22 09:00 pravastatin Allergy Mild leg cramps Verified 06/12/22 09:00 simvastatin Allergy Mild leg cramps Verified 06/12/22 09:00 carvedilol Allergy Unknown Unknown Verified 06/12/22 09:00 Home Medications Medication Instructions Recorded Confirmed Type aspirin 81 mg tablet,delayed 81 mg PO QAM 06/14/19 08/02/22 History release cetirizine 10 mg tablet (Zyrtec) 10 mg PO DAILY PRN rhinitis 06/14/19 08/02/22 History coQ10 (ubiquinol) 200 mg capsule 200 mg PO QAM 06/14/19 08/02/22 History aqyjonol-zpf-vjzuo acid 0.4 1 tab PO HS 06/14/19 08/02/22 History mg-lycopene 300 mcg-lutein 250 mcg tablet (Centrum Silver) nitroglycerin 0.4 mg sublingual 0.4 mg sublingual Q5M PRN Chest 06/14/19 08/02/22 History tablet (Nitrostat) Pain warfarin 2.5 mg tablet 1.25 mg PO 2XWK 06/14/19 08/02/22 History warfarin 2.5 mg tablet 2.5 mg PO 5XWK 06/14/19 08/02/22 History ipratropium 20 mcg-albuterol 100 1 puff inhalation QID PRN 07/10/20 08/02/22 History mcg/actuation mist for inhalation Shortness Of Breath (Combivent Respimat) metoprolol succinate 100 mg 50 mg PO AMPM 12/31/20 08/02/22 History tablet,extended release 24 hr Oxygen Home #1 ea 01/23/21 08/02/22 History calcium carbonate 600 mg calcium 600 mg PO QAM 01/23/21 08/02/22 History (1,500 mg) tablet (Calcium) losartan 100 mg tablet (Cozaar) 100 mg PO QAM #90 tabs 01/13/22 08/02/22 Rx rosuvastatin 5 mg tablet 5 mg PO HS #90 tabs 01/13/22 08/02/22 Rx pantoprazole 40 mg tablet,delayed 40 mg PO HS #90 tabs 01/28/22 08/02/22 Rx release (Protonix) acetaminophen 650 mg 650 mg PO Q8H PRN Pain 08/02/22 08/02/22 History tablet,extended release cholecalciferol (vitamin D3) 25 25 mcg PO DAILY 08/02/22 08/02/22 History mcg (1,000 unit) chewable tablet (Vitamin D3) omega-3s 300 mi-scn-lzv-other 1 cap PO DAILY 08/02/22 08/02/22 History qnyvv6c-prtk oil 1,000 mg capsule ([place]-3 Fish Oil) Past Med/Surg History Medical History (Updated 08/02/22 @ 19:09 by Carlos Salazar MD) Allergic rhinitis Aneurysm of abdominal aorta Has [address] for this. follows with Dr Mims Atherosclerosis of aorta Atrial fibrillation Dx 2014 > on warfarin, follows with Dr. Wu > no cardioversions Barretts esophagus pt unaware Breast cancer dx December 12, 2020 -- surgery with radiation treatments CAD (coronary artery disease) 3 overlapping drug-eluting stents to the proximal and mid right coronary artery at [facility] in 2009. Repeat cath in 2011 showed patent right coronary artery with nonocclusive disease elsewhere. Carotid artery plaque COPD (chronic obstructive pulmonary disease) well controlled Diverticulitis Emphysema of lung GERD (gastroesophageal reflux disease) History of anesthesia reaction passed out at age 29 when received xylocaine at dentist's office had a few years ago with EGD when numbed throat and no problems History of cervical cancer 1970--surgical intervention History of colon polyps History of COVID-19 10/10/20 diagnosed @ [facility]--only symptom SOB > all recovered Hyperlipidemia Hyperparathyroidism no meds Hypertension Myocardial Infarction per pt had a heart attack during heart cath [place] [facility] [place] Non-healing skin lesion Nontoxic multinodular goiter On anticoagulant therapy warfarin daily On home oxygen therapy 3L N/C at hs Osteoarthritis Osteoporosis Prediabetes Renal artery stenosis Left kidney stented Secondary hyperparathyroidism Stage 3b chronic kidney disease Stage III chronic kidney disease follows Dr. Hall Tachy-roberth syndrome S/P dual-chamber permanent pacemaker. Most recent device interrogation 11/08/2020 showed atrial paced 99% of the time RV paced 0%. Generator longevity stable at 7 years, no recent episodes of A. fib. Tubular adenoma of colon Surgical History H/O mastectomy (01/17/21) Right breast total mastectomy with right axillary sentinel lymph node biopsy (right) Dr. Noah Diaz History of cardiac cath multiple--6025-1340 3 stents total - last one was [place] 2013 History of cataract surgery bilt History of colonoscopy History of dilatation and curettage History of esophagogastroduodenoscopy (EGD) History of heart artery stent total of 3 stents--last before 2013 History of open reduction and internal fixation (ORIF) procedure left hip---hardware in place History of partial thyroidectomy enlarged nodule History of repair of dissection of abdominal aorta 2008? @ [facility] has two stents in place by dr mims History of stent insertion of renal artery left History of temporal artery biopsy (10/02/20) Right Temporal Artery Biopsy Dr. Diaz 10/02/2020 > negative History of tooth extraction all teeth History of total abdominal hysterectomy and bilateral salpingo-oophorectomy Pacemaker 2017 medtronic @ [facility] > last interrogation % atrial paced Family History Father , 93yo Coronary heart disease CHF (congestive heart failure) Mother , 81yo Coronary heart disease Hypertension Myocardial infarction Brother Alcoholism Lung cancer Sister Atrial fibrillation COPD (chronic obstructive pulmonary disease) Brother No problems noted. Brother Lung cancer Sister Lung cancer Colorectal cancer Sister No problems noted. Sister No problems noted. Sister No problems noted. Sister No problems noted. Son No problems noted. Son No problems noted. Son No problems noted. Daughter No problems noted. Daughter No problems noted. 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 Beliefs That Will Affect Care: None marital status: Current Living Situation: Alone current occupational status: retired current occupation: Retired-[employer] last job How many Children do You have: 6 Feels Safe at Home: Yes Childhood Exposure to Second-Hand Smoke: No caffeine: Yes (3-4 cups/day) during the past year weight has: remained stable Dental Care, Regularly: No Physical Activity Frequency: Does not Exercise Seatbelt Use: always Sunscreen Use: Yes Assistive Devices: Cane, Denture - Upper, Denture - Lower, Glasses, Oxygen - at Night and Walker Review of Systems Review of Systems: All systems reviewed & are unremarkable except as noted in Subjective Physical Exam Physical Exam: General: A&Ox3. NAD. Cooperative. HEENT: Atraumatic, normocephalic. Pulm: CTAB A&P. -wheezes, -rales, -rhonchi. Symmetrical chest rise. No increased work of breathing. No respiratory distress. Cardiac: RRR, -mrg. Radial pulses intact and symmetrical. Abdominal: Nontender, nondistended, soft. BS present. CRANIAL NERVES: II: Pupils equal and reactive, no relative afferent pupillary defect, no VF cuts III, IV, : EOM intact, no gaze preference or deviation, no nystagmus. V: normal sensation in V1, V2, and V3 segments bilaterally VII: no asymmetry, no nasolabial fold flattening VIII: normal hearing to speech IX, X: normal palatal elevation, no uvular deviation XI: 5/5 head turn and 5/5 shoulder shrug bilaterally XII: midline tongue protrusion MOTOR: RUE: 5/5 memorial mason strength, finger flexion/extension, interosseus LUE: 5/5 memorial mason strength, finger flexion/extension, interosseus RLE: 5/5 to hip flexion, knee extension, ankle dorsiflexion/plantarflexion LLE: 5/5 hip flexion, knee extension, ankle dorsiflexion/plantarflexion REFLEXES: 2/4 patellar, bicepts, and achilles DTR without asymmetry. Bilateral flexor planter response, no Valentine's, no clonus SENSORY: Normal to touch in upper and lower extremities without deficit or asymmetry No lower extremity edema appreciated, no JVD Results & Data Results & Data ([facility]) Vital Signs (Past 12 Hours) Vital Signs Temp Pulse Resp BP Pulse Ox O2 Del Method 08/02/22 17:40 62 20 08/02/22 17:30 60 24 92 08/02/22 17:30 200/105 H 08/02/22 17:20 60 16 93 08/02/22 17:14 210/91 H 08/02/22 17:14 61 20 200/105 H 92 08/02/22 17:10 60 16 91 08/02/22 17:00 60 22 08/02/22 16:50 66 18 94 08/02/22 16:48 67 19 94 08/02/22 16:56 93 Room Air 08/02/22 16:42 36.8 C 66 18 228/94 H 94 Room Air PG Care Time/CCT Total # of Minutes Spent Total Time Spent with Patient: Total time spent is greater than 50% in coordination of care (as documented) at patient's floor/unit and/or counseling patient: Coding Level of Care Code INT OBSERVATION CARE 70M LVL 3 Diagnoses Severe hypertension I10 Chest discomfort R07.89 Breast cancer C50.919 Atrial fibrillation I48.91 Hypertension I10 Hyperlipidemia E78.5 CAD (coronary artery disease) I25.10 COPD (chronic obstructive pulmonary disease) J44.9 Stage 3b chronic kidney disease N18.32 Secondary hyperparathyroidism N25.81 Prediabetes R73.03
[2022-08-02] MEDS ORDERED: hydroCHLOROthiazide 25 MG TAB PO STA (18:46)
[2022-08-02] MEDS ORDERED: LABETALOL HCL IV 5 MG/ML 20ML IV STA (18:46)
[2022-08-02] MEDS ORDERED: NITROGLYCERIN SL 0.4 MG/TAB TAB SL PRN (20:37)
[2022-08-02] MEDS ORDERED: IPRATROPIUM BROMIDE/ALBUTEROL respimat INH INH PRN (20:37)
[2022-08-02] MEDS ORDERED: POLYETHYLENE (MIRALAX) 17 GM PACK PO PRN (20:37)
[2022-08-02] MEDS ORDERED: CETIRIZINE HCL 10 MG TABLET PO PRN (20:37)
[2022-08-02] MEDS ORDERED: LABETALOL HCL IV 5 MG/ML 20ML IV PRN (20:37)
[2022-08-02] MEDS ORDERED: ACETAMINOPHEN 325 MG TAB PO PRN (20:37)
[2022-08-02] MEDS ORDERED: IPRATROPIUM BROMIDE HFA INHALER INH PRN (20:54)
[2022-08-02] MEDS ORDERED: ALBUTEROL HFA 8 GM INHALER INH PRN (20:54)
--- NOTE | 2022-08-02 21:45 | Ultrasound Report ---
DOPPLER ULTRASOUND OF THE RENAL ARTERIES CLINICAL HISTORY: Hypertension. History of renal artery stent. COMPARISON STUDY: Abdominal CT scans dated 03/07/2020 and 01/11/2017 TECHNIQUE: Doppler sonography of the renal arteries was performed to assess renal artery stenosis. Im ages are reviewed in the transverse and longitudinal planes. FINDINGS: The kidneys demonstrate cortical atrophy. Echotexture is normal. The right kidney measures 8.5 cm in length, and the left kidney measures 10.2 cm in length. There is no hydronephrosis. On the right, intrarenal arterial resistive indices range from 0.65 to 0.69. Intrarenal arterial wave forms are normal with brisk upstrokes. The right renal arterial waveform is normal, and velocities wi thin the right renal artery measure up to 58 cm/sec. The proximal right vertebral artery was not well -visualized. The right renal vein is patent. On the left, intrarenal arterial resistive indices range from 0.55 to 0.64. Intrarenal arterial wave forms are normal with brisk upstrokes. The left renal arterial waveform is normal, and velocities wit hin the left renal artery measure up to 174 cm/sec. The proximal left renal artery stent seen by CT i s not visualized. The left renal vein is patent. The abdominal aorta is patent. Velocities within the abdominal aorta measure up to 84 cm/s. IMPRESSION: 1. The kidneys demonstrate cortical atrophy and are without hydronephrosis. 2. There is no sonographic evidence of renal artery stenosis on today's examination. ACT 112: Negative or not required by law. Electronically signed by: Fantasma Alvarado M.D. 08/02/2022 9:43 PM
[2022-08-02] MEDS: CEROVITE ADV FORMULA TAB PO SCH (22:12)
[2022-08-02] MEDS: METOPROLOL SUCC 50MG EXT REL TAB PO SCH (22:12)
[2022-08-02] MEDS: ROSUVASTATIN CALCIUM 5 MG TAB PO SCH (22:13)
[2022-08-02] MEDS: PANTOprazole 40 MG TAB PO SCH (22:13)
[2022-08-03 03:35] LABS: Basophils # (auto) 0.06 K/uL (0-0.2); Basophils % (auto) 0.9 %; Eosinophils # (auto) 0.16 K/uL (0-0.50); Eosinophils % (auto) 2.3 %; Hematocrit (blood only) 35.9 % (34.1-44.9); Hemoglobin 12.1 g/dl (12.0-16.0); Immature Granulocytes # (auto) 0.02 K/uL (0.00-0.02); Immature Granulocytes % (auto) 0.3 %; Lymphocytes # (auto) 1.13 K/uL (1.2-3.4); Lymphocytes % (auto) 16.3 %; Mean Corpuscular Hemoglobin 30.6 pg (25.0-34.0); Mean Corpuscular Hgb Conc 33.7 g/dL (32.0-36.0); Mean Corpuscular Volume 90.7 fL (80.0-100.0); Mean Platelet Volume 9.3 fL (9.4-12.3); Monocytes # (auto) 0.66 K/uL (0.24-0.82); Monocytes % (auto) 9.5 %; Neutrophils # (auto) 4.91 K/uL (1.4-6.5); Neutrophils % (auto) 70.7 %; Platelet Count 272 K/uL (130-400); RDW Coefficient of Variation 13.1 % (11.5-14.5); RDW Standard Deviation 43.6 fL (36.4-46.3); Red Blood Count 3.96 M/uL (3.93-5.22); White Blood Count 6.94 K/ul (4.8-10.8)
[2022-08-03 04:02] LABS: BUN Creatinine Ratio 16.5 (10-20); Calcium 8.7 mg/dl (8.5-10.1); Creatinine Clr Calc Pharmacy 38.2 ml/min; Est GFR (African American) 53.6 ml/min; Est GFR (Non-African American) 46.3 ml/min; Potassium 3.5 mmol/L (3.5-5.1)
--- NOTE | 2022-08-03 07:07 | Electrocardiogram Report ---
Test Reason : Blood Pressure : / mmHG Vent. Rate : 088 BPM Atrial Rate : 087 BPM P-R Int : 282 ms QRS Dur : 074 ms QT Int : 364 ms P-R-T Axes : 000 010 -21 degrees QTc Int : 440 ms Atrial-paced rhythm with prolonged AV conduction Nonspecific T wave abnormality Abnormal ECG When compared with ECG of 22-MAY-2021 07:09, No significant change was found Confirmed by Maximus Shah ([id number]) on 08/03/2022 7:07:20 AM Referred By: REFERRED SELF Confirmed By:Srinivasan Shah
[2022-08-03] MEDS: OMEGA-3 (PURIFIED FISH OIL) 1 GM CAP PO SCH (08:51)
[2022-08-03] MEDS: CHOLECALCIFEROL 1,000 UNITS 25 MCG TAB PO SCH (08:51)
[2022-08-03] MEDS: ASPIRIN 81 MG ECTAB PO SCH (08:51)
[2022-08-03] MEDS: CALCIUM CARBONATE 1250MG TAB PO SCH (08:51)
[2022-08-03] MEDS: METOPROLOL SUCC 50MG EXT REL TAB PO SCH ×2 (08:51→20:07)
[2022-08-03] MEDS: LOSARTAN POTASSIUM 50 MG TAB PO SCH (08:51)
[2022-08-03] MEDS ORDERED: NON-FORMULARY MEDICATION (Coq10 (Ubiquinol) 200 mg Capsule) PO SCH (09:00)
[2022-08-03] MEDS: hydroCHLOROthiazide 25 MG TAB PO SCH (11:37)
[2022-08-03] MEDS ORDERED: WARFARIN SOD 1.25 MG TAB PO SCH (16:00)
[2022-08-03] MEDS ORDERED: hydrALAZINE HCL 25 MG TAB PO STA (16:27)
[2022-08-03] MEDS: PANTOprazole 40 MG TAB PO SCH (20:06)
[2022-08-03] MEDS: ROSUVASTATIN CALCIUM 5 MG TAB PO SCH (20:07)
[2022-08-03] MEDS: CEROVITE ADV FORMULA TAB PO SCH (20:07)
[2022-08-03] MEDS: hydrALAZINE HCL 25 MG TAB PO SCH (20:17)
--- NOTE | 2022-08-03 20:19 | Hospitalist Progress Note ---
Date of Service August 03, 2022 Assessment & Plan (1) Hypertensive emergency without congestive heart failure: Plan: Peak SBP 230-250 in the ER Cardiopulmonary symptoms at admission including vague chest discomfort, dizziness, a little dyspnea All symptoms now resolved All troponins negative SBPs today now 170s to 190s Remains on metoprolol succinate 50mg BID Remains on losartan 100mg daily HCTZ added yesterday by admitting physician; continue 12.5mg daily We have made the necessary progress to resolve the HTN emergency To add further BP control start hydralazine 25mg BID Lower the SBP to 140-150 range over the next 48 hours Probable culprits for HTN emergency and labile BPs - significant/known PAD / atherosclerosis; probable salt load on Thanksgiving; anxiety / psychosocial stressors send renin/rox levels in am use HS oxygen diligently recent TSH wnl renal artery doppler negative for CHRISTOPHER (2) Renal artery stenosis: Plan: with prior left-sided stent by report renal artery dopplers negative (3) Chest discomfort: Plan: likely 2nd to hypertensive emergency resolved when SBPs began to trend down 4 troponins - all negative - even despite known h/o CAD cont to monitor (4) Breast cancer: Plan: right sided history of (5) Atrial fibrillation: Plan: this admission either paced or NSR on monitor cont metoprolol cont warfarin per home regimen INR daily while here (6) Hypertension: Plan: see #1 above (7) Hyperlipidemia: Plan: cont statin (8) CAD (coronary artery disease): Plan: prior h/o 3 stents in early (RCA disease) negative stress test [address] Bryce [facility] Cardiology no evidence of ACS despite #1 cont asa cont BB cont statin (9) COPD (chronic obstructive pulmonary disease): Plan: no exacerbation at this time (10) Stage 3b chronic kidney disease: Plan: baseline CrCl low 30s creatinine is stable repeat BMP in am (11) Secondary hyperparathyroidism: Plan: calcium wnl no evidence that this issue is active nor contributing to elevated BPs last iPTH level was this summer and was wnl (12) Prediabetes: Plan: last HbA1c was 6% in January 2022 (13) Aneurysm of abdominal aorta: Plan: s/p stents in the past follows with [facility] Dr Mims (14) Barretts esophagus: Plan: cont PPI daily Plan daughter extensively updated by phone (15min) change observation status to full admission status Admission and Anticipated Discharge Date Admission Date: August 03, 2022 Subjective patient reports that all chest symptoms and feeling poorly at time of admission are resolved she has had uneventful day today eating well denies cp, headache, dyspnea today telemetry overnight wnl patient reports eating traditional Thanksgiving meal on along with chips on Thursday and a beef/noodles dish as well didn't take her BP on Thursday AM SBP was in the 180s usually home SBPs are 130s to 150s - occasional higher readings she admits to multiple psychosocial stressors including her dog having health problems I spoke with pt's daughter this evening and about 1 week ago the pt's [id number] patient states she has chronic "dizziness" it is not a true vertigo sensation, and not a true lightheaded feeling Review of Systems Review of Systems: gen - no fevers or infectious symptoms cv - no further chest discomfort pulm - no cough, no dyspnea, no HOUSER GI - no nausea or emesis psych - anxious Physical Exam Physical Exam: gen - pleasant, NAD; looks tired neck - no JVD vascular - radial arteries 2+ b/l mouth - MMM heart - RRR, s1 s2, 1/6 HOWARD LSB lungs - CTA b/l abd - soft NT ND BS+ ext - no edema, pulses 2+ b/l neuro - strength 5/5 x 4 exts Results & Data Results & Data ([facility]) Vital Signs (Past 12 Hours) Vital Signs Temp Pulse Pulse Resp BP Pulse Ox O2 Del Method 08/03/22 20:05 65 08/03/22 19:00 36.7 C 59 L 20 176/75 H 93 Room Air 08/03/22 15:15 36.8 C 66 67 20 194/71 H 92 Room Air 08/03/22 12:00 36.6 C 60 14 170/73 H 95 Room Air Laboratory Results Laboratory Results - last 24 hr 08/02/22 08/03/22 08/03/22 21:46 03:20 03:20 WBC 6.94 RBC 3.96 Hgb 12.1 Hct 35.9 MCV 90.7 MCH 30.6 MCHC 33.7 RDW Std Deviation 43.6 RDW Coeff of Virgilio 13.1 Plt Count 272 MPV 9.3 L Immature Gran % (Auto) 0.3 Neut % (Auto) 70.7 Lymph % (Auto) 16.3 [place] % (Auto) 9.5 Eos % (Auto) 2.3 Baso % (Auto) 0.9 Neut # (Auto) 4.91 Lymph # (Auto) 1.13 L [place] # (Auto) 0.66 Eos # (Auto) 0.16 Baso # (Auto) 0.06 Immature Gran # (Auto) 0.02 Sodium Potassium Chloride Carbon Dioxide Anion Gap BUN Creatinine Est Cr Clr Drug Dosing Est GFR ( Amer) Est GFR (Non-Af Amer) BUN/Creatinine Ratio Glucose Calcium Troponin I High Sens 9.4 11.0 08/03/22 08/03/22 03:20 09:15 WBC RBC Hgb Hct MCV MCH MCHC RDW Std Deviation RDW Coeff of Virgilio Plt Count MPV Immature Gran % (Auto) Neut % (Auto) Lymph % (Auto) [place] % (Auto) Eos % (Auto) Baso % (Auto) Neut # (Auto) Lymph # (Auto) [place] # (Auto) Eos # (Auto) Baso # (Auto) Immature Gran # (Auto) Sodium 140 Potassium 3.5 Chloride 108 H Carbon Dioxide 26 Anion Gap 6 BUN 18 Creatinine 1.09 Est Cr Clr Drug Dosing 38.2 Est GFR ( Amer) 53.6 Est GFR (Non-Af Amer) 46.3 BUN/Creatinine Ratio 16.5 Glucose 96 Calcium 8.7 Troponin I High Sens 9.8 Diagnostic Findings Chest X-Ray 08/02/22 16:56 SINGLE VIEW CHEST CLINICAL HISTORY: Hypertension. Chest discomfort. FINDINGS: An AP, portable, upright chest radiograph is compared to study dated 01/20/2022. A 2-lead cardiac pacemaker is unchanged in position and partially obscures the left upper chest. The heart is enlarged noting atherosclerotic calcification of the thoracic aorta. The pulmonary vasculature is noncongested. Emphysema and chronic interstitial thickening is similar to previous. Foci of parenchymal scarring are seen throughout both lungs. No airspace consolidation or large pleural effusion is identified. Apical fibrosis is noted. No pneumothorax is seen. The skeletal structures are osteopenic. The bony thorax is grossly intact. IMPRESSION: 1. Cardiomegaly and cardiac pacemaker without radiographic evidence of congestive failure. 2. Emphysema. 3. No airspace consolidation or large pleural effusion is identified. ACT 112: Negative or not required by law. Electronically signed by: Fantasma Alvarado M.D. 08/02/2022 5:58 PM Renal Artery Duplex 08/02/22 20:37 DOPPLER ULTRASOUND OF THE RENAL ARTERIES CLINICAL HISTORY: Hypertension. History of renal artery stent. COMPARISON STUDY: Abdominal CT scans dated 03/07/2020 and 01/11/2017 TECHNIQUE: Doppler sonography of the renal arteries was performed to assess renal artery stenosis. Images are reviewed in the transverse and longitudinal planes. FINDINGS: The kidneys demonstrate cortical atrophy. Echotexture is normal. The right kidney measures 8.5 cm in length, and the left kidney measures 10.2 cm in length. There is no hydronephrosis. On the right, intrarenal arterial resistive indices range from 0.65 to 0.69. Intrarenal arterial waveforms are normal with brisk upstrokes. The right renal arterial waveform is normal, and velocities within the right renal artery measure up to 58 cm/sec. The proximal right vertebral artery was not well- visualized. The right renal vein is patent. On the left, intrarenal arterial resistive indices range from 0.55 to 0.64. Intrarenal arterial waveforms are normal with brisk upstrokes. The left renal arterial waveform is normal, and velocities within the left renal artery measure up to 174 cm/sec. The proximal left renal artery stent seen by CT is not visualized. The left renal vein is patent. The abdominal aorta is patent. Velocities within the abdominal aorta measure up to 84 cm/s. IMPRESSION: 1. The kidneys demonstrate cortical atrophy and are without hydronephrosis. 2. There is no sonographic evidence of renal artery stenosis on today's examination. ACT 112: Negative or not required by law. Electronically signed by: Fantasma Alvarado M.D. 08/02/2022 9:43 PM PG Care Time/CCT Total # of Minutes Spent Total Time Spent with Patient: Total time spent is greater than 50% in coordination of care (as documented) at patient's floor/unit and/or counseling patient: Coding Level of Care Code 67048 Subseq Hosp Care Lvl 3 Diagnoses Hypertensive emergency without congestive heart failure I16.1 Renal artery stenosis I70.1 Chest discomfort R07.89 Breast cancer C50.919 Atrial fibrillation I48.91 Hypertension I10 Hyperlipidemia E78.5 CAD (coronary artery disease) I25.10 COPD (chronic obstructive pulmonary disease) J44.9 Stage 3b chronic kidney disease N18.32 Secondary hyperparathyroidism N25.81 Prediabetes R73.03 Aneurysm of abdominal aorta I71.4 Barretts esophagus K22.70
[2022-08-04 07:13] LABS: BUN Creatinine Ratio 15.2 (10-20); Calcium 9.2 mg/dl (8.5-10.1); Creatinine Clr Calc Pharmacy 27.9 ml/min; Est GFR (African American) 40.3 ml/min; Est GFR (Non-African American) 34.8 ml/min; INR 1.3 (0.9-1.1); Prothrombin Time 13.9 Seconds (9.0-12.0)
[2022-08-04] MEDS: hydroCHLOROthiazide 25 MG TAB PO SCH (07:22)
[2022-08-04] MEDS: hydrALAZINE HCL 25 MG TAB PO SCH (07:22)
[2022-08-04] MEDS: ASPIRIN 81 MG ECTAB PO SCH (07:23)
[2022-08-04] MEDS: OMEGA-3 (PURIFIED FISH OIL) 1 GM CAP PO SCH (07:23)
[2022-08-04] MEDS: CHOLECALCIFEROL 1,000 UNITS 25 MCG TAB PO SCH (07:23)
[2022-08-04] MEDS: CALCIUM CARBONATE 1250MG TAB PO SCH (07:24)
[2022-08-04] MEDS: LOSARTAN POTASSIUM 50 MG TAB PO SCH (07:24)
[2022-08-04] MEDS: METOPROLOL SUCC 50MG EXT REL TAB PO SCH ×2 (07:24→20:43)
[2022-08-04] MEDS ORDERED: WARFARIN SOD 2.5 MG TAB PO SCH (16:00)
[2022-08-04] MEDS ORDERED: WARFARIN SOD 1.25 MG TAB PO ONE (16:00)
[2022-08-04] MEDS: PANTOprazole 40 MG TAB PO SCH (20:43)
[2022-08-04] MEDS: ROSUVASTATIN CALCIUM 5 MG TAB PO SCH (20:43)
[2022-08-04] MEDS: hydrALAZINE TAB 50 MG TAB PO SCH (20:43)
[2022-08-04] MEDS: CEROVITE ADV FORMULA TAB PO SCH (20:43)
--- NOTE | 2022-08-04 21:34 | Hospitalist Progress Note ---
Date of Service August 04, 2022 Assessment & Plan (1) Hypertensive emergency without congestive heart failure: Plan: Peak SBP 230-250 in the ER Cardiopulmonary symptoms at admission including vague chest discomfort, dizziness, a little dyspnea All symptoms resolved with Rx of BP All troponins negative SBPs today now 170s and 180s HOWEVER 2 sets of orthostatic BPs very positive today Despite orthostasis she surprisingly denies ANY dizziness or lightheadedness Remains on metoprolol succinate 50mg BID Remains on losartan 100mg daily HCTZ added this admission - continue 12.5mg daily Added hydralazine 25mg BID Sitting BPs throughout the day today still very high Titrate hydralazine to 50mg BID Probable culprits for HTN emergency and labile BPs - significant/known PAD / atherosclerosis; probable salt load on gi; anxiety / psychosocial stressors sent renin/rox levels in am use HS oxygen diligently recent TSH wnl renal artery doppler negative for CHRISTOPHER recheck orthostatics in am (2) Renal artery stenosis: Plan: with prior left-sided stent by report renal artery dopplers negative (3) Chest discomfort: Plan: likely 2nd to hypertensive emergency resolved when SBPs began to trend down 4 troponins - all negative - even despite known h/o CAD cont to monitor (4) Breast cancer: Plan: right sided history of (5) Atrial fibrillation: Plan: this admission either paced or NSR on monitor cont metoprolol cont warfarin per home regimen INR daily while here INR is low today - give additional 1.25mg of coumadin on top of usual Thursday dose of 2.5mg (6) Hypertension: Plan: see #1 above (7) Hyperlipidemia: Plan: cont statin (8) CAD (coronary artery disease): Plan: prior h/o 3 stents in early (RCA disease) negative stress test [address] Bryce Ramires Cardiology no evidence of ACS despite #1 cont asa cont BB cont statin (9) COPD (chronic obstructive pulmonary disease): Plan: no exacerbation at this time (10) Stage 3b chronic kidney disease: Plan: baseline CrCl low 30s creatinine remains stable repeat BMP in am (11) Secondary hyperparathyroidism: Plan: calcium wnl no evidence that this issue is active nor contributing to elevated BPs last iPTH level was this summer and was wnl (12) Prediabetes: Plan: last HbA1c was 6% in January 2022 (13) Aneurysm of abdominal aorta: Plan: s/p stents in the past follows with [facility] Dr Mims (14) Barretts esophagus: Plan: cont PPI daily Plan daughter extensively updated by phone 08/03 home tomorrow if BPs at goal - ideally sitting SBP of about 150 or so to avoid excessive orthostasis Admission and Anticipated Discharge Date Admission Date: August 03, 2022 Subjective patient having a "good day" normal appetite ambulating no dizziness or lightheaded despite orthostatic BPs showing significant drop in BP with standing denies cp denies dyspnea asks when she can go home telemetry wnl overnight Review of Systems Review of Systems: gen - feels good, normal energy, good appetite cv - no orthopnea, no cp pulm - no cough, no dyspnea, no HOUSER GI - no N/V Physical Exam Physical Exam: gen - pleasant, NAD; looks good today neck - no JVD mouth - MMM heart - RRR, s1 s2, 1/6 HOWARD LSB lungs - CTA b/l abd - soft NT ND BS+ ext - no edema, pulses 2+ b/l psych - a/o x 3 Results & Data Results & Data ([facility]) Vital Signs (Past 12 Hours) Vital Signs Temp Pulse Pulse Resp BP Pulse Ox O2 Del Method 08/04/22 19:05 36.6 C 63 16 181/77 H 92 Room Air 08/04/22 18:10 60 08/04/22 15:34 36.5 C 69 93 Room Air 08/04/22 13:53 61 08/04/22 11:33 36.5 C 60 14 178/78 H 93 Room Air Laboratory Results Laboratory Results - last 24 hr 08/04/22 08/04/22 08/04/22 06:16 06:16 06:16 PT 13.9 H INR 1.3 H Sodium 138 Potassium 4.0 Chloride 103 Carbon Dioxide 30 Anion Gap 5 BUN 21 Creatinine 1.38 H Est Cr Clr Drug Dosing 27.9 Est GFR ( Amer) 40.3 Est GFR (Non-Af Amer) 34.8 BUN/Creatinine Ratio 15.2 Glucose 96 Calcium 9.2 Renin Activity Pending Aldosterone 08/04/22 06:16 PT INR Sodium Potassium Chloride Carbon Dioxide Anion Gap BUN Creatinine Est Cr Clr Drug Dosing Est GFR ( Amer) Est GFR (Non-Af Amer) BUN/Creatinine Ratio Glucose Calcium Renin Activity Aldosterone Pending PG Care Time/CCT Total # of Minutes Spent Total Time Spent with Patient: Total time spent is greater than 50% in coordination of care (as documented) at patient's floor/unit and/or counseling patient: Coding Level of Care Code 51021 Subseq Hosp Care Lvl 2 Diagnoses Hypertensive emergency without congestive heart failure I16.1 Renal artery stenosis I70.1 Chest discomfort R07.89 Breast cancer C50.919 Atrial fibrillation I48.91 Hypertension I10 Hyperlipidemia E78.5 CAD (coronary artery disease) I25.10 COPD (chronic obstructive pulmonary disease) J44.9 Stage 3b chronic kidney disease N18.32 Secondary hyperparathyroidism N25.81 Prediabetes R73.03 Aneurysm of abdominal aorta I71.4 Barretts esophagus K22.70
[2022-08-05 02:23] VITALS: O2SAT 97
[2022-08-05 07:04] LABS: INR 1.3 (0.9-1.1); Prothrombin Time 13.5 Seconds (9.0-12.0)
[2022-08-05 07:08] LABS: BUN Creatinine Ratio 17.6 (10-20); Calcium 9.2 mg/dl (8.5-10.1); Creatinine Clr Calc Pharmacy 26.6 ml/min; Est GFR (African American) 38.7 ml/min; Est GFR (Non-African American) 33.4 ml/min
[2022-08-05 07:26] VITALS: TEMP 97.7
[2022-08-05] MEDS: CHOLECALCIFEROL 1,000 UNITS 25 MCG TAB PO SCH (09:05)
[2022-08-05] MEDS: hydrALAZINE TAB 50 MG TAB PO SCH (09:05)
[2022-08-05] MEDS: LOSARTAN POTASSIUM 50 MG TAB PO SCH (09:06)
[2022-08-05] MEDS: ASPIRIN 81 MG ECTAB PO SCH (09:06)
[2022-08-05] MEDS: OMEGA-3 (PURIFIED FISH OIL) 1 GM CAP PO SCH (09:06)
[2022-08-05] MEDS: hydroCHLOROthiazide 25 MG TAB PO SCH (09:06)
[2022-08-05] MEDS: METOPROLOL SUCC 50MG EXT REL TAB PO SCH (09:07)
[2022-08-05] MEDS: CALCIUM CARBONATE 1250MG TAB PO SCH (09:07)
[2022-08-05 11:54] VITALS: BP 130/74; PULSE 66
--- NOTE | 2022-08-05 13:07 | Discharge Summary ---
Date of Service date of admission - August 02, 2022 date of discharge - August 05, 2022 Admission HPI Per Admitting Provider Ms Carlton is an 86-year-old female with a past medical history of papillary carcinoma of the right breast, A. fib on warfarin, hypertension, hyperlipidemia, CAD, COPD, prediabetes, CKD, and vitamin D deficiency who presented to the emergency department with chest discomfort. Chest discomfort began the day of admission and was resolved by time of ER evaluation. She reported dizziness and had an initial systolic blood pressure of 228. Additional SBP readings in the ER remained >200 consistently. Chest pain was initially in the left chest, then migrated to the right chest. Received nitro paste with improved systolic BP from 220s -> 200s. Took medications this morning including losartan, metoprolol, hctz. Endorses chronic lightheadedness and nausea. SBP was high this morning (~180) despite taking her BP meds this morning. Had a strange sensation across her L chest like 'tingling warm water in the upper chest' which spread over the R chest. Lasted a few minutes, may ~1 minute. Sensation was a 5/10 in intensity and 'strange' in quality but not squeezing/pressure in quality. Had some shortness of breath at the same time which went away after a minute. Endorses emphysema at baseline. No change in breathing in the last few days except for this am. Has chronic cough but no recent changes. No sputum production. She had no sweating with episode. At baseline walks without chest pain. Generally walks the whole [employer] store for exercise and has no chest pain or limiting shortness of breath. Patient reports that she has been under a lot of stress recently. A [id number]-vik recently and also has a dog who is ill. Principal Diagnosis 1. Hypertensive Emergency without CHF 2. Chest pain with negative cardiac work-up 3. Subtherapeutic INR 4. Anxiety with psychosocial stressors Discharge Exam gen - pleasant, NAD; looks very good today neck - no JVD mouth - MMM heart - RRR, s1 s2, 1/6 HOWARD LSB lungs - CTA b/l abd - soft NT ND BS+ ext - no edema, pulses 2+ b/l psych - a/o x 3 Discharge Data Allergies Allergy/AdvReac Type Severity Reaction Status Date / Time lidocaine [From Xylocaine] Allergy Severe passed out Verified 06/12/22 09:00 amlodipine Allergy Mild dizzy and Verified 06/12/22 09:00 sick stomach atorvastatin Allergy Mild LEG CRAMPS Verified 06/12/22 09:00 pravastatin Allergy Mild leg cramps Verified 06/12/22 09:00 simvastatin Allergy Mild leg cramps Verified 06/12/22 09:00 carvedilol Allergy Unknown Unknown Verified 06/12/22 09:00 Procedures Performed Echocardiogram - * EF 60-65% * moderate LVH * grade 1 diastolic dysfunction * aortic valve sclerosis without aortic stenosis * mild aortic regurgitation * mild tricuspid regurgitation * estimated pulmonary artery pressure 39mmHg In comparison to prior echo dated 03/07/2020 - pulmonary HTN now present Ordered Studies Chest X-Ray 08/02/22 16:56 SINGLE VIEW CHEST CLINICAL HISTORY: Hypertension. Chest discomfort. FINDINGS: An AP, portable, upright chest radiograph is compared to study dated 01/20/2022. A 2-lead cardiac pacemaker is unchanged in position and partially obscures the left upper chest. The heart is enlarged noting atherosclerotic calcification of the thoracic aorta. The pulmonary vasculature is noncongested. Emphysema and chronic interstitial thickening is similar to previous. Foci of parenchymal scarring are seen throughout both lungs. No airspace consolidation or large pleural effusion is identified. Apical fibrosis is noted. No pneumothorax is seen. The skeletal structures are osteopenic. The bony thorax is grossly intact. IMPRESSION: 1. Cardiomegaly and cardiac pacemaker without radiographic evidence of congestive failure. 2. Emphysema. 3. No airspace consolidation or large pleural effusion is identified. ACT 112: Negative or not required by law. Electronically signed by: Fantasma Alvarado M.D. 08/02/2022 5:58 PM Renal Artery Duplex 08/02/22 20:37 DOPPLER ULTRASOUND OF THE RENAL ARTERIES CLINICAL HISTORY: Hypertension. History of renal artery stent. COMPARISON STUDY: Abdominal CT scans dated 03/07/2020 and 01/11/2017 TECHNIQUE: Doppler sonography of the renal arteries was performed to assess renal artery stenosis. Images are reviewed in the transverse and longitudinal planes. FINDINGS: The kidneys demonstrate cortical atrophy. Echotexture is normal. The right kidney measures 8.5 cm in length, and the left kidney measures 10.2 cm in length. There is no hydronephrosis. On the right, intrarenal arterial resistive indices range from 0.65 to 0.69. Intrarenal arterial waveforms are normal with brisk upstrokes. The right renal arterial waveform is normal, and velocities within the right renal artery measure up to 58 cm/sec. The proximal right vertebral artery was not well-visua lized. The right renal vein is patent. On the left, intrarenal arterial resistive indices range from 0.55 to 0.64. Intrarenal arterial waveforms are normal with brisk upstrokes. The left renal arterial waveform is normal, and velocities within the left renal artery measure up to 174 cm/sec. The proximal left renal artery stent seen by CT is not visualized. The left renal vein is patent. The abdominal aorta is patent. Velocities within the abdominal aorta measure up to 84 cm/s. IMPRESSION: 1. The kidneys demonstrate cortical atrophy and are without hydronephrosis. 2. There is no sonographic evidence of renal artery stenosis on today's examination. ACT 112: Negative or not required by law. Electronically signed by: Fantasma Alvarado M.D. 08/02/2022 9:43 PM Hospital Course (1) Hypertensive emergency without congestive heart failure: (2) Chronic headaches: see below Plan (1) Hypertensive emergency without congestive heart failure: Peak SBP was 230-240 at time of presentation to the ER. Cardiopulmonary symptoms at admission included vague chest discomfort, dizziness, and mild dyspnea. All symptoms resolved with Rx of her BP. All troponins were negative (x4). HCTZ was initiated at time of admission in addition to her usual losartan & metoprolol succinate. By hospital day #2 all SBPs were down to 170s and 180s. She did have orthostasis intermittently on orthostatic BP checks. Despite orthostasis she surprisingly denied ANY dizziness or lightheadedness while here but she does have frequent dizziness outside the hospital. Later in the stay hydralazine was added to her medication regimen. She had robust response to the hydralazine. This was titrated to 50mg BID. On her final day of her stay her SBPs ranged 120 to 150 with the combination of metoprolol succinate/HCTZ/losartan/hydralazine. At discharge I suggested we hold off on continuing the HCTZ upon return home due to some of her SBP readings hitting the 120s and her propensity for dizziness & orthostasis. Thus, only the newly started hydralazine was continued upon discharge. I did give her a written prescription for the HCTZ but told her not to fill it at this time. If her SBPs are 150s or higher at home consistently then the HCTZ 12.5mg may be needed ultimately down the line. Probable culprits for HTN emergency and labile BPs - known PAD /atherosclerosis; probable salt load on Thanksgiving; anxiety / psychosocial stressors. To be complete renin/aldosterone levels were sent during the stay. These were pending at time of discharge home. Recent TSH was wnl. Renal artery dopplers were negative for CHRISTOPHER. I recommended that she check her BP twice daily at home. Sitting and standing readings would be most important so that we can determine if she is having orthostasis. (2) Renal artery stenosis: with prior left-sided stent. renal artery dopplers negative for CHRISTOPHER while here. (3) Chest discomfort: likely 2nd to hypertensive emergency. symptoms resolved when SBPs began to trend down. 4 troponins - all negative - even despite known h/o CAD. (4) Breast cancer: right sided history of (5) Atrial fibrillation: during this admission she was either paced or NSR on monitor. cont metoprolol succinate as previous. cont warfarin. Her INR was consistently subtherapeutic each day while here, and her INR before admission at her coumadin provider was also subtherapeutic. INR on day of discharge was 1.3. I recommended that she take coumadin 2.5mg daily until she sees her coumadin provider on 08/08/22. (6) Hypertension: see #1 above (7) Hyperlipidemia: cont statin (8) CAD (coronary artery disease): prior h/o 3 stents in early (RCA disease) negative stress test [address] [facility] in [place] no evidence of ACS despite #1 cont asa cont BB cont statin (9) COPD (chronic obstructive pulmonary disease): no exacerbation at this time (10) Stage 3b chronic kidney disease: baseline CrCl low 30s creatinine was stable the entire stay with discharge Creatinine of 1.4 (11) Secondary hyperparathyroidism: calcium wnl no evidence that this issue is active nor contributing to elevated BPs last iPTH level was this summer and was wnl (12) Prediabetes: last HbA1c was 6% in January 2022 (13) Aneurysm of abdominal aorta: s/p stents in the past follows with [facility] Dr Ankur Mims (14) Barretts esophagus: cont PPI daily (15) Chronic Headaches: present for many years frontal region of head; vertex of head usually has nausea with these headaches daughter with h/o migraines I advised her to speak with her PCP about prophylaxis if deemed necessary At discharge we set up home health nursing to follow the patient's blood pressures, ensure medication compliance, etc. Home Health Attestation I certify that this patient is under my care and that I, or a physicians fish hatchery assistant working with me, had a face to-face encounter that meets the home health omqa-of-bufq encounter requirements with this patient. The encounter with the patient was in whole, or in part, for the following medical condition, which is the primary reason for home health care (list medical condition): I certify that, based on my findings, the following services are medically necessary home health services: My clinical findings support the need for the above services because: Further, I certify that my clinical findings support that this patient is homebound (i.e. absences from home require considerable and taxing effort and are for medical reasons or latter-day services or infrequently or of short duration when for other reasons) because: Certification for Home Health Services: Based on the above findings, I certify that this patient is confined to the home and needs intermittent retirement care, physical therapy and/or speech therapy or continues to need occupational therapy. The patient is under my care, and I have initiated the establishment of the plan of care. This patient will be followed by a physician who will periodically review the plan of care. Total Time Total Time Spent Total Time Spent (In Minutes): 40 Discharge Plan Discharge Items Patient Disposition: Home - Home Health Services Reason For Visit: HYPERTENSION, CHEST PAIN Discharge Diagnosis: 1. Hypertensive emergency / severe hypertension - improved 2. Chest pain - due to #1 above - no evidence of heart attack 3. Atrial fibrillation - on coumadin - discharge INR 1.3 4. Chronic headaches Activity: As commented below Activity Comment: light activities for the next few days and until you see your family doctor Driving/Machine Use: Resume 1 day after discharge Non-emergency contact: Primary Care Provider Call non-emergency contact if: you have any medication questions, your symptoms worsen, your pain is unusual for you and your pain is concerning for you Follow-up/Referrals: Jacobo Squires, [Physician] - 08/08/22 1:00 pm Diet: Heart Healthy Addtl Attending Provider Instructions: Mrs Carlton, You were hospitalized for severely elevated blood pressures. You had chest pain along with other symptoms that were likely due to the un controlled blood pressure itself. We call this "hypertensive emergency." Your blood pressures gradually improved over the course of your stay with keeping you on your normal blood pressure medications from home as well as adding other medications. Your initial blood pressures were in the 220-230 range (systolics - the "top" number), improving to 130-150 at discharge. Your blood work for the heart was normal - this indicated no evidence of heart attack. An echocardiogram was performed during your stay. This showed strong heart function and was unchanged from your prior echocardiogram. Finally, your INR levels were low the entire stay. On 08/02/22 your INR was 1.8. On 08/04 and 08/05 your INR was 1.3. During the stay you received coumadin as follows - 1.25mg on 08/03 3.75mg on 08/04 Please show the above to your coumadin provider later this week. Recommendations - 1. High blood pressure - please add the following medication - * hydralazine 50mg twice daily, first dose TONIGHT at bedtime. * I have also prescribed hydrochlorothiazide 12.5mg; this is a paper script; please do not fill this just yet. If your blood pressures remain controlled at home and at your family doctor's office you may not need to take this in the future. Again do not fill this at this time. 2. Coumadin - * starting today, 08/05, please take 2.5mg of your coumadin daily and remain on this dose until you see your coumadin provider later this week 3. Check your blood pressures twice daily. I would recommend that you use the cuff that goes on the top portion of your arm. Please check the blood pressures sitting, and on occasion check it while standing. Write all these numbers down and show them to your family doctor. 4. Headaches - please speak to your family doctor about your chronic headaches. 5. Please watch your salt intake. Limit total salt intake to 2000mg over a 24 hour period. Follow-up - see separate section Return to [facility] if - * you experience chest pains * you have to use nitroglycerin tablets * you are short of breath * your blood pressures are consistently over 200 (systolic number, the "top" number) * you have severe headaches * you have severe dizziness or lightheadedness * any other concerns It was my pleasure to care for you! Enjoy the holiday season, Dr Pierson Pending Studies at Discharge: Yes Studies:: renin/aldosterone levels (hormones that, if abnormal, can contribute to high blood pressure) Stand-Alone Forms: [facility] Sm[facility] Cess[facility] Medications and DC Order Prescriptions: New hydralazine 50 mg Tablet 50 mg PO BID Qty: 60 2RF Rx Instructions: for high blood pressure hydrochlorothiazide 12.5 mg tablet 12.5 mg PO QAM Qty: 30 1RF Rx Instructions: for high blood pressure Continued pantoprazole [Protonix] 40 mg tablet,delayed release (DR/EC) 40 mg PO HS Qty: 90 3RF (DME) Oxygen Home Liters Per Minute See Rx Instructions .ROUTE .MEDSUPPLY Qty: 1 Rx Instructions: As directed 3 liter @ night losartan [Cozaar] 100 mg tablet 100 mg PO QAM Qty: 90 3RF rosuvastatin 5 mg tablet 5 mg PO HS Qty: 90 3RF coQ10 (ubiquinol) 200 mg Capsule 200 mg PO QAM cetirizine [Zyrtec] 10 mg tablet 10 mg PO DAILY PRN (Reason: rhinitis) aspirin 81 mg tablet,delayed release (DR/EC) 81 mg PO QAM nitroglycerin [Nitrostat] 0.4 mg tablet, sublingual 0.4 mg SL Q5M PRN (Reason: Chest Pain) Rx Instructions: place 1 tab under tongue every 5 minutes as needed for chest pain. every 5 min x 3 if not relieved call 911 Centrum Silver 0.4-300-250 mg-mcg-mcg tablet 1 tab PO HS calcium carbonate [Calcium 600] 600 mg calcium (1,500 mg) tablet 600 mg PO QAM Combivent Respimat 20-100 mcg/actuation mist 1 puff INH QID PRN (Reason: Shortness Of Breath) Rx Instructions: One puff inhalation four times daily PRN; space evenly during waking hours metoprolol succinate 100 mg tablet extended release 24 hr 50 mg PO AMPM cholecalciferol (vitamin D3) [Vitamin D3] 25 mcg (1,000 unit) Tablet,Chewable 25 mcg PO DAILY [place]-3 Fish Oil 300-1,000 mg Capsule 1 cap PO DAILY acetaminophen 650 mg Tablet Extended Release 650 mg PO Q8H PRN (Reason: Pain) Changed warfarin 2.5 mg Tablet 2.5 mg PO DAILY Qty: 30 0RF Discontinued warfarin 2.5 mg Tablet 1.25 mg PO 2XWK Rx Instructions: take 1/2 tablet in the evening of sundays and Discharge Orders: Discharge Order (Routine); Ordered 08/05/22 Ordered By: Rajiv Pierson Admission Data Admit Date/Time: 08/03/22 16:26 Attending Provider: Rajiv Pierson Admit Provider: Carlos Salazar Primary Care Provider: Maximus Gonzalez Other Providers: Carlos Salazar ; Samuel Fields Other Interventions: Discharge Summary Assessment (RN) Last Done: 08/05/22 11:53 Coding Level of Care Code D/C DAY MANAGEMENT >30 MINS Diagnoses Hypertensive emergency without congestive heart failure I16.1 Chronic headaches R51.9; G89.29
== END 2022-08-05 13:15 | disposition home health service (06) | DRG 305 ==
LOC: 2S 16:38 → ED 16:38 → SUATTDRO 19:05 → 2S 20:09

== ENCOUNTER 2022-08-12 17:51 | Observation (INO) ==
--- NOTE | 2022-08-12 18:02 | ED Triage Note ---
Date of Service August 12, 2022 History of Present Illness This patient was briefly evaluated while in triage. An abbreviated physical exam was performed. This patient is a 87-year-old Female with past medical history of HTN who presents to the ED for evaluation of high blood pressure. Pt. was she was adm itted here 2 weeks ago for HTN and was discharged last Thursday. She was doing okay until today when SBP was over 200 all day. Pt. reports burning feeling in the chest tonight that comes and goes. Physical Exam VITALS: Vitals are noted on the nurse's note and reviewed by myself. GENERAL: This is an 87 year old female, in no acute distress, nondiaphoretic, well-developed well-nourished. SKIN: No obvious rashes, edema, erythema HEAD: Normocephalic atraumatic. EYES: Conjunctivae without injection, sclerae without icterus. NECK: No JVD. LUNGS: No retractions or accessory muscle use. MUSCULOSKELETAL: Normal gait. NEURO: Patient was alert and oriented to person place and time. No focal neurological deficits. Initial orders for labs and / or imaging were placed and patient was placed in the waiting area until a bed is available. Please see further documentation for the full ED course.
[2022-08-12 18:05] VITALS: TEMP 98.4
--- NOTE | 2022-08-12 18:58 | XRay Report ---
XR chest 1V portable HISTORY: Hypertension COMPARISON: Chest 08/02/2022. FINDINGS: No pneumothorax. No pleural effusions. The heart is top normal in size. There is a left-williams ed dual-chamber pacemaker again noted. Emphysema with mild vascular crowding at the lung bases. This remains unchanged. No new focal lung consolidations to suggest a pneumonia. No evidence for pulmonary edema. There is a punctate calcified granuloma within the left lung apex. Stable linear scarlike den sities within the right lung apex. IMPRESSION: No significant change compared to the prior study. No acute process. Emphysema again noted. ACT 112: Negative or not required by law. Electronically signed by: Jerry Campos M.D. 08/12/2022 6:57 PM
[2022-08-12 19:22] LABS: Basophils # (auto) 0.05 K/uL (0-0.2); Eosinophils # (auto) 0.27 K/uL (0-0.50); Eosinophils % (auto) 5.2 %; Hematocrit (blood only) 38.6 % (34.1-44.9); Hemoglobin 12.9 g/dl (12.0-16.0); Immature Granulocytes # (auto) 0.02 K/uL (0.00-0.02); Immature Granulocytes % (auto) 0.4 %; Lymphocytes # (auto) 0.71 K/uL (1.2-3.4); Lymphocytes % (auto) 13.8 %; Mean Corpuscular Hemoglobin 30.7 pg (25.0-34.0); Mean Corpuscular Hgb Conc 33.4 g/dL (32.0-36.0); Mean Corpuscular Volume 91.9 fL (80.0-100.0); Mean Platelet Volume 9.7 fL (9.4-12.3); Monocytes # (auto) 0.63 K/uL (0.24-0.82); Monocytes % (auto) 12.2 %; Neutrophils # (auto) 3.47 K/uL (1.4-6.5); Neutrophils % (auto) 67.4 %; Platelet Count 294 K/uL (130-400); RDW Coefficient of Variation 12.7 % (11.5-14.5); RDW Standard Deviation 42.5 fL (36.4-46.3); White Blood Count 5.15 K/ul (4.8-10.8)
[2022-08-12 20:00] LABS: Troponin I High Sensitivity 8.4 pg/ml (0-14)
[2022-08-12 20:02] LABS: Albumin Globulin Ratio 1.2 (0.9-2); Albumin Level 3.9 gm/dl (3.4-5.0); BUN Creatinine Ratio 15.4 (10-20); Bilirubin,Total 0.5 mg/dl (0.2-1.0); Calcium 8.9 mg/dl (8.5-10.1); Creatinine Clr Calc Pharmacy 31.3 ml/min; Est GFR (Non-African American) 39.7 ml/min; Globulin 3.2 gm/dl (2.5-4.0); Potassium 4.4 mmol/L (3.5-5.1); Total Protein 7.1 gm/dl (6.0-8.3)
--- NOTE | 2022-08-12 20:20 | Emergency Department Note ---
Impression & Plan Hypertensive urgency ED Provider Note NAME: ANAHY TUCKER AGE: 87 SEX: F : 1935 ARRIVES VIA: Walk-In INFORMANT: [Patient][, ] ED PROVIDER(S): [Jose Marie MD] Chief Complaint: HTN HPI: Patient presents due to concern for hypertension. The patient states that she was concerned as her blood pressure has been elevated today greater than 200 systolic. Patient denies any increase in salt. She does have some mild stress due to the higher blood pressure. Patient did have too much sensitivity to the hydralazine which was stopped and the patient only recently started the hydrochlorothiazide. Patient does have occasional chest tightness. Patient denies any shortness of breath. No nausea or vomiting. She does have occasional dizziness. No numbness tingling or focal weakness. Patient denies a ny additional exacerbating or remitting factors. Did review the patient's pmost recent admission. Patient presented due to concern for hypertension. The patient was discharged at the end of July due to concern for hypertension the patient's had been taking losartan and metoprolol but also was started on HCTZ patient was also started on hydralazine. Patient did have renal artery Dopplers completed which were negative for renal artery stenosis at that time. Patient does have a prior left-sided stent. Patient had been seen by her primary care doctor Dr. Gonzalez for review the patient's outpatient primary care follow-up patient stopped her hydralazine at home. ROS: See HPI for pertinent positives and negatives. A total of 10 systems were reviewed and otherwise negative. Past medical history: See below Surgical history: See below Social history: See below Physical Exam: GENERAL: NAD, [wearing a mask,] non-toxic. EYE EXAM: Normal conjunctiva. PERRL, no anisocoria and EOM's grossly intact w/o pain. NECK: Supple, no nuchal rigidity, no adenopathy, non-tender. No signs of menin gismus. FROM of the neck with good chin to chest and neck extension. No stridor. LUNGS: Clear to auscultation. Normal chest wall mechanics. HEART: Regular, no MRG. ABDOMEN: Abdomen soft, non-tender, normo-active bowel sounds, no masses, no rebound or guarding. BACK: No CVA TTP. SKIN: No rashes and no bruising. UPPER EXTREMITIES: Upper extremities are grossly normal. LOWER EXTREMITIES: Grossly normal, no edema. NEURO EXAM: A&O x3, cranial nerves II-XII grossly intact, normal speech, moves all 4 extremities. Differential diagnoses: Benign hypertension, hypertensive emergency, cardiovascular pathology, toxicologic, pheochromocytoma, electrolyte abnormality, renal disease, endorgan damage, as well as other pathologies. Course: Patient was seen and evaluated the bedside. Full history physical exam was performed. EKG interpreted by me A paced rhythm, rate of 67, prolonged ND, normal QRS, normal axis, no ST elevations. Imaging Studies: See Below Cardiac monitoring: An order was placed for continuous cardiac monitoring. The monitor shows a rate of 74 with regular rhythm. MDM: Patient did present due to concern for hypertension. The patient did have blood work completed. The patient has a normal white count H&H and platelet count. The patient's kidney function with a creatinine 1.2 is at virtual baseline. Troponin is not elevated. Chest x-ray is clear. Patient has emphysematous changes but this is unchanged. Given the patient's difficulty with multiple medications and sensitivities due to hypertension with persistent elevated blood pressure I did speak the on-call hospitalist Dr. Gauthier and the patient was admitted to the medicine service. Past Med/Surg History Medical History Allergic rhinitis Aneurysm of abdominal aorta Has [address] for this. follows with Dr Mims Atherosclerosis of aorta Atrial fibrillation Dx 2015 > on warfarin, follows with Dr. Wu > no cardioversions Barretts esophagus pt unaware Breast cancer dx December 12, 2020 -- surgery with radiation treatments CAD (coronary artery disease) 3 overlapping drug-eluting stents to the proximal and mid right coronary artery at [facility] in 2009. Repeat cath in 2011 showed patent right coronary artery with nonocclusive disease elsewhere. Carotid artery plaque COPD (chronic obstructive pulmonary disease) well controlled Diverticulitis Emphysema of lung GERD (gastroesophageal reflux disease) History of anesthesia reaction passed out at age 29 when received xylocaine at dentist's office had a few years ago with EGD when numbed throat and no problems History of cervical cancer 1970--surgical intervention History of colon polyps History of COVID-19 10/10/[address] [facility]--only symptom SOB > all recovered Hyperlipidemia Hyperparathyroidism no meds Hypertension Myocardial Infarction per pt had a heart attack during heart cath @ [facility] 2008 Non-healing skin lesion Nontoxic multinodular goiter On anticoagulant therapy warfarin daily On home oxygen therapy 3L N/C at hs Osteoarthritis Osteoporosis Prediabetes Renal artery stenosis Left kidney stented Secondary hyperparathyroidism Stage 3b chronic kidney disease Stage III chronic kidney disease follows Dr. Hall Tachy-roberth syndrome S/P dual-chamber permanent pacemaker. Most recent device interrogation 11/08/2020 showed atrial paced 99% of the time RV paced 0%. Generator longevity stable at 7 years, no recent episodes of A. fib. Tubular adenoma of colon Surgical History H/O mastectomy (01/17/21) Right breast total mastectomy with right axillary sentinel lymph node biopsy (right) Dr. Noah Diaz History of cardiac cath multiple--[id number] 3 stents total - last one was [place] 2013 History of cataract surgery bilt History of colonoscopy History of dilatation and curettage History of esophagogastroduodenoscopy (EGD) History of heart artery stent total of 3 stents--last before 2013 History of open reduction and internal fixation (ORIF) procedure left hip---hardware in place History of partial thyroidectomy enlarged nodule History of repair of dissection of abdominal aorta 2008? @ [facility] has two stents in place by dr mims History of stent insertion of renal artery left History of temporal artery biopsy (10/02/20) Right Temporal Artery Biopsy Dr. Diaz 10/02/2020 > negative History of tooth extraction all teeth History of total abdominal hysterectomy and bilateral salpingo-oophorectomy Pacemaker 2016 medtronic @ [facility] > last interrogation 199% atrial paced Family History Father , 93yo Coronary heart disease CHF (congestive heart failure) Mother , 81yo Coronary heart disease Hypertension Myocardial infarction Brother Alcoholism Lung cancer Sister Atrial fibrillation COPD (chronic obstructive pulmonary disease) Brother No problems noted. Brother Lung cancer Sister Lung cancer Colorectal cancer Sister No problems noted. Sister No problems noted. Sister No problems noted. Sister No problems noted. Son No problems noted. Son No problems noted. Son No problems noted. Daughter No problems noted. Daughter No problems noted. Daughter COPD (chronic obstructive pulmonary disease) Other No family history of adverse response to anesthesia Denies family history of Ovarian cancer Prostate cancer Breast cancer Social History Smoking Status: Former smoker Tobacco Type: Cigarettes Age Started Using Tobacco: 16; Age Quit Using Tobacco: 36; packs per day: 2; Cigarettes Per Day: 40; Second Hand Exposure: No; Hx Alcohol Use: No Hx Substance Use: No Preferred Language: Honduran Communication Ability: Effective Visual Impairment: No Limitations Hearing Ability: Normal Activities Coordinator Required: No Beliefs That Will Affect Care: None marital status: Current Living Situation: Alone current occupational status: retired current occupation: Retired-[employer] last job How many Children do You have: 6 Feels Safe at Home: Yes Childhood Exposure to Second-Hand Smoke: No caffeine: Yes (3-4 cups/day) during the past year weight has: remained stable Dental Care, Regularly: No Physical Activity Frequency: Does not Exercise Seatbelt Use: always Sunscreen Use: Yes Assistive Devices: Cane, Denture - Upper, Glasses and Walker Allergies Allergies Allergy/AdvReac Type Severity Reaction Status Date / Time lidocaine [From Xylocaine] Allergy Severe passed out Verified 08/11/22 10:44 amlodipine Allergy Mild dizzy and Verified 08/11/22 10:44 sick stomach atorvastatin Allergy Mild LEG CRAMPS Verified 08/11/22 10:44 pravastatin Allergy Mild leg cramps Verified 08/11/22 10:44 simvastatin Allergy Mild leg cramps Verified 08/11/22 10:44 carvedilol Allergy Unknown Unknown Verified 08/11/22 10:44 Home Meds Home Medications Medication Instructions Recorded Confirmed aspirin 81 mg tablet,delayed 81 mg PO QAM 06/14/19 08/12/22 release cetirizine 10 mg tablet (Zyrtec) 10 mg PO DAILY PRN rhinitis 06/14/19 08/12/22 coQ10 (ubiquinol) 200 mg capsule 200 mg PO QAM 06/14/19 08/12/22 [id number] acid 0.4 1 tab PO HS 06/14/19 08/12/22 mg-lycopene 300 mcg-lutein 250 mcg tablet (Centrum Silver) nitroglycerin 0.4 mg sublingual 0.4 mg sublingual Q5M PRN Chest 06/14/19 08/12/22 tablet (Nitrostat) Pain ipratropium 20 mcg-albuterol 100 1 puff inhalation QID PRN 07/10/20 08/12/22 mcg/actuation mist for inhalation Shortness Of Breath (Combivent Respimat) Oxygen Home #1 ea 01/23/21 08/12/22 calcium carbonate 600 mg calcium 600 mg PO QAM 01/23/21 08/12/22 (1,500 mg) tablet (Calcium) acetaminophen 650 mg 650 mg PO Q8H PRN Pain 08/02/22 08/12/22 tablet,extended release cholecalciferol (vitamin D3) 25 25 mcg PO DAILY 08/02/22 08/12/22 mcg (1,000 unit) chewable tablet (Vitamin D3) omega-3s 300 [id number] 1 cap PO DAILY 08/02/22 08/12/22 [id number] oil 1,000 mg capsule ([place]-3 Fish Oil) metoprolol succinate 100 mg 100 mg PO DAILY 08/11/22 08/12/22 tablet,extended release 24 hr Previous Rx's Medication Instructions Recorded losartan 100 mg tablet (Cozaar) 100 mg PO QAM #90 tabs 01/13/22 rosuvastatin 5 mg tablet 5 mg PO HS #90 tabs 01/13/22 pantoprazole 40 mg tablet,delayed 40 mg PO HS #90 tabs 01/28/22 release (Protonix) warfarin 2.5 mg tablet 2.5 mg PO DAILY #30 tabs 08/05/22 hydrochlorothiazide 12.5 mg tablet 12.5 mg PO DAILY #90 tabs 08/11/22 hydralazine 25 mg tablet 25 mg PO TID #90 tabs 08/13/22 Results & Data (ED) Vital Signs Vital Signs - 24 hr 08/12/22 18:01 08/12/22 20:14 08/12/22 20:14 Temperature 36.9 C Temperature Source Temporal Artery Scan Pulse Rate 62 Pulse Rate [Apical] 62 Pulse Rhythm Regular Pulse Strength Normal Respiratory Rate 16 20 Respiratory Effort / Characteristics Non-Labored Spontaneous Non-Labored Respiratory Depth Normal Normal Respiratory Pattern Regular Blood Pressure 184/79 H Blood Pressure [Right Arm] 215/89 H Blood Pressure Mean 114 Blood Pressure Mean [Right Arm] 131 Blood Pressure Position Sitting Pulse Oximetry 95 96 96 Oxygen Delivery Method Room Air Room Air Room Air Sepsis Recent Fever Within 48 Hours No Sepsis New/Unexplained Change in Mental Status No Sepsis Action Taken by Nursing No Action Required 08/12/22 20:54 Temperature Temperature Source Pulse Rate Pulse Rate [Apical] 66 Pulse Rhythm Pulse Strength Respiratory Rate Respiratory Effort / Characteristics Respiratory Depth Respiratory Pattern Blood Pressure Blood Pressure [Right Arm] 200/88 H Blood Pressure Mean Blood Pressure Mean [Right Arm] 125 Blood Pressure Position Pulse Oximetry 97 Oxygen Delivery Method Room Air Sepsis Recent Fever Within 48 Hours Sepsis New/Unexplained Change in Mental Status Sepsis Action Taken by Prison Medications Current Medication List: was personally reviewed by me Laboratory Data Attestation: I reviewed the patient's lab results. Result diagrams: 08/13/22 04:34 08/13/22 04:34 Lab Results 08/12/22 08/12/22 08/12/22 Range/Units 18:54 18:54 18:54 WBC 5.15 (4.8-10.8) K/ul RBC 4.20 (3.93-5.22) M/uL Hgb 12.9 (12.0-16.0) g/dl Hct 38.6 (34.1-44.9) % MCV 91.9 (80.0-100.0) fL MCH 30.7 (25.0-34.0) pg MCHC 33.4 (32.0-36.0) g/dL RDW Std Deviation 42.5 (36.4-46.3) fL RDW Coeff of Virgilio 12.7 (11.5-14.5) % Plt Count 294 (130-400) K/uL MPV 9.7 (9.4-12.3) fL Immature Gran % (Auto) 0.4 % Neut % (Auto) 67.4 % Lymph % (Auto) 13.8 % Upson % (Auto) 12.2 % Eos % (Auto) 5.2 % Baso % (Auto) 1.0 % Neut # (Auto) 3.47 (1.4-6.5) K/uL Lymph # (Auto) 0.71 L (1.2-3.4) K/uL Upson # (Auto) 0.63 (0.24-0.82) K/uL Eos # (Auto) 0.27 (0-0.50) K/uL Baso # (Auto) 0.05 (0-0.2) K/uL Immature Gran # (Auto) 0.02 (0.00-0.02) K/uL PT 13.0 H (9.0-12.0) Seconds INR 1.2 H (0.9-1.1) Sodium 135 L (136-145) mmol/L Potassium 4.4 (3.5-5.1) mmol/L Chloride 101 (98-107) mmol/L Carbon Dioxide 26 (21-32) mmol/L Anion Gap 8 (3-11) BUN 19 (6-23) mg/dl Creatinine 1.23 H (0.6-1.2) mg/dl Est Cr Clr Drug Dosing 31.3 ml/min Est GFR ( Amer) 46.0 ml/min Est GFR (Non-Af Amer) 39.7 ml/min BUN/Creatinine Ratio 15.4 (10-20) Glucose 112 H (70-99(Fasting)) mg/dl Calcium 8.9 (8.5-10.1) mg/dl Total Bilirubin 0.5 (0.2-1.0) mg/dl AST 20 (13-39) U/L ALT 13 (7-52) U/L Alkaline Phosphatase 69 (34-104) U/L Troponin I High Sens 8.4 (0-14) pg/ml Total Protein 7.1 (6.0-8.3) gm/dl Albumin 3.9 (3.4-5.0) gm/dl Globulin 3.2 (2.5-4.0) gm/dl Albumin/Globulin Ratio 1.2 (0.9-2) SARS-CoV-2, RNA, NAAT (NEGATIVE) 08/12/22 Range/Units 21:19 WBC (4.8-10.8) K/ul RBC (3.93-5.22) M/uL Hgb (12.0-16.0) g/dl Hct (34.1-44.9) % MCV (80.0-100.0) fL MCH (25.0-34.0) pg MCHC (32.0-36.0) g/dL RDW Std Deviation (36.4-46.3) fL RDW Coeff of Virgilio (11.5-14.5) % Plt Count (130-400) K/uL MPV (9.4-12.3) fL Immature Gran % (Auto) % Neut % (Auto) % Lymph % (Auto) % Upson % (Auto) % Eos % (Auto) % Baso % (Auto) % Neut # (Auto) (1.4-6.5) K/uL Lymph # (Auto) (1.2-3.4) K/uL Upson # (Auto) (0.24-0.82) K/uL Eos # (Auto) (0-0.50) K/uL Baso # (Auto) (0-0.2) K/uL Immature Gran # (Auto) (0.00-0.02) K/uL PT (9.0-12.0) Seconds INR (0.9-1.1) Sodium (136-145) mmol/L Potassium (3.5-5.1) mmol/L Chloride (98-107) mmol/L Carbon Dioxide (21-32) mmol/L Anion Gap (3-11) BUN (6-23) mg/dl Creatinine (0.6-1.2) mg/dl Est Cr Clr Drug Dosing ml/min Est GFR ( Amer) ml/min Est GFR (Non-Af Amer) ml/min BUN/Creatinine Ratio (10-20) Glucose (70-99(Fasting)) mg/dl Calcium (8.5-10.1) mg/dl Total Bilirubin (0.2-1.0) mg/dl AST (13-39) U/L ALT (7-52) U/L Alkaline Phosphatase (34-104) U/L Troponin I High Sens (0-14) pg/ml Total Protein (6.0-8.3) gm/dl Albumin (3.4-5.0) gm/dl Globulin (2.5-4.0) gm/dl Albumin/Globulin Ratio (0.9-2) SARS-CoV-2, RNA, NAAT NEGATIVE (NEGATIVE) Administered Medications Discontinued Medications Aspirin (Aspirin 81 Mg Ectab) [facility] [place] Stop: 09/12/22 08:59 Last Admin: 08/13/22 08:19 Dose: 81 mg Documented By: FABIANO Calcium Carbonate (Calcium Carbonate 1250mg Tab) 1,250 mg PO QAM [facility] Stop: 09/12/22 08:59 Last Admin: 08/13/22 08:19 Dose: 1,250 mg Documented By: FABIANO Enoxaparin Sodium (Enoxaparin Inj 30 Mg/0.3 Ml Syr) 30 mg SQ Q24H [facility] Stop: 09/12/22 00:38 Last Admin: 08/13/22 02:55 Dose: Not Given Documented By: DENY Fish Oil ([place]-3 (Purified Fish Oil) 1 Gm Cap) 1 gm PO DAILY [facility] Stop: 09/12/22 08:59 Last Admin: 08/13/22 08:20 Dose: 1 gm Documented By: FABIANO Hydralazine HCl (Hydralazine Hcl 25 Mg Tab) 25 mg PO TID [facility] Stop: 09/12/22 08:59 Last Admin: 08/13/22 08:20 Dose: 25 mg Documented By: FABIANO Hydrochlorothiazide (Hydrochlorothiazide 25 Mg Tab) 12.5 mg PO DAILY [facility] Stop: 09/12/22 08:59 Last Admin: 08/13/22 08:20 Dose: 12.5 mg Documented By: FABIANO Losartan Potassium (Losartan Potassium 50 Mg Tab) 100 mg PO QAM [facility] Stop: 09/12/22 08:59 Last Admin: 08/13/22 08:20 Dose: 100 mg Documented By: FABIANO Metoprolol Succinate (Metoprolol Succ 50mg Ext Rel Tab) 100 mg PO DAILY [facility] Stop: 09/12/22 08:59 Last Admin: 08/13/22 08:20 Dose: 100 mg Documented By: FABIANO Vitamin D (Cholecalciferol 1,000 Units 25 Mcg Tab) 1,000 units PO DAILY [facility] Stop: 09/12/22 08:59 Last Admin: 08/13/22 08:19 Dose: 1,000 units Documented By: FABIANO Imaging Data Radiologist's Impression: Chest X-Ray 08/12/22 18:03 XR chest 1V portable HISTORY: Hypertension COMPARISON: Chest 08/02/2022. FINDINGS: No pneumothorax. No pleural effusions. The heart is top normal in size. There is a left-sided dual-chamber pacemaker again noted. Emphysema with mild vascular crowding at the lung bases. This remains unchanged. No new focal lung consolidations to suggest a pneumonia. No evidence for pulmonary edema. There is a punctate calcified granuloma within the left lung apex. Stable linear scarlike densities within the right lung apex. IMPRESSION: No significant change compared to the prior study. No acute process. Emphysema again noted. ACT 112: Negative or not required by law. Electronically signed by: Jerry Campos M.D. 08/12/2022 6:57 PM Discharge Plan Visit Data Chief Complaint: Hypertension Stated Complaint: HIGH BLOOD PRESSURE OVER 200 ED Provider: Jose Marie Discharge Problem: Hypertensive urgency Patient Disposition: Admitted As Inpatient Discharge Instructions Interventions: ED Discharge Assessment Last Done: 08/13/22 00:40
--- NOTE | 2022-08-12 20:50 | History & Physical Report ---
Date of Service August 12, 2022 By CMS guidelines, a determination that the admission or continued stay is not medically necessary has been made by a member of the UR committee and a physician for this hospital stay, therefore a Code 44 will be completed and the Inpatient admission will be changed to outpatient. Assessment & Plan (1) Severe hypertension: Plan: - Persistent SBP > 200 at home all day with recent admission last week for hypertensive emergency. - Discharged on losartan, metoprolol, and hydralazine on 08/05--self d/c'd hydralazine due to feeling dizzy last week, restarted HCTZ 12.5 mg on Thursday. - Is with a burning sensation in chest which to her feels very much like her heartburn--troponin wnl and EKG without territorial ST segment or T wave changes, does have a history of CAD. - We will continue her metoprolol and losartan, and HCTZ, and re-initiate hydralazine, except opt for 25 mg TID rather than 50 mg BID--did discuss this medication with the patient regarding the side effects she had, which were dizziness and nausea--although she already had these symptoms going on before initiating this medicine. It is also possible that she was having rebound hypertension and the medication side effects were actually signs of her increasing BP. - Also consulting nephrology given her known renal artery stenosis and elevated BP despite being on several different medications. - W/u from last admission included renal artery U/S: negative for CHRISTOPHER, did have a left stent 4 years ago. - Renin and aldosterone checked, 0.28 and 4, respectively. - Could consider splitting her metoprolol to 50 mg BID. - Additionally-did well with low salt diet on last admission, also suspect degree of anxiety/home stressors contributing with her dog's illness being considered contributory on previous admission. (2) Renal artery stenosis: Plan: - As above. (3) CAD (coronary artery disease): Plan: - Prior h/o 3 stents in early (RCA disease) - Negative stress test 2019. - Follows with Dr Bryce [facility] - Continue aspirin 81, statin, BP meds as above. (4) Atrial fibrillation: Plan: - NSR today, continue warfarin and metoprolol. - PT/INR daily. (5) Aneurysm of abdominal aorta: Plan: - s/p stents in the past - Follows with [facility] Dr Mims (6) Breast cancer: Plan: - history of, s/ (7) COPD (chronic obstructive pulmonary disease): Plan: - Continue home inhalers. (8) Barretts esophagus: Plan: - Continue PPI daily. (9) Prediabetes: Plan: - Last HbA1c was 6% in January 2022. (10) Stage 3b chronic kidney disease: Plan: - Cr 1.23, baseline < 1.20 - May have to accept some degree of hit to renal function if she remains on HCTZ for hypertension. (11) Secondary hyperparathyroidism: Plan: - Calcium wnl, iPTH this summer wnl. Plan - Admit to PCU. - SCDS, warfarin to be continued for VTE ppx. - DNR/DNI. History of Present Illness Chief Complaint: high BP at home today Primary Care Provider: Maximus Gonzalez MD Marce Carlton is an 87 y/o female with past medical history of hypertension, renal artery stenosis, breast cancer, A. fib, hyperlipidemia, CAD, COPD, CKD3, secondary hyperparathyroidism, prediabetes, abdominal aortic aneurysm, and Lorenzana's esophagus who is presenting today with elevated blood pressures. She was recently admitted to our facility on 08/02-08/05 for hypertensive emergency. She was treated with her home regimen of metoprolol and losartan, as well as HCTZ which was added on day of admission and hydralazine which she responded well to. She was discharged with hydralazine 50 mg BID added to her hypertensive regimen but not the HCTZ as her BP on discharge had been around 120. She has since been seen by her PCP for continued hypertension to SBP in 180s, however has not been taking the hydralazine as prescribed because she felt dizzy with it. On presentation her BP is 215/89, otherwise vital signs within normal limits. Labs significant for mildly elevated creatinine of 1.23, baseline seems to be 1.2. Without an elavedt trop, is 8.4, no leukocytosis, anemia, or electrolyte abnormality. renal mag 3 scan, nephro consult, hydralazine 25 tid Allergies Allergy/AdvReac Type Severity Reaction Status Date / Time lidocaine [From Xylocaine] Allergy Severe passed out Verified 08/11/22 10:44 amlodipine Allergy Mild dizzy and Verified 08/11/22 10:44 sick stomach atorvastatin Allergy Mild LEG CRAMPS Verified 08/11/22 10:44 pravastatin Allergy Mild leg cramps Verified 08/11/22 10:44 simvastatin Allergy Mild leg cramps Verified 08/11/22 10:44 carvedilol Allergy Unknown Unknown Verified 08/11/22 10:44 Home Medications Medication Instructions Recorded Confirmed Type aspirin 81 mg tablet,delayed 81 mg PO QAM 06/14/19 08/12/22 History release cetirizine 10 mg tablet (Zyrtec) 10 mg PO DAILY PRN rhinitis 06/14/19 08/12/22 History coQ10 (ubiquinol) 200 mg capsule 200 mg PO QAM 06/14/19 08/12/22 History gaeuvkbf-tfr-fumxa acid 0.4 1 tab PO HS 06/14/19 08/12/22 History mg-lycopene 300 mcg-lutein 250 mcg tablet (Centrum Silver) nitroglycerin 0.4 mg sublingual 0.4 mg sublingual Q5M PRN Chest 06/14/19 08/12/22 History tablet (Nitrostat) Pain ipratropium 20 mcg-albuterol 100 1 puff inhalation QID PRN 07/10/20 08/12/22 History mcg/actuation mist for inhalation Shortness Of Breath (Combivent Respimat) Oxygen Home #1 ea 01/23/21 08/12/22 History calcium carbonate 600 mg calcium 600 mg PO QAM 01/23/21 08/12/22 History (1,500 mg) tablet (Calcium) losartan 100 mg tablet (Cozaar) 100 mg PO QAM #90 tabs 01/13/22 08/12/22 Rx rosuvastatin 5 mg tablet 5 mg PO HS #90 tabs 01/13/22 08/12/22 Rx pantoprazole 40 mg tablet,delayed 40 mg PO HS #90 tabs 01/28/22 08/12/22 Rx release (Protonix) acetaminophen 650 mg 650 mg PO Q8H PRN Pain 08/02/22 08/12/22 History tablet,extended release cholecalciferol (vitamin D3) 25 25 mcg PO DAILY 08/02/22 08/12/22 History mcg (1,000 unit) chewable tablet (Vitamin D3) omega-3s 300 fy-bsl-ezk-other 1 cap PO DAILY 08/02/22 08/12/22 History uyllw2s-zmgt oil 1,000 mg capsule ([place]-3 Fish Oil) warfarin 2.5 mg tablet 2.5 mg PO DAILY #30 tabs 08/05/22 08/12/22 Rx hydrochlorothiazide 12.5 mg tablet 12.5 mg PO DAILY #90 tabs 08/11/22 08/12/22 Rx metoprolol succinate 100 mg 100 mg PO DAILY 08/11/22 08/12/22 History tablet,extended release 24 hr hydralazine 25 mg tablet 25 mg PO TID #90 tabs 08/13/22 Rx Past Med/Surg History Medical History Allergic rhinitis Aneurysm of abdominal aorta Has [address] for this. follows with Dr Mims Atherosclerosis of aorta Atrial fibrillation Dx 2014 > on warfarin, follows with Dr. Wu > no cardioversions Barretts esophagus pt unaware Breast cancer dx December 12, 2020 -- surgery with radiation treatments CAD (coronary artery disease) 3 overlapping drug-eluting stents to the proximal and mid right coronary ar usha at [facility] in 2009. Repeat cath in 2011 showed patent right coronary artery with nonocclusive disease elsewhere. Carotid artery plaque COPD (chronic obstructive pulmonary disease) well controlled Diverticulitis Emphysema of lung GERD (gastroesophageal reflux disease) History of anesthesia reaction passed out at age 29 when received xylocaine at dentist's office had a few years ago with EGD when numbed throat and no problems History of cervical cancer 1970--surgical intervention History of colon polyps History of COVID-19 10/10/[address] [facility]--only symptom SOB > all recovered Hyperlipidemia Hyperparathyroidism no meds Hypertension Myocardial Infarction per pt had a heart attack during heart cath @ [facility] 2008 Non-healing skin lesion Nontoxic multinodular goiter On anticoagulant therapy warfarin daily On home oxygen therapy 3L N/C at hs Osteoarthritis Osteoporosis Prediabetes Renal artery stenosis Left kidney stented Secondary hyperparathyroidism Stage 3b chronic kidney disease Stage III chronic kidney disease follows Dr. Hall Tachy-roberth syndrome S/P dual-chamber permanent pacemaker. Most recent device interrogation 11/08/2020 showed atrial paced 99% of the time RV paced 0%. Generator longevity stable at 7 years, no recent episodes of A. fib. Tubular adenoma of colon Surgical History H/O mastectomy (01/17/21) Right breast total mastectomy with right axillary sentinel lymph node biopsy (right) Dr. Noah Diaz History of cardiac cath multiple--[id number] 3 stents total - last one was [place] 2013 History of cataract surgery bilt History of colonoscopy History of dilatation and curettage History of esophagogastroduodenoscopy (EGD) History of heart artery stent total of 3 stents--last before 2013 History of open reduction and internal fixation (ORIF) procedure left hip---hardware in place History of partial thyroidectomy enlarged nodule History of repair of dissection of abdominal aorta 2008? @ [facility] has two stents in place by dr mims History of stent insertion of renal artery left History of temporal artery biopsy (10/02/20) Right Temporal Artery Biopsy Dr. Diaz 10/02/2020 > negative History of tooth extraction all teeth History of total abdominal hysterectomy and bilateral salpingo-oophorectomy Pacemaker 2016 medtronic @ [facility] > last interrogation % atrial paced Family History Father , 93yo Coronary heart disease CHF (congestive heart failure) Mother , 81yo Coronary heart disease Hypertension Myocardial infarction Brother Alcoholism Lung cancer Sister Atrial fibrillation COPD (chronic obstructive pulmonary disease) Brother No problems noted. Brother Lung cancer Sister Lung cancer Colorectal cancer Sister No problems noted. Sister No problems noted. Sister No problems noted. Sister No problems noted. Son No problems noted. Son No problems noted. Son No problems noted. Daughter No problems noted. Daughter No problems noted. Daughter COPD (chronic obstructive pulmonary disease) Other No family history of adverse response to anesthesia Denies family history of Ovarian cancer Prostate cancer Breast cancer Social History Smoking Status: Former smoker Tobacco Type: Cigarettes Age Started Using Tobacco: 16; Age Quit Using Tobacco: 36; packs per day: 2; Cigarettes Per Day: 40; Second Hand Exposure: No; Hx Alcohol Use: No Hx Substance Use: No Preferred Language: Polish Communication Ability: Effective Visual Impairment: No Limitations Hearing Ability: Normal Gis Analyst Required: No Beliefs That Will Affect Care: None marital status: Current Living Situation: Alone current occupational status: retired current occupation: Retired-[employer] last job How many Children do You have: 6 Feels Safe at Home: Yes Childhood Exposure to Second-Hand Smoke: No caffeine: Yes (3-4 cups/day) during the past year weight has: remained stable Dental Care, Regularly: No Physical Activity Frequency: Does not Exercise Seatbelt Use: always Sunscreen Use: Yes Assistive Devices: Cane, Denture - Upper, Glasses and Walker Review of Systems Review of Systems: Constitutional: No fever/chills, weakness, fatigue, myalgias, anorexia, night sweats Eyes: No diplopia, no worsening or blurred vision ENT: normal hearing, no trouble swallowing Respiratory: No cough, sputum, dyspnea at rest or on exertion Cardiovascular: No chest pain, tightness or palpitations Abdomen: No pain, nausea, vomiting, diarrhea or constipation : Denies dysuria, hematuria, increased urgency/frequency, urinary retention Musculoskeletal: No joint pain, calf pain, swelling Neurologic: No weakness, numbness/tingling, or balance problems Psychiatric: No anxiety or depression Skin: No rash or itch Physical Exam Physical Exam: General: awake, alert, no apparent distress Head: Normocephalic, atraumatic ENT: PERRL, EOMI, no pharyngeal exudate, mucous membranes moist Chest: Clear to auscultation, on room air, no adventitious breath sounds Cardiac: Regular rate and rhythm, no murmur, no JVD, normal peripheral pulses, good capillary refill Abdominal: NABS x 4 quadrants, soft, nontender to palpation, no rebound, guarding or tenderness Extremities: Normal inspection, no peripheral edema or erythema, calfs nontender to palpation Psych: Normal mood and affect Neuro: AAO x 3, strength intact bilaterally and rated 5/5, no motor deficits, speech is clear, no peripheral sensory deficits Skin: no rash or erythema Results & Data Results & Data ([facility]) Vital Signs (Past 12 Hours) Vital Signs Temp Pulse Pulse Resp BP BP Pulse Ox 08/12/22 20:14 96 08/12/22 20:14 62 20 215/89 H 96 08/12/22 18:01 36.9 C 62 16 184/79 H 95 O2 Del Method 08/12/22 20:14 Room Air 08/12/22 20:14 Room Air 08/12/22 18:01 Room Air Laboratory Results Abnormal lab results 08/12/22 08/12/22 Range/Units 18:54 18:54 Lymph # (Auto) 0.71 L (1.2-3.4) K/uL Sodium 135 L (136-145) mmol/L Creatinine 1.23 H (0.6-1.2) mg/dl Glucose 112 H (70-99(Fasting)) mg/dl Diagnostic Findings Chest X-Ray 08/12/22 18:03 XR chest 1V portable HISTORY: Hypertension COMPARISON: Chest 08/02/2022. FINDINGS: No pneumothorax. No pleural effusions. The heart is top normal in siz e. There is a left-sided dual-chamber pacemaker again noted. Emphysema with mild vascular crowding at the lung bases. This remains unchanged. No new focal lung consolidations to suggest a pneumonia. No evidence for pulmonary edema. There is a punctate calcified granuloma within the left lung apex. Stable linear scarlike densities within the right lung apex. IMPRESSION: No significant change compared to the prior study. No acute process. Emphysema again noted. ACT 112: Negative or not required by law. Electronically signed by: Jerry Campos M.D. 08/12/2022 6:57 PM ECG Additional Comments: Poor data quality, interpretation may be adversely affected Atrial-paced rhythm with prolonged AV conduction Abnormal ECG When compared with ECG of 02-AUG-2022 16:42, Nonspecific T wave abnormality, improved in Inferior leads Nonspecific T wave abnormality no longer evident in Lateral lead. Code Status & VTE Plan Code Status DNR/DNI. Supervising Physician Co-Signing Physician Notes Attending addendum: I have physically seen this patient, have supervised the DEBRA's activities, and agree with the H&P unless as otherwise noted. Assessment and Plan: Uncontrolled hypertension/CAD/renal artery stenosis/atrial fibrillation- Patient had just recently been admitted to [facility] for blood pressure control She was discharged on metoprolol and losartan, with addition of hydralazine titrated to 50 mg p.o. twice daily. Patient had stopped the hydralazine because she felt it was causing dizziness and she resumed hydrochlorothiazide which had been discontinued at last admission Plan will be to continue metoprolol, continue losartan, continue HCTZ, and change hydralazine to 25 mg p.o. 3 times daily for more gradual onset and offset Patient will need close follow-up with her outpatient physician, whom she did actually see the day prior to admission Remaining orders and notations as noted PG Care Time/CCT Total # of Minutes Spent Total Time Spent with Patient: Total time spent is greater than 50% in coordination of care (as documented) at patient's floor/unit and/or counseling patient: Coding Level of Care Code INT OBSERVATION CARE 70M LVL 3 Diagnoses Severe hypertension I10 Renal artery stenosis I70.1 CAD (coronary artery disease) I25.10 Atrial fibrillation I48.91 Aneurysm of abdominal aorta I71.4 Breast cancer C50.919 COPD (chronic obstructive pulmonary disease) J44.9 Barretts esophagus K22.70 Prediabetes R73.03 Stage 3b chronic kidney disease N18.32 Secondary hyperparathyroidism N25.81
[2022-08-12 22:53] LABS: Appearance Urine Clear (Clear); Bilirubin Urine Negative (Negative); Blood Urine Negative (Negative); Color Urine Yellow; Glucose Urine UA Negative (Negative); Ketones Urine Negative (Negative); Leukocyte Esterase Urine Negative (Negative); Nitrite Urine Negative (Negative); Protein Urine Negative (Negative); Specific Gravity Urine 1.007 (1.000-1.030); Urobilinogen Urine Negative (Negative)
[2022-08-13] MEDS ORDERED: ALUMINUM/MAGNESIUM SUSP 30 ML UDC PO PRN (00:39)
[2022-08-13] MEDS ORDERED: IPRATROPIUM BROMIDE/ALBUTEROL respimat INH INH PRN (00:39)
[2022-08-13] MEDS ORDERED: CETIRIZINE HCL 10 MG TABLET PO PRN (00:39)
[2022-08-13] MEDS ORDERED: MELATONIN 3 MG TAB PO PRN (00:39)
[2022-08-13] MEDS ORDERED: ENOXAPARIN INJ 30 MG/0.3 ML SYR SQ SCH (00:39)
[2022-08-13] MEDS ORDERED: POLYETHYLENE (MIRALAX) 17 GM PACK PO PRN (00:39)
[2022-08-13] MEDS ORDERED: NITROGLYCERIN SL 0.4 MG/TAB TAB SL PRN (00:39)
[2022-08-13] MEDS ORDERED: ONDANSETRON INJ 2 MG/ML 2 ML VIAL IV PRN (00:39)
[2022-08-13] MEDS ORDERED: ACETAMINOPHEN 325 MG TAB PO PRN (00:39)
[2022-08-13] MEDS ORDERED: ALBUTEROL HFA 8 GM INHALER INH PRN (01:08)
[2022-08-13] MEDS ORDERED: IPRATROPIUM BROMIDE HFA INHALER INH PRN (01:09)
[2022-08-13 02:09] LABS: INR 1.2 (0.9-1.1)
[2022-08-13 04:51] LABS: Basophils # (auto) 0.04 K/uL (0-0.2); Basophils % (auto) 0.8 %; Hematocrit (blood only) 36.1 % (34.1-44.9); Hemoglobin 11.9 g/dl (12.0-16.0); Immature Granulocytes # (auto) 0.02 K/uL (0.00-0.02); Immature Granulocytes % (auto) 0.4 %; Lymphocytes # (auto) 0.84 K/uL (1.2-3.4); Lymphocytes % (auto) 16.7 %; Mean Corpuscular Hemoglobin 30.1 pg (25.0-34.0); Mean Corpuscular Volume 91.2 fL (80.0-100.0); Mean Platelet Volume 9.5 fL (9.4-12.3); Monocytes # (auto) 0.68 K/uL (0.24-0.82); Monocytes % (auto) 13.5 %; Neutrophils # (auto) 3.14 K/uL (1.4-6.5); Neutrophils % (auto) 62.6 %; Platelet Count 281 K/uL (130-400); RDW Coefficient of Variation 12.6 % (11.5-14.5); RDW Standard Deviation 41.8 fL (36.4-46.3); Red Blood Count 3.96 M/uL (3.93-5.22); White Blood Count 5.02 K/ul (4.8-10.8)
[2022-08-13 04:59] LABS: INR 1.3 (0.9-1.1); Prothrombin Time 13.3 Seconds (9.0-12.0)
[2022-08-13 05:18] LABS: BUN Creatinine Ratio 14.7 (10-20); Calcium 8.9 mg/dl (8.5-10.1); Creatinine Clr Calc Pharmacy 35.3 ml/min; Est GFR (African American) 49.4 ml/min; Est GFR (Non-African American) 42.6 ml/min; Magnesium 1.9 mg/dl (1.7-2.4); Potassium 4.1 mmol/L (3.5-5.1)
--- NOTE | 2022-08-13 08:20 | Hospitalist Progress Note ---
Date of Service August 13, 2022 Assessment & Plan (1) Severe hypertension: Plan: - Persistent SBP > 200 at home all day with recent admission last week for hypertensive emergency. - Discharged on losartan, metoprolol, and hydralazine on 08/05--self d/c'd hydralazine due to feeling dizzy last week, restarted HCTZ 12.5 mg on Thursday. - Is with a burning sensation in chest which to her feels very much like her heartburn--troponin wnl and EKG without territorial ST segment or T wave changes, does have a history of CAD. - We will continue her metoprolol and losartan, and HCTZ, and re-initiate hydralazine, except opt for 25 mg TID rather than 50 mg BID--did discuss this medication with the patient regarding the side effects she had, which were dizziness and nausea--although she already had these symptoms going on before initiating this medicine. It is also possible that she was having rebound hypertension and the medication side effects were actually signs of her increasing BP. - Also consulting nephrology given her known renal artery stenosis and elevated BP despite being on several different medications. - W/u from last admission included renal artery U/S: negative for CHRISTOPHER, did have a left stent 4 years ago. - Renin and aldosterone checked, 0.28 and 4, respectively. - Could consider splitting her metoprolol to 50 mg BID. - Additionally-did well with low salt diet on last admission, also suspect degree of anxiety/home stressors contributing with her dog's illness being considered contributory on previous admission. (2) Renal artery stenosis: Plan: - As above. (3) CAD (coronary artery disease): Plan: - Prior h/o 3 stents in early (RCA disease) - Negative stress test 2019. - Follows with Dr Bryce [facility] - Continue aspirin 81, statin, BP meds as above. (4) Atrial fibrillation: Plan: - NSR today, continue warfarin and metoprolol. - PT/INR daily. (5) Aneurysm of abdominal aorta: Plan: - s/p stents in the past - Follows with [facility] Dr Mims (6) Breast cancer: Plan: - history of, s/ (7) COPD (chronic obstructive pulmonary disease): Plan: - Continue home inhalers. (8) Barretts esophagus: Plan: - Continue PPI daily. (9) Prediabetes: Plan: - Last HbA1c was 6% in January 2022. (10) Stage 3b chronic kidney disease: Plan: - Cr 1.23, baseline < 1.20 - May have to accept some degree of hit to renal function if she remains on HCTZ for hypertension. (11) Secondary hyperparathyroidism: Plan: - Calcium wnl, iPTH this summer wnl. Plan - Admit to PCU. - SCDS, warfarin to be continued for VTE ppx. - DNR/DNI. Admission and Anticipated Discharge Date Admission Date: August 12, 2022 Results & Data Results & Data ([facility]) Vital Signs (Past 12 Hours) Vital Signs Pulse Resp BP Pulse Ox O2 Del Method 08/13/22 06:36 60 16 163/76 H 93 Room Air 08/13/22 02:37 60 16 171/85 H 92 Room Air 08/12/22 23:22 63 20 189/87 H 95 Room Air 08/12/22 22:18 62 20 221/81 H 96 Room Air 08/12/22 20:54 66 200/88 H 97 Room Air PG Care Time/CCT Total # of Minutes Spent Total Time Spent with Patient: Total time spent is greater than 50% in coordination of care (as documented) at patient's floor/unit and/or counseling patient: Coding Diagnoses Severe hypertension I10 Renal artery stenosis I70.1 CAD (coronary artery disease) I25.10 Atrial fibrillation I48.91 Aneurysm of abdominal aorta I71.4 Breast cancer C50.919 COPD (chronic obstructive pulmonary disease) J44.9 Barretts esophagus K22.70 Prediabetes R73.03 Stage 3b chronic kidney disease N18.32 Secondary hyperparathyroidism N25.81
[2022-08-13 08:26] VITALS: BP 175/83; PULSE 62; O2SAT 95
--- NOTE | 2022-08-13 08:32 | Cardiology Consultation ---
Date of Consultation August 13, 2022 Assessment & Plan (1) Hypertensive urgency: (2) CAD (coronary artery disease): (3) Atrial fibrillation: Plan Patient with long history of difficult to control hypertension with underlying Renal artery stenosis, and medication intolerances. Second admission in the past month due to hypertensive urgency. HS troponin unremarkable. Recent echo with preserved EF, moderate LVH, mild pulm hypertension EKG with atrial pacing, no acute changes. She was intolerant of higher dose hydralazine, initiated on discharge in Jul. Recommend resuming lower dose 25 mg TID along with prior home dose of HCTZ 12.5 mg daily Continue metoprolol and losartan. Continue coumadin. dose increase. INR subtherapeutic. question compliance of meds at home. Will need f/u with coag clinic. If BP remains elevated this morning 2 hours after AM meds, add low dose amlodipine 2.5 mg daily. While this is listed as an "allergy", this was discussed with the patient and she tolerated medication for many years dating back to 2017 - 2019. Medication was stopped due to dizziness. As noted above, she has dizziness with the medication, without medication, and when BP is uncontrolled, so likely would tolerate 2.5 mg daily if needed. Patient agreeable and she is hoping for discharge later today. Case discussed with Dr. Campos. Supervising Physician Co-Signing Physician Notes Patient was seen and examined, chart, medications, telemetry reviewed. Patient currently comfortable blood pressures trending slightly downward since ER visit. Patient with difficulties with labile blood pressures at home as well as poor tolerance of medications. Plan has been outlined above. She wishes to be discharged with medication adjustments this appears appropriate Hydralazine to be changed to 25 mg 3 times per day throughout lapse in therapy and hopefully aid in symptoms. Agree with retrial of low-dose amlodipine if blood pressures remain persistently elevated. Patient very medically aware and following blood pressures closely at home, willing to communicate any concerns. History of Present Illness Reason for Consultation: HTN urgency Requesting Physician: Dr. Pérez Attending Physician: Dr. Campos History of Present Illness Patient is an 87 year old female, known to [facility], Dr. Wu/Osvaldo, for history of CAD s/p 3 overlapping drug-eluting stents to the proximal and mid right coronary artery at [facility] in 2009. She had a repeat cardiac catheterization in 2011 when she was found have a patent right coronary artery with nonocclusive disease elsewhere.She had a nuclear stress test in 2019 that was negative for inducible ischemia. Recent echo with preserved LVEF in Jul 2022. Other history includes paroxysmal afib with tachybrady s/p dual lead pacemaker implantation, chronic anticoagulation, difficult to control hypertension, with multiple medication "intolerances" in the past, persistent dizziness despite medication adjustments, orthostasis, renal artery stenosis for which she follows with Dr. Mims. Most recent renal artery duplex without significant stenosis. She was admitted in Jul 2022 with hypertensive urgency, dizziness, and chest tightness. HS troponin negative. She had echo done at that time with preserved LVEF and mild pulm hypertension. Hydralazine was initiated and HCTZ discontinued on discharge. Apparently patient reports not feeling well when she returned home, with ongoing complaints of dizziness and nausea. She self discontinued hydralazine. She was evaluated by PCP office several days later and HCTZ was resumed. Yesterday patient went out to dinner and returned home, not feeling well. She took her BP and it was > 200/100, so she came to the ER. Symptoms once again were dizziness and nausea. No chest pain. No headache. No palptiations. No SOB. On admission, it was decided to resume lower dose hydralazine with her home meds including losartan, hctz and metoprolol. Per review of outpatient records, she was previously on amlodipine for many years between 2016 and 2018. This was stopped due to dizziness in 2019. It is listed as an allergy, but patient believes she tolerated it. She has dizziness with meds and without meds or when BP is elevated. At time of consult, patient resting in bed comfortably. BP trending down since admission. Received meds about 30 min ago. No chest pain, dyspnea, dizziness currently. No orthopnea, PND or edema. No fever, cough, chills. she admits to a great deal of stressors at home. Had a in the family recently and her dog has been sick. Allergies Allergy/AdvReac Type Severity Reaction Status Date / Time lidocaine [From Xylocaine] Allergy Severe passed out Verified 08/11/22 10:44 amlodipine Allergy Mild dizzy and Verified 08/11/22 10:44 sick stomach atorvastatin Allergy Mild LEG CRAMPS Verified 08/11/22 10:44 pravastatin Allergy Mild leg cramps Verified 08/11/22 10:44 simvastatin Allergy Mild leg cramps Verified 08/11/22 10:44 carvedilol Allergy Unknown Unknown Verified 08/11/22 10:44 Home Medications Medication Instructions Recorded Confirmed Type aspirin 81 mg tablet,delayed 81 mg PO QAM 06/14/19 08/12/22 History release cetirizine 10 mg tablet (Zyrtec) 10 mg PO DAILY PRN rhinitis 06/14/19 08/12/22 History coQ10 (ubiquinol) 200 mg capsule 200 mg PO QAM 06/14/19 08/12/22 History [id number] acid 0.4 1 tab PO HS 06/14/19 08/12/22 History mg-lycopene 300 mcg-lutein 250 mcg tablet (Centrum Silver) nitroglycerin 0.4 mg sublingual 0.4 mg sublingual Q5M PRN Chest 06/14/19 08/12/22 History tablet (Nitrostat) Pain ipratropium 20 mcg-albuterol 100 1 puff inhalation QID PRN 07/10/20 08/12/22 History mcg/actuation mist for inhalation Shortness Of Breath (Combivent Respimat) Oxygen Home #1 ea 01/23/21 08/12/22 History calcium carbonate 600 mg calcium 600 mg PO QAM 01/23/21 08/12/22 History (1,500 mg) tablet (Calcium) losartan 100 mg tablet (Cozaar) 100 mg PO QAM #90 tabs 01/13/22 08/12/22 Rx rosuvastatin 5 mg tablet 5 mg PO HS #90 tabs 01/13/22 08/12/22 Rx pantoprazole 40 mg tablet,delayed 40 mg PO HS #90 tabs 01/28/22 08/12/22 Rx release (Protonix) acetaminophen 650 mg 650 mg PO Q8H PRN Pain 08/02/22 08/12/22 History tablet,extended release cholecalciferol (vitamin D3) 25 25 mcg PO DAILY 08/02/22 08/12/22 History mcg (1,000 unit) chewable tablet (Vitamin D3) omega-3s 300 qp-sfc-kso-other 1 cap PO DAILY 08/02/22 08/12/22 History [id number] oil 1,000 mg capsule (Trinity-3 Fish Oil) warfarin 2.5 mg tablet 2.5 mg PO DAILY #30 tabs 08/05/22 08/12/22 Rx hydrochlorothiazide 12.5 mg tablet 12.5 mg PO DAILY #90 tabs 08/11/22 08/12/22 Rx metoprolol succinate 100 mg 100 mg PO DAILY 08/11/22 08/12/22 History tablet,extended release 24 hr Patient History Medical History Allergic rhinitis Aneurysm of abdominal aorta Has [address] for this. follows with Dr Mims Atherosclerosis of aorta Atrial fibrillation Dx 2015 > on warfarin, follows with Dr. Wu > no cardioversions Barretts esophagus pt unaware Breast cancer dx December 12, 2020 -- surgery with radiation treatments CAD (coronary artery disease) 3 overlapping drug-eluting stents to the proximal and mid right coronary artery at [facility] in 2009. Repeat cath in 2011 showed patent right coronary artery with nonocclusive disease elsewhere. Carotid artery plaque COPD (chronic obstructive pulmonary disease) well controlled Diverticulitis Emphysema of lung GERD (gastroesophageal reflux disease) History of anesthesia reaction passed out at age 29 when received xylocaine at dentist's office had a few years ago with EGD when numbed throat and no problems History of cervical cancer 1970--surgical intervention History of colon polyps History of COVID-19 10/10/20 diagnosed @ [facility]--only symptom SOB > all recovered Hyperlipidemia Hyperparathyroidism no meds Hypertension Myocardial Infarction per pt had a heart attack during heart cath @ [facility] 2008 Non-healing skin lesion Nontoxic multinodular goiter On anticoagulant therapy warfarin daily On home oxygen therapy 3L N/C at hs Osteoarthritis Osteoporosis Prediabetes Renal artery stenosis Left kidney stented Secondary hyperparathyroidism Stage 3b chronic kidney disease Stage III chronic kidney disease follows Dr. Hall Tachy-roberth syndrome S/P dual-chamber permanent pacemaker. Most recent device interrogation 11/08/2020 showed atrial paced 99% of the time RV paced 0%. Generator longevity stable at 7 years, no recent episodes of A. fib. Tubular adenoma of colon Surgical History H/O mastectomy (01/17/21) Right breast total mastectomy with right axillary sentinel lymph node biopsy (right) Dr. Noah Diaz History of cardiac cath multiple--[id number] 3 stents total - last one was [place] 2014 History of cataract surgery bilt History of colonoscopy History of dilatation and curettage History of esophagogastroduodenoscopy (EGD) History of heart artery stent total of 3 stents--last before 2013 History of open reduction and internal fixation (ORIF) procedure left hip---hardware in place History of partial thyroidectomy enlarged nodule History of repair of dissection of abdominal aorta 2008? @ [facility] has two stents in place by dr mims History of stent insertion of renal artery left History of temporal artery biopsy (10/02/20) Right Temporal Artery Biopsy Dr. Diaz 10/02/2020 > negative History of tooth extraction all teeth History of total abdominal hysterectomy and bilateral salpingo-oophorectomy Pacemaker 2016 medtronic @ [facility] > last interrogation % atrial paced Family History Father , 93yo Coronary heart disease CHF (congestive heart failure) Mother , 81yo Coronary heart disease Hypertension Myocardial infarction Brother Alcoholism Lung cancer Sister Atrial fibrillation COPD (chronic obstructive pulmonary disease) Brother No problems noted. Brother Lung cancer Sister Lung cancer Colorectal cancer Sister No problems noted. Sister No problems noted. Sister No problems noted. Sister No problems noted. Son No problems noted. Son No problems noted. Son No problems noted. Daughter No problems noted. Daughter No problems noted. Daughter COPD (chronic obstructive pulmonary disease) Other No family history of adverse response to anesthesia Denies family history of Ovarian cancer Prostate cancer Breast cancer Social History Smoking Status: Former smoker Tobacco Type: Cigarettes Age Started Using Tobacco: 16; Age Quit Using Tobacco: 36; packs per day: 2; Cigarettes Per Day: 40; Smoking End Date: at age 36; Second Hand Exposure: No; Hx Alcohol Use: No Hx Substance Use: No Preferred Language: American Communication Ability: Effective Visual Impairment: No Limitations Hearing Ability: Normal Medical Cost Consultant Required: No Beliefs That Will Affect Care: None marital status: Current Living Situation: Alone current occupational status: retired 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 How many Children do You have: 6 Other Information That Helps Us Care for You: No Feels Safe at Home: Yes Safety Concerns: Feels Safe At This Time Childhood Exposure to Second-Hand Smoke: No caffeine: Yes (3-4 cups/day) during the past year weight has: remained stable Dental Care, Regularly: No Physical Activity Frequency: Does not Exercise Seatbelt Use: always Sunscreen Use: Yes Assistive Devices: Cane, Denture - Upper and Glasses Assistive Devices Comment: reading glasses Review of Systems Review of Systems: All systems reviewed & are unremarkable except as noted in HPI & below Physical Exam Constitutional: WD/WN, vitals as above well nourished; no acute distress Respiratory: normal respiratory effort, lungs clear to auscultation Cardiovascular: Rate/Rhythm: regular rate and regular rhythm Heart Sounds: no murmur Vessels: no JVD Extremities: no edema Gastrointestinal (Abdomen): normal bowel sounds, soft, nontender, no hepatosplenomegaly Musculoskeletal: no cyanosis or clubbing, extremities motor strength 5/5 Skin: no rashes, warm and dry Results & Data ([facility]) Vital Signs (Past 12 Hours) Vital Signs Pulse Resp BP Pulse Ox O2 Del Method 08/13/22 08:25 62 16 175/83 H 95 Room Air 08/13/22 06:36 60 16 163/76 H 93 Room Air 08/13/22 02:37 60 16 171/85 H 92 Room Air 08/12/22 23:22 63 20 189/87 H 95 Room Air 08/12/22 22:18 62 20 221/81 H 96 Room Air 08/12/22 20:54 66 200/88 H 97 Room Air Laboratory Results Cardiac Enzymes 08/12/22 Range/Units 18:54 AST 20 (13-39) U/L Troponin I High Sens 8.4 (0-14) pg/ml Coagulation 08/12/22 08/13/22 Range/Units 18:54 04:34 PT 13.0 H 13.3 H (9.0-12.0) Seconds CBC 08/12/22 08/13/22 Range/Units 18:54 04:34 WBC 5.15 5.02 (4.8-10.8) K/ul RBC 4.20 3.96 (3.93-5.22) M/uL Hgb 12.9 11.9 L (12.0-16.0) g/dl Hct 38.6 36.1 (34.1-44.9) % Plt Count 294 281 (130-400) K/uL Neut # (Auto) 3.47 3.14 (1.4-6.5) K/uL Lymph # (Auto) 0.71 L 0.84 L (1.2-3.4) K/uL Converse # (Auto) 0.63 0.68 (0.24-0.82) K/uL Eos # (Auto) 0.27 0.30 (0-0.50) K/uL Baso # (Auto) 0.05 0.04 (0-0.2) K/uL Comprehensive Metabolic Panel 08/12/22 08/13/22 Range/Units 18:54 04:34 Sodium 135 L 139 (136-145) mmol/L Potassium 4.4 4.1 (3.5-5.1) mmol/L Chloride 101 104 (98-107) mmol/L Carbon Dioxide 26 32 (21-32) mmol/L BUN 19 17 (6-23) mg/dl Creatinine 1.23 H 1.16 (0.6-1.2) mg/dl Glucose 112 H 97 (70-99(Fasting)) mg/dl Calcium 8.9 8.9 (8.5-10.1) mg/dl AST 20 (13-39) U/L ALT 13 (7-52) U/L Alkaline Phosphatase 69 (34-104) U/L Total Protein 7.1 (6.0-8.3) gm/dl Albumin 3.9 (3.4-5.0) gm/dl Intake and Output 08/12/22 08/13/22 08/13/22 22:59 06:59 14:59 Other: Weight 71.5 kg Weight Measurement Method Chair Scale Diagnostic Findings Telemetry reviewed: NSR, no arrhythmias. intermittent atrial pacing EKG on arrival: Atrial paced, ventricular sensed. No ST/T wave changes Chest X-Ray 08/12/22 18:03 XR chest 1V portable HISTORY: Hypertension COMPARISON: Chest 08/02/2022. FINDINGS: No pneumothorax. No pleural effusions. The heart is top normal in size. There is a left-sided dual-chamber pacemaker again noted. Emphysema with mild vascular crowding at the lung bases. This remains unchanged. No new focal lung consolidations to suggest a pneumonia. No evidence for pulmonary edema. There is a punctate calcified granuloma within the left lung apex. Stable linear scarlike densities within the right lung apex. IMPRESSION: No significant change compared to the prior study. No acute process. Emphysema again noted. ACT 112: Negative or not required by law. Electronically signed by: Jerry Campos M.D. 08/12/2022 6:57 PM Echo report reviewed from Jul 2022: Compared with prior study in March 2020, mild pulm hypertension now present LVEF 60-65% Moderate concentric LVH Grade I diastolic dysfunction Aortic valve sclerosis mild without significant aortic valvular stenosis. mild AI Mild TR estimated pulm pressure is 39 mmHg Medications Administered Current Inpatient Medications Acetaminophen (Acetaminophen 325 Mg Tab) 650 mg PO Q4H PRN PRN Reason: Pain or Fever Stop: 09/12/22 00:38 Al Hydrox/Mg Hydrox/Simethicone (Aluminum/Magnesium Susp 30 Ml Udc) 15 ml PO Q4H PRN PRN Reason: Dyspepsia Stop: 09/12/22 00:38 Albuterol (Albuterol Hfa 8 Gm Inhaler) 1 puffs INH QID PRN; Protocol PRN Reason: Shortness Of Breath Stop: 09/12/22 01:07 Aspirin (Aspirin 81 Mg Ectab) 81 mg PO QAM [facility] Stop: 09/12/22 08:59 Last Admin: 08/13/22 08:19 Dose: 81 mg Calcium Carbonate (Calcium Carbonate 1250mg Tab) 1,250 mg PO QAM SIRENA Stop: 09/12/22 08:59 Last Admin: 08/13/22 08:19 Dose: 1,250 mg Cetirizine HCl (Cetirizine Hcl 10 Mg Tablet) 10 mg PO DAILY PRN PRN Reason: rhinitis Stop: 09/12/22 00:38 Fish Oil (Trinity-3 (Purified Fish Oil) 1 Gm Cap) 1 gm PO DAILY SIRENA Stop: 09/12/22 08:59 Last Admin: 08/13/22 08:20 Dose: 1 gm Hydralazine HCl (Hydralazine Hcl 25 Mg Tab) 25 mg PO TID SIRENA Stop: 09/12/22 08:59 Last Admin: 08/13/22 08:20 Dose: 25 mg Hydrochlorothiazide (Hydrochlorothiazide 25 Mg Tab) 12.5 mg PO DAILY SIRENA Stop: 09/12/22 08:59 Last Admin: 08/13/22 08:20 Dose: 12.5 mg Ipratropium Harwood (Ipratropium Harwood Hfa Inhaler) 1 puffs INH QID PRN; Protocol PRN Reason: Shortness Of Breath Stop: 09/12/22 01:08 Losartan Potassium (Losartan Potassium 50 Mg Tab) 100 mg PO QAM [facility] Stop: 09/12/22 08:59 Last Admin: 08/13/22 08:20 Dose: 100 mg Melatonin (Melatonin 3 Mg Tab) 3 mg PO HS PRN PRN Reason: Sleep Stop: 09/12/22 00:38 Metoprolol Succinate (Metoprolol Succ 50mg Ext Rel Tab) 100 mg PO DAILY [facility] Stop: 09/12/22 08:59 Last Admin: 08/13/22 08:20 Dose: 100 mg Multivitamins/Minerals (Cerovite Adv Formula Tab) 1 tab PO HS [facility] Stop: 09/12/22 20:59 Nitroglycerin (Nitroglycerin Sl 0.4 Mg/Tab Tab) 0.4 mg SL Q5M PRN PRN Reason: Chest Pain Stop: 09/12/22 00:38 Ondansetron HCl (Ondansetron Inj 2 Mg/Ml 2 Ml Vial) 4 mg IV Q6H PRN PRN Reason: Nausea Stop: 09/12/22 00:38 Pantoprazole Sodium (Pantoprazole 40 Mg Tab) 40 mg PO HS [facility] Stop: 09/12/22 20:59 Polyethylene Glycol (Polyethylene (Miralax) 17 Gm Pack) 17 gm PO DAILY PRN PRN Reason: Constipation Stop: 09/12/22 00:38 Rosuvastatin Calcium (Rosuvastatin Calcium 5 Mg Tab) 5 mg PO HS [facility] Stop: 09/12/22 20:59 Vitamin D (Cholecalciferol 1,000 Units 25 Mcg Tab) 1,000 units PO DAILY [facility] Stop: 09/12/22 08:59 Last Admin: 08/13/22 08:19 Dose: 1,000 units Warfarin Sodium (Warfarin Sod 2.5 Mg Tab) 2.5 mg PO DAILY@1600 [facility] Stop: 09/12/22 15:59 Warfarin Sodium (Warfarin Sod 3 Mg Tab) 3 mg PO ONCE ONE Stop: 08/13/22 16:01
[2022-08-13] MEDS ORDERED: METOPROLOL SUCC 50MG EXT REL TAB PO SCH (09:00)
[2022-08-13] MEDS ORDERED: LOSARTAN POTASSIUM 50 MG TAB PO SCH (09:00)
[2022-08-13] MEDS ORDERED: CHOLECALCIFEROL 1,000 UNITS 25 MCG TAB PO SCH (09:00)
[2022-08-13] MEDS ORDERED: OMEGA-3 (PURIFIED FISH OIL) 1 GM CAP PO SCH (09:00)
[2022-08-13] MEDS ORDERED: hydrALAZINE HCL 25 MG TAB PO SCH (09:00)
[2022-08-13] MEDS ORDERED: hydroCHLOROthiazide 25 MG TAB PO SCH (09:00)
[2022-08-13] MEDS ORDERED: ASPIRIN 81 MG ECTAB PO SCH (09:00)
[2022-08-13] MEDS ORDERED: CALCIUM CARBONATE 1250MG TAB PO SCH (09:00)
[2022-08-13] MEDS ORDERED: NON-FORMULARY MEDICATION (Coq10 (Ubiquinol) 200 mg Capsule) PO SCH (09:00)
--- NOTE | 2022-08-13 09:13 | Nephrology Consultation ---
Date of Consultation August 13, 2022 Assessment & Plan (1) Renal artery stenosis: * Chronic finding. L RA stented, R kidney mildly atrophic. Doppler negative for stenosis. No further evaluation indicated. L RA stent is patent and not stenotic * Continue Losartan (2) Hypertensive urgency: * Cardiology consultation reviewed. Continue Losartan and Metoprolol. Agree w/ restarting HCTZ. Cardiology has also added low dose Hydralazine * If BP remains elevated would agree w/ restarting low dose Amlodipine and monitoring for GI upset * Discussed low Na diet in detail today * Will defer further BP management to Cardiology. Patient is established w/ Dr. Wu and hopes to be discharged to home later today (3) Stage 3b chronic kidney disease: * CKD stage G3b/A2 (moderate impairment). Baseline Cr 1.4 w/EGFR 32 cc/min and UPCR 0.1. Renal impairment has been attributed to atherosclerotic renal vascular disease and hypertensive nephrosclerosis * Kidney function remains stable. Urinalysis is negative for blood/protein. Continue annual outpatient follow up w/ Dr. Hall History of Present Illness Reason for Consultation: Renal artery stenosis, HTN Attending Physician: Samuel Pérez MD History of Present Illness Ms. Carlton is an 87 year old white female who is seen at the request of the [facility]ist [facility] for evaluation of CHRISTOPHER, HTN. Medical records in the EMR were reviewed today and are summarized as follows: Ms. Carlton has CKD stage G3b/A2 (moderate impairment). Baseline Cr 1.4 w/EGFR 32 cc/min and UPCR 0.1. Her renal impairment has been attributed to atherosclerotic renal vascular disease and hypertensive nephrosclerosis. Her primary Assistant Film Editor is Dr. Hall who she sees on an annual basis (every April). Ms. Carlton's medical history is significant for prior tobacco use, COPD, CHRISTOPHER s/p L renal artery stent 2013, ASCVD w/ RCA stent 2009, atrial fibrillation (warfarin), AAA s/p endovascular repair 2010, breast CA s/p R mastectomy and radiation therapy 01/25. Ms. Carlton reports a longstanding h/o HTN. She has suffered several drug intolerances. She was hospitalized in July and again last evening for hypertensive urgency. Ms. Carlton's antihypertensive regimen has consisted of Losartan 100 qD, Metoprolol 100 qD, and HCTZ 12.5 mg daily. She reports however that she had not been taking the diuretic prior to this EMD visit. She also reports a drug intolerance to Amlodipine which has caused GI upset several years ago. In 07/29 Ms. Carlton underwent renal artery doppler which revealed atrophy of the R kidney but no evidence of CHRISTOPHER. Allergies Allergy/AdvReac Type Severity Reaction Status Date / Time lidocaine [From Xylocaine] Allergy Severe passed out Verified 08/11/22 10:44 amlodipine Allergy Mild dizzy and Verified 08/11/22 10:44 sick stomach atorvastatin Allergy Mild LEG CRAMPS Verified 08/11/22 10:44 pravastatin Allergy Mild leg cramps Verified 08/11/22 10:44 simvastatin Allergy Mild leg cramps Verified 08/11/22 10:44 carvedilol Allergy Unknown Unknown Verified 08/11/22 10:44 Home Medications Medication Instructions Recorded Confirmed Type aspirin 81 mg tablet,delayed 81 mg PO QAM 06/14/19 08/12/22 History release cetirizine 10 mg tablet (Zyrtec) 10 mg PO DAILY PRN rhinitis 06/14/19 08/12/22 History coQ10 (ubiquinol) 200 mg capsule 200 mg PO QAM 06/14/19 08/12/22 History qgqhkapt-vzk-xxqam acid 0.4 1 tab PO HS 06/14/19 08/12/22 History mg-lycopene 300 mcg-lutein 250 mcg tablet (Centrum Silver) nitroglycerin 0.4 mg sublingual 0.4 mg sublingual Q5M PRN Chest 06/14/19 08/12/22 History tablet (Nitrostat) Pain ipratropium 20 mcg-albuterol 100 1 puff inhalation QID PRN 07/10/20 08/12/22 History mcg/actuation mist for inhalation Shortness Of Breath (Combivent Respimat) Oxygen Home #1 ea 01/23/21 08/12/22 History calcium carbonate 600 mg calcium 600 mg PO QAM 01/23/21 08/12/22 History (1,500 mg) tablet (Calcium) losartan 100 mg tablet (Cozaar) 100 mg PO QAM #90 tabs 01/13/22 08/12/22 Rx rosuvastatin 5 mg tablet 5 mg PO HS #90 tabs 01/13/22 08/12/22 Rx pantoprazole 40 mg tablet,delayed 40 mg PO HS #90 tabs 01/28/22 08/12/22 Rx release (Protonix) acetaminophen 650 mg 650 mg PO Q8H PRN Pain 08/02/22 08/12/22 History tablet,extended release cholecalciferol (vitamin D3) 25 25 mcg PO DAILY 08/02/22 08/12/22 History mcg (1,000 unit) chewable tablet (Vitamin D3) omega-3s 300 qt-ndr-wmb-other 1 cap PO DAILY 08/02/22 08/12/22 History dkyma5l-jlfz oil 1,000 mg capsule ([place]-3 Fish Oil) warfarin 2.5 mg tablet 2.5 mg PO DAILY #30 tabs 08/05/22 08/12/22 Rx hydrochlorothiazide 12.5 mg tablet 12.5 mg PO DAILY #90 tabs 08/11/22 08/12/22 Rx metoprolol succinate 100 mg 100 mg PO DAILY 08/11/22 08/12/22 History tablet,extended release 24 hr hydralazine 25 mg tablet 25 mg PO TID #90 tabs 08/13/22 Rx Patient History Medical History Allergic rhinitis Aneurysm of abdominal aorta Has [address] for this. follows with Dr Mims Atherosclerosis of aorta Atrial fibrillation Dx 2014 > on warfarin, follows with Dr. Wu > no cardioversions Barretts esophagus pt unaware Breast cancer dx December 12, 2020 -- surgery with radiation treatments CAD (coronary artery disease) 3 overlapping drug-eluting stents to the proximal and mid right coronary artery at [facility] in 2009. Repeat cath in 2011 showed patent right coronary artery with nonocclusive disease elsewhere. Carotid artery plaque COPD (chronic obstructive pulmonary disease) well controlled Diverticulitis Emphysema of lung GERD (gastroesophageal reflux disease) History of anesthesia reaction passed out at age 29 when received xylocaine at dentist's office had a few years ago with EGD when numbed throat and no problems History of cervical cancer 1970--surgical intervention History of colon polyps History of COVID-19 10/10/20 diagnosed @ [facility]--only symptom SOB > all recovered Hyperlipidemia Hyperparathyroidism no meds Hypertension Myocardial Infarction per pt had a heart attack during heart cath @ [facility] 2008 Non-healing skin lesion Nontoxic multinodular goiter On anticoagulant therapy warfarin daily On home oxygen therapy 3L N/C at hs Osteoarthritis Osteoporosis Prediabetes Renal artery stenosis Left kidney stented Secondary hyperparathyroidism Stage 3b chronic kidney disease Stage III chronic kidney disease follows Dr. Hall Tachy-roberth syndrome S/P dual-chamber permanent pacemaker. Most recent device interrogation 11/08/2020 showed atrial paced 99% of the time RV paced 0%. Generator longevity stable at 7 years, no recent episodes of A. fib. Tubular adenoma of colon Surgical History H/O mastectomy (01/17/21) Right breast total mastectomy with right axillary sentinel lymph node biopsy (right) Dr. Noah Diaz History of cardiac cath multiple--[id number] 3 stents total - last one was [place] 2013 History of cataract surgery bilt History of colonoscopy History of dilatation and curettage History of esophagogastroduodenoscopy (EGD) History of heart artery stent total of 3 stents--last before 2013 History of open reduction and internal fixation (ORIF) procedure left hip---hardware in place History of partial thyroidectomy enlarged nodule History of repair of dissection of abdominal aorta 2008? @ [facility] has two stents in place by dr mims History of stent insertion of renal artery left History of temporal artery biopsy (10/02/20) Right Temporal Artery Biopsy Dr. Diaz 10/02/2020 > negative History of tooth extraction all teeth History of total abdominal hysterectomy and bilateral salpingo-oophorectomy Pacemaker 2017 medtronic @ [facility] > last interrogation % atrial paced Family History Father , 93yo Coronary heart disease CHF (congestive heart failure) Mother , 81yo Coronary heart disease Hypertension Myocardial infarction Brother Alcoholism Lung cancer Sister Atrial fibrillation COPD (chronic obstructive pulmonary disease) Brother No problems noted. Brother Lung cancer Sister Lung cancer Colorectal cancer Sister No problems noted. Sister No problems noted. Sister No problems noted. Sister No problems noted. Son No problems noted. Son No problems noted. Son No problems noted. Daughter No problems noted. Daughter No problems noted. Daughter COPD (chronic obstructive pulmonary disease) Other No family history of adverse response to anesthesia Denies family history of Ovarian cancer Prostate cancer Breast cancer Social History Smoking Status: Former smoker Tobacco Type: Cigarettes Age Started Using Tobacco: 16; Age Quit Using Tobacco: 36; packs per day: 2; Cigarettes Per Day: 40; Smoking End Date: at age 36; Second Hand Exposure: No; Hx Alcohol Use: No Hx Substance Use: No Preferred Language: Japanese Communication Ability: Effective Visual Impairment: No Limitations Hearing Ability: Normal Recruiting Consultant Required: No Beliefs That Will Affect Care: None marital status: Current Living Situation: Alone current occupational status: retired 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 How many Children do You have: 6 Other Information That Helps Us Care for You: No Feels Safe at Home: Yes Safety Concerns: Feels Safe At This Time Childhood Exposure to Second-Hand Smoke: No caffeine: Yes (3-4 cups/day) during the past year weight has: remained stable Dental Care, Regularly: No Physical Activity Frequency: Does not Exercise Seatbelt Use: always Sunscreen Use: Yes Assistive Devices: Cane, Denture - Upper and Glasses Assistive Devices Comment: reading glasses Review of Systems Constitutional: no fever Eyes: no worsening vision Ear, Nose, Mouth, Throat: no problem reported Respiratory: no cough and no dyspnea Cardiovascular: no chest pain Gastrointestinal: no abdominal pain Neurologic: no dizziness and no headache(s) Physical Exam Constitutional: not in distress Eyes: PERRL, conjunctivae normal, anicteric sclerae Neck: trachea midline, no thyromegaly No carotid bruit Respiratory: normal respiratory effort, lungs clear to auscultation Cardiovascular: RRR, no murmur, no edema Gastrointestinal (Abdomen): normal bowel sounds, soft, nontender, no hepatosplenomegaly No RA bruit Neurologic: Speech / Cognition: normal speech and normal cognition Results & Data ([facility]) Vital Signs (Past 12 Hours) Vital Signs Pulse Resp BP Pulse Ox O2 Del Method 08/13/22 08:25 62 16 175/83 H 95 Room Air 08/13/22 06:36 60 16 163/76 H 93 Room Air 08/13/22 02:37 60 16 171/85 H 92 Room Air 08/12/22 23:22 63 20 189/87 H 95 Room Air 08/12/22 22:18 62 20 221/81 H 96 Room Air Laboratory Results Laboratory Tests 08/02/22 08/04/22 08/04/22 17:03 06:16 06:16 WBC Hgb Hct Plt Count Sodium Potassium Chloride Carbon Dioxide BUN Creatinine Glucose Calcium Magnesium Renin Activity 0.28 Aldosterone 4 TSH 2.234 Urine Color Urine Appearance Urine Protein Urine Glucose (UA) Urine Blood Urine Nitrite Ur Leukocyte Esterase SARS-CoV-2, RNA, NAAT 08/12/22 08/12/22 08/13/22 21:19 22:41 04:34 WBC 5.02 Hgb 11.9 L Hct 36.1 Plt Count 281 Sodium Potassium Chloride Carbon Dioxide BUN Creatinine Glucose Calcium Magnesium Renin Activity Aldosterone TSH Urine Color Yellow Urine Appearance Clear Urine Protein Negative Urine Glucose (UA) Negative Urine Blood Negative Urine Nitrite Negative Ur Leukocyte Esterase Negative SARS-CoV-2, RNA, NAAT NEGATIVE 08/13/22 04:34 WBC Hgb Hct Plt Count Sodium 139 Potassium 4.1 Chloride 104 Carbon Dioxide 32 BUN 17 Creatinine 1.16 Glucose 97 Calcium 8.9 Magnesium 1.9 Renin Activity Aldosterone TSH Urine Color Urine Appearance Urine Protein Urine Glucose (UA) Urine Blood Urine Nitrite Ur Leukocyte Esterase SARS-CoV-2, RNA, NAAT Diagnostic Findings Renal artery doppler 08/02/22: The kidneys demonstrate cortical atrophy. Echotexture is normal. The right kidney measures 8.5 cm in length, and the left kidney measures 10.2 cm in length. There is no hydronephrosis. On the right, intrarenal arterial resistive indices range from 0.65 to 0.69. Intrarenal arterial waveforms are normal with brisk upstrokes. The right renal arterial waveform is normal, and velocities within the right renal artery measure up to 58 cm/sec. The proximal right vertebral artery was not well- visualized. The right renal vein is patent. On the left, intrarenal arterial resistive indices range from 0.55 to 0.64. Intrarenal arterial waveforms are normal with brisk upstrokes. The left renal arterial waveform is normal, and velocities within the left renal artery measure up to 174 cm/sec. The proximal left renal artery stent seen by CT is not visualized. The left renal vein is patent. The abdominal aorta is patent. Velocities within the abdominal aorta measure up to 84 cm/s. IMPRESSION: 1. The kidneys demonstrate cortical atrophy and are without hydronephrosis. 2. There is no sonographic evidence of renal artery stenosis on today's examination. 08/12/22 CXR: FINDINGS: No pneumothorax. No pleural effusions. The heart is top normal in size. There is a left-sided dual-chamber pacemaker again noted. Emphysema with mild vascular crowding at the lung bases. This remains unchanged. No new focal lung consolidations to suggest a pneumonia. No evidence for pulmonary edema. There is a punctate calcified granuloma within the left lung apex. Stable linear scarlike densities within the right lung apex. PG Care Time/CCT Total # of Minutes Spent Total Time Spent with Patient: Total time spent is greater than 50% in coordination of care (as documented) at patient's floor/unit and/or counseling patient: Coding Level of Care Code 49361 Inpt Consult Level 5 Diagnoses Renal artery stenosis I70.1 Hypertensive urgency I16.0 Stage 3b chronic kidney disease N18.32
--- NOTE | 2022-08-13 14:11 | Electrocardiogram Report ---
Test Reason : Blood Pressure : / mmHG Vent. Rate : 067 BPM Atrial Rate : 066 BPM P-R Int : 236 ms QRS Dur : 084 ms QT Int : 420 ms P-R-T Axes : 000 004 018 degrees QTc Int : 443 ms Poor data quality, interpretation may be adversely affected Atrial-paced rhythm with prolonged AV conduction Abnormal ECG When compared with ECG of 02-AUG-2022 16:42, Nonspecific T wave abnormality, improved in Inferior leads Nonspecific T wave abnormality no longer evident in Lateral leads Confirmed by Jona Ch ([id number]) on 08/13/2022 2:11:04 PM Referred By: REFERRED SELF Confirmed By:Jona Ch
[2022-08-13] MEDS ORDERED: WARFARIN SOD 3 MG TAB PO ONE (16:00)
[2022-08-13] MEDS ORDERED: WARFARIN SOD 2.5 MG TAB PO SCH (16:00)
--- NOTE | 2022-08-13 17:52 | Discharge Summary ---
Date of Service August 13, 2022 Admission HPI Per Admitting Provider Marce Carlton is an 87 y/o female with past medical history of hypertension, renal artery stenosis, breast cancer, A. fib, hyperlipidemia, CAD, COPD, CKD3, secondary hyperparathyroidism, prediabetes, abdominal aortic aneurysm, and Lorenzana's esophagus who is presenting today with elevated blood pressures. She was recently admitted to our facility on 08/02-08/05 for hypertensive emergency. She was treated with her home regimen of metoprolol and losartan, as well as HCTZ which was added on day of admission and hydralazine which she responded well to. She was discharged with hydralazine 50 mg BID added to her hypertensive regimen but not the HCTZ as her BP on discharge had been around 120. She has since been seen by her PCP for continued hypertension to SBP in 180s, however has not been taking the hydralazine as prescribed because she felt dizzy with it. On presentation her BP is 215/89, otherwise vital signs within normal limits. Labs significant for mildly elevated creatinine of 1.23, baseline seems to be 1.2. Without an elavedt trop, is 8.4, no leukocytosis, anemia, or electrolyte abnormality. renal mag 3 scan, nephro consult, hydralazine 25 tid Principal Diagnosis Hypertensive emergency Discharge Exam The patient appeared stable Vital signs as documented. Lungs are clear to auscultation and appear unlabored Cardiac exam, Rhythm is regular.. No murmurs, rubs or gallops. Abdominal exam reveals normal bowel sounds, soft non tender, no masses Extremities are nonedematous and both pedal pulses are normal. Neurologic exam is alert and oriented, no focal loss of strength or sensation Skin is without bruises or rashes Psychologically is without concerns for anxiety or depression. Discharge Data Allergies Allergy/AdvReac Type Severity Reaction Status Date / Time lidocaine [From Xylocaine] Allergy Severe passed out Verified 08/11/22 10:44 amlodipine Allergy Mild dizzy and Verified 08/11/22 10:44 sick stomach atorvastatin Allergy Mild LEG CRAMPS Verified 08/11/22 10:44 pravastatin Allergy Mild leg cramps Verified 08/11/22 10:44 simvastatin Allergy Mild leg cramps Verified 08/11/22 10:44 carvedilol Allergy Unknown Unknown Verified 08/11/22 10:44 Consultations 08/12/22 21:11 ED Decision to Admit Stat 08/13/22 00:39 Consult Nephrology Routine Hospital Course (1) Severe hypertension: - Persistent SBP > 200 at home all day with recent admission last week for hypertensive emergency. - Discharged on losartan, metoprolol, and hydralazine on 08/05--self d/c'd hydralazine due to feeling dizzy last week, restarted HCTZ 12.5 mg on Thursday. -Patient had no additional chest pain throughout the evening high-sensitivity troponin on presentation was unremarkable - We will continue her metoprolol and losartan, and HCTZ, and re-initiate hydralazine, except opt for 25 mg TID patient strongly recommended following up with Dr. Mims for reevaluation of her renal artery stenosis. Patient tolerated the medical regiment in the emergency department was able ambulate without significant change in her blood pressure. - Renin and aldosterone checked, 0.28 and 4, respectively. Additionally polyp patient follows with [facility] which we will keep an eye on her blood pressure (2) Renal artery stenosis: - As above. (3) CAD (coronary artery disease): - Prior h/o 3 stents in early (RCA disease) - Negative stress test 2019. - Follows with Dr Bryce [facility] - Continue aspirin 81, statin, BP meds as above. (4) Atrial fibrillation: - NSR today, continue warfarin and metoprolol. -INR subtherapeutic we will continue to follow with Coumadin clinic per her outpatient provider. (5) Aneurysm of abdominal aorta: - s/p stents in the past - Follows with [facility] Dr Mims (6) Breast cancer: - history of, s/ (7) COPD (chronic obstructive pulmonary disease): - Continue home inhalers. (8) Barretts esophagus: - Continue PPI daily. (9) Prediabetes: - Last HbA1c was 6% in January 2022. (10) Stage 3b chronic kidney disease: - Cr 1.23, baseline < 1.20 - May have to accept some degree of hit to renal function if she remains on HCTZ for hypertension. (11) Secondary hyperparathyroidism: - Calcium wnl, iPTH this summer wnl. Plan - DNR/DNI. Total Time Total Time Spent Total Time Spent (In Minutes): It required greater than 30 minutes to prepare this patient for discharge Discharge Plan Discharge Items Patient Disposition: Home - Home Health Services Reason For Visit: UNCONTROLLED HYPERTENSION Discharge Diagnosis: hypertensive urgency Activity: Per Instructions section Activity Comment: limit strenous excersice until you see follow up appointment Non-emergency contact: Primary Care Provider Call non-emergency contact if: your symptoms worsen Follow-up/Referrals: Maximus Gonzalez MD [Primary Care Provider] - 08/19/22 3:00 pm (With Dana Pastor PA-C. Please arrive 15 minutes prior to appointment time.) Diet: Low Sodium (2gm) Addtl Attending Provider Instructions: please limit intentional excercise until after your follow up appointment with your pcp eat a low salt diet Pending Studies at Discharge: No Stand-Alone Forms: [employer], Smoking Cessation Medications and DC Order Prescriptions: New hydralazine 25 mg Tablet 25 mg PO TID Qty: 90 4RF Continued pantoprazole [Protonix] 40 mg tablet,delayed release (DR/EC) 40 mg PO HS Qty: 90 3RF (DME) Oxygen Home Liters Per Minute See Rx Instructions .ROUTE .MEDSUPPLY Qty: 1 Rx Instructions: As directed 3 liter @ night losartan [Cozaar] 100 mg tablet 100 mg PO QAM Qty: 90 3RF rosuvastatin 5 mg tablet 5 mg PO HS Qty: 90 3RF metoprolol succinate 100 mg tablet extended release 24 hr 100 mg PO DAILY hydrochlorothiazide 12.5 mg tablet 12.5 mg PO DAILY Qty: 90 3RF coQ10 (ubiquinol) 200 mg Capsule 200 mg PO QAM cetirizine [Zyrtec] 10 mg tablet 10 mg PO DAILY PRN (Reason: rhinitis) aspirin 81 mg tablet,delayed release (DR/EC) 81 mg PO QAM nitroglycerin [Nitrostat] 0.4 mg tablet, sublingual 0.4 mg SL Q5M PRN (Reason: Chest Pain) Rx Instructions: place 1 tab under tongue every 5 minutes as needed for chest pain. every 5 min x 3 if not relieved call 911 Centrum Silver 0.4-300-250 mg-mcg-mcg tablet 1 tab PO HS calcium carbonate [Calcium 600] 600 mg calcium (1,500 mg) tablet 600 mg PO QAM Combivent Respimat 20-100 mcg/actuation mist 1 puff INH QID PRN (Reason: Shortness Of Breath) Rx Instructions: One puff inhalation four times daily PRN; space evenly during waking hours cholecalciferol (vitamin D3) [Vitamin D3] 25 mcg (1,000 unit) Tablet,Chewable 25 mcg PO DAILY [place]-3 Fish Oil 300-1,000 mg Capsule 1 cap PO DAILY acetaminophen 650 mg Tablet Extended Release 650 mg PO Q8H PRN (Reason: Pain) warfarin 2.5 mg Tablet 2.5 mg PO DAILY Qty: 30 0RF Discharge Orders: Discharge Order (Routine); Ordered 08/13/22 Ordered By: Samuel Pérez Admission Data Admit Date/Time: 08/12/22 21:25 Attending Provider: Samuel Pérez Admit Provider: Alban Kerr Primary Care Provider: Maximus Gonzalez Other Providers: Alban Kerr ; Mynor Sterling Other Interventions: Discharge Summary Assessment (RN) Last Done: 08/13/22 12:36 Coding Level of Care Code D/C DAY MANAGEMENT >30 MINS Diagnoses Severe hypertension I10 Renal artery stenosis I70.1 CAD (coronary artery disease) I25.10 Atrial fibrillation I48.91 Aneurysm of abdominal aorta I71.4 Breast cancer C50.919 COPD (chronic obstructive pulmonary disease) J44.9 Barretts esophagus K22.70 Prediabetes R73.03 Stage 3b chronic kidney disease N18.32 Secondary hyperparathyroidism N25.81
[2022-08-13] MEDS ORDERED: ROSUVASTATIN CALCIUM 5 MG TAB PO SCH (21:00)
[2022-08-13] MEDS ORDERED: CEROVITE ADV FORMULA TAB PO SCH (21:00)
[2022-08-13] MEDS ORDERED: PANTOprazole 40 MG TAB PO SCH (21:00)
== END 2022-08-13 12:38 | disposition home health service (06) | DRG 305 ==
LOC: ED 17:51 → EDINP 21:25 → INTOOBSV 21:25 → SUATTDRO 21:25 → EDINP 08-13 00:40

== ENCOUNTER 2024-01-07 12:08 | Inpatient (IN) ==
[2024-01-07] MEDS ORDERED: MoRPHine SULFATE 4 MG/ML 1 ML CARP\\VIAL IV PRN (12:42)
--- NOTE | 2024-01-07 12:56 | Emergency Department Note ---
Impression & Plan Closed right hip fracture, Supratherapeutic INR, Stage III chronic kidney disease, Fall from standing ED Provider Note NAME: ANAHY TUCKER AGE: 88 SEX: F : 1935 ARRIVES VIA: Ambulance INFORMANT: Patient ED PROVIDER(S): Alireza Doyle MD CHIEF COMPLAINT: Fall, right hip pain. PLAN: Disposition: Admit MEDICAL DECISION MAKING: The patient is a pleasant 88-year-old woman with a past medical history of atrial fibrillation on warfarin, hypertension, CKD who presents to emergency department via EMS and accompanied by family for right hip pain and deformity after losing her balance walking up to her daughter's home falling onto her right side. She denies any head strike or loss of consciousness. She reports some soreness in the right anterior aspect of her lower chest but this is minimal. She otherwise reports feeling healthy in her normal state of health prior to her fall. On my evaluation the patient is uncomfortable no distress, afebrile with blood pressure 170s/120s in the setting of discomfort and otherwise stable vital signs. She has tenderness of the right inguinal hip region. Limited range of motion secondary to pain. Distal PMS is intact. Pelvis is otherwise stable. She has mild discomfort of the right anterior lower chest wall without bony crepitus or ecchymosis. WBC 15.3 K, nonspecific. H/H and platelets within normal limits. INR is slightly supratherapeutic at 3.3. Creatinine 1.3, similar to prior in the setting of CKD. Chemistry without metabolic acidosis. Electrolytes without significant abnormality. UA without evidence of infection. X-ray of the right hip and pelvis demonstrates impacted subcapital fracture of the right proximal femur. Chest x-ray negative for acute cardiopulmonary or traumatic process per my preliminary independent interpretation. Case was d/w Alexandro Ervin [facility] PAC and Dr. Mast, [facility] hospitalist who will evaluate the patient for admission. Dr. Dunbar, orthopedic surgery aware. Recommends NPO after midnight and MRI to further characterize fracture. Admitting team updated. Triage Nursing notes reviewed and agree them. Prior/external medical records reviewed Vital Signs: reviewed Differential diagnosis: Fracture, subluxation, dislocation, contusion, ligamentous injury, neurovascular, compartment syndrome, rhabdomyolysis, as well as other pathologies. ER treatment provided: See below. Diagnostics interpreted by me: ECG: Atrial paced rhythm, 60 bpm, no ectopy, no overt acute ischemia. Cardiac Monitoring: An order for continuous cardiac monitoring was placed and demonstrated Atrial paced rhythm, 60 bpm, no ectopy. Laboratory studies: See below Imaging studies: See below Consultation(s): Alexandro Ervin [facility] PAC and Dr. Mast, [facility] hospitalist Dr. Dunbar, orthopedic surgery on-call. HPI: The patient is a pleasant 88-year-old woman with a past medical history of atrial fibrillation on warfarin, hypertension, CKD who presents to emergency department via EMS and accompanied by family for right hip pain and deformity after losing her balance walking up to her daughter's home falling onto her right side. She denies any head strike or loss of consciousness. She reports some soreness in the right anterior aspect of her lower chest but this is minimal. She otherwise reports feeling healthy in her normal state of health prior to her fall. ROS: See above HPI for pertinent positives & negatives. A total of 10 systems reviewed and were otherwise negative. VITALS:See Below PHYSICAL EXAMINATION: GENERAL: Awake, alert, uncomfortable-appearing, in no distress HENT: Normocephalic, atraumatic. Oropharynx dry mucous membranes. EYES: Normal conjunctiva. Sclera non-icteric. NECK: Supple. No nuchal rigidity. FROM. No JVD. RESPIRATORY: Clear to auscultation. CARDIAC: Regular rate, normal rhythm. Extremities warm and well perfused. Pulses equal. ABDOMEN: Soft, non-distended. No tenderness to palpation. No rebound or guarding. No masses. MUSCULOSKELETAL: Chest examination reveals no tenderness. The back is symmetrical on inspection without obvious abnormality. There is no CVA tenderness to palpation. Tenderness of the right inguinal hip region. Limited range of motion secondary to pain. Distal PMS is intact. Pelvis is otherwise stable. Mild discomfort of the right anterior lower chest wall without bony crepitus or ecchymosis. LOWER EXTREMITIES: Calves are equal size bilaterally and non-tender. No edema. No discoloration. NEURO: Normal sensorium. No sensory or motor deficits noted. SKIN: No rash or jaundice noted. Alireza Doyle MD Past Med/Surg History Medical History Atrial fibrillation (~2014) on warfarin, follows with Dr. Wu > no cardioversions HX: breast cancer surgery with radiation treatments Hx of coronary artery disease 3 stents Hx of tachycardia-bradycardia syndrome S/P pacemaker Hx of renal artery stenosis Left kidney stent Hx of myocardial infarction per pt had a heart attack during heart cath @ [facility] 2008 Carotid artery plaque Sleep apnea no CPAP, O2@3L nc History of COVID-19 (~10/10/20) [facility]--only symptom SOB > all recovered Secondary hyperparathyroidism no meds Prediabetes Barretts esophagus pt unaware Allergic rhinitis Aneurysm of abdominal aorta Has [address] for this. follows with Dr Mims Nontoxic multinodular goiter Stage III chronic kidney disease follows Dr. Hall History of anesthesia reaction passed out at age 29 when received xylocaine at dentist's office had a few years ago with EGD when numbed throat and no problems History of colon polyps Osteoporosis Osteoarthritis GERD (gastroesophageal reflux disease) History of cervical cancer 1970--surgical intervention On anticoagulant therapy warfarin daily Hyperlipidemia Hypertension Emphysema of lung rare use of inhaler On home oxygen therapy 3L N/C at hs Surgical History H/O mastectomy (01/17/21) Right breast total mastectomy with right axillary sentinel lymph node biopsy (right) Dr. Noah Diaz History of temporal artery biopsy (10/02/20) Right Temporal Artery Biopsy Dr. Diaz 10/02/2020 > negative History of stent insertion of renal artery left History of dilatation and curettage History of colonoscopy History of esophagogastroduodenoscopy (EGD) History of tooth extraction all teeth Pacemaker (~2016) medtronic @ [facility] > last interrogation 10/03/23 History of partial thyroidectomy enlarged nodule History of open reduction and internal fixation (ORIF) procedure left hip---hardware in place History of heart artery stent total of 3 stents--last before 2013 History of cardiac cath multiple--[id number] 3 stents total - last one was [place] 2014 History of repair of dissection of abdominal aorta 2008? @ [facility] has two stents in place by dr mims History of cataract surgery bilt History of total abdominal hysterectomy and bilateral salpingo-oophorectomy Family History Father , 93yo Coronary heart disease CHF (congestive heart failure) Mother , 81yo Coronary heart disease Hypertension Myocardial infarction Brother Alcoholism Lung cancer Sister Atrial fibrillation COPD (chronic obstructive pulmonary disease) Brother No problems noted. Brother Lung cancer Sister Lung cancer Colorectal cancer Sister No problems noted. Sister No problems noted. Sister No problems noted. Sister No problems noted. Son No problems noted. Son No problems noted. Son No problems noted. Daughter No problems noted. Daughter No problems noted. Daughter COPD (chronic obstructive pulmonary disease) Other No family history of adverse response to anesthesia Denies family history of Ovarian cancer Prostate cancer Breast cancer Social History Smoking Status: Never smoker Tobacco Type: Cigarettes Age Started Using Tobacco: 16; Age Quit Using Tobacco: 36; packs per day: 2; Cigarettes Per Day: 2 PPD; Second Hand Exposure: No; Do You Dip or Chew Tobacco: No; Hx Alcohol Use: No Hx Substance Use: No Preferred Language: Nepalese Communication Ability: Effective Visual Impairment: No Limitations Hearing Ability: Normal Web Sizer Required: No Beliefs That Will Affect Care: None marital status: Current Living Situation: Alone Current Living Situation Comment: 2 sons staying from [place] current occupational status: retired 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 How many Children do You have: 6 Feels Safe at Home: Yes Childhood Exposure to Second-Hand Smoke: No Diet: regular caffeine: Yes (3-4 cups/day) during the past year weight has: remained stable Dental Care, Regularly: No Physical Activity Frequency: Does not Exercise Seatbelt Use: always Sunscreen Use: Yes Assistive Devices: Cane, Denture - Upper, Denture - Lower and Oxygen - at Night Allergies Allergies Allergy/AdvReac Type Severity Reaction Status Date / Time carvedilol Allergy Unknown Unknown Verified 01/07/24 16:18 lidocaine [From Xylocaine] AdvReac Severe passed out Verified 01/07/24 16:18 atorvastatin AdvReac Intermediate LEG CRAMPS Verified 01/07/24 16:18 pravastatin AdvReac Intermediate leg cramps Verified 01/07/24 16:18 simvastatin AdvReac Intermediate leg cramps Verified 01/07/24 16:18 Home Meds Home Medications Medication Instructions Recorded Confirmed aspirin 81 mg tablet,delayed 81 mg PO QAM 06/14/19 01/07/24 release cetirizine 10 mg tablet (Zyrtec) 10 mg PO DAILY PRN rhinitis 06/14/19 01/07/24 [id number]-[id number]-[id number] acid 0.4 1 tab PO HS 06/14/19 01/07/24 mg-lycopene 300 mcg-lutein 250 mcg tablet (Centrum Silver) nitroglycerin 0.4 mg sublingual 0.4 mg sublingual Q5M PRN Chest 06/14/19 01/07/24 tablet (Nitrostat) Pain Oxygen Home [id number] #1 ea 01/23/21 12/09/23 calcium carbonate (Calcium 600) 600 mg PO QAM 01/23/21 01/07/24 acetaminophen 650 mg 650 mg PO Q8H PRN Pain 08/02/22 01/07/24 tablet,extended release cholecalciferol (vitamin D3) 25 25 mcg PO QPM 08/02/22 01/07/24 mcg (1,000 unit) chewable tablet (Vitamin D3) metoprolol succinate 100 mg See Rx Instructions .Route .COMPLEX 08/11/22 01/07/24 tablet,extended release 24 hr warfarin 2.5 mg tablet 2.5 mg PO UD 03/18/23 01/07/24 amlodipine 2.5 mg tablet 2.5 mg PO QAM 01/07/24 01/07/24 diphenhydramine HCl 25 mg tablet 25 mg PO HS 01/07/24 01/07/24 (Benadryl Allergy) Previous Rx's Medication Instructions Recorded ipratropium 20 mcg-albuterol 100 1 puff inhalation QID PRN 12/15/22 mcg/actuation mist for inhalation Shortness Of Breath #4 grams (Combivent Respimat) losartan 100 mg tablet (Cozaar) 100 mg PO QAM #90 tabs 02/09/23 pantoprazole 40 mg tablet,delayed 40 mg PO HS #90 tabs 02/09/23 release (Protonix) rosuvastatin 5 mg tablet 5 mg PO HS #90 tabs 02/09/23 Results & Data (ED) Vital Signs Vital Signs - 24 hr 01/07/24 12:31 01/07/24 12:31 01/07/24 14:00 Temperature 36.8 C Temperature Source Oral Pulse Rate 65 Pulse Rate [Right Finger] 68 Respiratory Rate 22 22 18 Respiratory Depth Normal Normal Normal Blood Pressure 175/121 H Blood Pressure [Left Arm] 115/53 L Blood Pressure Mean 139 Blood Pressure Mean [Left Arm] 73 Pulse Oximetry 95 98 Oxygen Delivery Method Nasal Cannula Nasal Cannula Oxygen Flow Rate 3 3 Sepsis Recent Fever Within 48 Hours No Sepsis New/Unexplained Change in Mental Status N/A Sepsis Action Taken by Nursing No Action Required Laboratory Data Attestation: I reviewed the patient's lab results. 01/07/24 12:40 01/07/24 12:40 Lab Results 01/07/24 Range/Units 12:40 WBC 15.38 H (4.8-10.8) K/ul RBC 4.43 (4.20-5.40) M/uL Hgb 13.5 (12.0-16.0) g/dl Hct 41.7 (37.0-47.0) % MCV 94.1 (80.0-100.0) fL MCH 30.5 (25.0-34.0) pg MCHC 32.4 (32.0-36.0) g/dL RDW Std Deviation 44.7 (36.4-46.3) fL RDW Coeff of Virgilio 13.1 (11.5-14.5) % Plt Count 291 (130-400) K/uL MPV 10.2 (9.4-12.4) fL Immature Gran % (Auto) 1.8 % Neut % (Auto) 87.1 % Lymph % (Auto) 5.5 % Yates % (Auto) 3.8 % Eos % (Auto) 1.2 % Baso % (Auto) 0.6 % Neut # (Auto) 13.41 H (1.40-6.50) K/uL Lymph # (Auto) 0.84 L (1.20-3.40) K/uL Yates # (Auto) 0.58 (0.11-0.59) K/uL Eos # (Auto) 0.18 (0.00-0.50) K/uL Baso # (Auto) 0.09 (0.00-0.20) K/uL Immature Gran # (Auto) 0.28 H (0.01-0.20) K/uL PT 32.4 H (9.0-12.0) Seconds INR 3.3 H (0.9-1.1) APTT 44 H (21-31) Seconds PTT Ratio 1.6 Sodium 140 (136-145) mmol/L Potassium 4.4 (3.5-5.1) mmol/L Chloride 106 (98-107) mmol/L Carbon Dioxide 28 (21-32) mmol/L Anion Gap 6 (3-11) BUN 16 (6-23) mg/dl Creatinine 1.31 H (0.6-1.2) mg/dl Est Cr Clr Drug Dosing 31.2 ml/min Est GFR ( Amer) 42.3 ml/min Est GFR (Non-Af Amer) 36.5 ml/min BUN/Creatinine Ratio 12.2 (10-20) Glucose 107 H (70-99(Fasting)) mg/dl Calcium 8.6 (8.6-10.3) mg/dl Magnesium 2.0 (1.7-2.4) mg/dl Total Bilirubin 0.7 (0.2-1.0) mg/dl AST 25 (13-39) U/L ALT 18 (7-52) U/L Alkaline Phosphatase 68 (34-104) U/L Total Protein 7.0 (6.0-8.3) gm/dl Albumin 3.9 (3.4-5.0) gm/dl Globulin 3.1 (2.5-4.0) gm/dl Albumin/Globulin Ratio 1.3 (0.9-2) Administered Medications Acetaminophen (Acetaminophen 325 Mg Tab) 650 mg PO Q6H [facility] Stop: 02/06/24 15:54 Last Admin: 01/07/24 22:04 Dose: 650 mg Documented By: Admin: 01/07/24 16:27 Dose: 650 mg Documented By: LYNSEY Sodium Chloride (Nss) 1,000 mls @ 75 mls/hr IV .[id number] [facility] Stop: 01/08/24 02:04 Last Admin: 01/07/24 13:08 Dose: 75 mls/hr Documented By: LYNSEY Metoprolol Succinate (Metoprolol Succ 50mg Ext Rel Tab) 50 mg PO QPM [facility] Stop: 02/06/24 20:59 Last Admin: 01/07/24 22:03 Dose: 50 mg Documented By: AEMalinda Morphine Sulfate (Morphine Sulfate 4 Mg/Ml 1 Ml Carp\Vial) 2 mg IV Q2H PRN PRN Reason: Severe Pain (Rating 7,8,9,10) Stop: 01/21/24 12:41 Last Admin: 01/07/24 19:18 Dose: 2 mg Documented By: Admin: 01/07/24 17:17 Dose: 2 mg Documented By: LYNSEY Ondansetron HCl (Ondansetron Inj 2 Mg/Ml 2 Ml Vial) 4 mg IV Q4H PRN PRN Reason: Nausea And Vomiting Stop: 02/06/24 15:48 Last Admin: 01/07/24 22:27 Dose: 4 mg Documented By: AEMalinda Pantoprazole Sodium (Pantoprazole 40 Mg Tab) 40 mg PO [facility] Stop: 02/06/24 20:59 Last Admin: 01/07/24 20:26 Dose: 40 mg Documented By: AEMalinda Rosuvastatin Calcium (Rosuvastatin Calcium 5 Mg Tab) 5 mg PO [facility] Stop: 02/06/24 20:59 Last Admin: 01/07/24 20:25 Dose: 5 mg Documented By: AEMalinda Discontinued Medications Acetaminophen (Ofirmev) 1,000 mg in 100 mls @ 400 mls/hr IV NOW STA Stop: 01/07/24 12:56 Last Infusion: 01/07/24 13:34 Dose: Infused Documented By: Admin: 01/07/24 13:03 Dose: 400 mls/hr Documented By: LYNSEY Famotidine (Pepcid 20mg Iv Push) 20 mg in 5 mls @ 2.5 mls/min IV NOW STA Stop: 01/07/24 15:19 Last Admin: 01/07/24 15:22 Dose: 2.5 mls/min Documented By: LYNSEY Phytonadione 10 mg/ Dextrose 51 mls @ 101 mls/hr IV ONE ONE Stop: 01/07/24 21:45 Last Infusion: 01/07/24 23:18 Dose: Infused Documented By: AEMalinda Admin: 01/07/24 22:38 Dose: 101 mls/hr Documented By: AEMalinda Morphine Sulfate (Morphine Sulfate 2 Mg/Ml Carp) 1 mg IV Q2H PRN PRN Reason: Moderate Pain (Rating 3,4,5,6) Stop: 01/21/24 12:41 Last Admin: 01/07/24 14:45 Dose: 1 mg Documented By: Admin: 05/02/24 13:02 Dose: 1 mg Documented By: LYNSEY Morphine Sulfate (Morphine Sulfate 2 Mg/Ml Carp) 1 mg IV NOW STA Stop: 01/07/24 20:04 Last Admin: 01/07/24 20:20 Dose: 1 mg Documented By: NATASHA Ondansetron HCl (Ondansetron Inj 2 Mg/Ml 2 Ml Vial) 4 mg IV NOW STA Stop: 01/07/24 12:46 Last Admin: 01/07/24 13:02 Dose: 4 mg Documented By: LYNSEY Ondansetron HCl (Ondansetron Inj 2 Mg/Ml 2 Ml Vial) 4 mg IV NOW STA Stop: 01/07/24 14:54 Last Admin: 01/07/24 14:59 Dose: 4 mg Documented By: LYNSEY Ondansetron HCl (Ondansetron Inj 2 Mg/Ml 2 Ml Vial) 4 mg IV Q6H PRN PRN Reason: Nausea And Vomiting Stop: 02/06/24 15:48 Last Admin: 01/07/24 19:18 Dose: 4 mg Documented By: LYNSEY Imaging Data Radiologist's Impression: Hip/Pelvis X-Ray 01/07/24 12:42 SINGLE VIEW PELVIS; 2 VIEWS RIGHT HIP CLINICAL HISTORY: Fall. Right hip pain. FINDINGS: AP view of the pelvis with AP and crosstable lateral views of the right hip are compared to study dated 10/15/2021. Correlation is made with pelvic CT dated 12/06/2023. The skeletal structures are osteopenic. There is an acute impacted subcapital fracture of the right proximal femur with mild overlying soft tissue edema. No additional acute fracture is seen involving the left hip or bony pelvis. There is chronic deformity of the left proximal femur noting intertrochanteric and intramedullary nails in place. There is moderate osteoarthritic change and joint space narrowing seen in both hips, left greater than right. Degenerative sclerosis is noted in the sacroiliac joints. Lumbosacral spondylosis is partially visualized. A stent graft is noted in the aorta. IMPRESSION: Impacted subcapital fracture of the right proximal femur. Electronically signed by: Fantasma Alvardao M.D. 01/07/2024 2:37 PM Chest X-Ray 01/07/24 12:44 SINGLE VIEW CHEST CLINICAL HISTORY: Fall. Hip fracture FINDINGS: An AP, portable, supine chest radiograph is compared to study dated 12/06/2023. A 2-lead cardiac pacemaker is unchanged in position. The heart is enlarged noting atherosclerotic calcification of the thoracic aorta. The pulmonary vasculature is noncongested. Advanced emphysema and chronic interstitial thickening. Is similar to previous. Foci of parenchymal scarring are seen throughout both lungs. No airspace consolidation or large pleural effusion is identified. No pneumothorax is seen. The skeletal structures are osteopenic. The bony thorax is grossly intact. IMPRESSION: 1. Cardiomegaly and cardiac pacemaker without radiographic evidence of congestive failure. 2. No airspace consolidation or pleural effusion is identified. 3. Emphysema. ACT 112: Negative or not required by law. Electronically signed by: Fantasma Alvarado M.D. 01/07/2024 2:42 PM Discharge Plan Visit Data Chief Complaint: Fall ED Provider: Alireza Doyle Discharge Problem: Closed right hip fracture, Supratherapeutic INR, Stage III chronic kidney disease, Fall from standing Patient Disposition: Admitted As Inpatient Discharge Instructions Interventions: ED Discharge Assessment Last Done: 01/07/24 16:29 Discharge Problem: Closed right hip fracture Qualifiers: Encounter type: initial encounter Qualified Code(s): S72.001A - Fracture of unspecified part of neck of right femur, initial encounter for closed fracture Stage III chronic kidney disease Qualifiers: Chronic kidney disease stage 3 subtype: unspecified whether 3a or 3b Qualified Code(s): N18.30 - Chronic kidney disease, stage 3 unspecified Fall from standing Qualifiers: Encounter type: initial encounter Qualified Code(s): W19.XXXA - Unspecified fall, initial encounter
[2024-01-07] MEDS: ONDANSETRON INJ 2 MG/ML 2 ML VIAL IV STA ×2 (13:02→14:59)
[2024-01-07] MEDS: MoRPHine SULFATE 2 MG/ML CARP IV PRN (13:02)
[2024-01-07] MEDS: ACETAMINOPHEN 1,000 MG/100 ML VIAL IV STA (13:03)
[2024-01-07] MEDS: SODIUM CHLORIDE 0.9% 1,000 ML IV SCH (13:08)
[2024-01-07 13:17] LABS: Basophils # (auto) 0.09 K/uL (0.00-0.20); Basophils % (auto) 0.6 %; Eosinophils # (auto) 0.18 K/uL (0.00-0.50); Eosinophils % (auto) 1.2 %; Hematocrit (blood only) 41.7 % (37.0-47.0); Hemoglobin 13.5 g/dl (12.0-16.0); Immature Granulocytes # (auto) 0.28 K/uL (0.01-0.20); Immature Granulocytes % (auto) 1.8 %; Lymphocytes # (auto) 0.84 K/uL (1.20-3.40); Lymphocytes % (auto) 5.5 %; Mean Corpuscular Hemoglobin 30.5 pg (25.0-34.0); Mean Corpuscular Hgb Conc 32.4 g/dL (32.0-36.0); Mean Corpuscular Volume 94.1 fL (80.0-100.0); Mean Platelet Volume 10.2 fL (9.4-12.4); Monocytes # (auto) 0.58 K/uL (0.11-0.59); Monocytes % (auto) 3.8 %; Neutrophils # (auto) 13.41 K/uL (1.40-6.50); Neutrophils % (auto) 87.1 %; Platelet Count 291 K/uL (130-400); RDW Coefficient of Variation 13.1 % (11.5-14.5); RDW Standard Deviation 44.7 fL (36.4-46.3); Red Blood Count 4.43 M/uL (4.20-5.40); White Blood Count 15.38 K/ul (4.8-10.8)
[2024-01-07 13:21] LABS: INR 3.3 (0.9-1.1); Partial Thromboplastin Ratio 1.6; Partial Thromboplastin Time 44 Seconds (21-31); Prothrombin Time 32.4 Seconds (9.0-12.0)
[2024-01-07 13:29] LABS: Albumin Globulin Ratio 1.3 (0.9-2); Albumin Level 3.9 gm/dl (3.4-5.0); BUN Creatinine Ratio 12.2 (10-20); Bilirubin,Total 0.7 mg/dl (0.2-1.0); Calcium 8.6 mg/dl (8.6-10.3); Creatinine Clr Calc Pharmacy 31.2 ml/min; Est GFR (African American) 42.3 ml/min; Est GFR (Non-African American) 36.5 ml/min; Globulin 3.1 gm/dl (2.5-4.0); Potassium 4.4 mmol/L (3.5-5.1)
[2024-01-07 13:56] LABS: Appearance Urine Clear (Clear); Bacteria Urine Automated None Seen (None Seen); Bilirubin Urine Negative (Negative); Blood Urine Trace (Negative); Color Urine Yellow; Epithelial Cell Urine Auto 0-2 /hpf (0-2); Glucose Urine UA Negative (Negative); Ketones Urine Negative (Negative); Leukocyte Esterase Urine Negative (Negative); Nitrite Urine Negative (Negative); Protein Urine Negative (Negative); Specific Gravity Urine 1.012 (1.000-1.030); Urobilinogen Urine Negative (Negative); WBC Urine Automated 0-5 /hpf (0-5); pH Urine 7.5 (4.5-7.5)
--- NOTE | 2024-01-07 14:38 | XRay Report ---
SINGLE VIEW PELVIS; 2 VIEWS RIGHT HIP CLINICAL HISTORY: Fall. Right hip pain. FINDINGS: AP view of the pelvis with AP and crosstable lateral views of the right hip are compared to study dated 10/15/2021. Correlation is made with pelvic CT dated 12/06/2023. The skeletal structures ar e osteopenic. There is an acute impacted subcapital fracture of the right proximal femur with mild ov erlying soft tissue edema. No additional acute fracture is seen involving the left hip or bony pelvis . There is chronic deformity of the left proximal femur noting intertrochanteric and intramedullary n ails in place. There is moderate osteoarthritic change and joint space narrowing seen in both hips, l eft greater than right. Degenerative sclerosis is noted in the sacroiliac joints. Lumbosacral spondyl osis is partially visualized. A stent graft is noted in the aorta. IMPRESSION: Impacted subcapital fracture of the right proximal femur. Electronically signed by: Fantasma Alvarado M.D. 01/07/2024 2:37 PM
--- NOTE | 2024-01-07 14:44 | XRay Report ---
SINGLE VIEW CHEST CLINICAL HISTORY: Fall. Hip fracture FINDINGS: An AP, portable, supine chest radiograph is compared to study dated 12/06/2023. A 2-lead car diac pacemaker is unchanged in position. The heart is enlarged noting atherosclerotic calcification o f the thoracic aorta. The pulmonary vasculature is noncongested. Advanced emphysema and chronic inter stitial thickening. Is similar to previous. Foci of parenchymal scarring are seen throughout both lily gs. No airspace consolidation or large pleural effusion is identified. No pneumothorax is seen. The s keletal structures are osteopenic. The bony thorax is grossly intact. IMPRESSION: 1. Cardiomegaly and cardiac pacemaker without radiographic evidence of congestive failure. 2. No airspace consolidation or pleural effusion is identified. 3. Emphysema. ACT 112: Negative or not required by law. Electronically signed by: Fantasma Alvarado M.D. 01/07/2024 2:42 PM
[2024-01-07] MEDS: FAMOTIDINE 20MG IV PUSH 20 MG/5 ML SYR IV STA (15:22)
--- NOTE | 2024-01-07 15:32 | History & Physical Report ---
Date of Service January 07, 2024 Assessment & Plan (1) Osteoporotic hip fracture: Plan: -Admit to med/tele on pulse oximetry -Currently hemodynamically stable and stable on RA -Presented to the ED after sustaining a mechanical fall walking up the front porch steps at her Nephew's house -Did not hit her head or lose consciousness -CXR negative for acute findings -Xray of the right hip/pelvis was read as "Impacted subcapital fracture of the right proximal femur." -No other focal trauma on exam -Will place orthopedics consult and start hip fracture order set -Will speak with Orthopedics regarding timing of her surgery. If tomorrow (01/07) then will reverse her INR today -Pain control with scheduled tylenol and PRN morphine -PT/OT consults -Fall/aspiration precautions -BL SCD's for DVT PPX -HH diet with 2gm sodium restriction until midnight then NPO except meds -AM CBC, CMP, mag, PT/INR (2) Fall: Plan: -Mechanical in nature -Denies prodromal symptoms -Fall precautions -PT/OT consults (3) Supratherapeutic INR: Plan: -INR of 3.3 today -No signs of acute bleeding -Last dose of Warfarin was yesterday evening -IF OR tomorrow will reverse INR tonight -Hold Warfarin today regardless -Monitor daily INR (4) Hypertension: Plan: -Currently stable -Will plan to hold home losartan tomorrow to prevent perioperative hypotension -Continue metoprolol (5) Atrial fibrillation: Plan: -Currently in an atrial paced rhythm -INR is currently 3.3 -Last dose of Warfarin was yesterday evening -Hold Warfarin for now -If Surgery is scheduled for tomorrow will revers INR today -Continue metoprolol -Monitor daily INR (6) Hx of coronary artery disease: Plan: -Denies chest pain -Currently in an atrial paced rhythm -Continue aspirin and statin (7) On home oxygen therapy: Plan: -Uses 3L NC HS -Currently stable on RA -Continue prn O2 to keep SpO2 between 89-92% with her hx of COPD -Incentive spirometry, flutter therapy -QIDr prn DuoNebs Plan The patient was discussed with Dr. Mast at the time of the admission History of Present Illness Chief Complaint: Fall, right hip pain Primary Care Provider: Maximus Gonzalez MD Marce is a 88 year old female with a PMH significant for hypertension, renal artery stenosis, A. fib (on Warfarin), hyperlipidemia, CAD, S/P pacemaker placement, COPD (On HS O2), CKD3, secondary hyperparathyroidism, prediabetes, and Lorenzana's esophagus who presented to the [facility] ED on 01/07/24 after sustaining a fall at home while walking up her porch steps, landing on her right side and sustaining right hip fracture. EMS reported that the patient was saturating in the mid 80's on RA, she was subsequently placed on 3L NC. On arrival to the ED she was noted to by hypertensive at 175/121, stable on 3L NC, but otherwise stable. Labs were significant for a leukocytosis of 15 with neutrophil predominance of 13, INR of 3.3, and UA without signs of infection. CXR was read as negative for acute findings. "Impacted subcapital fracture of the right proximal femur.". Prior to admission the patient was given 1L NSS, 1gm IV tylenol, 2 doses of 1mg IV morphine, 2 doses of 4 mg IV zofran, and 20 mg IV famotidine. At the time of the exam the patient was lying in bed in no acute distress. States that she was in her normal state of health when she went to visit her Nephew today with her son. While walking up the front porch steps her right foot caught one of the steps, causing her to fall forward and land on her right side. She denies feeling lightheaded, dizzy, or having chest pain, SOB, or palpitations prior to her fall. She did not hit her head or lose consciousness. Her only complaints at this time are RLE pain, right lower rib pain, and feeling thirsty. She did have her am medications today but did not have her home dose of Warfarin yet. Denies current fever, chills, chest pain, SOB, cough, abd pain, nausea, vomiting, diarrhea, dysuria hematuria melena. She uses 3L NC HS and is a DNR/DNI with her daughter being her POA. Please refer to Dr. Mast's attestation for any changes to the treatment plan Allergies Allergy/AdvReac Type Severity Reaction Status Date / Time carvedilol Allergy Unknown Unknown Verified 01/07/24 16:18 lidocaine [From Xylocaine] AdvReac Severe passed out Verified 01/07/24 16:18 atorvastatin AdvReac Intermediate LEG CRAMPS Verified 01/07/24 16:18 pravastatin AdvReac Intermediate leg cramps Verified 01/07/24 16:18 simvastatin AdvReac Intermediate leg cramps Verified 01/07/24 16:18 Home Medications Medication Instructions Recorded Confirmed Type aspirin 81 mg tablet,delayed 81 mg PO QAM 06/14/19 01/07/24 History release cetirizine 10 mg tablet (Zyrtec) 10 mg PO DAILY PRN rhinitis 06/14/19 01/07/24 History pnvnyesa-fsu-mpwbo acid 0.4 1 tab PO HS 06/14/19 01/07/24 History mg-lycopene 300 mcg-lutein 250 mcg tablet (Centrum Silver) nitroglycerin 0.4 mg sublingual 0.4 mg sublingual Q5M PRN Chest 06/14/19 01/07/24 History tablet (Nitrostat) Pain Oxygen Home E0424 #1 ea 01/23/21 12/09/23 History calcium carbonate (Calcium 600) 600 mg PO QAM 01/23/21 01/07/24 History acetaminophen 650 mg 650 mg PO Q8H PRN Pain 08/02/22 01/07/24 History tablet,extended release cholecalciferol (vitamin D3) 25 25 mcg PO QPM 08/02/22 01/07/24 History mcg (1,000 unit) chewable tablet (Vitamin D3) metoprolol succinate 100 mg See Rx Instructions .Route .COMPLEX 08/11/22 01/07/24 History tablet,extended release 24 hr ipratropium 20 mcg-albuterol 100 1 puff inhalation QID PRN 12/15/22 01/07/24 Rx mcg/actuation mist for inhalation Shortness Of Breath #4 grams (Combivent Respimat) losartan 100 mg tablet (Cozaar) 100 mg PO QAM #90 tabs 02/09/23 01/07/24 Rx pantoprazole 40 mg tablet,delayed 40 mg PO HS #90 tabs 02/09/23 01/07/24 Rx release (Protonix) rosuvastatin 5 mg tablet 5 mg PO HS #90 tabs 02/09/23 01/07/24 Rx warfarin 2.5 mg tablet 2.5 mg PO UD 03/18/23 01/07/24 History amlodipine 2.5 mg tablet 2.5 mg PO QAM 01/07/24 01/07/24 History diphenhydramine HCl 25 mg tablet 25 mg PO HS 01/07/24 01/07/24 History (Benadryl Allergy) Past Med/Surg History Medical History Atrial fibrillation (~2014) on warfarin, follows with Dr. Wu > no cardioversions HX: breast cancer surgery with radiation treatments Hx of coronary artery disease 3 stents Hx of tachycardia-bradycardia syndrome S/P pacemaker Hx of renal artery stenosis Left kidney stent Hx of myocardial infarction per pt had a heart attack during heart cath @ [facility] [place] 2008 Carotid artery plaque Sleep apnea no CPAP, O2@3L nc History of COVID-19 (~10/10/20) [facility]--only symptom SOB > all recovered Secondary hyperparathyroidism no meds Prediabetes Barretts esophagus pt unaware Allergic rhinitis Aneurysm of abdominal aorta Has [address] for this. follows with Dr Mims Nontoxic multinodular goiter Stage III chronic kidney disease follows Dr. Hall History of anesthesia reaction passed out at age 29 when received xylocaine at dentist's office had a few years ago with EGD when numbed throat and no problems History of colon polyps Osteoporosis Osteoarthritis GERD (gastroesophageal reflux disease) History of cervical cancer 1970--surgical intervention On anticoagulant therapy warfarin daily Hyperlipidemia Hypertension Emphysema of lung rare use of inhaler On home oxygen therapy 3L N/C at hs Surgical History H/O mastectomy (01/17/21) Right breast total mastectomy with right axillary sentinel lymph node biopsy (right) Dr. Noah Diaz History of temporal artery biopsy (10/02/20) Right Temporal Artery Biopsy Dr. Diaz 10/02/2020 > negative History of stent insertion of renal artery left History of dilatation and curettage History of colonoscopy History of esophagogastroduodenoscopy (EGD) History of tooth extraction all teeth Pacemaker (~2016) medtronic @ [facility] > last interrogation 10/03/23 History of partial thyroidectomy enlarged nodule History of open reduction and internal fixation (ORIF) procedure left hip---hardware in place History of heart artery stent total of 3 stents--last before 2013 History of cardiac cath multiple--[id number] 3 stents total - last one was [facility] 2014 History of repair of dissection of abdominal aorta 2008? @ [facility] has two stents in place by dr mims History of cataract surgery bilt History of total abdominal hysterectomy and bilateral salpingo-oophorectomy Family History Father , 93yo Coronary heart disease CHF (congestive heart failure) Mother , 81yo Coronary heart disease Hypertension Myocardial infarction Brother Alcoholism Lung cancer Sister Atrial fibrillation COPD (chronic obstructive pulmonary disease) Brother No problems noted. Brother Lung cancer Sister Lung cancer Colorectal cancer Sister No problems noted. Sister No problems noted. Sister No problems noted. Sister No problems noted. Son No problems noted. Son No problems noted. Son No problems noted. Daughter No problems noted. Daughter No problems noted. Daughter COPD (chronic obstructive pulmonary disease) Other No family history of adverse response to anesthesia Denies family history of Ovarian cancer Prostate cancer Breast cancer Social History Smoking Status: Former smoker Tobacco Type: Cigarettes Age Started Using Tobacco: 16; Age Quit Using Tobacco: 36; packs per day: 2; Cigarettes Per Day: 2 PPD; Second Hand Exposure: No; Do You Dip or Chew Tobacco: No; Hx Alcohol Use: No Hx Substance Use: No Preferred Language: Wolof Communication Ability: Effective Visual Impairment: No Limitations Hearing Ability: Normal Liquid [employer] Operator Required: No Beliefs That Will Affect Care: None marital status: Current Living Situation: Family Current Living Situation Comment: Sons alternate living with her current occupational status: retired 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 How many Children do You have: 6 Other Information That Helps Us Care for You: No Feels Safe at Home: Yes Safety Concerns: Feels Safe At This Time Childhood Exposure to Second-Hand Smoke: No Diet: regular caffeine: Yes (3-4 cups/day) during the past year weight has: remained stable Dental Care, Regularly: No Physical Activity Frequency: Does not Exercise Seatbelt Use: always Sunscreen Use: Yes Assistive Devices: Denture - Upper, Denture - Lower, Hospital Bed, Oxygen - at Night, Oxygen - Continuous and Walker Physical Exam Physical Exam: Physical Exam: General: In no acute distress, stated age, well-nourished, non-toxic appearing HEENT: Normocephalic, atraumatic, no scleral icterus, pupils around round, symmetrical, and reactive to light, dry mucus membranes, trachea midline, no thyromegaly Chest/Pulm: No respiratory distress, symmetrical chest expansion, scattered expiratory wheezing Cardiac: RRR, no murmurs noted Abdomen: Negative for ascites and bruising, normoactive bowel sounds, soft, non-tender to palpation throughout Musculoskeletal: RLE is currently shortened and externally rotated, no other acute trauma on exam, intact sensation and motor function in the LE's Extremities: Radial, dorsalis pedis, and posterior tibial pulses are intact and symmetrical, no edema noted in the LE's Skin: Chronic bruising noted on the upper extremities in various stages of healing, no acute skin tears or abrasions Neuro: Alert and oriented to person, place, month, year, and president, no focal defects, CN II-XII tested and intact, no tremors noted Psych: No acute distress, calm and cooperative during the exam Results & Data Results & Data Vital Signs (Past 12 Hours) Vital Signs Temp Pulse Pulse Resp BP BP Pulse Ox 01/07/24 14:00 68 18 115/53 L 98 01/07/24 12:31 22 01/07/24 12:31 36.8 C 65 22 175/121 H 95 O2 Del Method O2 Flow Rate 01/07/24 14:00 Nasal Cannula 3 01/07/24 12:31 01/07/24 12:31 Nasal Cannula 3 Laboratory Results Abnormal lab results 01/07/24 01/07/24 Range/Units 12:40 Unknown WBC 15.38 H (4.8-10.8) K/ul Neut # (Auto) 13.41 H (1.40-6.50) K/uL Lymph # (Auto) 0.84 L (1.20-3.40) K/uL Immature Gran # (Auto) 0.28 H (0.01-0.20) K/uL PT 32.4 H (9.0-12.0) Seconds INR 3.3 H (0.9-1.1) APTT 44 H (21-31) Seconds Creatinine 1.31 H (0.6-1.2) mg/dl Glucose 107 H (70-99(Fasting)) mg/dl Urine Blood Trace H (Negative) Urine RBC (Auto) 3-5 H (0-2) /hpf U Hyaline Cast (Auto) 3-5 H (0-2) /lpf Diagnostic Findings Hip/Pelvis X-Ray 01/07/24 12:42 SINGLE VIEW PELVIS; 2 VIEWS RIGHT HIP CLINICAL HISTORY: Fall. Right hip pain. FINDINGS: AP view of the pelvis with AP and crosstable lateral views of the right hip are compared to study dated 10/15/2021. Correlation is made with pelvic CT dated 12/06/2023. The skeletal structures are osteopenic. There is an acute impacted subcapital fracture of the right proximal femur with mild overlying soft tissue edema. No additional acute fracture is seen involving the left hip or bony pelvis. There is chronic deformity of the left proximal femur noting intertrochanteric and intramedullary nails in place. There is moderate osteoarthritic change and joint space narrowing seen in both hips, left greater than right. Degenerative sclerosis is noted in the sacroiliac joints. Lumbosacral spondylosis is partially visualized. A stent graft is noted in the aorta. IMPRESSION: Impacted subcapital fracture of the right proximal femur. Electronically signed by: Fantasma Alvarado M.D. 01/07/2024 2:37 PM Chest X-Ray 01/07/24 12:44 SINGLE VIEW CHEST CLINICAL HISTORY: Fall. Hip fracture FINDINGS: An AP, portable, supine chest radiograph is compared to study dated 12/06/2023. A 2-lead cardiac pacemaker is unchanged in position. The heart is enlarged noting atherosclerotic calcification of the thoracic aorta. The pulmonary vasculature is noncongested. Advanced emphysema and chronic interstitial thickening. Is similar to previous. Foci of parenchymal scarring are seen throughout both lungs. No airspace consolidation or large pleural effusion is identified. No pneumothorax is seen. The skeletal structures are osteopenic. The bony thorax is grossly intact. IMPRESSION: 1. Cardiomegaly and cardiac pacemaker without radiographic evidence of congestive failure. 2. No airspace consolidation or pleural effusion is identified. 3. Emphysema. ACT 112: Negative or not required by law. Electronically signed by: Fantasma Alvarado M.D. 01/07/2024 2:42 PM ECG Additional Comments: Atrial-paced rhythm with prolonged AV conduction Low voltage QRS Cannot rule out Anterior infarct , age undetermined Abnormal ECG When compared with ECG of 06-DEC-2023 21:07, Minimal criteria for Anterior infarct are now Present Nonspecific T wave abnormality no longer evident in Lateral leads Code Status & VTE Plan Code Status DNR/DNI VTE Prophylaxis Plan VTE Prophylaxis will be ordered: Yes Supervising Physician Co-Signing Physician Notes I personally saw and examined the patient. I verified all herring points and agree with Alexandro Ervin PA-C with the following exceptions and/or additions: 88 year old female presents to the ER with right hip pain following a fall while walking up steps. Feeling well prior to falling. O/E HS RRR, no murmurs, Chest CTAB, Abdo SNT, right leg shortened and externally rotated, DP/PT pulses intact A/P Osteoporotic hip fracture - NPO, IV fluids, Acetaminophen SIRENA, morphine for breakthrough pain Fall - no dizziness, shortness of breath or chest pain, accidently fall walking up steps Supratherapeutic INR - vitamin K 10 mg IV given to reverse, repeat INR in AM. PG Care Time/CCT Total # of Minutes Spent Total Time Spent with Patient: Total time spent is greater than 50% in coordination of care (as documented) at patient's floor/unit and/or counseling patient: Coding [place] [address] INT INP/OBS CARE 3/75MIN Patient Type Established Medical Decision Making High Complexity Diagnoses Osteoporotic hip fracture M80.059A Fall W19.XXXA Supratherapeutic INR R79.1 Hypertension I10 Atrial fibrillation I48.91 Hx of coronary artery disease Z86.79 On home oxygen therapy Z99.81
[2024-01-07] MEDS ORDERED: ALBUT/IPRATROP 3MG/0.5MG NEB 3 ML VIAL NEB PRN (15:34)
[2024-01-07] MEDS ORDERED: bisacodyL 10 MG SUPP PR PRN (15:49)
[2024-01-07] MEDS ORDERED: NALOXONE HCL 0.4 MG/1 ML VIAL/CARP IV PRN (15:49)
[2024-01-07] MEDS ORDERED: MAGNESIUM HYDROXIDE SUSP 30 ML UDC PO PRN (15:49)
[2024-01-07] MEDS: ACETAMINOPHEN 325 MG TAB PO SCH (16:27)
[2024-01-07] MEDS: MoRPHine SULFATE 4 MG/ML 1 ML CARP\\VIAL IV PRN (17:17)
[2024-01-07] MEDS: ONDANSETRON INJ 2 MG/ML 2 ML VIAL IV PRN ×2 (19:18→22:27)
[2024-01-07] MEDS: MoRPHine SULFATE 2 MG/ML CARP IV STA (20:20)
[2024-01-07] MEDS: ROSUVASTATIN CALCIUM 5 MG TAB PO SCH (20:25)
[2024-01-07] MEDS: PANTOprazole 40 MG TAB PO SCH (20:26)
[2024-01-07] MEDS: METOPROLOL SUCC 50MG EXT REL TAB PO SCH (22:03)
[2024-01-07] MEDS: PHYTONADIONE 10 MG in DEXTROSE 5% 50 ML IV ONE (22:38)
[2024-01-08 04:10] LABS: Basophils # (auto) 0.09 K/uL (0.00-0.20); Basophils % (auto) 0.5 %; Eosinophils # (auto) 0.02 K/uL (0.00-0.50); Eosinophils % (auto) 0.1 %; Hematocrit (blood only) 31.4 % (37.0-47.0); Hemoglobin 10.1 g/dl (12.0-16.0); Immature Granulocytes # (auto) 0.19 K/uL (0.01-0.20); Lymphocytes # (auto) 0.82 K/uL (1.20-3.40); Lymphocytes % (auto) 4.4 %; Mean Corpuscular Hemoglobin 30.6 pg (25.0-34.0); Mean Corpuscular Hgb Conc 32.2 g/dL (32.0-36.0); Mean Corpuscular Volume 95.2 fL (80.0-100.0); Mean Platelet Volume 9.9 fL (9.4-12.4); Monocytes # (auto) 0.93 K/uL (0.11-0.59); Monocytes % (auto) 4.9 %; Neutrophils # (auto) 16.79 K/uL (1.40-6.50); Neutrophils % (auto) 89.1 %; Platelet Count 226 K/uL (130-400); RDW Coefficient of Variation 13.1 % (11.5-14.5); RDW Standard Deviation 45.9 fL (36.4-46.3); White Blood Count 18.84 K/ul (4.8-10.8)
[2024-01-08 04:15] LABS: INR 1.9 (0.9-1.1); Prothrombin Time 19.8 Seconds (9.0-12.0)
--- NOTE | 2024-01-08 04:15 | Communication Note ---
Date of Service: January 08, 2024 Notified by nursing of concern for new RLQ abdominal pain. Evaluated pt at bedside. Hemodynamically stable. +RLQ pain without rebound or guarding. Point tenderness of right 8th/9th rib. Noted that she is here with right hip fracture- INR=3.3, s/p Vitamin K yesterday. Concern for acute bleed. Repeat Hbg= 10.1; type and screen. Blood consent in chart. Repeat INR= 1.9. CT Chest/CT A&P are pending. Was started on NSS @80ml/hr while NPO. Trend H/H q4. Home amlodipine/metoprolol held, can restart if remains hemodynamically stable.
[2024-01-08 04:25] LABS: Albumin Globulin Ratio 1.2 (0.9-2); Albumin Level 3.3 gm/dl (3.4-5.0); BUN Creatinine Ratio 16.7 (10-20); Bilirubin,Total 0.7 mg/dl (0.2-1.0); Calcium 7.9 mg/dl (8.6-10.3); Creatinine Clr Calc Pharmacy 25.3 ml/min; Est GFR (African American) 32.7 ml/min; Est GFR (Non-African American) 28.2 ml/min; Globulin 2.7 gm/dl (2.5-4.0); Magnesium 1.9 mg/dl (1.7-2.4); Potassium 4.9 mmol/L (3.5-5.1)
[2024-01-08] MEDS: OPTIRAY 320 100ml IV ONE (04:36)
[2024-01-08] MEDS: SODIUM CHLORIDE 0.9% 1,000 ML IV SCH ×2 (04:55→10:40)
--- NOTE | 2024-01-08 06:29 | Orthopedic Consultation ---
Date of Service January 08, 2024 Assessment & Plan (1) Closed right hip fracture: She is npo. Her INR is down to 1.9 today. Will review imaging with Dr. Dunbar. Planning on surgery today if medically optimized, for likely cannulated screw fixation of the right femoral neck vs arthroplasty. MRI is ordered for today and needs coordinated with [address]. Will decide on this after review ct scan with Dr. Dunbar. MRI has been cancelled. History of Present Illness Reason for Consultation: . Requesting Physician: . Attending Physician: Tomi Quan . Marce is a 88 year old patient that injured her right hip yesterday. She was walking and fell on concrete steps. Xrays obtained showed a likely right hip fr acture. She was admitted to the hospitalist service. She complains of right hip pain at this time. During the night she did have some RLQ pain and ct scan was obtained. She is on coumadin and was given vit K last night. Her INR today is 1.9. No hip pain prior to this fall. Allergies Allergy/AdvReac Type Severity Reaction Status Date / Time carvedilol Allergy Unknown Unknown Verified 01/07/24 16:18 lidocaine [From Xylocaine] AdvReac Severe passed out Verified 01/07/24 16:18 atorvastatin AdvReac Intermediate LEG CRAMPS Verified 01/07/24 16:18 pravastatin AdvReac Intermediate leg cramps Verified 01/07/24 16:18 simvastatin AdvReac Intermediate leg cramps Verified 01/07/24 16:18 Home Medications Medication Instructions Recorded Confirmed Type aspirin 81 mg tablet,delayed 81 mg PO QAM 06/14/19 01/07/24 History release cetirizine 10 mg tablet (Zyrtec) 10 mg PO DAILY PRN rhinitis 06/14/19 01/07/24 History hwngnemh-uwy-dqnne acid 0.4 1 tab PO HS 06/14/19 01/07/24 History mg-lycopene 300 mcg-lutein 250 mcg tablet (Centrum Silver) nitroglycerin 0.4 mg sublingual 0.4 mg sublingual Q5M PRN Chest 06/14/19 01/07/24 History tablet (Nitrostat) Pain Oxygen Home E0424 #1 ea 01/23/21 12/09/23 History calcium carbonate (Calcium 600) 600 mg PO QAM 01/23/21 01/07/24 History acetaminophen 650 mg 650 mg PO Q8H PRN Pain 08/02/22 01/07/24 History tablet,extended release cholecalciferol (vitamin D3) 25 25 mcg PO QPM 08/02/22 01/07/24 History mcg (1,000 unit) chewable tablet (Vitamin D3) metoprolol succinate 100 mg See Rx Instructions .Route .COMPLEX 08/11/22 01/07/24 History tablet,extended release 24 hr ipratropium 20 mcg-albuterol 100 1 puff inhalation QID PRN 12/15/22 01/07/24 Rx mcg/actuation mist for inhalation Shortness Of Breath #4 grams (Combivent Respimat) losartan 100 mg tablet (Cozaar) 100 mg PO QAM #90 tabs 02/09/23 01/07/24 Rx pantoprazole 40 mg tablet,delayed 40 mg PO HS #90 tabs 02/09/23 01/07/24 Rx release (Protonix) rosuvastatin 5 mg tablet 5 mg PO HS #90 tabs 02/09/23 01/07/24 Rx warfarin 2.5 mg tablet 2.5 mg PO UD 03/18/23 01/07/24 History amlodipine 2.5 mg tablet 2.5 mg PO QAM 01/07/24 01/07/24 History diphenhydramine HCl 25 mg tablet 25 mg PO HS 01/07/24 01/07/24 History (Benadryl Allergy) Past Med/Surg History Medical History Atrial fibrillation (~2014) on warfarin, follows with Dr. Wu > no cardioversions HX: breast cancer surgery with radiation treatments Hx of coronary artery disease 3 stents Hx of tachycardia-bradycardia syndrome S/P pacemaker Hx of renal artery stenosis Left kidney stent Hx of myocardial infarction per pt had a heart attack [place] [facility] [place] Carotid artery plaque Sleep apnea no CPAP, O2@3L nc History of COVID-19 (~10/10/20) [facility]--only symptom SOB > all recovered Secondary hyperparathyroidism no meds Prediabetes Barretts esophagus pt unaware Allergic rhinitis Aneurysm of abdominal aorta Has [address] for this. follows with Dr Mims Nontoxic multinodular goiter Stage III chronic kidney disease follows Dr. Hall History of anesthesia reaction passed out at age 29 when received xylocaine at dentist's office had a few years ago with EGD when numbed throat and no problems History of colon polyps Osteoporosis Osteoarthritis GERD (gastroesophageal reflux disease) History of cervical cancer 1970--surgical intervention On anticoagulant therapy warfarin daily Hyperlipidemia Hypertension Emphysema of lung rare use of inhaler On home oxygen therapy 3L N/C at hs Surgical History H/O mastectomy (01/17/21) Right breast total mastectomy with right axillary sentinel lymph node biopsy (right) Dr. Noah Diaz History of temporal artery biopsy (10/02/20) Right Temporal Artery Biopsy Dr. Diaz 10/02/2020 > negative History of stent insertion of renal artery left History of dilatation and curettage History of colonoscopy History of esophagogastroduodenoscopy (EGD) History of tooth extraction all teeth Pacemaker (~2016) medtronic @ [facility] > last interrogation 10/03/23 History of partial thyroidectomy enlarged nodule History of open reduction and internal fixation (ORIF) procedure left hip---hardware in place History of heart artery stent total of 3 stents--last before 2013 History of cardiac cath multiple--[id number] 3 stents total - last one was gal[place] 2013 History of repair of dissection of abdominal aorta 2008? @ [facility] has two stents in place by dr mims History of cataract surgery bilt History of total abdominal hysterectomy and bilateral salpingo-oophorectomy Family History Father , 93yo Coronary heart disease CHF (congestive heart failure) Mother , 81yo Coronary heart disease Hypertension Myocardial infarction Brother Alcoholism Lung cancer Sister Atrial fibrillation COPD (chronic obstructive pulmonary disease) Brother No problems noted. Brother Lung cancer Sister Lung cancer Colorectal cancer Sister No problems noted. Sister No problems noted. Sister No problems noted. Sister No problems noted. Son No problems noted. Son No problems noted. Son No problems noted. Daughter No problems noted. Daughter No problems noted. 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 Tile Burner Required: No Beliefs That Will Affect Care: None marital status: Current Living Situation: Family Current Living Situation Comment: Sons alternate living with her current occupational status: retired 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 How many Children do You have: 6 Other Information That Helps Us Care for You: No Feels Safe at Home: Yes Safety Concerns: Feels Safe At This Time Childhood Exposure to Second-Hand Smoke: No Diet: regular caffeine: Yes (3-4 cups/day) during the past year weight has: remained stable Dental Care, Regularly: No Physical Activity Frequency: Does not Exercise Seatbelt Use: always Sunscreen Use: Yes Assistive Devices: Denture - Upper, Denture - Lower, Hospital Bed, Oxygen - at Night, Oxygen - Continuous and Walker Review of Systems All systems reviewed & are unremarkable except as noted in HPI & below. Physical Exam . alert and oriented. NAD, but complaining of right hip pain Right leg: painful with limited range of motion/movement of the hip. Able to dorsiflex and plantarflex. NVI. No knee effusion. Results & Data Results & Data Laboratory Results . Diagnostic Findings . xrays reviewed and show possible right impacted right femoral neck fx ct of abd/pelvis reviewed and shows a right femoral neck fracture. PG Care Time/CCT Total # of Minutes Spent Total Time Spent with Patient: Total time spent is greater than 50% in coordination of care (as documented) at patient's floor/unit and/or counseling patient: Coding Level of Care Code 49287 IN/OBS CONSULT LVL 4,60M Diagnoses Closed right hip fracture S72.001A Encounter type: initial encounter (1) Closed right hip fracture Encounter type: initial encounter Qualified Code(s): S72.001A - Fracture of unspecified part of neck of right femur, initial encounter for closed fracture
[2024-01-08 08:06] LABS: Hematocrit (blood only) 29.4 % (37.0-47.0); Hemoglobin 9.4 g/dl (12.0-16.0)
[2024-01-08] MEDS: ASPIRIN 81 MG ECTAB PO SCH (08:11)
[2024-01-08] MEDS: METOPROLOL SUCC 50MG EXT REL TAB PO SCH (08:11)
[2024-01-08] MEDS ORDERED: SODIUM CHLORIDE 0.9% 250 ML IV PRN (08:21)
[2024-01-08] MEDS ORDERED: STAT IV/IM STA (08:30)
--- NOTE | 2024-01-08 08:36 | CT Scan Report ---
CT chest diagnostic wo con CT DOSE: 1961.12 mGy.cm CLINICAL HISTORY: 88 years-old Female with Right Rib Pain. Acute right-sided rib pain without report ed trauma TECHNIQUE: Multiaxial CT images of the chest were performed without contrast. A dose lowering techni que was utilized adhering to the principles of ALARA. COMPARISON: CT abdomen and pelvis of same day, chest CT 12/10/2022 FINDINGS: No thyroid nodule or lymphadenopathy. Dual-lead left subclavian pacer. Mild cardiomegaly wi th trace pericardial effusion. Extensive coronary artery calcifications. Atherosclerosis of aorta wit h ectasia measuring 3.8 x 3.7 cm. There is dilation of the main pulmonary artery suggestive of pulmon galdino arterial hypertension. There is no pneumothorax, pleural effusion or overt pulmonary edema. Severe pulmonary emphysema with bronchial wall thickening. Subpleural fibrosis of the lung bases with groundglass densities and intra lobular septal thickening suggestive of atelectasis. Mild bibasilar mucous plugging. No suspicious pu lmonary nodules or masses identified. Right apical pleural-parenchymal scarring. Central airways are patent. Cholelithiasis with gallbladder distention and equivocal gallbladder wall thickening. Right mastectom y. Degenerative changes of the shoulders and spine. No acute displaced rib fracture identified. Heale d chronic left-sided rib fractures noted. IMPRESSION: 1. Severe emphysema with bronchitis and mild bibasilar mucous plugging. 2. Evidence of pulmonary arterial hypertension. 3. No definite acute rib fracture or pneumothorax. 4. Cholelithiasis with gallbladder distention. Please refer to the CT abdomen and pelvis study of for additional findings. ACT 112: Negative or not required by law. Electronically signed by: Ezequiel Sigala M.D. 01/08/2024 8:34 AM
--- NOTE | 2024-01-08 08:36 | CT Scan Report ---
ABDOMEN AND PELVIS CT WITH IV CONTRAST CT DOSE: HISTORY: Right lower quadrant abdominal pain. TECHNIQUE: Multiaxial CT images of the abdomen and pelvis were performed following the use of intrave nous contrast. A dose lowering technique was utilized adhering to the principles of ALARA. COMPARISON STUDY: Abdomen and pelvis CT 12/06/2023. FINDINGS: The lung bases will be reported on the same day chest CT. Emphysema. No pneumoperitoneum. N o pneumatosis. Postoperative changes again noted within the left hip. There is a mildly displaced acu te intertrochanteric fracture within the right femur which extends into the right femoral neck. Sligh tly displaced acute right pubic ring fractures are also noted. Nondisplaced acute fracture within the right sacral wing. There are old, healed left rib fractures. Pacemaker wires are noted. Trace perihe patic ascites. A few small gallstones. Minimal pericholecystic fluid is noted. The main portal vein i s patent. The pancreas, spleen, and adrenal glands are unremarkable. Mild to moderate right hydrouret eronephrosis. This appears to be secondary to compression of the distal ureter by the large right pel ange hematoma. The right pelvic/extraperitoneal hematoma is best seen on image 309 and measures 12.5 x 7.6 cm. This demonstrates multiple foci of active arterial extravasation. This right pelvic hematoma results in left deviation of the bladder which is compressed. A Ellison catheter is in good position. This pelvic hematoma extends anteriorly and along the left side of the bladder. No bowel wall thicken ing or obstruction. Colonic diverticulosis. No evidence for acute diverticulitis. There is an aortic stent noted. Moderate to severe calcified plaque within the aorta and iliac arteries. No evidence for bowel obstruction. IMPRESSION: 1. Large pelvic/extraperitoneal hematoma predominantly on the right with the largest collection measu ring 12.5 x 7.6 cm. This demonstrates active arterial extravasation. 2. Acute right pubic ring fractures, right sacral fracture, and a right proximal femoral fracture. 3. This pelvic hematoma results in mass effect and leftward displacement of the bladder as well as mi ld to moderate right-sided hydronephrosis. 4. A few gallstones with minimal pericholecystic fluid. This is likely chronic. A developing acute ch olecystitis is considered less likely but not entirely excluded 5. Additional findings as described above. 6. This report was discussed with Dr. Herrera at 8:28 AM on 01/08/2024. ACT 112: Negative or not required by law. Electronically signed by: Jerry Campos M.D. 01/08/2024 8:35 AM
[2024-01-08] MEDS: fentaNYL citrate PF 100 MCG/2 ML VIAL ONE (08:45)
[2024-01-08] MEDS ORDERED: amLODIPine BESYLATE 5 MG TAB PO SCH (09:00)
[2024-01-08] MEDS: PROTHROMBIN COMP CONC- KCENTRA 2,000 UNITS in SYRINGE 0 ML IV SCH (09:04)
--- NOTE | 2024-01-08 09:07 | Hospitalist Progress Note ---
Date of Service January 08, 2024 Assessment & Plan (1) Osteoporotic hip fracture: Plan: Acute Blood loss anemia JUAREZ -Admit to med/tele on pulse oximetry -Currently hemodynamically stable and stable on RA -Presented to the ED after sustaining a mechanical fall walking up the front porch steps at her Nephew's house -Did not hit her head or lose consciousness -CXR negative for acute findings -Xray of the right hip/pelvis was read as "Impacted subcapital fracture of the right proximal femur." -No other focal trauma on exam Code purple called at 8:09 CT scan of hip is showing hematoma. Lowered head of the bed immediately, ordered IV bolus. Blood transufsions. Massive transfussion protocol with K centra. also ordered vitamin K. Patient appears lethargic, once head of bed lowered BP improved to over 95 systolic. Patient remained lethargic. Discussed with freezer machine operator. Will transfer to the ICU. Updated daughter on the phone once all the orders were placed. (2) Fall: Plan: -Mechanical in nature -Denies prodromal symptoms -Fall precautions -PT/OT consults (3) Supratherapeutic INR: Plan: -INR of 3.3 today -No signs of acute bleeding -Last dose of Warfarin was yesterday evening -IF OR tomorrow will reverse INR tonight -Hold Warfarin today regardless -Monitor daily INR (4) Hypertension: Plan: -Currently stable -Will plan to hold home losartan tomorrow to prevent perioperative hypotension -Continue metoprolol (5) Atrial fibrillation: Plan: -Currently in an atrial paced rhythm -INR is currently 3.3 -Last dose of Warfarin was yesterday evening -Hold Warfarin for now -If Surgery is scheduled for tomorrow will revers INR today -Continue metoprolol -Monitor daily INR (6) Hx of coronary artery disease: Plan: -Denies chest pain -Currently in an atrial paced rhythm -Continue aspirin and statin (7) On home oxygen therapy: Plan: -Uses 3L NC HS -Currently stable on RA -Continue prn O2 to keep SpO2 between 89-92% with her hx of COPD -Incentive spirometry, flutter therapy -QIDr prn DuoNebs Admission and Anticipated Discharge Date Admission Date: January 07, 2024 Subjective Was informed by nurse that blood pressure was low around 8:09. Patient was hypothermic, hypotensive, lethargic. Ordered IV fluids, code purple called. Review of Systems Review of Systems: All systems reviewed & are unremarkable except as noted in HPI & below Physical Exam Physical Exam: Patient found lethargic, pale. Patient was hypopneic. Results & Data Results & Data Vital Signs (Past 12 Hours) Vital Signs Temp Pulse Pulse Resp BP Pulse Ox O2 Del Method 01/08/24 08:19 8 L 94 Nasal Cannula 01/08/24 08:08 66 16 85/47 L 98 Nasal Cannula 01/08/24 05:45 Nasal Cannula 01/08/24 05:28 36.5 C 63 20 148/74 H 92 Nasal Cannula 01/07/24 23:51 36.5 C 67 20 115/73 97 Nasal Cannula 01/07/24 23:06 61 01/07/24 22:01 61 18 154/101 H 95 Nasal Cannula O2 Flow Rate 01/08/24 08:19 01/08/24 08:08 2 01/08/24 05:45 2.5 01/08/24 05:28 2.5 01/07/24 23:51 2.5 01/07/24 23:06 01/07/24 22:01 2.5 PG Care Time/CCT Total # of Minutes Spent Total Time Spent with Patient: Total time spent is greater than 50% in coordination of care (as documented) at patient's floor/unit and/or counseling patient: Critical Care Time: Yes Total Critical Care Time: 48 Plan is as discussed above. Please refer to orders for further planning. 48 minutes of critical care time spent in the management clinical coronation care of this patient today this critical care time spent independent of and in addition to any other time or critical care time any other practitioner today's date. Coding Level of Care Code None Diagnoses Osteoporotic hip fracture M80.059A Fall W19.XXXA Supratherapeutic INR R79.1 Hypertension I10 Atrial fibrillation I48.91 Hx of coronary artery disease Z86.79 On home oxygen therapy Z99.81 Additional Codes Critical Care Time - Critical Care Time: Yes ([id number]) Time Spent (min) 65
[2024-01-08 09:33] LABS: Hematocrit (blood only) 25.8 % (37.0-47.0); Hemoglobin 8.3 g/dl (12.0-16.0); Mean Corpuscular Hemoglobin 30.5 pg (25.0-34.0); Mean Corpuscular Hgb Conc 32.2 g/dL (32.0-36.0); Mean Corpuscular Volume 94.9 fL (80.0-100.0); Mean Platelet Volume 10.5 fL (9.4-12.4); Platelet Count 210 K/uL (130-400); RDW Coefficient of Variation 13.5 % (11.5-14.5); RDW Standard Deviation 46.1 fL (36.4-46.3); Red Blood Count 2.72 M/uL (4.20-5.40); White Blood Count 20.71 K/ul (4.8-10.8)
[2024-01-08 09:46] LABS: BUN Creatinine Ratio 17.1 (10-20); Calcium 7.1 mg/dl (8.6-10.3); Est GFR (African American) 30.9 ml/min; Est GFR (Non-African American) 26.6 ml/min; Potassium 4.8 mmol/L (3.5-5.1)
[2024-01-08 09:55] LABS: INR 1.6 (0.9-1.1); Partial Thromboplastin Ratio 1.2; Partial Thromboplastin Time 33 Seconds (21-31); Prothrombin Time 16.6 Seconds (9.0-12.0)
[2024-01-08 09:56] LABS: D Dimer 29830 ug/L FEU (0-500)
[2024-01-08] MEDS: HYDROmorphone INJ 0.5 MG/0.5 ML SYR ONE (09:58)
[2024-01-08 10:03] LABS: Fibrinogen 405 mg/dl (184-400)
--- NOTE | 2024-01-08 10:04 | Procedure Note ---
Procedure Note Date of Service January 08, 2024 Note Left radial ARTERIAL LINE PROCEDURE NOTE: Procedure: Arterial Line Placement Indication: Monitoring on Pressors Anesthesia: 8 mL lidocaine 1% Emergency consent was implied given the patient's acute hemorrhage and inability to obtain accurate noninvasive blood pressures. A time-out was completed verifying correct patient, procedure, site, positioning, and implant(s) or special equipment if applicable. Patients left wrist was prepped and draped in the usual sterile fashion. Ultrasound guidance was used to aid needle placement. A 20g Arrow arterial line was introduced into the left radial artery. Catheter was threaded, and the needle was removed with appropriate blood return. Good waveform was observed. The patient tolerated the procedure well. Blood Loss: Minimal Complications: None Coding CPT Codes Tubes, Drains, and Vasc Access - Tubes, Drains, and Vasc Access: [id number] Ultrasound Guidance For Vascular ([id number]) Tubes, Drains, and Vasc Access - Tubes, Drains, and Vasc Access: [id number] Arterial Cath/Cannulation Sampling/Monitoring/Transfusion ([id number]) [facility] [place] Procedure Codes (Charges) Tubes, Drains, and Vasc Access Procedure 1: Tubes, Drains, and Vasc Access: [id number] Ultrasound Guidance For Vascular Procedure 2: Tubes, Drains, and Vasc Access: [id number] Arterial Cath/Cannulation Sampling/Monitoring/Transfusion
--- NOTE | 2024-01-08 10:06 | Procedure Note ---
Procedure Note Date of Service January 08, 2024 Note Right internal jugular double-lumen 9 Citizen Of [place] introducer: Procedure: Internal Jugular Central Line Placement Indication: Central Drug Administration, Poor Venous Access, Multiple Lab Draws Necessary, etc. Anesthesia: None/8 mL lidocaine 1% Consent was signed and placed on the chart prior to procedure. Indication, risks, and benefits were explained at length. A time-out was completed verifying correct patient, procedure, site, positioning, and implants(s) or special equipment if applicable. Patients right neck was cleansed and draped in the typical sterile fashion using Chloraprep. The Internal Jugular Vein and Carotid Artery were identified using ultrasound. The superficial tissue was anesthetized using 8 mL of 1% lidocaine without epinephrine under direct visualization with the ultrasound. After adequate anes thetization was achieved, the Internal Jugular vein was cannulated under direct ultrasound guidance using an introducer needle on a syringe. Good venous blood return was maintained prior to removal of syringe from introducer needle. Using Seldinger Technique, a guide wire was advanced through the introducer needle without resistance. The introducer needle was removed and ultrasound images were obtained of the guide wire within the Internal Jugular Vein and saved to the patients medical record. A small incision was made in penetrating fashion at the guide wire insertion site utilizing an 11 blade scalpel. The dilator was advanced to the vessel without resistance. The dilator was exchanged for the triple lumen catheter which was advanced into the vessel without resistance. The guide wire was removed intact from the catheter without issue. Claves were placed on each catheter tip with confirmation of good blood flow from each lumen. Each port was easily flushed with sterile saline. The catheter was placed at 10 cm and sut[address] in place. BioPatch was applied to the catheter and a sterile Tegaderm dressing was applied over the catheter with careful attention to sterility. Patient tolerated procedure well. No immediate complications were met. Post procedure x-ray was completed, placement was appropriate and no pneumothorax was noted. Ultrasound was utilized throughout the procedure. Coding CPT Codes Tubes, Drains, and Vasc Access - Tubes, Drains, and Vasc Access: [id number] Place catheter in vein superior or inferior vena cava ([id number]) Tubes, Drains, and Vasc Access - Tubes, Drains, and Vasc Access: [id number] Ultrasound Guidance For Vascular ([id number]) [facility] [place] Procedure Codes (Charges) Tubes, Drains, and Vasc Access Procedure 1: Tubes, Drains, and Vasc Access: [id number] Place catheter in vein superior or inferior vena cava Procedure 2: Tubes, Drains, and Vasc Access: [id number] Ultrasound Guidance For Vascular
[2024-01-08] MEDS: fentaNYL 50 MCG/HR TDSY TD ONE (10:15)
[2024-01-08] MEDS: PHYTONADIONE 10 MG in DEXTROSE 5% 50 ML IV ONE (10:15)
--- NOTE | 2024-01-08 10:17 | Critical Care Consultation ---
Date of Consultation January 08, 2024 Assessment & Plan (1) Hemorrhagic shock: (2) Femur fracture: (3) Arterial hemorrhage: (4) Fall from standing: (5) Closed right hip fracture: (6) On home oxygen therapy: (7) Atrial fibrillation: Plan 88-year-old female with history of AAA repair, atrial fibrillation, pacemaker, severe COPD and breast cancer status postmastectomy who presented yesterday due to mechanical fall and was found to have a femur fracture and now with a large pelvic hematoma with active extravasation and hemodynamic compromise. Neurologic: Will continue with the use of as needed IV opiates given severe pain. Will need to monitor respiratory status closely his the patient is currently a DNI. May consider the use of IV ketamine to augment pain. Pulmonary: Patient with known history of severe emphysematous change and COPD. She is on chronic home oxygen. Chest x-ray without acute findings. Will need to watch closely for pulmonary edema and given massive transfusion protocol. Continue supplemental oxygen to maintain sats above 89%. Cardiovascular: Patient with extensive cardiac history including coronary artery disease, AAA repair and atrial fibrillation. INR currently reversed with PCC and vitamin K. Systolic blood pressures have markedly improved with the transfusion of 4 units of blood. Will monitor for signs of volume overload and heart failure. Holding all antiplatelets and anticoagulants at this time. Left radial arterial line p laced today. Gastrointestinal: NPO. Patient with evidence of cholelithiasis on CT abdomen. Will start Unasyn. Renal: Ellison catheter in place. Bladder noted to be shifted due to large pelvic hemat gabriel. Monitor urine output closely. Replace electrolytes as needed. Infectious disease: Unasyn started empirically given cholelithiasis and possible cholecystitis noted on CT abdomen pelvis. Hematologic: Respiratory treatment protocol initiated given large pelvic hematoma with active extravasation noted in the abdomen. Will contact tertiary care center for possible IR embolization and further trauma evaluation. 9 Austrian double-lumen introducer placed in the IJ. Patient with adequate IV access at this time. Endocrine: Maintain euglycemia. Lines and tubes: Ellison placed 01/07/2024. Left radial arterial line placed 01/08/2024. Right IJ introducer placed 01/08/2024. VTE prophylaxis: SCDs CODE STATUS: DNR/DNI Family at bedside: Son updated outside the room Disposition: ICU with potential transfer to tertiary center for IR embolization and further trauma assessment. Care coordinated with the bedside nurses, hospitalist service and ICU pharmacist. I have personally spent 98 minutes of critical care time in the direct management of this patient. This is a life/limb threatening event. This includes time spent evaluating patient, direct bedside care, chart review, placing orders, interpretation of diagnostic studies, discussion with consultants, patient, and family members, as well as other required patient management activities. This time is exclusive of all separately billable procedures, and teaching time and separate from and in addition to any other critical care service time. Thank you for allowing us to participate in the care of this patient. History of Present Illness Reason for Consultation: Hemorrhagic shock Attending Physician: Tomi Quna History of Present Illness History obtained from the patient and the patient's son. The patient is in extreme pain and gives limited history. I also discussed the case with the bedside nurse and daytime hospitalist. 88-year-old female with a history of AAA repair, pacemaker, right-sided breast cancer status postmastectomy and stage III CKD who presented yesterday to the ER due to a chemical fall while going up stairs to the house. Patient's son notes that she likely fell about 3 feet and fell on the right side of her body. She began having excruciating pain in her hip and was ultimately referred to the ER. Hip x-ray completed yesterday revealed impacted subcapital fracture of the right proximal femur. Patient became hemodynamically unstable overnight with worsening abdominal pain. CT abdomen and pelvis was ordered which revealed a large pelvic extraperitoneal hematoma with active arterial extravasation measuring 12.5 cm. I spoke with the radiologist and confirmed these findings. CT chest also revealed severe emphysematous findings. No fractures seen. There was gallbladder distention noted. She is brought to the ICU emergently after cyndy jamari was called on the floor due to pain and hypotension. Massive transfusion protocol was activated and the patient was given 2000 units of PCC. Right IJ 9 Austrian double-lumen introducer was placed by me due to poor vascular access. Patient only had 1 antecubital fossa 20-gauge IV in the left. Ellison catheter was already placed. Patient is currently receiving the massive transfusion protocol and had received approximately 4 units of packed RBCs at this time. Hemoglobin continues to downtrend to 8.3 from a baseline of approximately 13. Allergies Allergy/AdvReac Type Severity Reaction Status Date / Time carvedilol Allergy Unknown Unknown Verified 01/07/24 16:18 lidocaine [From Xylocaine] AdvReac Severe passed out Verified 01/07/24 16:18 atorvastatin AdvReac Intermediate LEG CRAMPS Verified 01/07/24 16:18 pravastatin AdvReac Intermediate leg cramps Verified 01/07/24 16:18 simvastatin AdvReac Intermediate leg cramps Verified 01/07/24 16:18 Home Medications Medication Instructions Recorded Confirmed Type aspirin 81 mg tablet,delayed 81 mg PO QAM 06/14/19 01/07/24 History release cetirizine 10 mg tablet (Zyrtec) 10 mg PO DAILY PRN rhinitis 06/14/19 01/07/24 History otiiobtx-xcc-pzshv acid 0.4 1 tab PO HS 06/14/19 01/07/24 History mg-lycopene 300 mcg-lutein 250 mcg tablet (Centrum Silver) nitroglycerin 0.4 mg sublingual 0.4 mg sublingual Q5M PRN Chest 06/14/19 01/07/24 History tablet (Nitrostat) Pain Oxygen Home E0424 #1 ea 01/23/21 12/09/23 History calcium carbonate (Calcium 600) 600 mg PO QAM 01/23/21 01/07/24 History acetaminophen 650 mg 650 mg PO Q8H PRN Pain 08/02/22 01/07/24 History tablet,extended release cholecalciferol (vitamin D3) 25 25 mcg PO QPM 08/02/22 01/07/24 History mcg (1,000 unit) chewable tablet (Vitamin D3) metoprolol succinate 100 mg See Rx Instructions .Route .COMPLEX 08/11/22 01/07/24 History tablet,extended release 24 hr ipratropium 20 mcg-albuterol 100 1 puff inhalation QID PRN 12/15/22 01/07/24 Rx mcg/actuation mist for inhalation Shortness Of Breath #4 grams (Combivent Respimat) losartan 100 mg tablet (Cozaar) 100 mg PO QAM #90 tabs 02/09/23 01/07/24 Rx pantoprazole 40 mg tablet,delayed 40 mg PO HS #90 tabs 02/09/23 01/07/24 Rx release (Protonix) rosuvastatin 5 mg tablet 5 mg PO HS #90 tabs 02/09/23 01/07/24 Rx warfarin 2.5 mg tablet 2.5 mg PO UD 03/18/23 01/07/24 History amlodipine 2.5 mg tablet 2.5 mg PO QAM 01/07/24 01/07/24 History diphenhydramine HCl 25 mg tablet 25 mg PO HS 01/07/24 01/07/24 History (Benadryl Allergy) Patient History Medical History (Updated 01/08/24 @ 10:17 by Shakeel Herrera MD) Arterial hemorrhage Femur fracture Hemorrhagic shock Atrial fibrillation (~2014) on warfarin, follows with Dr. Wu > no cardioversions HX: breast cancer surgery with radiation treatments Hx of coronary artery disease 3 stents Hx of tachycardia-bradycardia syndrome S/P pacemaker Hx of renal artery stenosis Left kidney stent Hx of myocardial infarction per pt had a heart attack during heart cath @ [facility] [place] 2008 Carotid artery plaque Sleep apnea no CPAP, O2@3L nc History of COVID-19 (~10/10/20) [facility]--only symptom SOB > all recovered Secondary hyperparathyroidism no meds Prediabetes Barretts esophagus pt unaware Allergic rhinitis Aneurysm of abdominal aorta Has [address] for this. follows with Dr Mims Nontoxic multinodular goiter Stage III chronic kidney disease follows Dr. Hall History of anesthesia reaction passed out at age 29 when received xylocaine at dentist's office had a few years ago with EGD when numbed throat and no problems History of colon polyps Osteoporosis Osteoarthritis GERD (gastroesophageal reflux disease) History of cervical cancer 1970--surgical intervention On anticoagulant therapy warfarin daily Hyperlipidemia Hypertension Emphysema of lung rare use of inhaler On home oxygen therapy 3L N/C at hs Surgical History H/O mastectomy (01/17/21) Right breast total mastectomy with right axillary sentinel lymph node biopsy (right) Dr. Noah Diaz History of temporal artery biopsy (10/02/20) Right Temporal Artery Biopsy Dr. Diaz 10/02/2020 > negative History of stent insertion of renal artery left History of dilatation and curettage History of colonoscopy History of esophagogastroduodenoscopy (EGD) History of tooth extraction all teeth Pacemaker (~2016) medtronic @ [facility] > last interrogation 10/03/23 History of partial thyroidectomy enlarged nodule History of open reduction and internal fixation (ORIF) procedure left hip---hardware in place History of heart artery stent total of 3 stents--last before 2013 History of cardiac cath multiple--[id number] 3 stents total - last one was [place] 2014 History of repair of dissection of abdominal aorta 2008? @ [facility] has two stents in place by dr mims History of cataract surgery bilt History of total abdominal hysterectomy and bilateral salpingo-oophorectomy Family History Father , 93yo Coronary heart disease CHF (congestive heart failure) Mother , 81yo Coronary heart disease Hypertension Myocardial infarction Brother Alcoholism Lung cancer Sister Atrial fibrillation COPD (chronic obstructive pulmonary disease) Brother No problems noted. Brother Lung cancer Sister Lung cancer Colorectal cancer Sister No problems noted. Sister No problems noted. Sister No problems noted. Sister No problems noted. Son No problems noted. Son No problems noted. Son No problems noted. Daughter No problems noted. Daughter No problems noted. Daughter COPD (chronic obstructive pulmonary disease) Other No family history of adverse response to anesthesia Denies family history of Ovarian cancer Prostate cancer Breast cancer Social History Smoking Status: Former smoker Tobacco Type: Cigarettes Age Started Using Tobacco: 16; Age Quit Using Tobacco: 36; packs per day: 2; Cigarettes Per Day: 2 PPD; Second Hand Exposure: No; Do You Dip or Chew Tobacco: No; Hx Alcohol Use: No Hx Substance Use: No Preferred Language: Eritrean Communication Ability: Effective Visual Impairment: No Limitations Hearing Ability: Normal Hotbed Operator Required: No Beliefs That Will Affect Care: None marital status: Current Living Situation: Family Current Living Situation Comment: Sons alternate living with her current occupational status: retired 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 How many Children do You have: 6 Other Information That Helps Us Care for You: No Feels Safe at Home: Yes Safety Concerns: Feels Safe At This Time Childhood Exposure to Second-Hand Smoke: No Diet: regular caffeine: Yes (3-4 cups/day) during the past year weight has: remained stable Dental Care, Regularly: No Physical Activity Frequency: Does not Exercise Seatbelt Use: always Sunscreen Use: Yes Assistive Devices: Denture - Upper, Denture - Lower, Hospital Bed, Oxygen - at Night, Oxygen - Continuous and Walker Review of Systems Review of Systems: All systems reviewed & are unremarkable except as noted in HPI & below Physical Exam Physical Exam: Constitutional: Patient appears to be of their stated age. Patient in severe distress with significant pain Eyes: Pupils are equal round and reactive to light. Conjunctivae are normal. Anicteric sclera. Ears nose, mouth and throat: Mallampati class 2. Normal posterior oropharynx. Uvula is midline. Neck: Trachea is midline. Visual inspection is normal. Respiratory: Clear to auscultation bilaterally. No use of accessory muscles. No significant clubbing noted. Cardiovascular: Regular rate and rhythm. No murmurs. No edema. Gastrointestinal: Severe tenderness to palpation noted on the lower quadrants of the abdomen. Bowel sounds are minimal. Musculoskeletal: Right leg is externally rotated and impacted. Severe pain noted on palpation of the right femur and hip region. Bruising noted. Skin: No rashes, warm dry and intact. Neurologic: No obvious focal neurological deficits seen. Psychiatric: Alert and oriented x3 with a euthymic affect. Results & Data Results & Data Vital Signs (Past 12 Hours) Vital Signs Temp Pulse Pulse Resp BP BP Pulse Ox 01/08/24 09:32 36.4 C L 72 16 130/70 96 01/08/24 09:30 36.4 C L 73 20 130/70 79 L 01/08/24 09:17 36.6 C 70 30 H 94 01/08/24 09:04 62 12 114/50 L 100 01/08/24 08:19 8 L 94 01/08/24 08:08 66 16 85/47 L 98 01/08/24 05:45 01/08/24 05:28 36.5 C 63 20 148/74 H 92 01/07/24 23:51 36.5 C 67 20 115/73 97 01/07/24 23:06 61 O2 Del Method O2 Flow Rate 01/08/24 09:32 15 01/08/24 09:30 15 01/08/24 09:17 15 01/08/24 09:04 01/08/24 08:19 Nasal Cannula 01/08/24 08:08 Nasal Cannula 2 01/08/24 05:45 Nasal Cannula 2.5 01/08/24 05:28 Nasal Cannula 2.5 01/07/24 23:51 Nasal Cannula 2.5 01/07/24 23:06 Coding Level of Care Code 61077 Prolonged Care (int'l) Diagnoses Hemorrhagic shock R57.8 Femur fracture S72.90XA Arterial hemorrhage R58 Fall from standing W19.XXXA Encounter type: initial encounter Closed right hip fracture S72.001A Encounter type: initial encounter On home oxygen therapy Z99.81 Atrial fibrillation I48.91 Time Spent (min) 98 (4) Fall from standing Encounter type: initial encounter Qualified Code(s): W19.XXXA - Unspecified fall, initial encounter (5) Closed right hip fracture Encounter type: initial encounter Qualified Code(s): S72.001A - Fracture of unspecified part of neck of right femur, initial encounter for closed fracture
--- NOTE | 2024-01-08 10:27 | XRay Report ---
XR chest 1V portable HISTORY: Status post right IJ catheter placement. COMPARISON: Chest 01/07/2024. FINDINGS: Interval placement of a right jugular central venous catheter which terminates at the brach iocephalic/SVC junction. No pneumothorax. The heart is mildly enlarged. There is left-sided dual-ya noris pacemaker. Chronic interstitial thickening at the lung bases persists. Emphysema. IMPRESSION: The right jugular central venous catheter terminates at the brachiocephalic/SVC junction. No pneumoth orax. ACT 112: Negative or not required by law. Electronically signed by: Jerry Campos M.D. 01/08/2024 10:25 AM
[2024-01-08] MEDS: HYDROmorphone INJ 0.5 MG/0.5 ML SYR IV PRN (10:37)
[2024-01-08] MEDS: AMPICILLIN SOD/SULBACTAM SOD 3,000 MG in SODIUM CHLOR 0.9% MINI-B 100 ML IV SCH (10:40)
[2024-01-08 10:57] VITALS: TEMP 97.7
[2024-01-08] MEDS: COAGULATION FACTOR VIIA IV STA (11:07)
[2024-01-08 11:14] LABS: Hematocrit (blood only) 36.5 % (37.0-47.0); Hemoglobin 11.9 g/dl (12.0-16.0); Mean Corpuscular Hemoglobin 29.9 pg (25.0-34.0); Mean Corpuscular Hgb Conc 32.6 g/dL (32.0-36.0); Mean Corpuscular Volume 91.7 fL (80.0-100.0); Mean Platelet Volume 9.7 fL (9.4-12.4); Platelet Count 143 K/uL (130-400); Red Blood Count 3.98 M/uL (4.20-5.40); White Blood Count 16.98 K/ul (4.8-10.8)
[2024-01-08 11:29] VITALS: BP 216/73
[2024-01-08 11:47] VITALS: PULSE 78; RESP 19; O2SAT 88
--- NOTE | 2024-01-08 17:57 | Discharge Summary ---
Date of Service January 08, 2024 Admission HPI Per Admitting Provider Marce is a 88 year old female with a PMH significant for hypertension, renal artery stenosis, A. fib (on Warfarin), hyperlipidemia, CAD, S/P pacemaker placement, COPD (On HS O2), CKD3, secondary hyperparathyroidism, prediabetes, and Lorenzana's esophagus who presented to the [facility] ED on 01/07/24 after sustaining a fall at home while walking up her porch steps, landing on her right side and sustaining right hip fracture. EMS reported that the patient was saturating in the mid 80's on RA, she was subsequently placed on 3L NC. On arrival to the ED she was noted to by hypertensive at 175/121, stable on 3L NC, but otherwise stable. Labs were significant for a leukocytosis of 15 with neutrophil predominance of 13, INR of 3.3, and UA without signs of infection. CXR was read as negative for acute findings. "Impacted subcapital fracture of the right proximal femur.". Prior to admission the patient was given 1L NSS, 1gm IV tylenol, 2 doses of 1mg IV morphine, 2 doses of 4 mg IV zofran, and 20 mg IV famotidine. At the time of the exam the patient was lying in bed in no acute distress. States that she was in her normal state of health when she went to visit her Nephew today with her son. While walking up the front porch steps her right foot caught one of the steps, causing her to fall forward and land on her right side. She denies feeling lightheaded, dizzy, or having chest pain, SOB, or palpitations prior to her fall. She did not hit her head or lose consciousness. Her only complaints at this time are RLE pain, right lower rib pain, and feeling thirsty. She did have her am medications today but did not have her home dose of Warfarin yet. Denies current fever, chills, chest pain, SOB, cough, abd pain, nausea, vomiting, diarrhea, dysuria hematuria melena. She uses 3L NC HS and is a DNR/DNI with her daughter being her POA. Please refer to Dr. Mast's attestation for any changes to the treatment plan Principal Diagnosis acute blood loss anemia Discharge Exam Patient found lethargic, pale. Patient was hypopneic. Discharge Data Allergies Allergy/AdvReac Type Severity Reaction Status Date / Time carvedilol Allergy Unknown Unknown Verified 01/07/24 16:18 lidocaine [From Xylocaine] AdvReac Severe passed out Verified 01/07/24 16:18 atorvastatin AdvReac Intermediate LEG CRAMPS Verified 01/07/24 16:18 pravastatin AdvReac Intermediate leg cramps Verified 01/07/24 16:18 simvastatin AdvReac Intermediate leg cramps Verified 01/07/24 16:18 Consultations 01/07/24 15:18 ED Decision to Admit Stat 01/07/24 15:49 Consult Orthopedic Surgery Routine 01/08/24 11:11 Burn CD for patient Stat Procedures Performed Operation Date: 01/08/24 07:00 <No data on this case meets the specified criteria> Ordered Studies 01/08/24 03:23 CT Abd and Pelvis [CT abd pelvis IV con only] Urgent CT chest diagnostic wo con Urgent Hospital Course (1) Osteoporotic hip fracture: Acute Blood loss anemia JUAREZ -Admit to med/tele on pulse oximetry -Currently hemodynamically stable and stable on RA -Presented to the ED after sustaining a mechanical fall walking up the front porch steps at her Nephew's house -Did not hit her head or lose consciousness -CXR negative for acute findings -Xray of the right hip/pelvis was read as "Impacted subcapital fracture of the right proximal femur." -No other focal trauma on exam Code jamari called at 8:09 CT scan of hip is showing hematoma. Lowered head of the bed immediately, ordered IV bolus. Blood transufsions. Massive transfussion protocol with K centra. also ordered vitamin K. Patient appears lethargic, once head of bed lowered BP improved to over 95 systolic. Patient remained lethargic. Discussed with binding cutter synthetic cloth. Will transfer to the ICU. Updated daughter on the phone once all the orders were placed. Called tertiary center, patient was accepted for IR due to arterial extravasation noted on imafing. PCC was ordered for patient. Patient was life flighted. (2) Fall: -Mechanical in nature -Denies prodromal symptoms -Fall precautions -PT/OT consults (3) Supratherapeutic INR: -INR of 3.3 today -No signs of acute bleeding -Last dose of Warfarin was yesterday evening -IF OR tomorrow will reverse INR tonight -Hold Warfarin today regardless -Monitor daily INR (4) Hypertension: -Currently stable -Will plan to hold home losartan tomorrow to prevent perioperative hypotension -Continue metoprolol (5) Atrial fibrillation: -Currently in an atrial paced rhythm -INR is currently 3.3 -Last dose of Warfarin was yesterday evening -Hold Warfarin for now -If Surgery is scheduled for tomorrow will revers INR today -Continue metoprolol -Monitor daily INR (6) Hx of coronary artery disease: -Denies chest pain -Currently in an atrial paced rhythm -Continue aspirin and statin (7) On home oxygen therapy: -Uses 3L NC HS -Currently stable on RA -Continue prn O2 to keep SpO2 between 89-92% with her hx of COPD -Incentive spirometry, flutter therapy -QIDr prn DuoNebs Total Time Total Time Spent Total Time Spent (In Minutes): 90 Discharge Plan Discharge Items Patient Disposition: Transfer Acute Care Hospital Reason For Visit: FALL, RIGHT HIP FRACTURE Discharge Diagnosis: right hip fracture hematoma Activity: As commented below Exercise/Sports: Rest today Non-emergency contact: Primary Care Provider Call non-emergency contact if: you have any medication questions Follow-up/Referrals: Maximus Gonzalez MD [Primary Care Provider] - Diet: Nothing by Mouth Addtl Attending Provider Instructions: transferred to [place] Pending Studies at Discharge: No Stand-Alone Forms: My [facility] Skilled Items Patient informed of condition?: Yes DNR: Yes Discharge Level of Care: Other Communicable Disease: No Discharge Prognosis: Other Lines: Peripheral IV Urinary Catheter: Yes Medications and DC Order Prescriptions: Continued warfarin 2.5 mg tablet 2.5 mg PO UD Rx Instructions: Take 1.25mg by mouth on Sat/Sun/Tues/Thurs and 2.5mg all other days in the evening. Combivent Respimat 20-100 mcg/actuation mist 1 puff INH QID PRN (Reason: Shortness Of Breath) Qty: 4 5RF Rx Instructions: One puff inhalation four times daily PRN; space evenly during waking hours pantoprazole [Protonix] 40 mg tablet,delayed release (DR/EC) 40 mg PO HS Qty: 90 3RF rosuvastatin 5 mg tablet 5 mg PO HS Qty: 90 3RF losartan [Cozaar] 100 mg tablet 100 mg PO QAM Qty: 90 3RF (DME) Oxygen Home E0424 Liters Per Minute See Rx Instructions .ROUTE .MEDSUPPLY Qty: 1 Rx Instructions: As directed 3 liter @ night metoprolol succinate 100 mg tablet extended release 24 hr See Rx Instructions .ROUTE .COMPLEX Rx Instructions: Take 100mg by mouth in the morning and 50mg by mouth at bedtime cetirizine [Zyrtec] 10 mg tablet 10 mg PO DAILY PRN (Reason: rhinitis) aspirin 81 mg tablet,delayed release (DR/EC) 81 mg PO QAM nitroglycerin [Nitrostat] 0.4 mg tablet, sublingual 0.4 mg SL Q5M PRN (Reason: Chest Pain) Rx Instructions: place 1 tab under tongue every 5 minutes as needed for chest pain. every 5 min x 3 if not relieved call 911 Centrum Silver 0.4-300-250 mg-mcg-mcg tablet 1 tab PO HS calcium carbonate [Calcium 600] 600 mg calcium (1,500 mg) tablet 600 mg PO QAM cholecalciferol (vitamin D3) [Vitamin D3] 25 mcg (1,000 unit) Tablet,Chewable 25 mcg PO QPM acetaminophen 650 mg Tablet Extended Release 650 mg PO Q8H PRN (Reason: Pain) amlodipine 2.5 mg tablet 2.5 mg PO QAM diphenhydramine HCl [Benadryl Allergy] 25 mg Tablet 25 mg PO HS Discharge Orders: Discharge Order (Routine); Ordered 01/08/24 Ordered By: Tomi Quan Admission Data Admit Date/Time: 01/07/24 15:33 Attending Provider: Tomi Quan Admit Provider: Rajiv Mast Primary Care Provider: Maximus Gonzalez Other Providers: Rajiv Mast; Fadi Dunbar Coding Level of Care Code 94225 INP/OBS DISCH >30 MIN Diagnoses Osteoporotic hip fracture M80.059A Fall W19.XXXA Supratherapeutic INR R79.1 Hypertension I10 Atrial fibrillation I48.91 Hx of coronary artery disease Z86.79 On home oxygen therapy Z99.81
--- NOTE | 2024-01-10 21:22 | Electrocardiogram Report ---
Test Reason : Blood Pressure : / mmHG Vent. Rate : 060 BPM Atrial Rate : 060 BPM P-R Int : 232 ms QRS Dur : 074 ms QT Int : 418 ms P-R-T Axes : 000 044 004 degrees QTc Int : 418 ms Atrial-paced rhythm with prolonged AV conduction Low voltage QRS Cannot rule out Anterior infarct , age undetermined Abnormal ECG When compared with ECG of 06-DEC-2023 21:07, Minimal criteria for Anterior infarct are now Present Nonspecific T wave abnormality no longer evident in Lateral leads Confirmed by Tho Rice ([id number]) on 01/10/2024 9:22:32 PM Referred By: Srinivasan Gonzalez Confirmed By:Tho Rice
== END 2024-01-08 12:37 | disposition short-term general hospital (02) | DRG 542 ==
LOC: ED 12:08 → SUATTDRO 15:33 → EDINP 15:33 → 2N 16:29 → 1E 01-08 08:42